=== PATIENT | male | born 1940 | race Caucasian/White ===

== ENCOUNTER 2020-10-21 10:52 | Outpatient (REF) | payer MEDICARE, OTHER, SELFPAY ==
--- NOTE | 2020-10-22 12:48 | MHC.AU.AEV ---
Adult Audiological Evaluation Date of Visit: 10/21/20 Reason for Appointment: History of hearing loss. Patient wears binaural Wilson ITC hearing aids. He arrives today to determine if there has been a change in hearing. Patient reports that without his hearing aids, he is unable to follow along in conversation. History of constant, high-pitched tinnitus. Has hearing been tested previously?: Yes Previous Hearing Test Results: Tested at the [facility] (date of exam could not be found on the information provided)- Mild to moderately-severe sensorineural hearing loss bilaterally Hearing Handicap Inventory Does a hearing problem cause you to feel embarrassed when meeting new people?: Yes Does a hearing problem cause you to feel frustrated when talking to members of your family?: Yes Do you have difficulty when someone speaks in a whisper?: Yes Do you feel handicapped by a hearing problem?: Yes Does a hearing problem cause you difficulty when visiting friends, relatives, or neighbors?: Yes Does a hearing problem cause you to attend mu-ism service services less often than you would like?: No Does a hearing problem cause you to have arguments with family members?: No Does a hearing problem cause you difficulty when listening to TV or radio?: Yes Do you feel that any difficult with your hearing limits or hampers your personal or social life?: Yes Does a hearing problem cause you difficulty when in a restaurants with relatives or friends?: Yes HHIE SCORE: 32 Based on HHIE score, patient has: Severe perceived hearing handicap Ear History: Ear Deformity: None Reported Recent Ear Drainage: None Reported Recent Ear Pain: None Reported Recent Ear Infections: None Reported Ear Infections in Childhood: None Reported History of Ear Wax Buildup: None Reported Previous Ear Surgery: None Reported Bothersome Tinnitus/Ringing/Noises in Ears: Both Ears Ear used on the phone: Right Ear Blocked/Full Sensation in Ear(s): Both Ears History: History: Yes Branch: [employer] Years in : 4-8 Years Medical History: Medical History: Heart Problems, High Blood Pressure, Measles, Mumps Medical History: Pacemaker- 2018, Cornea Transplant 2002 Medication List: Amlodipine, Brimonidine, Eliquis, Fosrenol, Lumigan, Metoprolol, Renvela, Restasis, Sensipar Hearing Instrument History- Right Ear: Health Administrator: Wilson Model: ITC Dispensed By: [facility] Hearing Instrument History- Left Ear: Health Administrator: Wilson Model: ITC Dispensed By: [facility] Otoscopy: Right Ear: Unremarkable Left Ear: Unremarkable Tympanometry: Tympanometry performed due to: To assess integrity of the middle ear system Right Ear: Non-compliant Middle Ear System (Type B) Left Ear: Non-compliant Middle Ear System (Type B) Hearing Evaluation: Transducer(s) Used: Insert Earphones Method: Conventional Audiometry Stimuli Used: Pure Tones Right Ear: Description of Hearing: Moderate to severe sensorineural hearing loss Left Ear: Description of Hearing: Moderate to severe sensorineural hearing loss Speech Recognition Threshold (SRT): Method Used: Recorded Lists Stimuli Used: Spondee Words Right Ear: 60 dBHL Left Ear: 60 dBHL Word Discrimination: Method: Recorded Lists Word Lists Used:: NU-6 Right Ear: 84% at 85 dBHL (MCL) Left Ear: 88% at 80 dBHL (MCL) Binaural: Tested binaurally at 60 dBHL (average conversational volume): 72% Most Comfortable Level (MCL): Right Ear: 85 dBHL Left Ear: 80 dBHL QuickSIN: Tested binaurally (unaided) at 80 dBHL: 11 dB SNR Loss, which suggests moderately elevated difficulty listening in noise Aided Testing: Aided word discrimination tested in soundfield at 50 dBHL: 96% Comparison: Compared to the most recent evaluation: Thresholds have decreased bilaterally. Interpretation of Results: Patient presents with moderate to severe sensorineural hearing loss bilaterally. Given this degree of hearing loss, it is expected that he would have significant difficulty following along in a conversation without amplification. Recommendations: Audiological re-evaluation in one year. Given the decrease in his hearing, [facility]. Diagnosis: Primary Diagnosis: H90.3 Bilateral Sensorineural Hearing Loss Services Performed: Comprehensive Audiological Evaluation (CPT 47011), Tympanometry (CPT 53873) Signature: Provider: Ricki Pablo, CCC-A
== END 2020-10-21 10:53 | disposition home or self-care (01) ==
LOC: HO.SH 10:52
PROVIDERS: Visit Provider Internal Medicine
DX: H90.3 Sensorineural hearing loss, bilateral (principal)
CPT/HCPCS: 92557; 92567

== ENCOUNTER 2025-03-30 07:23 | Outpatient (REF) | payer SELFPAY ==
--- OUTSIDE RECORDS SUMMARY | 2025-03-31 07:27 | XMS_ITS | Data Portability ---
Author Organization [facility] [address], Main Office Address [address], [address] [place] [address] Care Team Providers Care Wildlife Biology Technician Name Role Phone MELISSA SHEPPARD 1ST FLOOR OTHER Assessment Encounter Date Assessment Date Assessment LastModified by Organization Details LastModified Time 11/15/2024 11/15/2024 Labs 11/08/24 CRP 14.4, ESR 107 11/14/24. Na 132, K 4.2, Bun 33, Cr 3.27. Wbc 7.4, Hgb 9.8, Plt 262. [email or web address] Not available 11/15/2024 15:15:41 12/25/2024 12/25/2024 Spent 30 reviewing records, seeing pt, consulting with staff and documenting [email or web address] Not available 12/27/2024 15:33:49 Plan of Treatment Reminders Order Date Submit Date Provider Last Modified By Organization Details Last Modified Time Details Appointments None record ed. Lab None record ed. Referral None record ed. Procedures None record ed. Surgeries None record ed. Imaging None record ed. Medication Orders None record ed. Patient TargetsNo targets recorded. Patient InstructionsNo instructions recorded. Reason for Referral None Reported. Problems Name Problem SNOMED Code Status Onset Date Resolution Date Notes Provider Name and Address Organization Details Recorded Time Lower gastrointestin al hemorrhage 14258761 Active 2024 Cisco Fontaine MD [address] [facility], [address], [place], [address], [facility] 5 10:24:56 Malignant neoplasm of colon 513295155 Active 2024 Cisco Fontaine MD [address] [facility], [address], [place], [address], [facility] 5 10:25:05 End stage renal failure on dialysis 469812958 Active 2024 Cisco Fontaine MD [address], [address], [place], [address], [facility] 5 10:25:12 Atrial fibrillation 30498500 Active 2024 Cisco Fontaine MD [address], [address], [place], [address], [facility] 5 10:25:17 Diabetes mellitus 61238126 Active 2024 Cisco Fontaine MD [address], [address], [place], [address], [facility] 5 10:25:21 Essential hypertension 31790556 Active 2024 Cisco Fontaine MD [address], [address], [place], [address], [facility] 5 10:25:27 Central sleep apnea syndrome 98324545 Active 2024 NEETU HALE [address], [address], [place], [address], [facility] 5 10:01:37 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 Medical Equipment None Reported. Allergies Allergen ID Allergen Name Allergen Category Reaction Reaction Severity Criticality Documentation Date Start Date Code Code System Note Provider Name and Address Organization Details Recorded Time 62982 Substance with sulfonami de structure and antibacte rial mechanism of action (substanc e) medicatio n itching Not available Not available 08/28/20242008 17831 8003 SNOMED Carmela Vera MD [address] [facility], [address], [place], [address], [facility] 5 14:09:56 Vitals Date Recorded Heart rate Respiratory rate Body temperature Oxygen saturation Oxygen saturation in Arterial blood by Pulse oximetry Systolic And Diastolic Provider Name and Address Organization Details Last Updated DateTime 5 68 /min 18 /min 97.9 [degF] 92 % 92 % 156/73 mm[Hg] JOAQUIN BLAND NP [address] [facility], [address], [place], [address], [facility] 5 13:41:07 Date Recorded Heart rate Respiratory rate Body temperature Oxygen saturation Oxygen saturation in Arterial blood by Pulse oximetry Systolic And Diastolic Provider Name and Address Organization Details Last Updated DateTime 5 74 /min 17 /min 98 [degF] 96 % 96 % 148/65 mm[Hg] PHANI HERRMANN CNP [address] [facility], [address], [place], [address], [facility] 5 15:03:50 Date Recorded Body height Body mass index (BMI) Body weight Heart rate Respiratory rate Body temperature Oxygen saturation Oxygen saturation in Arterial blood by Pulse oximetry Systolic And Diastolic Provider Name and Address Organization Details Last Updated DateTime 5 165.1 cm 25 kg/m2 66479.8 6 g 62 /min 18 /min 98 [degF] 95 % 95 % 127/59 mm[Hg] Carmela Vera MD [address] [facility], [address], [place], [address], [facility] 5 15:09:10 Social History Question Answer Notes LastModified by Organizat ion Details LastModified Time Tobacco Smoking Status Former Smoker Smoked 1/3 ppd from 1981- Carmela Vera MD [address] [facility], [address], [place], [address], [facility] 12/25/2024 16:08:44 Do You Have An Advance Directive? Yes Information not available 08/28/2024 What Is Your Level Of Caffeine Consumption? Occasional Information not available 09/07/2024 What Is Your Code Status? Full Code Information not available 08/28/2024 Where Do You Live? Nursinghome Now LTC At Until Safe D/c Plan Reached Information not available 12/25/2024 Legal Guardian? No Informati on not available 12/25/2024 Do You Have A Medical Power Of Legend Maker? Yes Not Invoked Information not available 12/25/2024 What Was The Date Of Your Most Recent Tobacco Screening? 09/07/2024 Information not available 09/07/2024 Do You Have An Out Of Hospital DNR? No Information not available 09/07/2024 What Is Your Relationship Status? 1st At 27 Of Breast CA, 2nd In Her 30s Of Breast CA, And 3rd In 2000 Of Lung CA Information not available 12/25/2024 How Much Tobacco Do You Smoke? No Information not available 12/25/2024 Has Tobacco Cessation Counseling Been Provided? No N/a As Pt No Longer Smokes Information not available 12/25/2024 How Many Years Have You Smoked Tobacco? 10 Information not available 12/25/2024 Sex: Unknown Functional Status Question Answer Note LastModified by Organizat ion Details LastModified Time Do you use any illicit or recreational drugs? No Information not available 12/25/2024 Do you or have you ever used any other forms of tobacco or nicotine? No Information not available 09/07/2024 What is your level of alcohol consumption? None quit in 1990 Information not available 12/25/2024 Mental Status None recorded. Family History Relationship Description Onset Age of this Age Resolved Age Notes LastModified by Organization Details LastModified Time Father No current problems or disability Not available 09/07 10:29:09 Mother No current problems or disability Not available 09/07 10:29:10 Notes:N/C Medical History No medical history recorded. Immunizations Vaccine Type Date Status Note Provider Nam e and Address Organization Details Recorded Time Td(adult) unspecified formulation 6 completed Jomar Zeuss-[place] null, [facility] 08/27/2024 13:45:20 Pneumococcal conjugate PCV 13 3 completed Jomar Jacks-[place] null, [facility] 08/27/2024 13:45:34 pneumococcal polysaccharide PPV23 7 completed Jomar Jacks-[place] null, [facility] 08/27/2024 13:45:43 SARS-COV-2 (COVID-19) vaccine, UNSPECIFIED 1 completed [facility] [facility] [place], [facility] 08/27/2024 13:45:55 SARS-COV-2 (COVID-19) vaccine, UNSPECIFIED 1 completed [employer] null, [facility] 08/27/2024 13:45:59 SARS-COV-2 (COVID-19) vaccine, UNSPECIFIED 1 completed [employer] null, [facility] 08/27/2024 13:46:05 SARS-COV-2 (COVID-19) vaccine, UNSPECIFIED 2 completed [employer] null, [facility] 08/27/2024 13:46:09 SARS-COV-2 (COVID-19) vaccine, UNSPECIFIED 2 completed Jomar kiwi666s-[place] null, [facility] 08/27/2024 13:46:13 SARS-COV-2 (COVID-19) vaccine, UNSPECIFIED 4 completed Jomar Jacks-[place] null, [facility] 08/27/2024 13:46:17 SARS-COV-2 (COVID-19) vaccine, UNSPECIFIED 4 completed Jomar Jacks-[place] null, [facility] 08/27/2024 13:46:23 zoster, unspecified formulation 1 completed Jomar Jacks-[place] null, [facility] 08/27/2024 13:46:40 zoster, unspecified formulation 2 completed Jomar pandya [place] - [facility] 08/27/2024 13:46:46 Past Encounters Encounter ID Performer Location Encounter Start Date Encounter Closed Date Diagnosis/Indication Diagnosis SNOMED-CT Code Diagnosis ICD10 Code Diagnosis IMO Codes Diagnosis Note [id number] NEETU HALE [place]AR[place] [address] [place] [address] 09/07/2024 08:53:13 09/11/2024 16:13:33 Lower gastrointestinal hemorrhage 10584109 K92.2 see hpiCTA showed no active bleed Atrial fibrillation 4943 6004 I48.91 Paroxysmal eliquis on hold until 09/10/24Hear t rate controlled .continue metoprolol follow up with cardiology as planned End stage renal failure on dialysis 530266596 N18.6 continue MWF dialysisco ntinue sevelamer 3200 mg TID with mealscont gabapentin 100 mg TID after dialysisLi docaine-Pr ilocaine External Cream 2.5-2.5 % before HDavoid nephrotoxi c medsdiscus sed with nursing to give metoprolol after dialysis Diabetes mellitus 129947 09 E11.9 no current accuchecks in pccwill add TID for 1 week with lispro SSCwill change to weekly is accuchecks are stable under 200s Essential hypertension 65610551 I10 HX pacemakerm etoprolol initial held in acute care for soft BP /discharge d on 12.5 mg qd and 25 mg qpmSBP now noted mainly 170-180swi ll increase metoprolol to 25 mg BID with parameter to hold for SBP less than 120 and HR less than 60 Central sl eep apnea syndrome 12491725 G47.37 with milo Grullon respiratio ncontinue CPAP Malignant neoplasm of colon 583047801 C18.9 Colonoscop y revealed a 3 cm mass in the ascending colon was biopsied. Path ultimately showed tubulovill ous adenomatou s fragments. He was evaluated by general surgery and several days later had repeated rectal bleeding. He underwent a repeat colonoscop y on 08/20 which time a 35 mm polyp in the proximal ascending colon was resected with residual polyp ablated and clipped. Asthenia 92566153 R53.1 PT/OT eval and txMorse 10maintain ed safety [id number] MD MELISSA Mohr [place] [address] [facility] [place] [address] 09/10/2024 09:42:06 09/12/2024 08:35:01 Lower gastrointestinal hemorrhage 98847156 K92.1 see HPI with recurrent bleedsecon dylan to new dx colon cancertx with pRBCmonito r cbceliquis initially held then restarted in hospital with prior bleed now with recurrent bleed to restarteli cade 2.5 mg bidd/c AC for any signs of bleeding Malignant neoplasm of colon 482817141 C18.8 new dx for patienttub ulovillous adenoma with multiple polyps excised to have repeat colonoscop y in 3 monthsEval by surgery now to f/u out patient for treatment optionscoo rdinate care after treatment options determined Acute post hemorrhagic anemia 664752686 D62 see abovemonit or cbciron studies prn Asthenia 87177091 R53.1 PT OT eval and treatmonit or fall risk and need for increased support in community End stage renal failure on dialysis 067007819 N18.6 HD on T/T/Sadded to PMHcoordin ate with nephroupda te with concerns Atrial fibrillation 4943 6004 I48.0 eliquis initially held then restarted in hospital with prior bleed now with recurrent bleed to restarteli cade 2.5 mg bidmetopro lol 25 mg qhs and 12.5 mg qammonitor for rate controld/c AC for any signs of bleeding Diabetes mellitus 998715 09 E11.21 carrying dxappears diet controlled at this timeblood glucose prn Essential hypertension 80988620 I10 metoprolol 25 mg qhs and 12.5 mg qammonitor bp and need to titrate Peripheral neuropathy due to type 2 diabetes mellitus 4901723668 107 E11.42 gabapentin 100 mg 3 days per week after HD Acute cough 6207525644 68643586 R05.1 non productive reassess with cxr [id number] KATHARINE STAUFFER [place] [address] [facility] [place] [address] 09/17/2024 08:54:55 09/24/2024 11:21:13 Lower gastrointestinal hemorrhage 65309493 K92.1 No bleeding noted since he admitted to facility.s ee HPI with recurrent bleedsecon dylan to new dx colon cancertx with pRBCH/H stable. continue monitor cbceliquis initially held then restarted in hospital with prior bleed now with recurrent bleed to restarteli cade 2.5 mg bidd/c AC for any signs of bleeding Atrial fibrillation 4943 6004 I48.0 HR stable.magy cade initially held then restarted in hospital with prior bleed now with recurrent bleed to restarteli cade 2.5 mg bidmetopro lol 25 mg qhs and 12.5 mg qammonitor for rate controld/c AC for any signs of bleeding Malignant neoplasm of colon 462658376 C18.8 new dx for patienttub ulovillous adenoma with multiple polyps excised to have repeat colonoscop y in 3 monthsEval by surgery now to f/u out patient for treatment optionscoo rdinate care after treatment options determined monitor any signs of bleeding. Acute post hemorrhagic anemia 791394703 D62 see aboveH/H stable.mon itor cbciron studies prn Asthenia 76570648 R53.1 continue PT OT eval and treatmonit or fall risk and need for increased support in community End stage renal failure on dialysis 903756370 N18.6 HD on T/T/Sadded to PMHcoordin ate with nephroupda te with concerns Diabetes mellitus 727235 09 E11.21 carrying dxappears diet controlled at this timeblood glucose prn Essential hypertension 36620649 I10 metoprolol 25 mg qhs and 12.5 mg qammonitor bp and need to titrateadd ed PRN clonidine, 0.1 mg BID with parameters . Peripheral neuropathy due to type 2 diabetes mellitus 3624909531 107 E11.42 gabapentin 100 mg 3 days per week after HD [id number] PHANI HERRMANN, KATHARINE TORRES VALARIE [address] [place] [address] rd [place] [address] 09/24/2024 08:48:37 09/30/2024 08:20:27 Lower gastrointestinal hemorrhage 58319534 K92.1 resolved.N o bleeding noted since he admitted to facility.s ee HPI with recurrent bleedsecon dylan to new dx colon cancertx with pRBCH/H stable. continue monitor cbceliquis initially held then restarted in hospital with prior bleed now with recurrent bleed to restarteli cade 2.5 mg bidcontinu e monitor s/s of bleeding. and will d/c AC for any signs of bleeding Atrial fibrillation 4943 6004 I48.0 HR stable, 60-70s.magy cade initially held then restarted in hospital.n ow he is on eliquis 2.5 mg bidmetopro lol 25 mg qhs and 12.5 mg qammonitor for rate controld/c AC for any signs of bleeding Malignant neoplasm of colon 130298152 C18.8 new dx for patienttub ulovillous adenoma with multiple polyps excised to have repeat colonoscop y in 3 monthsEval by surgery now to f/u out patient for treatment optionscoo rdinate care after treatment options determined monitor any signs of bleeding. Acute post hemorrhagic anemia 164728144 D62 see aboveH/H stable.mon itor cbciron studies prn Asthenia 41601983 R53.1 improving, continue PT OT eval and treatmonit or fall risk and need for increased support in community End stage renal failure on dialysis 032773494 N18.6 HD on T/T/Sadded to PMHcoordin ate with nephroupda te with concerns Diabetes mellitus 922558 09 E11.21 carrying dxappears diet controlled at this timeblood glucose prn Essential hypertension 00091619 I10 metoprolol 25 mg qhs and 12.5 mg qammonitor bp and need to titrateadd ed PRN clonidine, 0.1 mg BID with parameters . Peripheral neuropathy due to type 2 diabetes mellitus 3931457376 107 E11.42 gabapentin 100 mg 3 days per week after HD [id number] PHANI HERRMANN[facility] [address] [place] [address] [place] [address] 10/01/2024 09:07:03 10/07/2024 11:05:33 Lower gastrointestinal hemorrhage 18880388 K92.1 resolved.H /H stable. continue monitor cbc No bleeding noted since he admitted to facility.s ee HPI with recurrent bleedsecon dylan to new dx colon cancertx with pRBCeliqui s initially held then restarted in hospital with prior bleed now with recurrent bleed to restarteli cade 2.5 mg bidcontinu e monitor s/s of bleeding. and will d/c AC for any signs of bleeding Atrial fibrillation 4943 6004 I48.0 HR stable, 60-70s.magy cade initially held then restarted in hospital.n ow he is on eliquis 2.5 mg bidmetopro lol 25 mg BIDmonitor for rate controld/c AC for any signs of bleeding Malignant neoplasm of colon 697575303 C18.8 new dx for patientsta ble no bleeding notedtubul ovillous adenoma with multiple polyps excised to have repeat colonoscop y in 3 monthsEval by surgery now to f/u out patient for treatment optionscoo rdinate care after treatment options determined monitor any signs of bleeding. Acute post hemorrhagic anemia 853302752 D62 see aboveH/H stable.mon itor cbciron studies prn Asthenia 21027968 R53.1 improving, continue PT OT for strength, safety and gait trainingmo nitor fall risk and need for increased support in community End stage renal failure on dialysis 282735891 N18.6 HD on T/T/Sadded to PMHcoordin ate with nephroupda te with concerns Diabetes mellitus 803983 09 E11.21 carrying dxappears diet controlled at this timeblood glucose prn Essential hypertension 44179179 I10 metoprolol 25 mg BIDmonitor bp and need to titratePRN clonidine, 0.1 mg BID with parameters . Peripheral neuropathy due to type 2 diabetes mellitus 0964690940 107 E11.42 Discontinu e gabapentin 100 mg 3 days per week after HD.Start gabapentin 100 mg daily, PRNmonitor for the effectiven ess. [id number] PHANI HERRMANN, KATHARINE TORRES VALARIE [address] [place] [address] [place] [address] 10/08/2024 09:12:52 10/10/2024 14:09:41 Lower gastrointestinal hemorrhage 82116461 K92.1 resolved.H /H improving. continue monitor cbc No bleeding noted since he admitted to facility.s ee HPI with recurrent bleedsecon dylan to new dx colon cancertx with pRBCeliqui s initially held then restarted in hospital with prior bleed now with recurrent bleed to restartcon tinue eliquis 2.5 mg bidcontinu e monitor s/s of bleeding. and will d/c AC for any signs of bleeding Atrial fibrillation 4943 6004 I48.0 HR controlled , 60-70s.magy cade initially held then restarted in hospital.n ow he is on eliquis 2.5 mg bidmetopro lol 25 mg BIDmonitor for rate controld/c AC for any signs of bleeding Malignant neoplasm of colon 890484935 C18.8 new dx for patientsta ble no bleeding notedtubul ovillous adenoma with multiple polyps excised to have repeat colonoscop y in 3 monthsEval by surgery now to f/u out patient for treatment optionscoo rdinate care after treatment options determined monitor any signs of bleeding. Acute post hemorrhagic anemia 711106808 D62 see aboveH/H stable.mon itor cbciron studies prn Asthenia 43591786 R53.1 improving, continue PT OT for strength, safety and gait trainingmo nitor fall risk and need for increased support in community End stage renal failure on dialysis 555719511 N18.6 HD on T/T/Sadded to PMHcoordin ate with nephroupda te with concerns Diabetes mellitus 454370 09 E11.21 carrying dxappears diet controlled at this timeblood glucose prn Essential hypertension 29513619 I10 BP stablemeto prolol 25 mg BIDmonitor bp and need to titratePRN clonidine, 0.1 mg BID with parameters . Peripheral neuropathy due to type 2 diabetes mellitus 8200614688 107 E11.42 stable,He uses gabapentin 100 mg daily, PRNmonitor for the effectiven ess [id number] PHANI HERRMANN, KATHARINE SHEPPARD [address] [place] [address] 10/15/2024 09:10:31 10/17/2024 12:51:30 Lower gastrointestinal hemorrhage 51586542 K92.1 resolved.H /H improving. hgb 10 on 10/06, continue monitor cbc No bleeding noted since he admitted to facility.s ee HPI with recurrent bleedsecon dylan to new dx colon cancertx with pRBCeliqui s initially held then restarted in hospital with prior bleed now with recurrent bleed to restartcon tinue eliquis 2.5 mg bidcontinu e monitor s/s of bleeding. and will d/c AC for any signs of bleeding Atrial fibrillation 4943 6004 I48.0 HR controlled , 60-70s.magy cade initially held then restarted in hospital.n ow he is on eliquis 2.5 mg bidmetopro lol 25 mg BIDmonitor for rate controld/c AC for any signs of bleeding Malignant neoplasm of colon 610211258 C18.8 new dx for patientsta ble no bleeding notedtubul ovillous adenoma with multiple polyps excised to have repeat colonoscop y in 3 monthsEval by surgery now to f/u out patient for treatment optionscoo rdinate care after treatment options determined monitor any signs of bleeding. Acute post hemorrhagic anemia 396925116 D62 see aboveH/H stable.mon itor cbciron studies prn Asthenia 92621186 R53.1 improving, continue PT OT for strength, safety and gait trainingmo nitor fall risk and need for increased support in community End stage renal failure on dialysis 874168819 N18.6 HD on T/T/Sadded to PMHcoordin ate with nephroupda te with concerns Diabetes mellitus 600342 09 E11.21 carrying dxappears diet controlled at this timeblood glucose prn Essential hypertension 12972719 I10 BP goal for this elderly man is permissive HTN with SBP <150 and DBP <90.contin uemetoprol ol 25 mg BIDmonitor bp and need to titratePRN clonidine, 0.1 mg BID with parameters . Peripheral neuropathy due to type 2 diabetes mellitus 7638148875 107 E11.42 stable,He uses gabapentin 100 mg daily, PRNmonitor for the effectiven ess [id number] Cisco [facility] [address] [address] 10/28/2024 09:41:39 10/30/2024 03:51:00 Diabetes mellitus 09472609 E11.21 chart noteDM with neuropathy with increased paindiscus sed with PCPwill increase gabapentin to 200 mg 3 x per week after HDmonitor for effect [id number] TOMI GONZALEZ [address] [place] [address] 10/30/2024 12:29:58 11/04/2024 15:09:47 Lower gastrointestinal hemorrhage 52796940 K92.1 resolved.H gb. 11 on 10/13.No s/s active bleedingVS S.Continue s eliquis 2.5 mg bidIf bleeding restarts, will need to stop AC Atrial fibrillation 4943 6004 I48.0 HR controlled , 60-70s.Con tinue:eliq uis 2.5 mg bid - stop if GI bleeding recursmeto prolol 25 mg BIDmonitor VSAdjust meds prn Malignant neoplasm of colon 331460399 C18.8 New dx. - tubulovill ous adenoma with multiple polyps excised.GI following, due for repeat colonoscop y 11/19Follow up out patient for treatment optionscoo rdinate care after treatment options determined monitor any signs of bleeding. Acute post hemorrhagic anemia 702455477 D62 see aboveH/H improvingm onitor cbciron studies prn Asthenia 64240085 R53.1 improved, but has not made enough progress to return home unless 24 hr. care provided.W ill be staying private pay for a few more weeks.Knee pain limiting mobility, sched. for knee injections at [facility] on 11/28Curren tly off rehab, will re-screen post knee injections .Now on gabapentin 100 mh 3x wk after dialysis, reassess in 1 wkMonitor End stage renal failure on dialysis 011659321 N18.6 [facility] with concerns Diabetes mellitus 402279 09 E11.21 carrying dxappears diet controlled at this time, but did have an elevated BS on 10/19 when fell.Check BS bid x 1 wk, then re-evalCon biller A1C Essential hypertension 23529589 I10 BP goal for this elderly man is permissive HTN with SBP <150 and DBP <90.contin uemetoprol ol 25 mg BIDmonitor bp and need to titratePRN clonidine, 0.1 mg BID with parameters . Peripheral neuropathy due to type 2 diabetes mellitus 2034845141 107 E11.42 Now on sched. gabapentin 100 mg 3x wk after dialysis - trial x 1 wk, then re-eval.Marquez lopez [id number] Cisco Fontaine MD [address] [place] [address] 11/07/2024 16:35:14 11/11/2024 11:41:58 Skin ulcer 78815744 L98.429 [id number] by report over past 24 hours developed severe sacral ulcerpurul ent discharge prior with concern for fecal mattercont inued discharge unable to determine depth with concern for fistula formationt o ED for eval and surgical consult [id number] PHANI HERRMANN, KATHARINE TORRES VALARIE [address] [place] [address] rd [place] [phone] 11/15/2024 14:47:20 11/18/2024 13:49:07 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 followed by wound care.pain management with PRN oxycodone. Atrial fibrillation 4943 6004 I48.0 HR controlled , 60-70s.Con tinue:eliq uis 2.5 mg BID - stop if GI bleeding recursmeto prolol 25 mg dailymonit or VSAdjust meds prn Malignant neoplasm of colon [id number] C18.8 New dx. - tubulovill ous adenoma with multiple polyps excised.GI following, due for repeat colonoscop y 11/19Follow up out patient for treatment optionscoo rdinate care after treatment options determined monitor any signs of bleeding. Acute post hemorrhagic anemia [id number] D62 See aboveH/H stablemoni tor cbciron studies prn Asthenia [id number] R53.1 PT and OT evaluation and treatment End stage renal failure on dialysis [id number] N18.6 HD on T/T/SConti nue renal medsUpdate Dialysis team with concerns Diabetes mellitus 922236 09 E11.21 carrying dxon lantus 8 units at bedtime.Ch courtney BS TID with ins s/s Essential hypertension 34234411 I10 BP goal for this elderly man is permissive HTN with SBP <150 and DBP <90.contin uemetoprol ol 25 mg dailymonit or bp and need to titratePRN clonidine, 0.1 mg BID with parameters . 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 Atrial fibrillation 4943 6004 I48.0 Rate in good control on meds as above.Cont inue eliquis 2.5 mg BID for AC.Monitor HR and bleeding risk.No further bleeding since last hospitaliz ation. Acute post hemorrhagic anemia 533650323 D62 Hgb dropped when inpt for wound care, but has been stable since return.Mon itor labs. Asthenia [id number] R53.1 Continues to be unable to transfer without assist.Not safe to live at home.He has plateaued in rehab and was d/c from services yesterday. He will be transition ing to LTC until he can arrange transfer to the [facility] or can arrange 24 hr care at home.Resta rt PT/OT prnContinu e fall precaution s.Monitor for safety. End stage renal failure on dialysis 319843485 N18.6 Z99.2 Continue dialysis 3x/wk.Cont inue nephro vitamins qd.Continu e to avoid nephrotoxi c meds as able.Monit or labs.Renal f/u as planned Diabetes mellitus 174862 09 E11.21 E11.42 Z79.4 Last HgA1C was 8.3 in 10/2024 when inpt at [facility].Sugars here look to be in pretty good control, mostly <200 and rarely >250.Charmaine nue Lantus 8 U qhs and SSI.Contin ue gabapentin 100 mg qhs for neuropathy .Monitor fingerstic ks TID and HgA1C q 3 months.Mon itor neuropathy sxs and need for increasing gabapentin . Essential hypertension 00397443 I10 BP more often low than high, but no sxs.Contin ue metoprolol 25 mg qd.Also has an order for clonidine 0.1 mg q 12 hrs prn for SBP > 180, or DBP > 110. (Do not administer if HR < 55 BPM.) But hasn't needed this in quite a while.BP goal for this elderly man is permissive HTN with SBP <150 and DBP <90.Monito r BP and labs. Central sl eep apnea syndrome 87974020 G47.37 With hx of Milo Grullon respiratio nContinue CPAP with sleep.Lisa tor resp status. Adenomatou s polyp of colon 990700019 D12.2 [id number] Multiple polyps, one + for tubulovill ous adenoma and many fragments with adenomatou s changes.Mo nitor any signs of bleeding.F /U with GI as planned. Chronic di astolic heart failure 888789229 I50.32 [id number] Echo in 08/2024 showed EF of 50-55% and grade 2 diastolic dysfunctio n.Continue meds as above.Flui d balanced at dialysis.F /U with cardio as planned. Iatrogenic hypotension 067286653 I95.81 [id number] With hypotensio n after dialysis at times.Cont inue midodrine 5 mg q 8 hrs prn *DO NOT GIVE AFTER DINNER OR WITHIN 4 HOURS OF SLEEP*Lisa tor BP and sxs. History of lower gastrointestinal bleed [id number] 97459 Z87.19 0258147 Resolved.M onitor for recurrence .F/U with GI as planned Health Concerns Section Related Observation LastModified by Organization Detai ls LastModified Time None Recorded Concern Status LastModified by Organization Details LastModified Time None Recorded Advance Directives Directive Y: Payers Insurance Date Sequence Insurance Name Policy Number Policy Jarrell Covered Member ID Jarrell Member ID Guarantor Name 12/25/2024 2 [facility] IN[facility] (INDEMNITY) [id number] Michoacano Goyal [id number] Micho[place]ano Goyal 12/25/2024 1 MEDICARE B-[place]: [employer] Michoacano Goyal [id number] Michoacano Goyal Notes Date Note Type Note Provider Name and Address Organization Details Recorded Time 10/28/2024 text/html Chart note discussed with PCP Cisco Fontaine MD [address] [place] [address], [address], [place], [address], [facility] 10/28/2024 09:43:14 10/30/2024 text/html ROS as noted in the HPI Michoacano is seen today for an acute visit. He was considering discharge at the end of the week, but has decided to stay for now private pay for the next month or so, until he can get his knees injected at [facility] (sched. for 11/28) and retry with rehab. Right now, he still requires assist and would need 24 hr care at home if discharged. Case discussed with nsg - starting with boggy heels and sacral irritation, started skin prep and barrier cream as well as pressure relief. Gabapentin now scheduled after dialysis, 100 mg, for pain mgmt. On daily Nepro for nutritional supplement. Continues with dialysis, no concerns. No active bleeding.VSS, BP tends to run on the higher side.Last BS 300s, checked when pt. fell 10/19. No other BS recorded.CBC 10/13 stable. Upon exam, Michoacano is up in his w/c, alert, NAD. He is feeling ok, concerned about his skin issues. No SOB, CP, GI or complaints. Appetite fair, depends on the food. No issues with dialysis. PMH: recent lower GI bleed, paroxysmal A-fib on apixaban, end-stage renal disease on HD, CHERYL on CPAP, and DM2.Full code JOAQUIN BLAND NP [address] [facility], [address], [place], [address], [facility] 10/30/2024 13:54:19 11/07/2024 text/html Patient is an 84 yo male resident seen for acute rounding at request of nursing. Patient over last 24 hours has developed sacral ulcer with drainage. Cisco Fontaine MD [address] [facility], [address], [place], [address], [facility] 11/07/2024 16:41:20 11/15/2024 text/html Michoacano seen today for readmission. Pt is 84 y/o male, admitted from hospital after presenting with worsening sacral wound, signs concerning for deep infection and possible concern for osteomyelitis initially.His inflammatory markers are significantly elevated.Blood cultures were obtained at [facility] on 11/07, negative to dateSacral wound growing E. coli, rare Enterococcus faecalis sensitive.Seen by general surgery in consult. S/p debridement of sacral wound on 11/09/2024. As per operative report, patient found to have stage III sacral ulcer, with no exposed bones, and osteomyelitis ruled out. The wound care consulted, and wound VAC was placed. Seen by infectious disease in consult. Continue Unasyn in hospital and transitioned to Augmentin, to complete a 7 to 10-day course, starting 11/09/2024. Augmentin until 11/19/2024. Upon assessment today, denies any pain related to the sacral wound area. The wound vac intact. Pt uses wedge pillow for positioning. No acute concerns reported. PHANI HERRMANN, CORE DRILLER HELPER [address] [facility], [address], [place], [address], [facility] 11/17/2024 11:06:01 12/25/2024 text/html I am seeing this 84 yo man with ESRD on dialysis, today for a routine MD 60/90 day visit and in anticipation of transition of care to new medical team.He was originallyadmitted to on 08/26 after a hospitalization at [facility]. He wasinitially admitted to [facility] from 08/15/2024 through 08/26/2024presenting with coffee ground emesis and melena. CT abdomen and pelvis revealed rectal thickening suggesting proctitis and a possible mass. The mass was biopsied and pathology ultimately showed tubulovillous adenomatous fragments. He was evaluated by general surgery and several days later had repeated rectal bleeding. Repeat colonoscopy revealed a polyp in the proximal ascending colon that was resected. He was discharged to [facility] facility on 08/26/2024 and then returned to [facility] ED one day later with a recurrent bleeding after anticoagulation was restarted at [facility]. Upon arrival to the ED, he had five bowel movements with blood and clots and became hypertensive.He was given packed red blood cells on 08/28/2024 and 09/01/2024. CTA showed no active hemorrhage. GI was re-consulted and conservative management was recommended. GI recommended holding apixaban until at least 09/10/2024. [facility] care and rehabilitation secondary to deficits in mobility and ADL's.The patient wastransferred to [facility] on 11/07/2024 due to concerns of a very worsening sacral decubitus ulcer, infection and possible osteomyelitis. He was transferred to [facility] from [facility] on 11/08/2024. The sacral wound was growing E. coli and he underwent debridement on 11/09/2024. 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 He was treated with antibiotics. The patient wastransferred back to [facility] on 11/14/2024for senior care care and rehabilitation Blood cxs remained neg. Txed with Unasyn and then transitioned to Augmentin.Since return from last hospitalization he has been stable. He continues to be followed by wound care for his sacral decub. Sunny vasquez states it is improving. He continues to have issues with his knees and has had 3 Euflexxa inj at ortho 3 times over the month of November. These helped his pain, but knees continue to be weak and go out on him.Last care mtg stated:transfer - CERTIFIED INCOME TAX PREPAR[facility] WITH MOD, 3 SECONDSamb - NONEUB - MINLB - MAXKNEES CONTINUE TO BUCKLE POST INJECTION.HD THREE TIMES WEEKLY.toilet - MAX Per last case management note, he will be staying here LTC until safe d/c plan is in place. He can no longer live alone and he is putting in an application to the [facility].He tells me he plans to go home with 24 hr care, but [facility], but then they always put people in place really quickly.He asks for ok to use Qptc-L-Rjedh cream on knees, which he has used for years and works well (menthol, camphor and salicylic acid);He also says that when pain was bad at home he took Aleve, only a couple of times/month. He says that renal doc told him this was ok. His PMH includes ESRD on dialysis, Afib on Eliquis, SSS with pacemaker, HTN, AODM, CHERYL on CPAP, and hx of GI bleed from polyps and then recurrent-unknown cause. Carmela Vera MD [address] [place] [address], [address], [place], [address], [facility] 12/27/2024 15:34:01
--- OUTSIDE RECORDS SUMMARY | 2025-03-31 07:27 | XMS_ITS | Encounter Summary ---
Author Organization [facility], Address [address] [place] [address] Phone Care Team Providers Care Lead Mechanic Name Role Phone King Mendoza MD Primary Care Prov ider Encounter Details Date Type Department Care Team (Late st Contact Info) Description 10/25/2023 Documentation Only [facility] - [facility] [address] [place] [address] Rama Zee [address] [place] [address] Social History Tobacco Use Types Packs/Day Years Used Date Smoking Tobacco: Former Cigarettes Q uit: 05/01/1992 Smokeless Tobacco: Never Comments:Smoking History Inf o:Unknown Alcohol Use Standard Drinks/Week Comments Not Currently 0 (1 standard drink = 0.6 oz pure alcohol) Quit 1990 per patient Alcoholic Drinks/day: Occasional social drink Sex and Gender Information Value Date Recorded Sex Assigned at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 Legal Sex Male 4:34 PM EST Gender Identity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 Sexual Orientation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 documented as of this encounter Plan of Treatment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 documented as of this encounter Visit Diagnoses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documented in this encounter Care Teams Lead Mechanic Relationship Specialty Start Date End Date King Mendoza MD [address] [place] [phone] PCP - General 04/15/19 documented as of this encounter
--- OUTSIDE RECORDS SUMMARY | 2025-03-31 07:28 | XMS_ITS | Encounter Summary ---
Author Organization [facility], Address [address] [place] [address] Phone Care Team Providers Care Research Physicist Name Role Phone King Mendoza MD Primary Care Prov ider Encounter Details Date Type Department Care Team (Late st Contact Info) Description 11/21/2024 Documentation Only [facility], [address] [place] [phone] Regan Schulz MD [address] [place] [address] Social History Tobacco Use Types Packs/Day Years [...] on filedocumented in this encounter Care Teams Research Physicist Relationship Specialty Start Date End Date King Mendoza MD [address] [place] [phone] PCP - General 04/15/19 documented as of this encounter
--- OUTSIDE RECORDS SUMMARY | 2025-03-31 07:28 | XMS_ITS | Clinical Summary ---
Author Organization [facility], Address [address] [place] [address] Phone Care Team Providers Care Residential Program Manager Name Role Phone King Mendoza MD Primary Care Prov ider Allergies Active Allergy Reactions Criticality Noted Date Comments Sulfa Antibiotics Itching,Shortness of breath High 1 08/01/2008 Medications dorzolamide-yasir olol (COSOPT) 22.3-6.8 MG/ML ophthalmic solution Administer 1 drop into the left eye 2 (two) times a day At night Active cinacalcet (SENSIPAR) 30 MG tablet Take 1 tablet by mouth 1 (one) time each day At dinner Active lidocaine-prilo sukhjinder (EMLA) cream APPLY SMALL AMOUNT TO ACCESS SITE (AVF) 1 TO 2 HOURS BEFORE DIALYSIS. COVER WITH OCCLUSIVE DRESSING (SARAN WRAP) 1 Active metoprolol tartrate 25 MG tablet Take 1 tablet by mouth in the morning and 1 tablet in the evening. 9 Active sevelamer carbonate (RENVELA) 800 MG tablet Take 4 tablets by mouth 3 (three) times a day with meals 6 Active Eliquis 2.5 MG tablet 2 (two) times a day 2 Active brimonidine (ALPHAGAN) 0.2 % ophthalmic solution 1 drop every night Active diclofenac (VOLTAREN) 0.1 % ophthalmic solution 1 drop in the morning and 1 drop at noon and 1 drop in the evening and 1 drop before bedtime. 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 This is likely related to his diabetes and should resolve spontaneously, but it may take a few months. He will follow-up as planned with ophthalmology Disorder of skull 02/10/2022 Overview (03/30/2022): Multiple lucencies incidentally seen on January 2022 Last Assessment & Plan: Possible multiple myeloma. Protein electrophoresis did not show monoclonal spike. I have referred him to oncology for evaluation. Generalized osteoarthritis 09/08/2021 Carpal tunnel syndrome of right wrist 09/01/2021 Overview (09/08/2021): Last Assessment & Plan: He is awaiting EMG to be done at [facility] and then will follow- up for management with me in orthopedics Hyperparathyroidism 06/09/2021 Neuropathy due to diabetes mellitus 06/09/2021 Primary gonarthrosis, bilateral 08/11/2020 Overview (06/09/2021): Injections managed by [facility]. Last Assessment & Plan: Try extended release acetaminophen. If this is helpful we may be able to avoid injections. If not follow-up with [facility]. Sensorineural hearing loss, bilateral 05/13/2020 Overview (06/09/2021): Last Assessment & Plan: Patient will call if he wants a referral to audiology for second opinion. Anemia in chronic kidney disease 08/07/2019 Blood coagulation disorder 08/07/2019 Proteinuria 08/07/2019 Pure hypercholesterolemia 08/07/2019 Cardiac pacemaker in situ 08/07/2019 End-stage renal disease 12/05/2017 Overview (08/07/2019): - volume status is acceptable, lytes in the right order - no need for urgent HD today - will get PPM today - HD tomorrow and then on Sunday to put back on MWF schedule - will pull around 2L today - blood count is stable, RON d/c - Ca, phosphorus are o'k Last Assessment & Plan: - volume status is acceptable, - no need for urgent HD today, will get dialysis tomorrow - HD tomorrow and then on Sunday to put back on MWF schedule 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 Glaucoma 12/04/2017 Overview (06/09/2021): Last Assessment & Plan: I saw in cardiology's outpatient note that there was some concern about the beta aleyda eyedrops. I will hold this and continue his others with formulary alternatives as necessary. Last Assessment & Plan: I saw in cardiology's outpatient note that there was some concern about the beta aleyda eyedrops. I will hold this and continue his others with formulary alternatives as necessary. Complete heart block 12/04/2017 Overview (12/23/2019): Last Assessment & Plan: Heart block has required maker which is now in and functioning well. This is interrogated remotely. Hyperkalemia 09/27/2017 Type 2 diabetes mellitus 08/11/2017 Overview (05/11/2020): Last Assessment & Plan: Hemoglobin A1c should be less than 7 and LDL less than 70 mg/dL given the diabetes. DIABETES HISTORY Diagnosis - type 2 since age 49 Treatment history - insulin since age 59; off insulin/antihyperglycemic meds since summer 2015 Last Assessment & Plan: Excellent control overall, healthy lifestyle Encouraged to continue sporadic glucose monitoring Will continue to be off antihyperglycemic meds Al feels he will not consider transplant due to effects of antirejection medications, we also discussed the blood sugar effects of these medications We discussed flu vaccine, Al has had severe reaction to preparations in the past; advised to take care with hand washing Encouraged to call with any questions or concerns Last Assessment & Plan: Most recent A1c on file remains in excellent range, goal is <7% Has been eating more consistently around limitations of pandemic, able to mare more regular intake even on dialysis days when previously it was more difficult du eto not being able to eat at dialysis any longer, weight has improved Continues to not self monitor blood sugars, we had discussed that if he does feel any symptoms which may be suggestive of hypoglycemia he should self monitor, we discussed that this is generally unlikely since he is not on medications which would put him at risk for low blood sugar Encouraged to continue efforts at healthy lifestyle Advised to call with any questions or concerns DIABETES HISTORY Diagnosis - type 2 since age 49 Treatment history - insulin since age 59; off insulin/antihyperglycemic meds since summer 2015 Last Assessment & Plan: Excellent control No meds Encouraged to continue healthy lifestyle Advised to call with any questions or concerns Type 2 diabetes mellitus with diabetic polyneuro nini 08/11/2017 Overview (12/29/2021): DIABETES HISTORY Diagnosis - type 2 since age 49 Treatment history - insulin since age 59; off insulin/antihyperglycemic meds since summer 2015 Last Assessment & Plan: A1c may be inaccurate in setting of CKD and anemia, this has been stable for long time however significant rise in A1c indicates a need to assess glucose patterns We had discussed CGM pro at our last visit, however we did not receive any data to review from this, we will revisit this again if needed, in the meantime Al is encouraged to self monitor blood sugars, his reported readings are in good range 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 Continue the same. Last Assessment & Plan: He is on dialysis and tolerating it well 3 times a week Started dialyis 2014 Last Assessment & Plan: Doing well with dialysis. Continue the same. Started dialyis 2014 Last Assessment & Plan: Doing well with dialysis. Continue the same. Essential hypertension 05/15/2017 Overview (05/11/2020): Last Assessment & Plan: Perfectly controlled to the guidelines Last Assessment & Plan: Excellent control of blood pressure Contact with and (suspected) exposure to tubercu losis 12/16/2014 Heart failure 11/16/2014 Secondary hyperparathyroidism of renal origin Atrial arrhythmia 02/24/2014 Overview (06/09/2021): Last Assessment & Plan: Well-controlled, continue current medication. Hoarseness 12/08/2011 Overview (06/09/2021): Hoarseness Hoarseness Indigestion 12/08/2011 Overview (06/09/2021): Dyspepsia Dyspepsia Resolved Problems Problem Noted Date Diagnosed Date Resolved Date Primary gonarthrosis, bilateral 08/11/2020 09/08/2021 Overview (09/08/2021): Injections managed by [facility]. Last Assessment & Plan: He is doing reasonably well. He has had no falls. He will continue using a cane and has injections at my orthoped[facility] as needed. Dependence on renal dialysis 08/07/2019 06/14/2021 H/O: cardiac pacemaker in situ 12/08/2017 09/08/2021 Overview (06/09/2021): Last Assessment & Plan: This patient had complete heart block requiring a permanent pacer which we follow in our remote clinic which has been working quite well he also has PAF on Eliquis 2.5 twice a day Encounters Date Type Department Care Team Description 03/24/2025 Treatment [facility], [address] [place] [address] Blu Bertrand MD End stage renal disease; Dependence on renal dialysis 03/03/2025 Treatment [facility], [address] [place] [address] Blu Bertrand MD End stage renal disease; Dependence on renal dialysis 01/27/2025 Treatment [facility], [address] [place] [address] Blu Bertrand MD End stage renal disease; Dependence on renal dialysis 12/30/2024 Treatment [facility], [address] [place] [address] Blu Bertrand MD End stage renal disease; Dependence on renal dialysis from Last 3 Months Family History Relation Status Comments Father Mother Social History Tobacco Use Types Packs/Day Years Used Date Smoking Tobacco: Former Cigarettes Q uit: 05/01/1992 Smokeless Tobacco: Never Tobacco Cessation:Counseling Given: Not Answered Comments:Smoking History Info:Unknown Alcohol Use Standard Drinks/Week Comments Not Currently 0 (1 standard drink = 0.6 oz pure alcohol) Quit 1990 per patient Alcoholic Drinks/day: Occasional social drink Sex and Gender Information Value Date Recorded Sex Assigned at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 Legal Sex Male 4:34 PM EST Gender Identity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 Sexual Orientation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 Last Filed Vital Signs Vital Sign Reading Time Taken Comments Blood Pressure 161/78 10/25/2023 8:21 AM EDT Pulse 61 10/25/2023 8:21 AM EDT Temperature 36.7 C (98 F) 10/25/2023 8:21 AM EDT Respiratory Rate 16 02/22/2023 12:10 PM EDT Oxygen Saturation 100% 10/25/2023 8:21 AM EDT Inhaled Oxygen Concentration - - Weight 75.3 kg (166 lb) 10/25/2023 8:21 AM EDT Height 172.7 cm (5' 8 ) 10/25/2023 8:21 AM EDT Body Mass Index 25.24 10/25/2023 8:21 AM EDT Plan of Treatment Health Maintenance Due Date Last Done Comments Hepatitis B Vaccine (1 of 5 - Risk Dialysis 4-dose series) 1960 08/29/2019, 05/04/2019, 04/04/2019, Additional history exists Diabetes: Pedal Pulse Checked 08/07/2019 Diabetes: Sensory Foot Exam 08/07/2019 Diabetes: Visual Foot Exam 08/07/2019 Diabetes: Hemoglobin A1C 08/26/2024 024, 02/27/2024, 11/28/2023, Additional history exists Influenza Vaccine (#1) 2025 Diabetes: Ophthalmology Exam 04/15/2025 04/15/2024 Pneumococcal Vaccine: 50+ Years Completed 07/10/2022, 07/08/2021, 09/03/2020, Additional history exists Pneumococcal Vaccine: Peds ( 0 to 5 Years) and At-Risk Patients (6 to 49 Years) Discontinued 07/10/2022, 07/08/2021, 09/03/2020, Additional history exists Procedures Procedure Name Priority Date/Time Associated Diagnosis Comments SPECIAL CHEMISTRY Routine 05/28/2024 from Last 3 Months or Most Recently Relevant to Health Maintenance Results * (ABNORMAL) SPECIAL CHEMISTRY (05/28/2024) Hemoglobin A1C 6.8(H) 4.8 - 5.9 % [facility] 05/28/2024 05/29/2024 8:2 7 AM EST Christi FITZGERALD - 05/29/2024 Unless otherwise specified, test(s) performed at: [facility], [address] [place] [id number] GEOSPATIAL EXTRACTOR ANALYSIS: Naeem Cabrera M.D. For any questions, please call customer service at FREQUENCY:MONTHLY Resulting Agency Comment Specimen source: Blood us Blu Bertrand MD LAB BLOOD BANK TEST ORDERABLES F inal Result [facility] [employer] See order comments or contact performing lab [facility], [place] from Last 3 Months or Most Recently Relevant to Health Maintenance Insurance * Guarantor: [place] Goyal Account Type Relation to Patient Date of Phone Billing Address Personal/Family Self 1940 [address] [place] [address] Medicare [facility] * Guarantor: [place] Goyal Account Type Relation to Patient Date of Phone Billing Address Personal/Family Self 1940 [address] [place] [address] * Guarantor: [place] Goyal Account Type Relation to Patient Date of Phone Billing Address Personal/Family Self 1940 [address] [place] [address] Care Teams Residential Program Manager Relationship Specialty Start Date End Date King Mendoza MD [address] [place] [address] PCP - General 04/15/19
--- OUTSIDE RECORDS SUMMARY | 2025-03-31 07:28 | XMS_ITS | Data Portability ---
Author Organization [facility], [facility] Address [address] [place] [address] Care Team Providers Care Home Theatre Technician Name Role Phone JESUS RETANA Primary Care Provider [phone] Assessment Encounter Date Assessment Date Assessment LastModified by Organization Details LastModified Time 12/05/2024 12/05/2024 I am seeing the patient today under the supervision of Dr Shah who was available but who did not see the patient. [email or web address] Not available 12/05/2024 08:41:23 Plan of Treatment Reminders Order Date Submit [...] Name and Address Organization Details Recorded Time No complaints [id number] Active Status : 'I'; Not Available [facility] 4 09:20:23 Primary gonarthrosis , bilateral [id number] Active 2024 Bernie King PA-C [address], [place], [address] , [facility] 5 08:13:13 Problem Notes None recorded. Procedures Surgical History Date Name Laterality Status Provider Name and Address Organization Details Recorded Time Euflexxa Knee Injection completed Bernie King PA-C [address], [place], [address], [facility] 12/10/2024 08:13:02 5 Euflexxa Knee Injection Cristopher completed Severiano Rodgers PA-C [address], [place], [address], [facility] 12/05/2024 08:49:46 5 Euflexxa Knee Injection Cristopher completed Estefania Concepcion, TEST LEAD [address], [place], [address], [facility] 11/28/2024 09:06:56 4 Euflexxa Knee Injection completed Bernie King PA-C [address], [place], [address], [facility] 05/01/2024 12:50:41 4 Euflexxa Knee Injection completed Aubrey Meeks PA-C [address], [place], [address], [facility] 04/23/2024 15:21:11 4 Euflexxa Knee Injection completed Aubrey Meeks PA-C [address], [place], [address], [facility] 04/16/2024 14:38:19 4 Zilretta Knee Injection, Bilateral completed Aubrey Meeks PA-C [address], [place], [address], [facility] 09/13/2023 10:56:43 Imaging Results None recorded. Procedure Notes None recorded. Medical Equipment None Reported. Allergies Allergen ID Allergen Name Allergen Category Reaction Reaction Severity Criticality Documentation Date Start Date Code Code System Note Provider Name and Address Organization Details Recorded Time 44443 Substance with sulfonami de structure and antibacte rial mechanism of action (substanc e) medicatio n Not available Not available Not available 08/13/20232012 51209 8003 SNOMED Aller gyRea ction : 'Skin React ion'; Not Available [facility] 14:15:36 Medications Name Sig Start Date Stop Date Status Note LastModified by Organization Details LastModified Time sodium chloride 5 % eye drops INSTILL 1 DROP INTO RIGHT EYE 4 TIMES A DAY active Not Available Not Available No t Available lidocaine-p rilocaine 2.5 %-2.5 % topical cream APPLY SMALL AMOUNT TO ACCESS SITE (AVF) 1 TO 2 HOURS BEFORE DIALYSIS. COVER WITH OCCLUSIVE DRESSING (SARAN WRAP) active Not Available Not Available No t Available docusate sodium 100 mg capsule TAKE 1 CAPSULE BY MOUTH 2 TIMES A DAY. REDUCE OR HOLD IF CAUSES DIARRHEA active Not Available Not Available No t Available amoxicillin 875 mg-potassiu m clavulanate 125 mg tablet TAKE 1 TABLET BY MOUTH TWICE A DAY FOR 10 DAYS 05/01 completed Not Available Not Available Not Available cinacalcet 30 mg tablet TAKE 1 TABLET BY MOUTH EVERY DAY WITH A MEAL active Not Available Not Available No t Available sevelamer carbonate 800 mg tablet TAKE 4 TABLETS BY MOUTH BEFORE EVERY MEAL THREE TIMES DAILY active Not Available Not Available No t Available oxycodone HCl-oxycodo ne-ASA as directed 1 TABLET Q 4 HOURS PRN PAIN DO NOT DIRVE WHILE ON THIS MED 05/01 completed Statu s: 'Curr ent'; Not Available Not Available Not Available Eliquis 2.5 mg tablet TAKE 1 TABLET (2.5 MG TOTAL) BY MOUTH TWICE A DAY FOR 14 DAYS active Not Available Not Available No t Available Vitals Date Recorded Body height Provider Name an d Address Organization Details Last Updated DateTime 11/28/2024 170.18 cm NICKOLAS BUCKLEY [facility] 11/28/2024 08:33:10 Date Recorded Body height Body mass index (BMI) Body weight Provider Name and Address Organization Details Last Updated DateTime 12/05/2024 170.18 cm 28.2 kg/m2 80971.63 g Alvino Rasheed [facility] 12/05/2024 08:41:50 Date Recorded Body height Provider Name an d Address Organization Details Last Updated DateTime 12/10/2024 170.18 cm JEFFRY IRVIN [facility] 12/10/2024 08:48:50 Date Recorded Body height Body mass index (BMI) Body weight Provider Name and Address Organization Details Last Updated DateTime 05/01/2024 170.18 cm 28.2 kg/m2 97449.63 g jorge luis collazo [place] [facility] 05/01/2024 11:21:31 Social History None recorded. Functional Status None recorded. Mental Status None recorded. Family History Nothing Reported. Medical History No medical history recorded. Past Encounters Encounter ID Performer Location Encounter Start Date Encounter Closed Date Diagnosis/Indication Diagnosis SNOMED-CT Code Diagnosis ICD10 Code Diagnosis IMO Codes Diagnosis Note [id number] [facility] [address] [place] [address] 09/13/2023 10:15:30 09/13/2023 11:00:18 Bilateral osteoarthritis of knees [id number] 87020 M17.0 [id number] Aubrey Meeks PA-C [facility] [address] [place] [address] 04/17/2024 14:56:54 05/15/2024 13:06:54 Primary gonarthrosis, bilateral 578009183 M17.0 [id number] [facility] [address] [place] [address] 04/24/2024 13:41:21 05/24/2024 07:15:22 Primary gonarthrosis, bilateral 920076922 M17.0 [id number] Bernie King PA-C [facility] [address] [place] [address] 05/01/2024 10:37:37 05/26/2024 14:26:34 Primary gonarthrosis, bilateral 958821963 M17.0 [id number] Estefania Concepcion, KATHARINE [facility] [address] [place] [address] 11/28/2024 08:14:15 12/05/2024 15:41:04 [id number] Severiano Rodgers PA-C [facility] [address] [place] [address] 12/05/2024 08:34:07 12/22/2024 13:59:45 Bilateral osteoarthritis of knees [id number] 92436 M17.0 [id number] [facility] [address] [place] [address] 12/10/2024 08:44:45 12/25/2024 08:27:35 Primary gonarthrosis, bilateral 097534850 M17.0 [id number] Health Concerns Section Related Observation LastModified by Organization Detai ls LastModified Time None Recorded Concern Status LastModified by Organization Details LastModified Time None Recorded Advance Directives Directive None Recorded Payers Insurance Date Sequence Insurance Name Policy Number Policy Jarrell Covered Member ID Jarrell Member ID Guarantor Name 12/10/2024 1 [place]IC[place]: [employer] [place]ano Goyal [id number] [place] Thibodeauxphrey 12/25/2024 2 [employer] [employer] (MEDICARE SUPPLEMENT) [id number] [place]ano Thibodeauxphrey [id number] [place]ano Goyal Notes Date Note Type Note Provider Name and Address Organization Details Recorded Time 05/01/2024 text/html I am seeing the patient today under the supervision of Dr. Bhatti who was available but who did not see the patient. HPI: Patient presenting today with known osteoarthritis of bilateral knees. Not happy with pain level and function of the knees. Is authorized for Euflexxa injections #3 today. No new injury. Past family, medical, social history and review of systems has been reviewed, updated, and is located in the patient s chart. Examination: Examination of the bilateral knees have no effusion, erythema, or warmth. Injection site benign. Decreased range of motion. Point tender medial joint line. Calf is soft and nontender. 5/5 strength knee flexion and extension. Impression: Bilateral knee osteoarthritis Plan: Nature of the diagnosis discussed with the patient today. Patient agreed to proceed with injections. Utilizing sterile technique, bilateral knees were injected with Euflexxa 1 unit. Patient tolerated the procedure well. Postinjection precautions reviewed. Recommended ice and rest for the next 24-48 hours. Follow-up as scheduled. [employer] speech recognition propulsion systems engineer software was used to create portions of this document. An attempt at proofreading has been made to minimize errors. Please call for corrections. Bernie King PA-C [address], [place], [address], [facility] 05/01/2024 12:51:11 11/28/2024 text/html ROS as noted in the HPI [place]ano is an 84 year old who is here for his first euflexxa injection in the bilateral knees. Estefania Concepcion, TEST LEAD [address], [place], [address], [facility] 11/28/2024 09:07:05 12/10/2024 text/html I am seeing the patient today under the supervision of Dr. Moore who was available but who did not see the patient. HPI: Patient presenting today with known osteoarthritis of bilateral knees. Not happy with pain level and function of the knees. Is authorized for Euflexxa injections #3 today. No new injury. Past family, medical, social history and review of systems has been reviewed, updated, and is located in the patient s chart. Examination: Examination of the bilateral knees have no effusion, erythema, or warmth. Injection site benign. Decreased range of motion. Point tender medial joint line. Calf is soft and nontender. 5/5 strength knee flexion and extension. Impression: Bilateral knee osteoarthritis Plan: Nature of the diagnosis discussed with the patient today. Patient agreed to proceed with injections. Utilizing sterile technique, bilateral knees were injected with Euflexxa 1 unit. Patient tolerated the procedure well. Postinjection precautions reviewed. Recommended ice and rest for the next 24-48 hours. Follow-up as scheduled. [facility] speech recognition propulsion systems engineer software was used to create portions of this document. An attempt at proofreading has been made to minimize errors. Please call for corrections. Bernie King PA-C [address], [place], [address], [facility] 12/10/2024 09:34:57
== END 2025-03-30 07:24 | disposition home or self-care (01) ==
LOC: HO.MMNH1L 07:23
PROVIDERS: Visit Provider Physician Assistant Medical
DX: Z13.89 Encounter for screening for other disorder (principal)
CPT/HCPCS: 87070; 87205

== ENCOUNTER 2025-04-01 05:59 | Outpatient (REF) | payer MEDICARE, SELFPAY ==
--- OUTSIDE RECORDS SUMMARY | 2025-04-01 06:04 | XMS_ITS | Encounter Summary ---
Author Organization [facility] Address [address] [place] [address] Phone Care Team Providers Care Facilities And Grounds Director Name Role Phone Vikram Naik MD Unavailable [phone] Claudia Alvarez MD Unavailable [phone] King Mendoza MD Unavailable + Jhon Lou MD Primary Care Provider [phone] Blu Bertrand MD Unavailable lCay Sparks MD Unavailable Sarita Troncoso DPM Unavailable + Jhon Lou MD Unavailable [phone] Lavelle Scott MD Unavailable [phone] Nadine Martinez OT Unavailable Nadine Martinez OT Unavailable Nadine Martinez OT Unavailable Nadine Martinez OT Unavailable Encounter Details Date Type Department Care Team (Late st Contact Info) Description 08/15/2022 Procedure Pass Non-Invasive Cardiology [address] [place] [address] Social History Tobacco Use Types Packs/Day Years Used Date Smoking Tobacco: Former Cigarettes 0.3 10 1 07/1981 - 05/1992 Smokeless Tobacco: Never Alcohol Use Standard Drinks/Week Comments No 0 (1 standard drink = 0.6 oz pur e alcohol) Stop in 1990 Sex and Gender Information Value Date Recorded Sex Assigned at Male 12/04/2017 6:19 PM EDT Legal Sex Male 6:09 PM EST Gender Identity Male 12/04/2017 6:19 PM EDT Sexual Orientation Straight 12/04/2017 6: 19 PM EDT 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, [employer]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 documented as of this encounter Plan of Treatment Upcoming Encounters Date Type Department Care Team (Late st Contact Info) Description 04/09/2025 3:00 PM EDT Office Visit [facility] [address] [place] [address] 3rd Floor, [address] [place] [address] Edie Unger CNP [address] [place] [address], [address] [place] [address] [email or web address] 06/19/2025 1:30 PM EST Office Visit [facility] [address] [place] [address] Nisreen Maza CNP 10 [place] [address] documented as of this encounter Visit Diagnoses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documented in this encounter Additional Health Concerns Infection Onset Date Last Indicated Resolved Time CoV-Risk Comment:Per note documentation 09/01/2024 09/01/2024 1:51 PM EDT Assessment Noted Time PHQ-2 Depression Total Score: 0 05/13/20 20 11:29 AM EST documented as of this encounter Care Teams Facilities And Grounds Director Relationship Specialty Start Date End Date Jhon Lou MD [address] [place] [address], [address] [place] [address] [email or web address] PCP - General Internal Medicine 02/12/20 Vikram Naik MD [email or web address] Historical LMR Provider 03/26/17 Claudia Alvarez MD [facility], [address] [place] [address] [email or web address] Historical LMR Provider 03/26/17 King Mendoza MD [facility], [address] [place] [address] [email or web address] Historical LMR Provider 03/26/17 Blu Bertrand MD [facility] [address] [place] [address] [email or web address] Nephrology 02/13/20 Clay Sparks MD [address] [place] [address] 2 [place] [address] Ophthalmology 02/13/20 Sarita Troncoso DPM [address] [place] [address] 7 [place] [address] Podiatry 02/13/20 Jhon Lou MD [facility], [address] [place] [address] Insurance Assigned Provider 09/15/23 Lavelle Scott MD [address] [place] [address] Primary Oncologist Medical Oncology 02/14/22 Nadine Martinez, OT 30 [place] [address] Transitions Chief Information Security OfficerClinical Nurse Specialist Therapy 08/15/24 08/26/24 Nadine Martinez, OT 30 [place] [address] Transitions Chief Information Security OfficerClinical Nurse Specialist Therapy 08/15/24 08/26/24 Nadine Martinez, OT 30 [place] [address] Transitions Chief Information Security OfficerClinical Nurse Specialist Therapy 08/18/24 08/18/24 Nadine Martinez, OT 30 [place] [address] Transitions Chief Information Security OfficerClinical Nurse Specialist Therapy 08/28/24 09/22/24 documented as of this encounter Additional Source Comments The information contained in this document represents components of the legal health record. It is not the complete legal health record.[facility]
--- OUTSIDE RECORDS SUMMARY | 2025-04-01 06:04 | XMS_ITS | Encounter Summary ---
Author Organization [facility] Address [address] [place] [address] Phone Care Team Providers Care Inventory Technician Name Role Phone Fareed Pnizon MD Unavailable + Vikram Naik MD Unavailable Gely Arevalo JD EDWARDS Unavailable Wendy Abbott JD EDWARDS Unavailable Roseline Romero MD Unavailable Morteza Xiao MD Unavailable Claudia Alvarez MD Unavailable [phone] King Mendoza MD Unavailable + Jhon Lou MD Primary Care Provider [phone] Blu Bertrand MD Unavailable Clay Sparks MD Unavailable Sarita Troncoso DPM Unavailable + Jhon Lou MD Unavailable Lavelle Scott MD Unavailable [phone] Katie Cantu RN Unavailable [email or web address] Nadine Martinez OT Unavailable [phone] Nadine Martinez OT Unavailable Nadine Martinez OT Unavailable Nadine Martinez OT Unavailable Encounter Details Date Type Department Care Team (Late st Contact Info) Description 11/30/2020 Procedure Pass Non-Invasive Cardiology [address] [place] [address] [place] [address] Social History Tobacco Use Types Packs/Day Years Used Date Smoking Tobacco: Former Cigarettes 0.3 10 1 07/1981 - 05/1992 Smokeless Tobacco: Never Alcohol Use Standard Drinks/Week Comments No 0 (1 standard drink = 0.6 oz pur e alcohol) Sex and Gender Information Value Date Recorded Sex Assigned at Male 12/04/2017 6:19 PM EDT Legal Sex Male 6:09 PM EST Gender Identity Male 12/04/2017 6:19 PM EDT Sexual Orientation Straight 12/04/2017 6: 19 PM EDT 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, [employer]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 documented as of this encounter Plan of Treatment Upcoming Encounters Date Type Department Care Team (Late st Contact Info) Description 04/09/2025 3:00 PM EDT Office Visit [facility] [address] [place] [address] 3rd Floor, [address] [place] [address] Edie Unger CNP [address] [place] [address] [email or web address] 06/19/2025 1:30 PM EST Office Visit [facility] [address] [place] [address] Nisreen Maza, KATHARINE 10 [place] [address] documented as of this encounter Visit Diagnoses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documented in this encounter Additional Health Concerns Infection Onset Date Last Indicated Resolved Time CoV-Risk Comment:Per note documentation 09/01/2024 09/01/2024 1:51 PM EDT Assessment Noted Time PHQ-2 Depression Total Score: 0 05/13/20 20 11:29 AM EST documented as of this encounter Care Teams Inventory Technician Relationship Specialty Start Date End Date Jhon Lou MD [address] [place] [address], [address] [place] [address] PCP - General Internal Medicine 02/12/20 Fareed Pinzon MD [address] [place] [address] [email or web address] Historical LMR Provider 03/26/17 06/18/21 Vikram Naik MD [address] [place] [address] [email or web address] Historical LMR Provider 03/26/17 Gely Aervalo NP [address] [place] [address] [place] [address] [email or web address] Historical LMR Provider 03/26/17 Wendy Stahl NP [address] [place] [address] Historical LMR Provider 03/26/17 Roseline Romero MD [address] [place] [address] [place] [address] [email or web address] Historical LMR Provider 03/26/17 06/18/21 Morteza Xiao MD [address] [place] [address] Historical LMR Provider 03/26/17 2 Claudia Alvarez MD 22 [facility], [address] [place] [address] Historical LMR Provider 03/26/17 King Mendoza MD 22 [facility], [address] [place] [address] [email or web address] Historical LMR Provider 03/26/17 Blu Bertrand MD 15 [facility] [address] [place] [address] Nephrology 02/13/20 Clay Sparks MD [address] [place] [address] 2 [place] [address] Ophthalmology 02/13/20 Sarita Troncoso DPM [address] [place] [address] 7 [place] [address] Podiatry 02/13/20 Jhon Lou MD 22 [facility], [address] [place] [address] Insurance Assigned Provider 09/15/23 Lavelle Scott MD [address] [place] [address] Primary Oncologist Medical Oncology 02/14/22 Katie Cantu, RN 30 [place] [address] [email or web address] Fur Dressing Supervisor 03/01/22 04/04/22 Nadine Martinez, OT 30 [place] [address] [email or web address] Transitions Fur Dressing SupervisorInstructional Technology Coordinator Therapy 08/15/24 08/26/24 Nadine Martinez, OT 30 [place] [address] Transitions Fur Dressing SupervisorInstructional Technology Coordinator Therapy 08/15/24 08/26/24 Nadine Martinez, OT 30 [place] [address] Transitions Fur Dressing SupervisorInstructional Technology Coordinator Therapy 08/18/24 08/18/24 Nadine Martinez, OT 30 [place] [address] Transitions Fur Dressing SupervisorInstructional Technology Coordinator Therapy 08/28/24 09/22/24 documented as of this encounter Additional Source Comments The information contained in this document represents components of the legal health record. It is not the complete legal health record.[facility]
--- OUTSIDE RECORDS SUMMARY | 2025-04-01 06:04 | XMS_ITS | Encounter Summary ---
Author Organization [facility], Address [address] [place] [address] Phone Care Team Providers Care Job Tracer Name Role Phone King Mendoza MD Primary Care Prov ider Encounter Details Date Type Department Care Team (Late st Contact Info) Description 10/25/2023 Documentation Only [facility] - [facility] [address] [place] [address] Rama Zee [address] [place] [address] Social History Tobacco Use Types [...] on filedocumented in this encounter Care Teams Job Tracer Relationship Specialty Start Date End Date King Mendoza MD [address] [place] [phone] PCP - General 04/15/19 documented as of this encounter
--- OUTSIDE RECORDS SUMMARY | 2025-04-01 06:04 | XMS_ITS | Encounter Summary ---
Author Organization [facility] Address [address] [place] [address] [place] [address] Phone Care Team Providers Care Separator Operator Name Role Phone Vikram Naik MD Unavailable [phone] Claudia Alvarez MD Unavailable [phone] King Mendoza MD Unavailable + Jhon Lou MD Primary Care Provider [phone] Blu Bertrand MD Unavailable Clay Sparks MD Unavailable Sarita Troncoso DPM Unavailable + Jhon Lou MD Unavailable [phone] Lavelle Scott MD Unavailable [phone] Katie Cantu RN Unavailable [email or web address] Nadine Martinez OT Unavailable [phone] Nadine Martinez OT Unavailable [phone] Nadine Martinez OT Unavailable [phone] Nadine Martinez OT Unavailable [phone] Encounter Details Date Type Department Care Team (Late st Contact Info) Description 02/07/2022 Procedure Pass Non-Invasive Cardiology [address] [place] [address] Social History Tobacco Use Types Packs/Day Years [...] 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, [employer]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 documented as of this encounter Plan of Treatment Upcoming Encounters Date Type Department Care Team (Late st Contact Info) Description 04/09/2025 3:00 PM EDT Office Visit [facility] [address], [address] [place] [address] Edie Unger CNP [address] [place] [address], [address] [address] [email or web address] 06/19/2025 1:30 PM EST Office Visit [facility] [address] [place] [address] Nisreen Maza CNP 10 [place] [address] documented as of this encounter Visit Diagnoses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documented in this encounter Additional Health Concerns Infection Onset Date Last Indicated Resolved Time CoV-Risk Comment:Per note documentation 09/01/2024 09/01/2024 1:51 PM EDT Assessment Noted Time PHQ-2 Depression Total Score: 0 05/13/20 20 11:29 AM EST documented as of this encounter Care Teams Separator Operator Relationship Specialty Start Date End Date Jhon Lou MD [address] [place] [address], [address] [place] [address] [email or web address] PCP - General Internal Medicine 02/12/20 Vikram Naik MD [email or web address] Historical LMR Provider 03/26/17 Claudia Alvarez MD 22 [facility], [address] [place] [address] [email or web address] Historical LMR Provider 03/26/17 King Mendoza MD 22 [facility], [address] [place] [address] [email or web address] Historical LMR Provider 03/26/17 Blu Bertrand MD 15 [facility] [address] [place] [address] [email or web address] Nephrology 02/13/20 Clay Sparks MD 33 [facility] 2 [place] [address] Ophthalmology 02/13/20 Sarita Troncoso DPM [address] [place] [address] 7 [place] [address] [email or web address] Podiatry 02/13/20 Jhon Lou MD 22 [facility], [address] [place] [address] [email or web address] Insurance Assigned Provider 09/15/23 Lavelle Scott MD 30 [place] [address] Primary Oncologist Medical Oncology 02/14/22 Katie Cantu, RN [address] [place] [address] [email or web address] Rn Post Partum 03/01/22 04/04/22 Nadine Martinez, OT 30 [place] [address] [email or web address] Transitions Rn Post PartumBall Sorter Therapy 08/15/24 08/26/24 Nadine Martinez, OT [address] [place] [address] [email or web address] Transitions Rn Post PartumBall Sorter Therapy 08/15/24 08/26/24 Nadine Martinez, OT 30 [place] [address] Transitions Rn Post PartumBall Sorter Therapy 08/18/24 08/18/24 Nadine Martinez, OT 30 [place] [address] [email or web address] Transitions Rn Post PartumBall Sorter Therapy 08/28/24 09/22/24 documented as of this encounter Additional Source Comments The information contained in this document represents components of the legal health record. It is not the complete legal health record.[facility]
--- OUTSIDE RECORDS SUMMARY | 2025-04-01 06:04 | XMS_ITS | Encounter Summary ---
Author Organization [facility] Address [address] [place] [address] Phone Care Team Providers Care Tongue And Quarter Stitcher Name Role Phone Vkiram Naik MD Unavailable [phone] Claudia Alvarez MD Unavailable [phone] King Mendoza MD Unavailable + Jhon Lou MD Primary Care Provider [phone] Blu Bertrand MD Unavailable Clay Sparks MD Unavailable Sarita Troncoso DPM Unavailable + Jhon Lou MD Unavailable [phone] Lavelle Scott MD Unavailable [phone] Nadine Martinez OT Unavailable Nadine Martinez OT Unavailable Nadine Martinez OT Unavailable Nadine Martinez OT Unavailable Encounter Details Date Type Department Care Team (Late st Contact Info) Description 05/16/2022 Procedure Pass Non-Invasive Cardiology [address] [place] [address] Social History Tobacco Use Types [...] 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, [employer]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 documented as of this encounter Plan of Treatment Upcoming Encounters Date Type Department Care Team (Late st Contact Info) Description 04/09/2025 3:00 PM EDT Office Visit [facility] [address] [place] [address] 3rd Floor, [address] [place] [address] Edie Unger CNP [address] [place] [address], [address] [place] [address] [email or web address] 06/19/2025 1:30 PM EST Office Visit [facility] [address] [place] [address] Nisreen Maza CNP 10 [place] [address] documented as of this encounter Visit Diagnoses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documented in this encounter Additional Health Concerns Infection Onset Date Last Indicated Resolved Time CoV-Risk Comment:Per note documentation 09/01/2024 09/01/2024 1:51 PM EDT Assessment Noted Time PHQ-2 Depression Total Score: 0 05/13/20 20 11:29 AM EST documented as of this encounter Care Teams Tongue And Quarter Stitcher Relationship Specialty Start Date End Date Jhon Lou MD [address] [place] [address], [address] [place] [address] [email or web address] PCP - General Internal Medicine 02/12/20 Vikram Naik MD [email or web address] Historical LMR Provider 03/26/17 Claudia Alvarez MD 22 [facility], [address] [place] [address] [email or web address] Historical LMR Provider 03/26/17 King Mendoza MD 22 [facility], [address] [place] [address] [email or web address] Historical LMR Provider 03/26/17 Blu Bertrand MD 15 [facility] [address] [place] [address] [email or web address] Nephrology 02/13/20 Clay Sparks MD [address] [place] [address] 2 [place] [address] Ophthalmology 02/13/20 Sarita Troncoso DPM [address] [place] [address] 7 [place] [address] Podiatry 02/13/20 Jhon Lou MD 22 [facility], [address] [place] [address] Insurance Assigned Provider 09/15/23 Lavelle Scott MD [address] [place] [address] Primary Oncologist Medical Oncology 02/14/22 Nadine Martinez, OT 30 [place] [address] Transitions Chief Of PartyRod Welder Therapy 08/15/24 08/26/24 Nadine Martinez, OT 30 [place] [address] Transitions Chief Of PartyRod Welder Therapy 08/15/24 08/26/24 Nadine Martinez, OT 30 [place] [address] Transitions Chief Of PartyRod Welder Therapy 08/18/24 08/18/24 Nadine Martinez, OT 30 [place] [address] Transitions Chief Of PartyRod Welder Therapy 08/28/24 09/22/24 documented as of this encounter Additional Source Comments The information contained in this document represents components of the legal health record. It is not the complete legal health record.[facility]
--- OUTSIDE RECORDS SUMMARY | 2025-04-01 06:04 | XMS_ITS | Encounter Summary ---
Author Organization [facility] Address [address] [place] [address] Phone Care Team Providers Care Master Yacht Name Role Phone Fareed Pinzon MD Unavailable + Vikram Naik MD Unavailable Gely Arevalo SIGN WRITER HAND Unavailable Wendy Abbott SIGN WRITER HAND Unavailable Roseline Romero MD Unavailable Morteza Xiao MD Unavailable Claudia Alvarez MD Unavailable King Mendoza MD Unavailable + Jhon Lou MD Primary Care Provider [phone] Blu Bertrand MD Unavailable Clay Sparks MD Unavailable Sarita Troncoso DPM Unavailable + Jhon Lou MD Unavailable Lavelle Scott MD Unavailable [phone] Katie Cantu RN Unavailable [email or web address] Nadine Martinez OT Unavailable [phone] Nadine Martinez OT Unavailable Nadnie Martinez OT Unavailable Nadine Martinez OT Unavailable Encounter Details Date Type Department Care Team (Late st Contact Info) Description 03/31/2020 Procedure Pass Non-Invasive Cardiology [address] [place] [address] Social History Tobacco Use Types Packs/Day Years [...] 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, [employer]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 documented as of this encounter Plan of Treatment Upcoming Encounters Date Type Department Care Team (Late st Contact Info) Description 04/09/2025 3:00 PM EDT Office Visit [facility] [address] [place] [address] 3rd Floor, [address] [place] [address] dEie Unger CNP [address] [address] [email or web address] 06/19/2025 1:30 PM EST Office Visit [facility] [address] [place] [address] Nisreen Maza, KATHARINE 10 [place] [address] documented as of this encounter Visit Diagnoses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documented in this encounter Additional Health Concerns Infection Onset Date Last Indicated Resolved Time CoV-Risk Comment:Per note documentation 09/01/2024 09/01/2024 1:51 PM EDT documented as of this encounter Care Teams Master Yacht Relationship Specialty Start Date End Date Jhon Lou MD [address] [place] [address], [address] [place] [address] PCP - General Internal Medicine 02/12/20 Fareed Pinzon MD [address] [place] [address] [email or web address] Historical LMR Provider 03/26/17 06/18/21 Vikram Naik MD [address] [place] [address] [email or web address] Historical LMR Provider 03/26/17 Gely Arevalo NP [address] [place] [address] [address] [place] [address] Historical LMR Provider 03/26/17 2 Wendy Abbott, TOMI [address] [place] [address] Historical LMR Provider 03/26/17 Roseline Romero MD [address] [place] [address] [address] [place] [address] [email or web address] Historical LMR Provider 03/26/17 06/18/21 Morteza Xiao MD [address] [place] [address] Historical LMR Provider 03/26/17 2 Claudia Alvarez MD 22 [facility], [address] [place] [address] [email or web address] Historical LMR Provider 03/26/17 King Mendoza MD 22 [facility], [address] [place] [address] [email or web address] Historical LMR Provider 03/26/17 Blu Bertrand MD 15 [facility] [address] [place] [address] [email or web address] Nephrology 02/13/20 Clay Sparks MD [address] [place] [address] 2 [place] [address] Ophthalmology 02/13/20 Sarita Troncoso DPM [address] [place] [address] 7 [place] [address] [email or web address] Podiatry 02/13/20 Jhon Lou MD 22 [facility], [address] [place] [address] [email or web address] Insurance Assigned Provider 09/15/23 Lavelle Scott MD 30 [place] [address] [email or web address] Primary Oncologist Medical Oncology 02/14/22 Katie Cantu RN 30 [place] [address] [email or web address] Vocational Adviser 03/01/22 04/04/22 Nadine Martinez, OT 30 [place] [address] Transitions Vocational AdviserNovelties Sales Representative Therapy 08/15/24 08/26/24 Nadine Martinez, OT 30 [place] [address] Transitions Vocational AdviserNovelties Sales Representative Therapy 08/15/24 08/26/24 Nadine Martinez, OT 30 [place] [address] Transitions Vocational AdviserNovelties Sales Representative Therapy 08/18/24 08/18/24 Nadine Martinez, OT 30 [place] [address] Transitions Vocational AdviserNovelties Sales Representative Therapy 08/28/24 09/22/24 documented as of this encounter Additional Source Comments The information contained in this document represents components of the legal health record. It is not the complete legal health record.[facility]
--- OUTSIDE RECORDS SUMMARY | 2025-04-01 06:05 | XMS_ITS | Encounter Summary ---
Author Organization [facility] Address [address] [place] [address] Phone Care Team Providers Care Educational Program Assistant Name Role Phone Vikram Naik MD Unavailable [phone] Claudia Alvarez MD Unavailable [phone] King Mendoza MD Unavailable + Jhon Lou MD Primary Care Provider [phone] Blu Bertrand MD Unavailable Clay Sparks MD Unavailable Sarita Troncoso DPM Unavailable + Jhon Lou MD Unavailable Lavelle Scott MD Unavailable [phone] Nadine Martinez OT Unavailable Nadine Martinez OT Unavailable Nadine Martinez OT Unavailable Nadine Martinez OT Unavailable Encounter Details Date Type Department Care Team (Late st Contact Info) Description 08/18/2024 Procedure Pass [facility] Endoscopy Admitting Dept Virtual Department [address] [place] [id number] Social History Tobacco Use Types Packs/Day Years Used Date Smoking Tobacco: Former Cigarettes 0.3 10 1 07/1981 - 05/1992 Passive Smoke Exposure: Never Smokeless Tobacco: Never Alcohol Use Standard Drinks/Week Comments No 0 (1 standard drink = 0.6 oz pur e alcohol) Stop in 1990 Education Answer Date Recorded Are you interested in more education? Not on lei e 10/15/2022 Are you concerned about learning?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 10/15/2022 No 10/15/2022 No 10/15/2022 Food Answer Date Recorded Within the past 6 months we worried whether our food would run out before we got money to buy more. Never True 08/20/2024 Within the past 6 months the food we bought just didn't last and we didn't have enough money to get more. Never True Residential Stability Answer Date Recor ded What is your housing situation today? I have allen sing 08/20/2024 How many times have you move d in the past 12 months? Zero (I did not move) 08/20/2024 Paying for Meds Answer Date Recorded Do you have trouble paying for medicines? No 08/20/2024 Paying Utility Bills Answer Date Record ed Do you have trouble paying your heating or elect ricity bill? No 08/20/2024 Transportation Answer Date Recorded Has the lack of transportati on kept you from medical appointments or from getting medications? No 08/20/2024 Digital Access Answer Date Recorded No 08/20/2024 Yes 08/20/2024 Do you have reliable internet access at home? Ye s 08/20/2024 Do you have a device (e.g., phone, tablet, computer) with a working camera? Yes 08/20/2024 Intimate Partner Violence Answer Date R ecorded Are you denied basic needs s uch as food, clothing, or medical care? No 08/20/2024 In the past 12 months have y ou been in a relationship with a person who hurts, threatens, or tries to control you? No 08/20/2024 Are you denied basic needs s uch as food, clothing, or medical care? No 08/20/2024 In the past 12 months have y ou been in a relationship with a person who hurts, threatens, or tries to control you? No 08/20/2024 Sex and Gender Information Value Date Recorded Sex Assigned at Male 12/04/2017 6:19 PM EDT Legal Sex Male 6:09 PM EST Gender Identity Male 12/04/2017 6:19 PM EDT Sexual Orientation Straight 12/04/2017 6: 19 PM EDT Occupation Industry Job Start Date Job End Date [employer], [employer]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 documented as of this encounter Plan of Treatment Upcoming Encounters Date Type Department Care Team (Late st Contact Info) Description 04/09/2025 3:00 PM EDT Office Visit [facility] [address] [place] [address] [address] Floor, [address] [place] [address] Edie Unger CNP [address] [facility], [facility] [address] [place] [address] [email or web address] 06/19/2025 1:30 PM EST Office Visit [facility] [address] [place] [id number] 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 Maza, 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 PCP - General Internal Medicine 02/12/20 Vikram Naik MD [email or web address] Historical LMR Provider 03/26/17 Claudia Alvarez MD [address] [facility], [address] [place] [id number] Historical LMR Provider 03/26/17 King Mendoza MD [address] [facility], [address] [place] [id number] [email or web address] Historical LMR Provider 03/26/17 Blu Bertrand MD [address] [facility] [address] [place] [address] Nephrology 02/13/20 Clay Sparks MD 33 [facility] 2 [place] [address] Ophthalmology 02/13/20 Sarita Troncoso DPM 10 [facility] 7 [place] [address] Podiatry 02/13/20 Jhon Lou MD [address] [facility], [address] [place] [address] Insurance Assigned Provider 09/15/23 Lavelle Scott MD [address] [place] [address] Primary Oncologist Medical Oncology 02/14/22 Nadine Martinez, OT [address] [place] [address] Transitions Health ConsultantProfiler Hand Therapy 08/15/24 08/26/24 Nadine Martinez, OT [address] [place] [address] Transitions Health ConsultantProfiler Hand Therapy 08/15/24 08/26/24 MartinezNadine, OT [address] [place] [address] Transitions Health ConsultantProfiler Hand Therapy 08/18/24 08/18/24 Nadine Martinez, OT [address] [place] [address] Transitions Health ConsultantProfiler Hand Therapy 08/28/24 09/22/24 documented as of this encounter Additional Source Comments The information contained in this document represents components of the legal health record. It is not the complete legal health record.[facility]
--- OUTSIDE RECORDS SUMMARY | 2025-04-01 06:05 | XMS_ITS | Clinical Summary ---
Author Organization [facility] Address [address] [place] [id number] Phone Care Team Providers [employer] Name Role Phone Vikram Naik MD Unavailable [phone] Claudia Alvarez MD Unavailable [phone] King Mendoza MD Unavailable + Jhon Lou MD Primary Care Provider [phone] Blu Bertrand MD Unavailable Clay Sparks MD Unavailable Sarita Troncoso DPM Unavailable + Jhon Lou MD Unavailable Lavelle Scott MD Unavailable [phone] Allergies Active Allergy Reactions Criticality Noted Date Comments Sulfa (Sulfonamide Antibiotics) Itching 05/12 Medications cinacalcet (SENSIPAR) 30 mg tablet Take 30 mg by mouth daily. Active bimatoprost (LUMIGAN) 0.01 % Drop Place 1 drop into the left eye nightly at bedtime. Active sodium chloride (OCEAN) 0.65 % nasal sprayIndication s:Acute non-recurrent maxillary sinusitis 1 spray by Nasal route as needed for congestion. 4 Active sevelamer carbonate (RENVELA) 800 mg tablet Take 3,200 mg by mouth 3 (three) times a day with meals. 4 Active brimonidine (ALPHAGAN) 0.2 % ophthalmic solution Place 1 drop into the left eye nightly at bedtime. Active dorzolamide-yasir oloL (COSOPT) 22.3-6.8 mg/mL ophthalmic solution Place 1 drop into the left eye 2 (two) times a day. Active lidocaine-prilo sukhjinder (EMLA) cream Apply 1 Application topically 3 (three) times a week on Sunday, Sunday, Sunday. Prior to dialysis Active metoprolol tartrate (LOPRESSOR) 25 MG tablet Take 0.5 tablets (12.5 mg total) by mouth every morning. 5 Active metoprolol tartrate (LOPRESSOR) 25 MG tablet Take 1 tablet (25 mg total) by mouth every evening. 5 Active gabapentin (NEURONTIN) 100 MG capsule Take 1 capsule (100 mg total) by mouth 3 (three) times a week on Sunday, Sunday, Sunday. AFTER dialysis 5 Active docusate (COLACE) 100 mg tablet Take 2 tablets (200 mg total) by mouth 2 (two) times a day. 5 Active docusate sodium (COLACE) 100 MG capsule TAKE 1 CAPSULE BY MOUTH 2 TIMES A DAY. REDUCE OR HOLD IF CAUSES DIARRHEA 60 capsule 5 5 Active Active Problems Patient Care Coordination No te Formatting of this note migh t be different from the original. Height 169 cm with shoes 03/09/22 Problem Noted Date Diagnosed Date Discharge planning issues 08/23/2024 Assessment & Plan (08/25/2024 12:00 PM EDT): Desires discharge to home, however long hospital stay has resulted in significant generalized weakness making it unsafe for him to go directly home. Though short- term rehab is recommended, it may be difficult to find a facility with hemodialysis capabilities. Case management will make referrals, but in the meantime we will have physical therapy follow him daily in the hopes that he can be rehabbed adequately in the interim such that he may be able to return home Assessment & Plan (08/24/2024 4:10 PM EDT): Desires discharge to home, however long hospital stay has resulted in significant generalized weakness making it unsafe for him to go directly home. Though short- term rehab is recommended, it may be difficult to find a facility with hemodialysis capabilities. Case management will make referrals, but in the meantime we will have physical therapy follow him daily in the hopes that he can be rehabbed adequately in the interim such that he may be able to return home Assessment & Plan (08/23/2024 2:37 PM EDT): Desires discharge to home, however long hospital stay has resulted in significant generalized weakness making it unsafe for him to go directly home. Though short- term rehab is recommended, it may be difficult to find a facility with hemodialysis capabilities. Case management will make referrals, but in the meantime we will have physical therapy follow him daily in the hopes that he can be rehabbed adequately in the interim such that he may be able to return home Chest pain 08/21/2024 Assessment & Plan (08/25/2024 12:00 PM EDT): Overnight 3,patient had episode of chest pain. Has known elevated troponins. Troponin level was 263 which was lower than his previous of 293. EKG with nonspecific changes however patient with a paced. Dr. Dr. Parrish recommendation is to perform outpatient stress test given recent GI bleed with removal of GI lesions may have adverse outcome from stressing him acutely. Assessment & Plan (08/24/2024 4:10 PM EDT): Overnight 3,patient had episode of chest pain. Has known elevated troponins. Troponin level was 263 which was lower than his previous of 293. EKG with nonspecific changes however patient with a paced. Dr. Dr. Parrish recommendation is to perform outpatient stress test given recent GI bleed with removal of GI lesions may have adverse outcome from stressing him acutely. Assessment & Plan (08/23/2024 2:37 PM EDT): Overnight 3,patient had episode of chest pain. Has known elevated troponins. Troponin level was 263 which was lower than his previous of 293. EKG with nonspecific changes however patient with a paced. Dr. Dr. Parrish recommendation is to perform outpatient stress test given recent GI bleed with removal of GI lesions may have adverse outcome from stressing him acutely. Assessment & Plan (08/22/2024 2:20 PM EDT): Overnight 08/20,patient had episode of chest pain. Has known elevated troponins. Troponin level was 263 which was lower than his previous of 293. EKG with nonspecific changes however patient with a paced. Dr. Dr. Parrish recommendation is to perform outpatient stress test given recent GI bleed with removal of GI lesions may have adverse outcome from stressing him acutely. Assessment & Plan (08/21/2024 4:32 PM EDT): Overnight patient had episode of chest pain. Has known elevated troponins. Troponin level was 263 which was lower than his previous of 293. EKG with nonspecific changes however patient with a paced. Patient states that he has had intermittent chest pains and follows with Dr. Lebron and has scheduled outpatient stress test. Urology was consulted on discussion with Dr. Dr. Parrish recommendation is to perform outpatient stress test given recent GI bleed with removal of GI lesions may have adverse outcome from stressing him acutely. Acute lower GI hemorrhage 08/15/2024 Overview (09/04/2024): Hospitalized August 2024, transfused. Colonoscopy showed large polyp which was resected and residual ablated. Assessment & Plan (09/04/2024 8:43 AM EDT): Hemoglobin 8.3 g/dL after blood transfusion. Labs pending this morning. Assessment & Plan (09/03/2024 1:30 PM EDT): Had bleed after polypectomy last week, with recent admission 08/15 - 08/26 where he underwent polypectomy of a large/ascending cecal polyp. Presented back to the ED from rehab with rectal bleeding after apixaban restarted He has received 2 units PRBC, the last was on 09/01/2024. He reported a dark stool the night before last, nothing further Expect risk for bleeding to diminish now but he is 14 days postprocedure --Holding apixaban, daily labs -- If H/H stable overnight then transfer to [facility] Assessment & Plan (09/03/2024 8:59 AM EDT): Hemoglobin down to 7.6 g/dL being monitored closely but asked the medical team to avoid resuming Eliquis given the high risk/benefit. If discharged to outpatient facility will need daily hemoglobin checks unfortunately if he continues to have persistent anemia will likely need blood transfusions Assessment & Plan (09/02/2024 6:13 PM EDT): Had bleed after polypectomy last week, robyn nguyen eliquis was restarted. Eliquis has since been on hold. Bleeding expected to be self-limited 1 episode of dark stool overnight, no recurrence H/H improved today to 8.2/24.5 after transfusion --Holding Eliquis at least until 4/2 or indefinitely --Daily Labs, trending H/H Assessment & Plan (09/02/2024 9:44 AM EDT): Hemoglobin up to 8.2 g/dL after blood transfusion had another black stool overnight, being monitored closely but asked the medical team to avoid resuming Eliquis given the high risk/benefit Assessment & Plan (09/01/2024 1:57 PM EDT): Had bleed after polypectomy last week, robyn nguyen eliquis was restarted. Eliquis now on hold, GI thinks bleeding should stop in next few days Transfuse a unit of blood today during dialysis Hold eliquis until at least 4/2 per GI GI trying to avoid intervention unless he is having a profuse bleed Assessment & Plan (09/01/2024 10:50 AM EDT): Hemoglobin trending down to 6.9 g/dL Tolerating blood transfusion during dialysis.?need to re-scope persistent GIB Assessment & Plan (08/31/2024 10:05 AM EDT): Had bleed after polypectomy last week, rebled patrick eliquis was restarted Hg drifting down again, could be dilution inbetween dialysis treatments Hold eliquis until 4/2 per GI 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 Assessment & Plan (08/30/2024 12:48 PM EDT): Had bleed after polypectomy last week, rebled patrick eliquis was restarted Hg drifting down again, could be dilution inbetween dialysis treatments Hold eliquis until 4/2 per GI Assessment & Plan (08/30/2024 8:17 AM EDT): Hemoglobin trending down to 7.3 g/dL May need further RBC today, suggest to give DDAVP 0.3 mcg/KG for platelet stabilization in the setting of ESRD. Assessment & Plan (08/29/2024 8:14 PM EDT): Acute lower GI bleed Admitted 08/14-08/26 with LGIB. On 08/20 a 35mm polyp in the proximal ascending colon was resected with difficulty due to size and location. He was discharged 08/26 to rehab, then re-presented after Eliquis was restarted and he had multiple bloody Bms. Has had no bleeding since admission. - GI consulted - Pantoprazole - Conservative management given technical difficulty and risk of perforation with intervention. - Clear liquid diet - If significant bleeding arises, consider surgical consult. Assessment & Plan (08/29/2024 8:29 AM EDT): Continue to monitor hemoglobin and stool for blood fortunately hemodynamically stable at present time Assessment & Plan (08/28/2024 2:41 PM EDT): Admitted 08/14-08/26 with LGIB. On 08/20 a 35mm polyp in the proximal ascending colon was resected with difficulty due to size and location. He was discharged 08/26 to rehab, then re-presented after Eliquis was restarted and he had multiple bloody Bms. -GI consulted (Dr. Tucker), conservative management given technical difficulty and risk of perforation with intervention. -Clear liquid diet -If significant bleeding arises, consider surgical consult. Assessment & Plan (08/25/2024 12:00 PM EDT): Chronically is on anticoagulation with eliquis Presented with one episode of dark/coffee-ground emesis. Notes melena possibly starting Sunday morning. CTA abdomen pelvis with thickening involving the rectum, proctitis or lesion considered - GI consult showed a finding appeared small colon ca nonobstructing -Patient was seen by Dr. Garcia for surgical consult - will plan for outpatient follow up, requested inpatient preop echo which was performed showing EF of 50 to 55% with no WMA. Dilated left and right atria. Hemoglobin and hemodynamics relatively stable with no recurrent coffee-ground emesis or melena. Bleeding appears to have slowed if not stopped, but Hb still drifting. EGD 08/18/24 -White plaques in esophagus consistent with esophageal candidiasis. Erythematous gastric mucosa with no bleeding. Lesion in esophagus biopsied. On 08/19 H/H down to 7.0 indicating continued bleeding. Patient was transfused 2 units of packed red cells. Cutler from 08/15 reviewed and patient was noted to have a 3 cm lesion in the right colon that was oozing at the time of the colonoscopy. Reviewed with GI and surgery and patient likely having continued bleeding from this mass. Pathology was contacted and path report shows tubulovillous adenoma however on discussion with the pathologist at this size will likely need to be excised. 08/20 patient underwent repeat colonoscopy -found blood in the entire examined colon. Multiple small polyps in entire colon. -A 35 mm polyp in the proximal ascending colon which was resected however not aggressively as there was concern for possible perforation. Focal invasion could not be definitely determined. The residual polyp was therefore ablated and the defect was clipped with no bleeding at the end of the polypectomy. Path returned benign adenomatous polyp GI has recommended repeat colonoscopy in 3 months to review the polypectomy site and resect other noted polyps. Assessment & Plan (08/24/2024 4:10 PM EDT): Chronically is on anticoagulation with eliquis Presented with one episode of dark/coffee-ground emesis. Notes melena possibly starting Sunday morning. CTA abdomen pelvis with thickening involving the rectum, proctitis or lesion considered - GI consult showed a finding appeared small colon ca nonobstructing -Patient was seen by Dr. Garcia for surgical consult - will plan for outpatient follow up, requested inpatient preop echo which was performed showing EF of 50 to 55% with no WMA. Dilated left and right atria. Hemoglobin and hemodynamics relatively stable with no recurrent coffee-ground emesis or melena. Bleeding appears to have slowed if not stopped, but Hb still drifting. EGD 08/18/24 -White plaques in esophagus consistent with esophageal candidiasis. Erythematous gastric mucosa with no bleeding. Lesion in esophagus biopsied. On 08/19 H/H down to 7.0 indicating continued bleeding. Patient was transfused 2 units of packed red cells. Cutler from 08/15 reviewed and patient was noted to have a 3 cm lesion in the right colon that was oozing at the time of the colonoscopy. Reviewed with GI and surgery and patient likely having continued bleeding from this mass. Pathology was contacted and path report shows tubulovillous adenoma however on discussion with the pathologist at this size will likely need to be excised. 08/20 patient underwent repeat colonoscopy -found blood in the entire examined colon. Multiple small polyps in entire colon. -A 35 mm polyp in the proximal ascending colon which was resected however not aggressively as there was concern for possible perforation. Focal invasion could not be definitely determined. The residual polyp was therefore ablated and the defect was clipped with no bleeding at the end of the polypectomy. Path returned benign adenomatous polyp GI has recommended repeat colonoscopy in 3 months to review the polypectomy site and resect other noted polyps. Assessment & Plan (08/23/2024 2:37 PM EDT): Chronically is on anticoagulation with eliquis Presented with one episode of dark/coffee-ground emesis. Notes melena possibly starting Sunday morning. CTA abdomen pelvis with thickening involving the rectum, proctitis or lesion considered - GI consult showed a finding appeared small colon ca nonobstructing -Patient was seen by Dr. Garcia for surgical consult - will plan for outpatient follow up, requested inpatient preop echo which was performed showing EF of 50 to 55% with no WMA. Dilated left and right atria. Hemoglobin and hemodynamics relatively stable with no recurrent coffee-ground emesis or melena. Bleeding appears to have slowed if not stopped, but Hb still drifting. EGD 08/18/24 -White plaques in esophagus consistent with esophageal candidiasis. Erythematous gastric mucosa with no bleeding. Lesion in esophagus biopsied. On 08/19 H/H down to 7.0 indicating continued bleeding. Patient was transfused 2 units of packed red cells. Cutler from 08/15 reviewed and patient was noted to have a 3 cm lesion in the right colon that was oozing at the time of the colonoscopy. Reviewed with GI and surgery and patient likely having continued bleeding from this mass. Pathology was contacted and path report shows tubulovillous adenoma however on discussion with the pathologist at this size will likely need to be excised. 08/20 patient underwent repeat colonoscopy -found blood in the entire examined colon. Multiple small polyps in entire colon. -A 35 mm polyp in the proximal ascending colon which was resected however not aggressively as there was concern for possible perforation. Focal invasion could not be definitely determined. The residual polyp was therefore ablated and the defect was clipped with no bleeding at the end of the polypectomy. Path returned benign adenomatous polyp GI has recommended repeat colonoscopy in 3 months to review the polypectomy site and resect other noted polyps. Assessment & Plan (08/22/2024 2:20 PM EDT): Chronically is on anticoagulation with eliquis Presented with one episode of dark/coffee-ground emesis. Notes melena possibly starting Sunday morning. CTA abdomen pelvis with thickening involving the rectum, proctitis or lesion considered - GI consult showed a finding appeared small colon ca nonobstructing -Patient was seen by Dr. Garcia for surgical consult - will plan for outpatient follow up, requested inpatient preop echo which was performed showing EF of 50 to 55% with no WMA. Dilated left and right atria. Hemoglobin and hemodynamics relatively stable with no recurrent coffee-ground emesis or melena. Bleeding appears to have slowed if not stopped, but Hb still drifting. EGD 08/18/24 -White plaques in esophagus consistent with esophageal candidiasis. Erythematous gastric mucosa with no bleeding. Lesion in esophagus biopsied. On 08/19 H/H down to 7.0 indicating continued bleeding. Patient was transfused 2 units of packed red cells. Cutler from 08/15 reviewed and patient was noted to have a 3 cm lesion in the right colon that was oozing at the time of the colonoscopy. Reviewed with GI and surgery and patient likely having continued bleeding from this mass. Pathology was contacted and path report shows tubulovillous adenoma however on discussion with the pathologist at this size will likely need to be excised. 08/20 patient underwent repeat colonoscopy -found blood in the entire examined colon. Multiple small polyps in entire colon. -A 35 mm polyp in the proximal ascending colon which was resected however not aggressively as there was concern for possible perforation. Focal invasion could not be definitely determined. The residual polyp was therefore ablated and the defect was clipped with no bleeding at the end of the polypectomy. 08/21 no melena or rectal bleeding. Hemodynamically stable. GI has recommended repeat colonoscopy in 3 to 6 months to review the polypectomy site and resect other noted polyps. -Patient will need to remain off blood thinners until definitive surgery performed Assessment & Plan (08/21/2024 4:32 PM EDT): Chronically is on anticoagulation with eliquis Presented with one episode of dark/coffee-ground emesis. Notes melena possibly starting Sunday morning. CTA abdomen pelvis with thickening involving the rectum, proctitis or lesion considered - GI consult showed a finding appeared small colon ca nonobstructing -Patient was seen by Dr. Garcia for surgical consult - will plan for outpatient follow up, requested inpatient preop echo which was performed showing EF of 50 to 55% with no WMA. Dilated left and right atria. Patient has remained hemodynamically stable with no recurrent episodes of coffee-ground emesis or melena. anticoagulation still on hold. Hemoglobin and hemodynamics relatively stable with no recurrent coffee-ground emesis or melena. Bleeding appears to have slowed if not stopped. EGD 08/18/24 -White plaques in esophagus consistent with esophageal candidiasis. Erythematous gastric mucosa with no bleeding. Lesion in esophagus biopsied. On 08/19H/H down to 7.0 indicating continued bleeding. Patient was transfused 2 units of packed red cells. Cutler from 08/15 reviewed and patient was noted to have a 3 cm lesion in the right colon that was oozing at the time of the colonoscopy. Reviewed with GI and surgery and patient likely having continued bleeding from this mass. Pathology was contacted and path report shows tubulovillous adenoma however on discussion with the pathologist at this size will likely need to be excised. 08/20 patient underwent repeat colonoscopy -found blood in the entire examined colon. Multiple small polyps in entire colon. -A 35 mm polyp in the proximal ascending colon which was resected however not aggressively as there was concern for possible perforation. Focal invasion could not be definitely determined. The residual polyp was therefore ablated and the defect was clipped with no bleeding at the end of the polypectomy. 08/21 no melena or rectal bleeding. Hemodynamically stable. Repeat hemoglobin 9.1 GI has recommended repeat colonoscopy in 3 to 6 months to review the polypectomy site and resect other noted polyps. -Monitor with repeat CBC in a.m. -Patient will need to remain off blood thinners until definitive surgery performed. Assessment & Plan (08/20/2024 5:18 PM EDT): Chronically is on anticoagulation with eliquis Presented with one episode of dark/coffee-ground emesis. Notes melena possibly starting Sunday morning. CTA abdomen pelvis with thickening involving the rectum, proctitis or lesion considered - GI consult showed a finding appeared small colon ca nonobstructing -Patient was seen by Dr. Garcia for surgical consult - will plan for outpatient follow up, requested inpatient preop echo which was performed showing EF of 50 to 55% with no WMA. Dilated left and right atria. Patient has remained hemodynamically stable with no recurrent episodes of coffee-ground emesis or melena. anticoagulation still on hold. Hemoglobin and hemodynamics relatively stable with no recurrent coffee-ground emesis or melena. Bleeding appears to have slowed if not stopped. EGD 08/18/24 -White plaques in esophagus consistent with esophageal candidiasis. Erythematous gastric mucosa with no bleeding. Lesion in esophagus biopsied. 08/19 H/H down to 7.0 indicating continued bleeding. Cutler from 08/15 reviewed and patient was noted to have a 3 cm lesion in the right colon that was oozing at the time of the colonoscopy. Reviewed with GI and surgery and patient likely having continued bleeding from this mass. Pathology was contacted and path report shows tubulovillous adenoma however on discussion with the pathologist at this size will likely need to be excised. 08/20 patient underwent repeat colonoscopy -found blood in the entire examined colon. Multiple small polyps in entire colon. -A 35 mm polyp in the proximal ascending colon which was resected however not aggressively as there was concern for possible perforation. Focal invasion could not be definitely determined. The residual polyp was therefore ablated and the defect was clipped with no bleeding at the end of the polypectomy. GI has recommended repeat colonoscopy in 3 to 6 months to review the polypectomy site and resect other noted polyps. -Monitor with repeat CBC 8 PM and in a.m. -Patient will need to remain off blood thinners until definitive surgery performed. Assessment & Plan (08/19/2024 2:59 PM EDT): Chronically is on anticoagulation with eliquis Presented with one episode of dark/coffee-ground emesis. Notes melena possibly starting Sunday morning. CTA abdomen pelvis with thickening involving the rectum, proctitis or lesion considered - GI consult showed a finding appeared small colon ca nonobstructing -Patient was seen by Dr. Garcia for surgical consult - will plan for outpatient follow up, requested inpatient preop echo which was performed showing EF of 50 to 55% with no WMA. Dilated left and right atria. Patient has remained hemodynamically stable with no recurrent episodes of coffee-ground emesis or melena. anticoagulation still on hold. Hemoglobin and hemodynamics relatively stable with no recurrent coffee-ground emesis or melena. Bleeding appears to have slowed if not stopped. EGD 08/18/24 -White plaques in esophagus consistent with esophageal candidiasis. Erythematous gastric mucosa with no bleeding. Lesion in esophagus biopsied. 08/19 H/H down to 7.0 indicating continued bleeding. Cutler from 08/15 reviewed and patient was noted to have a 3 cm lesion in the right colon that was oozing at the time of the colonoscopy. Reviewed with GI and surgery and patient likely having continued bleeding from this mass. Pathology was contacted and path report shows tubulovillous adenoma however on discussion with the pathologist at this size will likely need to be excised. Case discussed with GI and plan is for:- - Repeat colonoscopy in a.m. for Hemospray and attempt to stem the tide of the bleeding. Question if GI is able to remove the lesion. - Surgery to continue to follow as patient may need a right colectomy. -Patient will need to remain off blood thinners until definitive surgery performed. Assessment & Plan (08/18/2024 1:57 PM EDT): Chronically is on anticoagulation with eliquis Presented with one episode of dark/coffee-ground emesis. Notes melena possibly starting Sunday morning. CTA abdomen pelvis with thickening involving the rectum, proctitis or lesion considered - GI consult showed a finding appeared small colon ca nonobstructing -Patient was seen by Dr. Garcia for surgical consult - will plan for outpatient follow up, requested inpatient preop echo which was performed showing EF of 50 to 55% with no WMA. Dilated left and right atria. Patient has remained hemodynamically stable with no recurrent episodes of coffee-ground emesis or melena. anticoagulation still on hold. Hemoglobin and hemodynamics relatively stable with no recurrent coffee-ground emesis or melena. Bleeding appears to have slowed if not stopped. -EGD today. -- if he has further LOWER GI bleeding, GI could consider hemospray -- he may need to remain off blood thinner until surgery, can cont to assess Assessment & Plan (08/17/2024 8:11 PM EDT): Chronically is on anticoagulation with eliquis Presented with one episode of dark/coffee-ground emesis. Notes melena possibly starting Sunday morning. CTA abdomen pelvis with thickening involving the rectum, proctitis or lesion considered - GI consult showed a finding appeared small colon ca nonobstructing - surgical consult - will plan for outpatient follow up, requested inpatient preop echo - - anticoagulation still on hold -- Hemoglobin is lower than at presentation but is stable compared to yesterday (was ~ 9 at presentation, last 2 days ~ 7) -- likely related to recent bleeding at site of colon cancer -- he did report dark stools when he presented and GI arranging for EGD -- if he has further LOWER GI bleeding, GI could consider hemospray -- he may need to remain off blood thinner until surgery, can cont to assess Assessment & Plan (08/16/2024 5:41 PM EST): Chronically is on anticoagulation with eliquis Presented with one episode of dark/coffee-ground emesis. Notes melena possibly starting Sunday morning. CTA abdomen pelvis with thickening involving the rectum, proctitis or lesion considered - GI consult showed a finding appeared small colon ca nonobstructing - surgical consult - will plan for outpatient follow up, requested inpatient preop echo - hemoglobin lower today, last bm last night he thinks some blood - could be partly dilutional but may also be related to bleeding - anticoagulation still on hold - repeat cbc in am Assessment & Plan (08/15/2024 10:57 AM EST): Chronically is on anticoagulation with eliquis Presented with one episode of dark/coffee-ground emesis. Notes melena possibly starting Sunday morning. CTA abdomen pelvis with thickening involving the rectum, proctitis or lesion considered - GI consult - planning for evaluation - patient was prepped - potassium borderline elevated - not unexpected in dialysis patient - also sample was a finger stick (difficult draw) and may have been hemolyzed - - hemoglobin appears stable overnight Assessment & Plan (08/15/2024 2:40 AM EST): [place] notes 1 episode of coffee-ground emesis. Notes melena possibly starting Sunday morning. He states that prior to that he was not looking in the toilet to see what color his stools were so it may have been going on longer than that. CTA abdomen pelvis with a questionable rectal lesion. ED discussed the case with gastroenterology and plan is for colonoscopy/sigmoidoscopy on Sunday. GoLytely was requested and ordered. With his coffee-ground emesis I will also give IV PPI twice daily. Rectal lesion 08/15/2024 Assessment & Plan (08/25/2024 12:00 PM EDT): Colonoscopy from 08/15 reviewed and no documented rectal lesion noted. The perianal and digital rectal examinations were noted to be normal at colonoscopy Assessment & Plan (08/24/2024 4:10 PM EDT): Colonoscopy from 08/15 reviewed and no documented rectal lesion noted. The perianal and digital rectal examinations were noted to be normal at colonoscopy Assessment & Plan (08/23/2024 2:37 PM EDT): Colonoscopy from 08/15 reviewed and no documented rectal lesion noted. Colonoscopy notes The perianal and digital rectal examinations were normal. Assessment & Plan (08/22/2024 2:20 PM EDT): Colonoscopy from 08/15 reviewed and no documented rectal lesion noted. Colonoscopy notes The perianal and digital rectal examinations were normal. Assessment & Plan (08/21/2024 4:32 PM EDT): Colonoscopy from 08 15 reviewed and no documented rectal lesion noted. Colonoscopy notes The perianal and digital rectal examinations were normal. Assessment & Plan (08/20/2024 5:18 PM EDT): Colonoscopy from 08 15 reviewed and no documented rectal lesion noted. Colonoscopy notes The perianal and digital rectal examinations were normal. Assessment & Plan (08/19/2024 2:59 PM EDT): Colonoscopy from 08 15 reviewed and no documented rectal lesion noted. Colonoscopy notes The perianal and digital rectal examinations were normal. Assessment & Plan (08/18/2024 1:57 PM EDT): Pathology specimen collected 08/15-pending Outpatient surgical follow-up. Assessment & Plan (08/17/2024 8:11 PM EDT): . Assessment & Plan (08/15/2024 2:40 AM EST): Could represent a proctitis. [place] has not had a colonoscopy since his 60s. ED discussed the case with gastroenterology and plan is for a scope in the morning. GoLytely has been ordered for prep as requested. Chronic constipation 05/25/2023 Assessment & Plan (05/25/2023 2:49 PM EST): Patient will check with his pharmacy to see what medication was prescribed by nephrology. I would suggest docusate twice daily and if this is not helpful, 4-5 prunes daily in addition to docusate. He may also need to drink a little bit more liquid as he has been pretty strict about following his fluid restrictions due to needing dialysis. 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 This is likely related to his diabetes and should resolve spontaneously, but it may take a few months. He will follow-up as planned with ophthalmology Skull lesion 02/10/2022 Overview (02/11/2022): Multiple lucencies incidentally seen on January 2022 Assessment & Plan (02/11/2022 12:38 PM EDT): Possible multiple myeloma. Protein electrophoresis did not show monoclonal spike. I have referred him to oncology for evaluation. Primary osteoarthritis involving multiple joints 09/08/2021 Carpal tunnel syndrome of right wrist 09/01/2021 Assessment & Plan (09/01/2021 12:12 PM EDT): He is awaiting EMG to be done at [facility] and then will follow- up for management with me in orthopedics Type 2 diabetes mellitus wit h diabetic autonomic neuropathy, without long-term current use of insulin 04/08/2021 Assessment & Plan (05/06/2024 11:49 AM EST): A1c recently checked was 5.5 the time before that it was 7.1 Assessment & Plan (12/05/2023 7:07 AM EDT): Control is good based upon the patient's recent A1C of 7.1%. He is not using any medications to control his glucose levels. He has not been checking his glucose levels because he doesn't want to stick his finger. He states he has seen a reader than you put on your finger and it uses light to read the glucose levels. Discussed a traditional CGM but he says that is not it. Will look further into this for him. Continue to work on eating healthy and trying to be active. To call or message with any issues managing his glucose levels. Up to date with ophtho. Seeing podiatry Permanent atrial fibrillation 11/09/2020 Assessment & Plan (05/06/2024 11:49 AM EST): This patient has atrial fibrillation on a low-dose Eliquis as he is a dialysis patient he has not had any bleeding complications Assessment & Plan (11/27/2023 12:01 PM EDT): Heart rate is well-controlled he is tolerating anticoagulation, continue the same. Assessment & Plan (10/04/2023 1:57 PM EDT): No symptoms from this other than some occasional palpitations which do not bother him. No signs of bleeding on Eliquis. Continue metoprolol succinate 25 mg daily Continue Eliquis 2.5 mg twice daily Assessment & Plan (05/15/2023 12:13 PM EST): Heart rate is well-controlled he is tolerating anticoagulation. Continue the same. Reminded to get COVID-19 vaccine at his pharmacy soon as possible. Assessment & Plan (11/09/2022 12:37 PM EDT): Heart rate is well controlled he is tolerating anticoagulation, continue the same. Assessment & Plan (09/19/2022 1:50 PM EDT): Asymptomatic. Continue renally dosed Eliquis. Assessment & Plan (05/11/2022 11:10 AM EST): Heart rate is well controlled, continue anticoagulation. He may need to stop anticoagulation prior to his carpal tunnel surgery and I asked him to discuss this with surgeon. If necessary he could stop it for 2 or 3 days prior to surgery Assessment & Plan (02/11/2022 12:39 PM EDT): Heart rate is well controlled, continue current medication. Assessment & Plan (02/07/2022 11:38 AM EDT): He is rate controlled on metoprolol 25 mg twice daily. He is anticoagulated on apixaban 2.5 mg twice daily which is renally dosed. He does have dialysis Fridays. Assessment & Plan (09/01/2021 12:10 PM EDT): Heart rate is well controlled he is tolerating anticoagulation. Continue the same. Assessment & Plan (07/19/2021 1:27 PM EST): He is on Eliquis 2.5 twice a day for oral anticoagulation without bleeding complication Assessment & Plan (05/18/2021 5:57 PM EST): Well-controlled, continue current medication. Assessment & Plan (02/08/2021 12:09 PM EDT): Well-controlled, continue anticoagulation. Assessment & Plan (11/30/2020 11:40 AM EDT): This patient has permanent atrial fibrillation on renally adjusted Eliquis Assessment & Plan (11/09/2020 12:51 PM EDT): A. fib is well controlled, continue anticoagulation. Advanced care planning/counseling discussion 06/2020 Assessment & Plan (11/09/2020 12:53 PM EDT): I briefly reviewed his MOLST form. He does express some thoughts about possibly changing his decisions. We discussed this briefly and I asked him to give it some more thought and then we can discuss this in more detail at his upcoming appointment. Primary osteoarthritis of both knees 08/11/2020 Overview (11/27/2023): Injections managed by [facility]. Uses a walker Assessment & Plan (11/27/2023 12:02 PM EDT): Doing reasonably well, no changes recommended Assessment & Plan (09/01/2021 12:11 PM EDT): He is doing reasonably well. He has had no falls. He will continue using a cane and has injections at [facility] as needed. Assessment & Plan (08/11/2020 4:51 PM EST): Try extended release acetaminophen. If this is helpful we may be able to avoid injections. If not follow-up with [facility]. Sensorineural hearing loss (SNHL) of both ears 1 07/14/2019 Assessment & Plan (05/13/2020 12:10 PM EST): Patient will call if he wants a referral to audiology for second opinion. Pure hypercholesterolemia 08/07/2019 Assessment & Plan (02/12/2024 4:42 PM EDT): LDL target with CKD, DM is <55 No recent lipid panel available for review Not currently on statin therapy Assessment & Plan (10/04/2023 1:58 PM EDT): It looks like his lipids were last checked in 2019 showing Cholesterol 149, HDL 50, LDL 79, triglycerides 100. His LDL should be below 70. We will print an order requisition slip for lipid panel to be drawn at his dialysis center and they can send the results of this back to our office per patient's request Assessment & Plan (05/25/2023 5:04 PM EST): LDL target with CKD, DM is <55 Not currently on statin therapy Assessment & Plan (01/31/2023 4:27 PM EDT): LDL target with CKD, DM is <55 Not currently on statin therapy Assessment & Plan (10/20/2021 1:56 PM EDT): LDL target with CKD, DM is <55 Not currently on statin therapy Assessment & Plan (04/21/2021 9:22 PM EST): Most recent lipid panel on file was reviewed, this is from December 2019 LDL is <100, with CKD, DM goal is <55 Not currently on statin therapy Assessment & Plan (10/14/2020 4:48 PM EDT): Most recent lipid panel on file was reviewed, this is from December 2019 LDL is <100, with CKD, DM goal is <55 Not currently on statin therapy Status post placement of cardiac pacemaker 12/18 Assessment & Plan (10/04/2023 1:56 PM EDT): Pacemaker interrogation done in office today. Formal report pending. Assessment & Plan (03/27/2023 1:00 PM EDT): He had this done for complete heart block it is functioning well he has 5 years left on the battery we interrogated today and it is functioning normally Assessment & Plan (02/07/2022 11:39 AM EDT): Pacemaker interrogation today normal device function with no events. He has a 32% atrial fibrillation burden with rate control. He will remain on metoprolol 25 mg twice daily and remain on his anticoagulation of apixaban 2.5 mg twice daily. Assessment & Plan (06/01/2020 11:47 AM EST): This patient had complete heart block requiring a permanent pacer which we follow in our remote clinic which has been working quite well he also has PAF on Eliquis 2.5 twice a day Assessment & Plan (12/18/2017 5:03 PM EDT): - Status post [facility] pacemaker. Wound site is well healed and is not exhibit signs of infection. - He does not feel significantly different than prior to insertion, but was asymptomatic during his sinus pauses. - He was provided with post procedure instructions, and is waiting to hear back from Dr. Broussard regarding ability to drive. Since he is not currently driving, it has been quite a hardship for him to get to dialysis and appointments. His pacemaker site is on the right. - He will have his first device check in the office at the [facility] on January 17. - Contact information for [facility] was provided to him and he can also call them with questions. Central sleep apnea with [place] respirati on 12/05/2017 Assessment & Plan (09/03/2024 1:30 PM EDT): cpap Assessment & Plan (09/02/2024 6:13 PM EDT): cpap Assessment & Plan (09/01/2024 1:57 PM EDT): cpap Assessment & Plan (08/31/2024 10:05 AM EDT): cpap Assessment & Plan (08/30/2024 12:54 PM EDT): cpap Assessment & Plan (08/29/2024 8:14 PM EDT): CHERYL - Nightly CPAP. Assessment & Plan (08/28/2024 2:41 PM EDT): CHERYL, uses nightly CPAP. Stable in room air. Assessment & Plan (11/30/2020 11:40 AM EDT): This is being treated and is well-tolerated Anemia 12/05/2017 Overview (12/05/2017): Stable H/H, will manage in outpt setting Assessment & Plan (02/13/2020 5:09 PM EDT): Medically is doing well. I asked him to have copies of his labs forwarded to me when they are done. Follow-up as scheduled with nephrology. Complete heart block 12/04/2017 Assessment & Plan (05/06/2024 11:49 AM EST): This patient had complete heart block years ago and had a permanent pacemaker placed followed in our device clinic which is functioning well Assessment & Plan (09/19/2022 1:48 PM EDT): Meghan interrogated device in office today. No concerns. Will continue remote downloads every 3 months with in office device checks every 6 months. Assessment & Plan (07/19/2021 1:27 PM EST): This patient is been doing quite well with a permanent pacer which is being checked today in our device clinic. He has about 10 years left on his battery Assessment & Plan (12/02/2019 12:17 PM EDT): Heart block has required maker which is now in and functioning well. This is interrogated remotely. Assessment & Plan (04/29/2019 1:43 PM EST): This patient has a permanent pacemaker which is getting interrogated in our device clinic there have been no device related abnormalities. Assessment & Plan (01/07/2019 1:44 PM EDT): Permanent pacemaker is implanted and monitored in our device clinic Assessment & Plan (07/02/2018 1:53 PM EST): Well treated with a permanent pacemaker which is been interrogated in our remote clinic with no alert Assessment & Plan (03/05/2018 12:55 PM EDT): This patient is on Eliquis 5 mg twice a day not having any bleeding complications. He will remain on this due to his A. fib burden and other risk. Assessment & Plan (12/18/2017 5:03 PM EDT): - Status post [facility] pacemaker. Continue with routine device checks. Assessment & Plan (12/05/2017 3:40 PM EDT): Patient in complete heart block. Has accelerated junctional rhythm. He is asymptomatic. Cardiology are placing a pacemaker now Glaucoma 12/04/2017 Assessment & Plan (12/04/2017 11:56 PM EDT): I saw in cardiology's outpatient note that there was some concern about the beta aleyda eyedrops. I will hold this and continue his others with formulary alternatives as necessary. Type 2 diabetes mellitus wit h chronic kidney disease on chronic dialysis, without long-term current use of insulin 08/11/2017 Assessment & Plan (09/03/2024 1:30 PM EDT): Will continue insulin while hospitalized. POC stable Assessment & Plan (09/02/2024 6:13 PM EDT): Will continue insulin while hospitalized Assessment & Plan (09/01/2024 1:57 PM EDT): Will continue insulin while hospitalized Assessment & Plan (08/31/2024 10:05 AM EDT): Will continue insulin while hospitalized Assessment & Plan (08/30/2024 12:54 PM EDT): Will continue insulin while hospitalized Assessment & Plan (08/29/2024 8:14 PM EDT): - CHAVA - POC ACHS Assessment & Plan (08/28/2024 2:41 PM EDT): CHAVA Assessment & Plan (08/25/2024 12:00 PM EDT): Diet controlled at baseline. - controlled, use insulin sliding scale if needed - for pruritus gabapentin (renally dosed), diphenhydramine, emollient cream Assessment & Plan (08/24/2024 4:10 PM EDT): Diet controlled at baseline. - controlled, use insulin sliding scale if needed - for pruritus gabapentin (renally dosed), diphenhydramine, emollient cream Assessment & Plan (08/23/2024 2:37 PM EDT): Diet controlled at baseline. - controlled, use insulin sliding scale if needed - for pruritus gabapentin (renally dosed), diphenhydramine, emollient cream Assessment & Plan (08/22/2024 2:20 PM EDT): Diet controlled at baseline. - controlled, use insulin sliding scale if needed - for pruritus gabapentin (renally dosed), diphenhydramine, emollient cream Assessment & Plan (08/21/2024 4:32 PM EDT): Diet controlled at baseline. - controlled, use insulin sliding scale if needed - for pruritus gabapentin (renally dosed), diphenhydramine, emollient cream Assessment & Plan (08/20/2024 5:18 PM EDT): Diet controlled at baseline. - controlled, use insulin sliding scale if needed - for pruritus gabapentin (renally dosed), diphenhydramine, emollient cream Assessment & Plan (08/19/2024 2:59 PM EDT): Diet controlled at baseline. - controlled, use insulin sliding scale if needed - for pruritus gabapentin (renally dosed), diphenhydramine, emollient cream Assessment & Plan (08/18/2024 1:57 PM EDT): Diet controlled at baseline. - controlled, use insulin sliding scale if needed - for pruritus gabapentin (renally dosed), diphenhydramine, emollient cream Assessment & Plan (08/17/2024 8:11 PM EDT): Diet controlled at baseline. - controlled, use insulin sliding scale if needed - for pruritus gabapentin (renally dosed), diphenhydramine, emollient cream Assessment & Plan (08/16/2024 5:41 PM EST): Diet controlled at baseline. - controlled, use insulin sliding scale if needed - for pruritus gabapentin (renally dosed), diphenhydramine, emollient cream Assessment & Plan (08/15/2024 10:57 AM EST): Diet controlled at baseline. - controlled, use insulin sliding scale if needed Assessment & Plan (08/15/2024 2:40 AM EST): Diet controlled at baseline. We will monitor POC's and give as needed lispro. Assessment & Plan (02/12/2024 4:44 PM EDT): Most recent A1c was in good range and stable other than one recent outlier, we discussed likely inaccuracies in A1c due to CKD, HD Reasonable goal A1c is <7.5%, Al is not on any antihyperglycemic medication therapy We will assess glycemia with periodic CGM pro evaluations, he is also advised to check with [facility] if sensor would be covered for him under his [facility] benefit CGM pro placed today Lifestyle continues to be healthy in general, appetite is lower but stable Blood pressure has been historically well controlled, it is in good control today Continues on HD and regular follow up with his renal team, up to date on routine labs Encouraged to continue efforts at healthy lifestyle Advised to call with any questions or concerns, we will follow up in 6 months Assessment & Plan (11/27/2023 12:02 PM EDT): Well-controlled, continue current medication. Recheck hemoglobin A1c at dialysis later this month and follow-up as planned with endocrinology later this summer. Assessment & Plan (05/25/2023 5:09 PM EST): Most recent A1c was in good range but has been rising over time compared to past results, recent CGM pro eval indicated excellent control without hypoglycemia Reasonable goal A1c is <7.5%, Al is not on any antihyperglycemic medication therapy Lifestyle continues to be healthy in general, appetite is lower due to appetite changes, we discussed h/o chronic congestion which may be contributing to this, PCP suggested saline nose sprays and we also discussed that Al may benefit from nasal steroid sprays to reduce inflammation Blood pressure has been historically well controlled, it is in good control today Continues on HD and regular follow up with his renal team, up to date on routine labs Encouraged to continue efforts at healthy lifestyle Advised to call with any questions or concerns, we will follow up in 6 months Assessment & Plan (05/15/2023 12:13 PM EST): Blood sugars doing well, continue current management with diet and follow-up as planned with nephrology to recheck hemoglobin A1c every 3 to 4 months. Assessment & Plan (03/27/2023 1:00 PM EDT): A1c should be less than 7 and LDL less than 70 mg/dL Assessment & Plan (02/19/2023 5:47 PM EDT): Most recent A1c was in good range but has been rising over time compared to past results, reviewed CGM pro eval with Al which indicated very good control without hypoglycemia TIR is 71%, occ prandial rises but these are generally sporadic and not sustained Advised there is no indication to resume any diabetes medication, reviewed that insulin would be the safest and this would increase risk for hypoglycemia Lifestyle continues to be healthy in general Blood pressure has been historically well controlled Continues on HD and regular follow up with his renal team, up to date on routine labs Encouraged to continue efforts at healthy lifestyle Advised to call with any questions or concerns, Al will return to meet with Dr. Alvarez in 3 months. He prefers sooner follow up this time around since A1c has been slowly creeping up Assessment & Plan (01/31/2023 4:30 PM EDT): Most recent A1c was in good range but has been rising over time compared to past results, recent CGM pro eval indicated excellent control without hypoglycemia We discussed a repeat of CGM pro today to evaluate any change in patterns which may explain higher A1c and possible need for reinitiation of antihyperglycemic therapy Lifestyle continues to be healthy in general Blood pressure has been historically well controlled Continues on HD and regular follow up with his renal team, up to date on routine labs We discussed medic alert bracelet regarding no bp monitoring on left arm Encouraged to continue efforts at healthy lifestyle Advised to call with any questions or concerns, we will follow up in 2 weeks to discuss results of CGM pro and any necessary antihyperglycemic medication therapy Assessment & Plan (11/09/2022 12:37 PM EDT): Blood sugars well controlled, continue dietary management Assessment & Plan (08/07/2022 8:25 PM EST): Most recent A1c was in excellent range CGM pro eval established excellent glycemic control with average 140 and 86% in target range, no lows. Occasional brief PPG elevations after lunch and sporadically dinner with sugars returning to target range in 1-2 hours or less. Lifestyle continues to be healthy in general. Blood pressure has been historically well controlled. Continues on HD and regular follow up with his renal team. Tolerates HD quite well. Encouraged to continue efforts at healthy lifestyle. Advised to call with any questions or concerns, we will follow up in 6 months. Assessment & Plan (07/17/2022 4:35 PM EST): Most recent A1c was in excellent range per [place] but we revisited whether A1c is accurate, it has been stable in excellent range on most determinations We discussed blood sugar monitoring for a time vs CGM pro eval to supplement A1c determinations with glucose pattern evaluations Lifestyle continues to be healthy in general Blood pressure has been historically well controlled Continues on HD and regular follow up with his renal team Encouraged to continue efforts at healthy lifestyle Advised to call with any questions or concerns, we will follow up in 6 months; [place] will return this week for CGM pro placement Assessment & Plan (05/11/2022 11:10 AM EST): Blood sugars well controlled, continue current treatment. Assessment & Plan (10/20/2021 1:53 PM EDT): Most recent A1c is not available for review but Al reports that this was improved compared to our last Lifestyle continues to be healthy in general Self monitors blood sugars occasionally, we discussed target blood sugars and Al is given written instructions on these today Blood pressure is well controlled Continues on HD and regular follow up with his renal team Encouraged to continue efforts at healthy lifestyle Advised to call with any questions or concerns, we will follow up in 6 months Assessment & Plan (09/01/2021 12:10 PM EDT): Blood sugars been well controlled. Continue current diet management. I asked the patient have a copy of his labs sent to me from dialysis Assessment & Plan (04/21/2021 9:35 PM EST): Most recent A1c on file is in good range, however higher than [place]'s usual results Lifestyle continues to be healthy in general Continues to not self monitor blood sugars, we had discussed that if he does feel any symptoms which may be suggestive of hypoglycemia he should self monitor, we discussed that this is generally unlikely since he is not on medications which would put him at risk for low blood sugar, however without glucose data we cannot evaluate the reasons for the recent rise in A1c, [place] is agreeable to a CGM pro eval and we will consider adding back glucose lowering therapy if needed Blood pressure is well controlled Continues on HD and ongoing follow up with his renal team Encouraged to continue efforts at healthy lifestyle Advised to call with any questions or concerns Assessment & Plan (11/09/2020 12:51 PM EDT): Diabetes is well controlled with diet. He can follow-up with me or Dr. Alvarez at his discretion. Assessment & Plan (10/14/2020 4:49 PM EDT): Most recent A1c on file remains in excellent range, goal is <7% Lifestyle is healthy in general Continues to not self monitor blood sugars, [...] to call with any questions or concerns Assessment & Plan (06/01/2020 11:47 AM EST): Hemoglobin A1c should be less than 7 which it is at 6.1 and LDL less than 70 mg/dL Assessment & Plan (04/13/2020 1:32 PM EST): Most recent A1c on file remains in [...] to call with any questions or concerns Assessment & Plan (02/13/2020 5:10 PM EDT): His last A1c done here was over 10 but that was many months ago. The patient reports his hemoglobin A1c is well controlled. I asked him to have a copy of his labs sent from renal. Continue regular podiatry care and foot care was reviewed. Assessment & Plan (10/07/2019 11:29 AM EDT): Most recent A1c on file remains in excellent range, goal is <7% We discussed dietary concerns, [place] is encouraged to try to have a protein shake prior to leaving for dialysis, this has been difficult since he cannot have this on public transportation nor while at dialysis currently Reassured that he does not need to self monitor blood sugars, though if he does feel any symptoms which may be suggestive of hypoglycemia he should self monitor, we discussed that this is generally unlikely since he is not on medications which would put him at risk for low blood sugar Encouraged to continue efforts at healthy lifestyle Advised to call with any questions or concerns Assessment & Plan (04/29/2019 1:43 PM EST): Hemoglobin A1c should be less than 7 and LDL less than 70 mg/dL given the diabetes. Assessment & Plan (03/28/2019 2:02 PM EDT): Excellent control Blood pressure is in very good control as well Consistent with routine follow up with renal specialists, on HD Assessment & Plan (01/07/2019 1:45 PM EDT): Hemoglobin A1c is to the guidelines at 6.1 Assessment & Plan (08/29/2018 12:03 PM EDT): Glucose control remains excellent per A1c determinations though these may not be completely accurate Resuming SMBG will help assess true day to day control Assessment & Plan (07/02/2018 1:53 PM EST): Hemoglobin A1c should be less than 7 and LDL given the diabetes should be less than 70 mg/dL. Assessment & Plan (03/05/2018 12:55 PM EDT): Hemoglobin A1c should be less than 7 by the guidelines and LDL less than 70 mg/dL. Assessment & Plan (02/21/2018 2:43 PM EDT): CKD on HD and related biochemical changes which result from this may affect accuracy of A1c, currently patient-reported sporadic blood sugar recall seems reassuring in addition to a very stable A1c pattern, however if this is ever in question then assessment using the serum Fructosamine and/or a CGM trial will likely provide more accurate assessment of glycemic control Assessment & Plan (12/04/2017 2:31 PM EDT): This patient has end-stage renal disease from diabetes and hypertension hemoglobin A1c less than 7 Assessment & Plan (11/06/2017 1:55 PM EDT): Hemoglobin A1c less than 7 LDL goal less than 70 mg/dL given the diabetes he does not have documented coronary artery disease or peripheral arterial disease Assessment & Plan (08/16/2017 3:41 PM EST): Blood sugar control remains excellent on lifestyle management On chronic HD Type 2 diabetes mellitus wit h diabetic polyneuropathy, without long-term current use of insulin 08/11/2017 Overview (08/16/2017): DIABETES HISTORY Diagnosis - type 2 since age 49 Treatment history - insulin since age 59; off insulin/antihyperglycemic meds since summer 2015 Assessment & Plan (02/12/2024 4:44 PM EDT): We revisited today that A1c may be inaccurate in setting of CKD and anemia We discussed repeating CGM pro trial periodically to assess glucose patterns, we briefly reviewed data from last February which was very reassuring CGM pro placed today Assessment & Plan (05/25/2023 5:06 PM EST): We revisited today that A1c may be inaccurate in setting of CKD and anemia We discussed repeating CGM pro trial periodically to assess glucose patterns, we briefly reviewed data from this past summer which was very reassuring Assessment & Plan (02/19/2023 5:48 PM EDT): A1c may be inaccurate in setting of CKD and anemia, this has been stable for a long time, recent increase in this CGM trial eval reflects very good glycemic control with 71% of sugars in target range without hypoglycemia Assessment & Plan (02/05/2023 11:33 AM EDT): A1c may be inaccurate in setting of CKD and anemia, this has been stable for a long time, recent increase in this was not sustained and most recent is again back in excellent range We discussed repeating CGM trial to assess glucose patterns CGM Trial Type of Diabetes: Diabetes mellitus Type 2 Procedures: Glucose Monitoring: Type of Sensor: FSL Pro Instruction: Patient Instructed on:, Calibrations, When to test BS, Troubleshooting, What to expect with the sensor, Patient instructed to remove sensor if redness, pain or bleeding occurs. Insertion Site Selected: upper arm Site Prep: Insertion site wiped with alcohol. Insertion: completed, area looks good, no redness, no bleeding. Plan: Patient will remove sensor and return in 2 weeks to drop off at front end application developer or follow up appointment. Assessment & Plan (08/07/2022 8:26 PM EST): A1c may be inaccurate in setting of CKD and anemia, this has been stable for a long time, recent increase in this was not sustained and most recent is again back in excellent range CGM trial eval reflects excellent glycemic control with 86% of sugars in target range without lows. Assessment & Plan (07/17/2022 4:36 PM EST): A1c may be inaccurate in setting of CKD and anemia, this has been stable for a long time, recent increase in this was not sustained and most recent is again back in excellent range We revisited CGM pro and [place] is agreeable, will return later this week to have this placed Assessment & Plan (02/11/2022 12:39 PM EDT): He is doing well with managing his diabetes with diet alone. Hemoglobin A1c is followed every 2 to 3 months at dialysis. Continue the same. Goal is to maintain hemoglobin A1c less than 7.5. Assessment & Plan (10/20/2021 1:55 PM EDT): A1c may be inaccurate in setting of [...] his reported readings are in good range Assessment & Plan (05/18/2021 5:57 PM EST): Well-controlled, continue current medication. Assessment & Plan (04/21/2021 9:55 PM EST): A1c may be inaccurate in setting of CKD and anemia, this has been stable for long time however significant rise in A1c indicates a need to assess glucose patterns [place] is agreeable to a CGM pro evaluation and a sensor was placed today, we will discuss any necessary changes to his current lifestyle only management based on this data He is encouraged to continue his healthy lifestyle habits for now [place] is having peripheral neuropathy symptoms at his hands which is likely at least partly related to diabetes, he has had good response to topical therapy for his feet, may benefit from eval with neurologist, medication therapy will need to be considered cautiously in light of ESRD on HD CGM Trial Type of Diabetes: Diabetes mellitus Type 2 Procedures: Monitoring: Type of Sensor: TERENCE PRO Instruction: Patient Instructed on:, Calibrations, When to test BS, Troubleshooting, What to expect with the sensor, Patient instructed to remove sensor if redness, pain or bleeding occurs. . Insertion Site Selected: arm Site Prep: Insertion site wiped with alcohol. Insertion: completed, area looks good, no redness, no bleeding. Plan: Patient will remove sensor and return in 14 days to drop off at front end application developer or follow up appointment. Assessment & Plan (02/08/2021 12:08 PM EDT): Well-controlled. 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 Troncoso; should symptoms become more persistent/frequent then [place] is more likely to benefit from a medication like gabapentin at very modest dosage due to ESRD Encouraged to continue healthy lifestyle Advised to call with any questions or concerns Assessment & Plan (08/11/2020 4:50 PM EST): Diabetes is well controlled with diet. Continue the same. Assessment & Plan (05/13/2020 12:10 PM EST): Diabetes well controlled. Continue current medication. Foot care was reviewed. Follow-up as scheduled with podiatry. 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 he has end-stage renal disease and gets dialysis 3 times a week Assessment & Plan (10/07/2019 11:30 AM EDT): Most recent A1c on file remains in excellent range, goal is <7% We discussed dietary concerns, [place] is encouraged to try to have a protein shake prior to leaving for dialysis, this has been difficult since he cannot have this on public transportation nor while at dialysis currently Reassured that he does not need to self monitor blood sugars, though if he does feel any symptoms which may be suggestive of hypoglycemia he should self monitor, we discussed that this is generally unlikely since he is not on medications which would put him at risk for low blood sugar Encouraged to continue efforts at healthy lifestyle Advised to call with any questions or concerns Assessment & Plan (03/28/2019 2:01 PM EDT): Excellent control overall, healthy lifestyle Encouraged to [...] to call with any questions or concerns Assessment & Plan (08/29/2018 12:01 PM EDT): Would like to self monitor blood sugars more regularly, given meter and prescription for strips/lancets sent Encouraged to call us with any concerns/questions regarding blood sugar patterns Remains off all antihyperglycemic medications at this time Assessment & Plan (02/21/2018 2:40 PM EDT): Blood sugars monitored sporadically only, report of these indicates no need for antihypertensive medication therapy at this time A1c remains stable Assessment & Plan (12/04/2017 11:58 PM EDT): It appears that he's been off of diabetes treatment since 2015. He will have as needed lispro. I will use a low intensity scale given his end-stage renal disease. Assessment & Plan (08/16/2017 3:42 PM EST): Is doing very well with lifestyle Advised to stay active and continue healthy diet HTN (hypertension) 05/15/2017 Assessment & Plan (09/04/2024 8:43 AM EDT): Hypertension monitor may increase dose beta-blockade as needed. Assessment & Plan (09/03/2024 1:30 PM EDT): Continue Lopressor as scheduled, resume hydralazine Assessment & Plan (08/25/2024 12:00 PM EDT): Labile hypertension Patient was on metoprolol 25 mg twice daily. He frequently stated that this was not his dose and asked to be placed on his home dose. Records were reviewed recent bp and was restarted on 12.5 mg in the morning rather than 25 mg. On 08/20 patient was hypertensive during HD blood pressure of 217/86 and received clonidine 0.1 mg with improvement in blood pressures down to 164/80. -Evening patient had hypotension which quickly rebounded from 87/45 to 93/46 and 150/70 . He was asymptomatic. Evening metoprolol dose was held. -Bps have been stable over the weekend -Seen and followed by nephrology recommends IV fluid bolus of 250 mL if systolic blood pressures less than 90. -Continue home metoprolol with holding parameters Assessment & Plan (08/24/2024 4:10 PM EDT): Labile hypertension Patient was on metoprolol 25 mg twice daily. He frequently stated that this was not his dose and asked to be placed on his home dose. Records were reviewed recent bp and was restarted on 12.5 mg in the morning rather than 25 mg. On 08/20 patient was hypertensive during HD blood pressure of 217/86 and received clonidine 0.1 mg with improvement in blood pressures down to 164/80. -Evening patient had hypotension which quickly rebounded from 87/45 to 93/46 and 150/70 . He was asymptomatic. Evening metoprolol dose was held. -Seen and followed by nephrology recommends IV fluid bolus of 250 mL if systolic blood pressures less than 90. -Continue home metoprolol with holding parameters Assessment & Plan (08/23/2024 2:37 PM EDT): Labile hypertension Patient was on metoprolol 25 mg twice daily. He frequently stated that this was not his dose and asked to be placed on his home dose. Records were reviewed recent bp and was restarted on 12.5 mg in the morning rather than 25 mg. On 08/20 patient was hypertensive during HD blood pressure of 217/86 and received clonidine 0.1 mg with improvement in blood pressures down to 164/80. -Evening patient had hypotension which quickly rebounded from 87/45 to 93/46 and 150/70 . He was asymptomatic. Evening metoprolol dose was held. -Seen and followed by nephrology recommends IV fluid bolus of 250 mL if systolic blood pressures less than 90. -Continue home metoprolol with holding parameters Assessment & Plan (08/22/2024 2:20 PM EDT): Labile hypertension Patient was on metoprolol 25 mg twice daily. He frequently stated that this was not his dose and asked to be placed on his home dose. Records were reviewed recent bp and was restarted on 12.5 mg in the morning rather than 25 mg. On 08/20 patient was hypertensive during HD blood pressure of 217/86 and received clonidine 0.1 mg with improvement in blood pressures down to 164/80. -Evening patient had hypotension which quickly rebounded from 87/45 to 93/46 and 150/70 . He was asymptomatic. Evening metoprolol dose was held. -Seen and followed by nephrology recommends IV fluid bolus of 250 mL if systolic blood pressures less than 90. -Continue home metoprolol with holding parameters Assessment & Plan (08/21/2024 4:32 PM EDT): Labile hypertension Patient was on metoprolol 25 mg twice daily. He frequently stated that this was not his dose and asked to be placed on his home dose. Records were reviewed recent bp and was restarted on 12.5 mg in the morning rather than 25 mg. His home regimen his blood pressures for somewhat elevated with systolics in the 140s to 160s and diastolics in the 70s. He was asymptomatic. On 08/20 patient was hypertensive during HD blood pressure of 217/86 and received clonidine 0.1 mg time 1 with improvement in blood pressures down to 164/80. -Evening patient had hypotension which quickly rebounded from 87/45 to 93/46 and 150/70 . He was asymptomatic. Evening metoprolol dose was held. 08/21 blood pressures now back to normal ranging from 107/53 up to 111/54 -Seen and followed by nephrology recommends IV fluid bolus of 250 mL if systolic blood pressures less than 90. -Continue home metoprolol with holding parameters Assessment & Plan (08/20/2024 5:18 PM EDT): - continued on metoprolol, he received overnight dose, reviewed recent bp and hr and recommended resuming his regular schedule with dose of metoprolol - he reports taking 12.5 mg in the morning rather than 25 mg. Patient was started on metoprolol 25 mg twice daily. Missed a.m. dose this morning for dialysis and blood pressures up to 175/61. Per patient's home regimen he is now on metoprolol 12.5 mg in the a.m. and 25 mg at bedtime with hold parameters Blood pressures somewhat elevated throughout the course of the day to 161/76, 140/76. 08/20 patient was hypertensive during HD today he received clonidine 0.1 mg time 1 with improvement in blood pressures from 217/86 down to 164/80. At 3 PM patient had low blood pressure reading of 87/45 quickly rebounded to 93/46 and 150/70 asymptomatic. -Will follow-up blood pressures overnight - Will discuss with nephrology will likely need a second agent possibly Norvasc - Continue with metoprolol per home regimen. Assessment & Plan (08/19/2024 2:59 PM EDT): - continued on metoprolol, he received overnight dose, reviewed recent bp and hr and recommended resuming his regular schedule with dose of metoprolol - he reports taking 12.5 mg in the morning rather than 25 mg. Patient was started on metoprolol 25 mg twice daily. Missed a.m. dose this morning for dialysis and blood pressures up to 175/61. Per patient's home regimen he is now on metoprolol 12.5 mg in the a.m. and 25 mg at bedtime with hold parameters Blood pressures somewhat elevated throughout the course of the day to 161/76, 140/76. Heart rates in the 60s. - Will discuss with nephrology will likely need a second agent possibly Norvasc - Continue with metoprolol per home regimen. Assessment & Plan (08/18/2024 1:57 PM EDT): - continued on metoprolol, he received overnight dose, reviewed recent bp and hr and recommended resuming his regular schedule with dose of metoprolol - he reports taking 12.5 mg in the morning rather than 25 mg. Patient was started on metoprolol 25 mg twice daily. Missed a.m. dose this morning for dialysis and blood pressures up to 175/61. - Continue with metoprolol 25 mg twice daily. Hold parameters for heart rate in the 50s. Assessment & Plan (08/17/2024 8:11 PM EDT): - continued on metoprolol, he received overnight dose, reviewed recent bp and hr and recommended resuming his regular schedule with dose of metoprolol - he reports taking 12.5 mg in the morning rather than 25 mg Assessment & Plan (08/16/2024 5:41 PM EST): - continued on metoprolol, he received overnight dose, reviewed recent bp and hr and recommended resuming his regular schedule with dose of metoprolol - he reports taking 12.5 mg in the morning rather than 25 mg Assessment & Plan (08/15/2024 11:00 AM EST): - continued on metoprolol, he received overnight dose, reviewed recent bp and hr and recommended resuming his regular schedule with dose of metoprolol this morning - cont home dose Assessment & Plan (05/06/2024 11:48 AM EST): Well-controlled at this time Assessment & Plan (02/12/2024 4:41 PM EDT): Historically excellent control of blood pressure on current antihypertensive regimen, today this is also in good range Followed closely by nephrology Assessment & Plan (11/27/2023 12:01 PM EDT): Well-controlled, continue current medication Assessment & Plan (10/04/2023 1:56 PM EDT): Blood pressure seems well-controlled running 120s-130s systolic when checked at dialysis Can continue metoprolol succinate 25 mg daily Assessment & Plan (05/25/2023 5:04 PM EST): Historically excellent control of blood pressure on current antihypertensive regimen, today this is also in excellent range Followed closely by nephrology Assessment & Plan (05/15/2023 12:13 PM EST): Blood pressure is well-controlled, continue current medication Assessment & Plan (03/27/2023 1:00 PM EDT): Well-controlled at this time Assessment & Plan (02/19/2023 5:48 PM EDT): Historically excellent control of blood pressure on current antihypertensive regimen, today this is also in excellent range Followed closely by nephrology Assessment & Plan (01/31/2023 4:26 PM EDT): Historically excellent control of blood pressure on current antihypertensive regimen, today this is also in excellent range Followed closely by nephrology Assessment & Plan (11/09/2022 12:37 PM EDT): Blood pressure apparently was low but is now normalized, continue current treatment. Assessment & Plan (09/19/2022 1:50 PM EDT): Well controlled on metoprolol. Followed by renal. Assessment & Plan (08/07/2022 8:18 PM EST): Historically excellent control of blood pressure on current antihypertensive regimen Followed closely by nephrology Assessment & Plan (07/17/2022 4:32 PM EST): Historically excellent control of blood pressure on current antihypertensive regimen Followed closely by nephrology Assessment & Plan (05/11/2022 11:09 AM EST): Well-controlled, continue current medication Assessment & Plan (02/11/2022 12:39 PM EDT): Well-controlled, continue current medication. Assessment & Plan (10/20/2021 1:51 PM EDT): Excellent control of blood pressure on current antihypertensive regimen Assessment & Plan (09/01/2021 12:09 PM EDT): Blood pressures well controlled, continue current medication Assessment & Plan (07/19/2021 1:27 PM EST): Well-controlled at this time Assessment & Plan (04/21/2021 9:37 PM EST): Excellent control of blood pressure Assessment & Plan (02/08/2021 12:09 PM EDT): Blood pressures well controlled, continue current medication. Assessment & Plan (11/30/2020 11:40 AM EDT): Well-controlled at this time Assessment & Plan (11/09/2020 12:51 PM EDT): Hypertension is well controlled with current medication, continue the same. Assessment & Plan (08/11/2020 4:50 PM EST): Blood pressures well controlled, continue current medication. Assessment & Plan (06/01/2020 11:46 AM EST): Borderline elevated but usually well controlled he sees renal for this Assessment & Plan (05/13/2020 12:09 PM EST): Well-controlled, continue current medication. Assessment & Plan (04/13/2020 1:30 PM EST): Excellent control of blood pressure Assessment & Plan (02/13/2020 5:08 PM EDT): Blood pressures well controlled, continue current medication. Assessment & Plan (12/02/2019 12:18 PM EDT): Perfectly controlled to the guidelines today I did 122 mmHg Assessment & Plan (04/29/2019 1:42 PM EST): Perfectly controlled to the guidelines Assessment & Plan (03/28/2019 1:58 PM EDT): Blood pressure is very well controlled today on current regimen Assessment & Plan (01/07/2019 1:45 PM EDT): Not adequately controlled I am going to add metoprolol 25 mg once a day Assessment & Plan (08/29/2018 12:00 PM EDT): Very well controlled blood pressure Assessment & Plan (07/02/2018 1:52 PM EST): Well-controlled to the guidelines. Assessment & Plan (03/05/2018 12:54 PM EDT): Well-controlled to the guidelines. Assessment & Plan (12/18/2017 5:04 PM EDT): - Blood pressure controlled in office today. He had dialysis yesterday. Continue with current dose of amlodipine. - He will follow-up in the office in February with Dr. Lebron, sooner PRN. Assessment & Plan (12/04/2017 11:55 PM EDT): We will continue his amlodipine. Assessment & Plan (12/04/2017 2:31 PM EDT): Nearly Controlled to the guideline Assessment & Plan (11/06/2017 1:54 PM EDT): Controlled now that due to this being out of control this caused end-stage renal disease in the past Assessment & Plan (08/16/2017 3:40 PM EST): Very well controlled blood pressure on current regimen Paroxysmal atrial fibrillation 05/15/2017 Assessment & Plan (09/03/2024 1:30 PM EDT): Would be excellent candidate for watchman device, can be referred to cardiology upon discharge Assessment & Plan (09/02/2024 6:13 PM EDT): Would be excellent candidate for watchman device, can be referred to cardiology upon discharge Assessment & Plan (09/01/2024 1:57 PM EDT): Would be excellent candidate for watchman device, can be referred to cardiology upon discharge Assessment & Plan (08/31/2024 10:05 AM EDT): Would be excellent candidate for watchman device, can be referred to cardiology upon discharge Assessment & Plan (08/30/2024 12:48 PM EDT): Would be excellent candidate for watchman device, can be referred to cardiology upon discharge Assessment & Plan (08/29/2024 8:14 PM EDT): Rate controlled, presently NSR with occasional Vpacing. [id number] 4 - Will hold anticoagulation for at least 1 week - Talked to him about option of restarting AC in a week vs stopping indefinitely. He will think about it. Assessment & Plan (08/28/2024 2:41 PM EDT): Rate controlled, presently NSR with occasional Vpacing. [id number] 4 Will hold anticoagulation for at least 1 week, however might consider holding indefinitely given significant recurrent bleeding. Assessment & Plan (08/25/2024 12:00 PM EDT): Sinus rhythm currently. [id number]-LNNr score of 4 (age, hypertension, diabetes) Ventricular response rates are well-controlled in the 60s. - Eliquis held in the setting of GI bleeding; can likely resume soon if Hb remains stable - Continue metoprolol. Assessment & Plan (08/24/2024 4:10 PM EDT): Sinus rhythm currently. [id number] score of 4 (age, hypertension, diabetes) Ventricular response rates are well-controlled in the 60s. - Eliquis held in the setting of GI bleeding; can likely resume soon if Hb remains stable - Continue metoprolol. Assessment & Plan (08/23/2024 2:37 PM EDT): Sinus rhythm currently. FMP2XK5-GBGg score of 4 (age, hypertension, diabetes) Ventricular response rates are well-controlled in the 60s. - Eliquis held in the setting of GI bleeding; can likely resume soon if Hb remains stable - Continue metoprolol. Assessment & Plan (08/22/2024 2:20 PM EDT): Sinus rhythm currently. [id number]-MPRz score of 4 (age, hypertension, diabetes) Ventricular response rates are well-controlled in the 60s. - Eliquis held in the setting of GI bleeding - Continue metoprolol. Assessment & Plan (08/21/2024 4:32 PM EDT): Sinus rhythm currently. . CDA4YK5-QPIn score of 4 (age, hypertension, diabetes) Ventricular response rates are well-controlled in the 60s. - Eliquis held in the setting of GI bleeding - Continue metoprolol. Assessment & Plan (08/20/2024 5:18 PM EDT): Sinus rhythm currently. . WDL1TA1-JCMi score of 4 (age, hypertension, diabetes) Ventricular response rates are well-controlled in the 60s. - Eliquis held in the setting of GI bleeding - Continue metoprolol. Assessment & Plan (08/19/2024 2:59 PM EDT): Sinus rhythm currently. . CDO1ZR3-QOYm score of 4 (age, hypertension, diabetes) Ventricular response rates are well-controlled in the 60s. - Eliquis held in the setting of GI bleeding - Continue metoprolol. Assessment & Plan (08/18/2024 1:57 PM EDT): Sinus rhythm currently. . AHI1YN0-AGAl score of 4 (age, hypertension, diabetes) Ventricular response rates are well-controlled in the 60s. - Eliquis held in the setting of GI bleeding - Continue metoprolol. Assessment & Plan (08/17/2024 8:11 PM EDT): Sinus rhythm currently. . FNT8KG9-TFUm score of 4 (age, hypertension, diabetes) - Eliquis held in the setting of GI bleeding - Continue metoprolol. Assessment & Plan (08/16/2024 5:41 PM EST): Sinus rhythm currently. . OCB1JB3-CVWc score of 4 (age, hypertension, diabetes) - Eliquis held in the setting of GI bleeding - Continue metoprolol. Assessment & Plan (08/15/2024 10:57 AM EST): Sinus rhythm currently. . [id number]-JGMa score of 4 (age, hypertension, diabetes) - Eliquis held in the setting of GI bleeding - Continue metoprolol. Assessment & Plan (08/15/2024 2:40 AM EST): Sinus rhythm currently. On Eliquis. UIW2OZ3-EADf score of 4 (age, hypertension, diabetes). Eliquis held in the setting of GI bleeding. Continue metoprolol. Assessment & Plan (12/18/2017 5:05 PM EDT): - History of paroxysmal atrial fibrillation, continues on Eliquis. Assessment & Plan (12/04/2017 2:31 PM EDT): This patient has a recent event monitor showing sinus rhythm with heart block with pauses from 3 to have to 4 seconds long period I am referring him to Dr. Lopez for potential pacemaker implantation. He however is asymptomatic. Assessment & Plan (11/06/2017 1:55 PM EDT): Loop recorder with A. fib detection and an echocardiogram I will follow-up with him thereafter ESRD on hemodialysis 05/15/2017 Overview (02/13/2020): Started dialyis 2014 Assessment & Plan (09/04/2024 8:43 AM EDT): Continue dialysis Sunday next dialysis tomorrow morning. Assessment & Plan (09/03/2024 1:30 PM EDT): MWF dialysis as outpatient and at [facility] when at [facility]. --- Will coordinate with nephrology regarding timing of next dialysis Assessment & Plan (09/03/2024 8:59 AM EDT): Continue dialysis Sunday dialyzed today, next dialysis tomorrow morning. Hypertension monitor if persistently hypertensive resume outpatient metoprolol dose. Assessment & Plan (09/02/2024 6:13 PM EDT): MWF dialysis as outpatient and at [facility] when at [facility]. --- Anticipate dialysis tomorrow. Will follow-up with case management further on discharge plan Assessment & Plan (09/02/2024 9:45 AM EDT): Continue dialysis Sunday next dialysis tomorrow morning. Hypertension monitor if persistently hypertensive resume outpatient metoprolol dose. Assessment & Plan (09/01/2024 1:57 PM EDT): MWF dialysis as outpatient and at [facility] when at [facility]. Will be tricky to determine timing of discharge as they seem intent on not dialyzing him the day after he's dialyzed here. Assessment & Plan (09/01/2024 10:50 AM EDT): Continue dialysis Sunday next dialysis Sun. Hypertension monitor if persistently hypertensive resume outpatient metoprolol dose. Assessment & Plan (08/31/2024 10:05 AM EDT): MWF dialysis as outpatient and at [facility] when at [facility]. Assessment & Plan (08/31/2024 7:52 AM EDT): Continue dialysis Sunday next dialysis tomorrow Sunday. Suggest 1 unit of red blood cell transfusion. Hypertension monitor if persistently hypertensive resume outpatient metoprolol dose. Assessment & Plan (08/30/2024 12:48 PM EDT): MWF dialysis as outpatient and at [facility] when at [facility]. Assessment & Plan (08/30/2024 8:17 AM EDT): Continue dialysis Sunday next dialysis Sunday. Hypertension monitor if persistently hypertensive resume outpatient metoprolol dose. Assessment & Plan (08/29/2024 8:14 PM EDT): HD this AM - Renal onboard - Renally dose medications - Continue sevelamer Assessment & Plan (08/29/2024 8:29 AM EDT): Tolerating dialysis well today Continue dialysis Sunday next dialysis Sunday Assessment & Plan (08/28/2024 2:41 PM EDT): Did not receive his usual HD Sunday as the rehab facility was planning to transition him to TTS -Renal onboard. -Renally dose medication -Volume overloaded with left pleural effusion and peripheral edema -No emergent need for dialysis. -Planning HD tomorrow. Assessment & Plan (08/26/2024 9:28 AM EDT): Planning to continue his regular treatment on Sunday plan for dialysis tomorrow.. Regards to hypertension blood pressures appear to be resetting at his usual levels, agree with using short acting beta-blockade for now if need be may add amlodipine 2.5 mg daily at bedtime. Fortunately no episodes of hypotension noted. Hemoglobin and iron status stable status post RON yesterday. Will continue to monitor. 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 Assessment & Plan (08/25/2024 12:00 PM EDT): - nephrology following MWF HD Assessment & Plan (08/25/2024 10:53 AM EDT): Planning to continue his regular treatment on Sunday tolerating dialysis well today. Regards to hypertension blood pressures appear to be resetting at his usual levels, agree with using short acting beta-blockade for now if need be may add amlodipine 2.5 mg daily at bedtime. Fortunately no episodes of hypotension noted. Regards to anemia continue to trend suggest to check iron levels may benefit from IV iron infusion if need be. I will add a dose of RON while inpatient. Assessment & Plan (08/24/2024 4:10 PM EDT): - nephrology following MWF HD Assessment & Plan (08/23/2024 2:37 PM EDT): - nephrology following MWF HD Assessment & Plan (08/22/2024 2:20 PM EDT): - nephrology following MWF HD Assessment & Plan (08/22/2024 9:17 AM EDT): Planning to continue his regular treatment on Sunday tolerating dialysis well today. Minimal ultrafiltration today. Next dialysis Sunday. Hold all blood pressure medicines continue to trend hemoglobin added cortisol to a.m. blood sent. Okay to give IV normal saline 250 mL to boluses x 2 to bring systolic blood pressure above 90. Assessment & Plan (08/21/2024 4:32 PM EDT): Dialyzed 08/20 with no net removal of fluid. No hypotension. - nephrology following MWF HD Assessment & Plan (08/21/2024 9:23 AM EDT): Planning to continue his regular treatment on Sunday. Due for dialysis tomorrow Hold all blood pressure medicine Okay to give IV normal saline 250 mL to boluses x 2 to bring systolic blood pressure above 90. If persistently hypotensive check echocardiogram. Trend hemoglobin Assessment & Plan (08/20/2024 5:18 PM EDT): Dialyzed today with no net removal of fluid. No hypotension. - nephrology following MWF HD Assessment & Plan (08/20/2024 10:19 AM EDT): Planning to continue his regular treatment on Sunday. Tolerating dialysis ultrafiltration as per hemodynamics and Crit-Line monitor likely close to 2 L. Hypertension noted, clonidine 0.1 mg p.o. x 1 ordered may repeat if need be to control blood pressure systolic blood pressure goal 140-160. Patient to undergo colonoscopy for further assessment of tubulovillous adenoma and control bleed. Assessment & Plan (08/19/2024 2:59 PM EDT): Dialyzed today with no net removal of fluid. No hypotension. - nephrology following MWF HD Assessment & Plan (08/19/2024 8:58 AM EDT): Planning to continue his regular treatment on Sunday. Due tomorrow. Suggest to transfuse for hemoglobin 7 or below. 1 more unit Appears euvolemic vital signs stable this morning While awaiting pathology results If discharged may be able to go to his outpatient unit tomorrow otherwise we can do his dialysis here tomorrow morning Assessment & Plan (08/18/2024 1:57 PM EDT): Dialyzed today with no net removal of fluid. No hypotension. - nephrology following MWF HD Assessment & Plan (08/18/2024 10:10 AM EDT): Planning to continue his regular treatment on Sunday. Tolerating dialysis well this morning. Appears euvolemic vital signs stable this morning Hemoglobin trend noted, appreciate GI recs surgery involved, EGD today after dialysis. Assessment & Plan (08/17/2024 8:11 PM EDT): - nephrology following MWF HD Assessment & Plan (08/17/2024 6:46 AM EDT): Planning to continue his regular treatment on Sunday. Due for tomorrow Sunday. Appears euvolemic vital signs stable this morning Hemoglobin trend noted, appreciate GI recs surgery involved, consider blood transfusion and EGD if persistent Hb drop. Assessment & Plan (08/16/2024 5:41 PM EST): - nephrology following and arranging for HD Assessment & Plan (08/16/2024 7:17 AM EST): Planning to continue his regular treatment on Sunday. Appears euvolemic vital signs stable this morning Continue with outpatient med regimen trend hemoglobin. Appreciate GI recs surgery involved, consider blood transfusion and EGD if persistent Hb drop. Assessment & Plan (08/15/2024 10:57 AM EST): - nephrology following and arranging for HD Assessment & Plan (08/15/2024 2:40 AM EST): Nephrology will be consulted for maintenance hemodialysis MWF. Assessment & Plan (03/27/2023 1:01 PM EDT): He has been on dialysis for about 8 years now tolerating it reasonably well Assessment & Plan (11/09/2022 12:38 PM EDT): Doing very well on dialysis, continue the same and follow-up as planned with nephrology. Encouraged to get COVID booster now and in the fall get a COVID booster and flu vaccine. Assessment & Plan (05/11/2022 11:10 AM EST): Doing well, follow-up as planned with renal Assessment & Plan (02/11/2022 12:38 PM EDT): Doing well, continue the same. Assessment & Plan (02/08/2021 12:08 PM EDT): Doing well with dialysis. Continue the same. Assessment & Plan (08/11/2020 4:51 PM EST): Doing well with dialysis, follow-up as scheduled. Assessment & Plan (05/13/2020 12:10 PM EST): Doing well with dialysis. Continue current management with nephrology. Assessment & Plan (02/13/2020 5:11 PM EDT): Doing well with dialysis. Continue the same. Assessment & Plan (07/02/2018 1:53 PM EST): He is on dialysis and tolerating it well 3 times a week Assessment & Plan (03/05/2018 12:55 PM EDT): He regularly gets dialysis he is euvolemic today Assessment & Plan (12/18/2017 5:06 PM EDT): - Continues on dialysis Sunday schedule. He reports that they are able to better do his treatments now that his heart rate does not decrease significantly during them. He continues to be followed by renal. Assessment & Plan (12/05/2017 12:38 PM EDT): ESRD. HD today and on Sunday to put back on MWF schedule Volume status is acceptable, lytes in the right order, needs no urgent HD today Assessment & Plan (12/04/2017 11:55 PM EDT): Patient gets dialysis MWF. We will continue his home medications. We will consult nephrology. Resolved Problems Problem Noted Date Diagnosed Date Resolved Date Acute non-recurrent maxillary sinusitis 10/11/2023 08/15/2024 Assessment & Plan (10/11/2023 10:26 AM EDT): Symptoms, he may have a sinusitis. I will treat him empirically. If he does not see improvement next week, check CT of the sinuses. Unexplained weight loss 02/08/2021/2 09/2021 Assessment & Plan (05/18/2021 5:56 PM EST): Weight loss is likely due to inadequate caloric intake. Labs done at last office visit were reassuring and his history and exam showed no signs of any serious underlying pathology. We discussed some changes he can make in his diet and hope will be helpful. Asked him to continue to pay attention to his weights at dialysis and let me know if his weight does not at least stabilize if not gradually go up a little bit. Assessment & Plan (02/08/2021 12:08 PM EDT): He appears well and the fact that his weight stable for the past month and appetite's been good is somewhat reassuring. I will check blood work and if his weight stabilizes and labs showed no significant abnormality, I would not pursue any further evaluation. If he continues to lose weight over the course the next month I would recommend a chest x-ray. 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 02/10/2022 Overview (12/05/2017): Ca, phosphorus are o'k, on renvela, same dose Renal diet Assessment & Plan (07/19/2021 1:27 PM EST): He gets dialysis 3 times a week which has been going reasonably well for him Immunizations Immunization Administration Dates Next Due COVID-19 (Pre-04/02) Moderna Vaccine, Bivalent 6mo+ 03/24/2022 COVID-19 (Pre) Moderna Vaccine, mRNA, PF 04/15/2021,07/28/2020,06/28/2020 Hepatitis B Adult 08/29/2019, 9,04/04/2019,02/28,05/21/2015,04/22/2015,01/20/2015 ,12/18/2014,11/18/2014 Hepatitis B CpG 12/28/2021, 2,09/28/2021,08/24 INFLUENZA, SPLIT VIRUS, TRIV ALENT W/ PRESERVATIVE IM 03/11/2017 Pneumococcal conjugate PCV13 04/22/2015 Pneumococcal conjugate PCV20 07/10/2022 Pneumococcal polysaccharide PPSV23 07/08/2021,,07/27/2016 Td (adult) 5 Lf Tetanus Toxo id, PF, Adsorbed 12/03/2009 Tdap 01/11/2016 Zoster recombinant 06/30/2021,04/28/2021 Family History Medical History Relation Comments Heart disease Neg Hx Kidney disease Neg Hx Relation Status Comments Daughter Alive in [place] Father (Age Late 80s) Health w as unknown to the patient Granddaughter Alive Mother (Age 85) He thinks she of old age Son 1 Alive [place] Son 2 Alive [place] Social History Tobacco Use Types Packs/Day Years Used Date Smoking Tobacco: Former Cigarettes 0.3 10 1 07/1981 - 05/1992 Passive Smoke Exposure: Never Smokeless Tobacco: Never Tobacco Cessation:Counseling Given: Not Answered Alcohol Use Standard Drinks/Week Comments No 0 [...] got money to buy more. Never True 09/01/2024 Within the past 6 months the food we bought just didn't last and we didn't have enough money to get more. Never True Residential Stability Answer Date Recor ded What is your housing situation today? I have allen brown 09/01/2024 How many times have you move d in the past 12 months? Zero (I did not move) 09/01/2024 Paying for Meds Answer Date Recorded Do you have trouble paying for medicines? No 09/01/2024 Paying Utility Bills Answer Date Record ed Do you have trouble paying your heating or elect ricity bill? No 09/01/2024 Transportation Answer Date Recorded Has the lack of transportati on kept you from medical appointments or from getting medications? No 09/01/2024 Digital Access Answer Date Recorded No 09/01/2024 Yes 09/01/2024 Do you have reliable internet access at home? Ye s 09/01/2024 Do you have a device (e.g., phone, tablet, computer) with a working camera? Yes 09/01/2024 Intimate Partner Violence Answer Date R ecorded Are you denied basic needs s uch as food, clothing, or medical care? No 11/07/2024 In the past 12 months have y ou been in a relationship with a person who hurts, threatens, or tries to control you? No 11/07/2024 Are you denied basic needs s uch as food, clothing, or medical care? No 11/07/2024 In the past 12 months have y ou been in a relationship with a person who hurts, threatens, or tries to control you? 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, [employer]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 Last Filed Vital Signs Vital Sign Reading Time Taken Comments Blood Pressure 118/56 11/08/2024 12:30 AM EDT Pulse 76 11/08/2024 12:30 AM EDT Temperature 36.7 C (98 F) 11/08/2024 12:14 AM EDT Respiratory Rate 17 11/08/2024 12:30 AM EDT Oxygen Saturation 100% 11/08/2024 12:30 AM EDT Inhaled Oxygen Concentration 21% 08/15/2024 1 1:55 AM EST Weight 71.2 kg (157 lb) 11/07/2024 7:15 PM EDT Height 170.2 cm (5' 7 ) 11/07/2024 7:15 PM EDT Body Mass Index 24.59 11/07/2024 7:15 PM EDT Plan of Treatment Upcoming Encounters Date Type Department Care Team (Late st Contact Info) Description 04/09/2025 3:00 PM EDT Office Visit [facility] [address] [facility] 3rd Floor, [address] [place] [address] Edie Unger CNP [address] [facility], [address] [place] [id number] [email or web address] 06/19/2025 1:30 PM EST Office Visit [facility] [address] [place] [id number] Nisreen Maza CNP [address] [place] [address] Health Maintenance Due Date Last Done Comments RSV VACCINE (1 - 1-dose 75+ series) 08/09/2014 LIPID PANEL 12/11/2020 12/12/2019, 0708/2019, 01/03/2019, Additional history exists DEPRESSION SCREENING 05/13/2021 05/13/2020 BLOOD PRESSURE 11/03/2024 05/06/2024 HEMOGLOBIN A1C 11/26/2024 05/28/2024, 02/09, 02/27/2024, Additional history exists COVID-19 VACCINE ( season) 2025 08/23/2023, 03/24/2022, 03/24/2022, Additional history exists DIABETIC EYE EXAM 04/15/2025 04/15/2024, , 03/01/2023, Additional history exists Adult Td,Tdap Booster 01/10/2026 01/11/2016, 06/25/2 010 ZOSTER VACCINES Completed 06/30/2021, 04/28/2021 PNEUMOCOCCAL VACCINES (50+ years) Completed 07/10/2022, 07/08/2021, 09/03/2020, Additional history exists HEPATITIS A VACCINES Aged Out No long er eligible based on patient's age to complete this topic HIB VACCINES Aged Out No longer eligi ble based on patient's age to complete this topic MENINGOCOCCAL VACCINES (ACWY) Aged Out No longer eligible based on patient's age to complete this topic MENINGOCOCCAL VACCINES (B) Aged Out N o longer eligible based on patient's age to complete this topic Medical Devices Implanted Type Area Sound Engineering Technician Device Identifier Shelf Expiration Date Model / Serial / Lot Clip Hemostasis 16mm /5ea - [id number] Implanted:Qty : 7 on 08/20/2024 by Jer Arambula MD at [facility] Clip N/A: [employer] 01/10/2027 1170-02 / / [id number] Lead Pacing Tendril Mri 52cm - [id number] Implanted:Qty : 1 on 12/05/2017 by Clay Broussard MD at [facility] Lead Right: Chest [employer] [id number] 07/31/2018 [id number]/ [id number] / [id number] / Lead Pacing Tendril Mri 46cm - [id number] Implanted:Qty : 1 on 12/05/2017 by Clay Broussard MD at [facility] Lead Right: Chest [employer] [id number] 12/21/2017 [id number] / [id number] / Pacemaker Dual Chamber Louie Pacemaker Assurity Mri - [id number] Implanted:Qty : 1 on 12/05/2017 by Clay Broussard MD at [facility] Pacemaker Right: Chest [employer] [id number] 05/10/2019 [id number] / [id number] / Procedures Procedure Name Priority Date/Time Associated Diagnosis Comments OUTSIDE HEMOGLOBIN A1C Routine 05/30/2023 DIABETES EYE EXAM FOR RESULT ENTRY ONLY Routine 03/01/2023 LIPID PANEL Routine 12/12/2019 9:00 AM EDT ESRD on hemodialysis from Last 3 Months or Most Recently Relevant to Health Maintenance Results * Outside HbA1c (05/30/2023) Hemoglobin A1c - External 7.0 % Historical Provider LAB BLOOD ORDERABLES Nicci l Result * HM DIABETES EYE EXAM FOR RESULT ENTRY ONLY (03/01/2023) Jhon Lou MD HEALTH MAINTENANCE Edited Result - Final * (ABNORMAL) Lipid panel (12/12/2019 9:00 AM EDT) HDL 50 mg/dL [facility] Comment: Interpretation <40 mg/dL: Low HDL cholesterol (major risk factor for CHD) Greater than or equal to 60 mg/dL: High HDL cholesterol ( negative risk factor for CHD) HDL - cholesterol is affected by a number of factors, e.g. smoking, excerise, hormones, sex and age. CHOLESTEROL 149 0 - 240 mg/dL [facility] TRIGLYCERIDES 100 30 - 160 mg/dL [facility] LDL 79 50 - 129 mg/dL [facility] Comment: LDL levels in terms of risk for coronary heart disease: <100 mg/dL: Optimal 100-129 mg/dL: Near or above optimal 130-159 mg/dL: Borderline high 160-189 mg/dL: High >190 mg/dL: Very High CARDIAC RISK RATIO 3.0(L) 3.4 - 5.0 C [facility] Blood 12/12/2019 9:00 AM EDT 12/12/2019 4:24 PM EDT King Kinsey MD LAB BLOOD ORDERABL ES Final Result [facility] [address] [place] [address] from Last 3 Months or Most Recently Relevant to Health Maintenance Insurance [facility] [place] [address] MEDICARE PART A & B [facility] EXTENSION MEDICARE SUPPLEMENT [facility] Member Subscriber Plan / Payer ( fective 2021-Present) Name:Michoacano Goyal Relation to Subscriber:Self Name:Michoacano Goyal Payer ID:[id number] (NAIC) Group ID:Not on file Type:Indemnity Address: [facility] [address] [place] [address] * Guarantor: Michoacano Goyal Kristi Account Type Relation to Patient Date of Phone Billing Address Personal/Family Self 1940 [address] [place] [address] MEDICARE PART A & B [facility] [employer] EXTENSION MEDICARE SUPPLEMENT [facility] Member Subscriber Plan / Payer (Ef fective 2021-Present) Name:Michoacano Goyal Relation to Subscriber:Self Name:Michoacano Goyal Payer ID:[id number] (NAIC) Group ID:Not on file [facility] Address: [facility] [address] [place] [address] * Guarantor: Jay Jay Michoacano Kristi Account Type Relation to Patient Date of Phone Billing Address Personal/Family Self 1940 [address] [place] [address] MEDICARE PART A & B [facility] EXTENSION MEDICARE SUPPLEMENT [facility] MEDICARE PART A & B [facility] EXTENSION MEDICARE SUPPLEMENT [facility] Member Subscriber Plan / Payer (Ef fective 2021-Present) Name:Michoacano Goyal W Relation to Subscriber:Self Name:Michoacano Goyal Payer ID:[id number] (NAIC) Group ID:Not on file Type:Indemnity Address: [facility] [id number] [place] [address] [place] [address] MEDICARE PART A & B Member Subscriber Plan / Payer (Ef fective 2004-Present) Name:Michoacano Goyal Member ID:[id number] Relation to Subscriber:Self Name:Michoacano Goyal Subscriber ID:[id number] Payer ID:[id number] Group ID:Not on file Type:Medicare Address: [facility] [employer] [facility] [address] [place] [phone] [facility] MEDICARE SUPPLEMENT [facility] Member Subscriber Plan / Payer (Ef fective 2021-Present) Name:Michoacano Goyal W Relation to Subscriber:Self Name:Michoacano Goyal Payer ID:[id number] (NAIC) Group ID:Not on file Type:Indemnity Address: [facility] [address] [place] [address] * Guarantor: Jay Jay Michoacano W Account Type Relation to Patient Date of Phone Billing Address Personal/Family Self 1940 [address] [place] [address] MEDICARE PART A & B [facility] MEDICARE SUPPLEMENT [facility] Member Subscriber Plan / Payer (Ef fective 2021-Present) Name:Michoacano Goyal Relation to Subscriber:Self Name:Michoacano Goyal Payer ID:[id number] (NAIC) Group ID:Not on file Type:Indemni Address: [facility] [address] [place] [address] [place] [address] MEDICARE PART A & B [employer] EXTENSION MEDICARE SUPPLEMENT [facility] Member Subscriber Plan / Payer (Ef fective 2021-Present) Name:Michoacano Goyal W Relation to Subscriber:Self Name:Michoacano Goyal Payer ID:[id number] ([facility]) Group ID:Not on file Type:Indemnity Address: [facility] [address] [place] [address] * Guarantor: Jay Jay Michoacano W Account Type Relation to Patient Date of Phone Billing Address Personal/Family Self 1940 [address] [place] [address] MEDICARE PART A & B [facility] EXTENSION MEDICARE SUPPLEMENT [facility] Member Subscriber Plan / Payer (Ef fective 2021-Present) Name:Michoacano Goyal W Relation to Subscriber:Self Name:Michoacano Goyal W Payer ID:[id number] (NAIC) Group ID:Not on file Type:Indemnity Address: [facility] [id number] [place] [address] [place] [address] MEDICARE PART A & B Member Subscriber Plan / Payer (Ef fective 2004-Present) Name:Michoacano Goyal W Member ID:[id number] Relation to Subscriber:Self Name:Michoacano Goyal Subscriber ID:[id number] Payer ID:[id number] Group ID:Not on file Type:Medicare Address: [facility] [employer] [facility] [address] [place] [address] [facility] EXTENSION MEDICARE SUPPLEMENT [facility] Member Subscriber Plan / Payer (Ef fective 2021-Present) Name:Jay Jay Michoacano W Relation to Subscriber:Self Name:Michoacano Goyal Payer ID:[id number] (NAIC) Group ID:Not on file Type:Indemnity Address: [facility] [address] [place] [address] Advance Directives For more information, please contact: [phone] (9AM - 5PM [place], Sunday-Sunday) Documents on File Type Date Recorded Patient Body Straightener Expl anation Healthcare Proxy 11/14/2023 3:08 PM with Lydia palumbo Will * Full Code (Latest Code Status on File) Date Activated Date Inactivated Comments 08/28/2024 8:01 PM Question Answer Comments Code Status Confirmed With: Patient * Full Code Date Activated Date Inactivated Comments 08/28/2024 2:17 AM 08/28/2024 8:01 PM Question Answer Comments Code Status Confirmed With: Patient * Full Code Date Activated Date Inactivated Comments 08/15/2024 2:33 AM 08/28/2024 2:17 AM Question Answer Comments Code Status Confirmed With: Patient * Full Code (Confirmed) Date Activated Date Inactivated Comments 12/05/2017 12:03 AM 12/06/2017 8:27 PM Question Answer Comments Code Status Confirmed With: Patient Care Teams Snaker Driving Horses Relationship Specialty Start Date End Date Jhon Lou MD [address] [place] [address], [address] [place] [address] [email or web address] PCP - General Internal Medicine 02/12/20 Vikram Naik MD [email or web address] Historical LMR Provider 03/26/17 Claudia Alvarez MD [address] [place] [address] [email or web address] Historical LMR Provider 03/26/17 King Mendoza MD [address] [place] [address] [email or web address] Historical LMR Provider 03/26/17 Blu Bertrand MD 15 [facility] [address] [place] [address] Nephrology 02/13/20 Clay Sparks MD 33 [facility] 2 [place] [address] Ophthalmology 02/13/20 Sarita Troncoso DPM 10 [facility] 7 [place] [address] [email or web address] Podiatry 02/13/20 Jhon Lou MD 22 [facility], [address] [place] [address] Insurance Assigned Provider 09/15/23 Lavelle Scott MD [address] [place] [address] Primary Oncologist Medical Oncology 02/14/22 Additional Source Comments The information contained in this document represents components of the legal health record. It is not the complete legal health record.[facility]
--- OUTSIDE RECORDS SUMMARY | 2025-04-01 06:05 | XMS_ITS | Encounter Summary ---
Author Organization [facility] Address [address] [place] [address] Phone Care Team Providers Care Research Microbiologist Name Role Phone Vikram Naik MD Unavailable Claudia Alvarez MD Unavailable [phone] King Mendoza MD Unavailable + Jhon Lou MD Primary Care Provider [phone] Blu Bertrand MD Unavailable Clay Sparks MD Unavailable Sarita Troncoso DPM Unavailable + Jhon Lou MD Unavailable Lavelle Scott MD Unavailable [phone] Encounter Details Date Type Department Care Team (Late st Contact Info) Description 11/19/2024 Procedure Pass [facility] Endoscopy Admitting Dept Virtual Department 30 [place] [address] Social History Tobacco Use Types Packs/Day Years [...] housing situation today? 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 documented as of this encounter Plan of Treatment Upcoming Encounters Date Type Department Care Team (Late st Contact Info) Description 04/09/2025 3:00 PM EDT Office Visit [facility] [address] [place] [address] 3rd Floor, [address] [place] [address] Edie Unger CNP 22 [facility], [facility] [address] [place] [address] [email or web address] 06/19/2025 1:30 PM EST Office Visit [facility] Gastro[facility]ology Clinic [address] [place] [address] Nisreen Maza TAX COMPLIANCE MANAGER 10 [place] [address] documented as of this encounter Visit Diagnoses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documented in this encounter Additional Health Concerns Assessment Noted Time PHQ-2 Depression Total Score: 0 05/13/20 20 11:29 AM EST documented as of this encounter Care Teams Research Microbiologist Relationship Specialty Start Date End Date Jhon Lou MD [address] [place] [address], [address] [place] [address] PCP - General Internal Medicine 02/12/20 Vikram Naik MD [email or web address] Historical LMR Provider 03/26/17 Claudia Alvarez MD [address] [place] [address], 1st [place] [address] Historical LMR Provider 03/26/17 King Mendoza MD [address] [place] [address] [place] [address] [email or web address] Historical LMR Provider 03/26/17 Blu Bertrand MD 15 [facility] [address] [place] [address] Nephrology 02/13/20 Clay Sparks MD 33 [facility] 2 [place] [address] Ophthalmology 02/13/20 Sarita Troncoso DPM 10 [facility] 7 [place] [address] Podiatry 02/13/20 Jhon Lou MD 22 [facility], [address] [place] [address] Insurance Assigned Provider 09/15/23 Lavelle Scott MD [address] [place] [address] Primary Oncologist Medical Oncology 02/14/22 documented as of this encounter Additional Source Comments The information contained in this document represents components of the legal health record. It is not the complete legal health record.[facility]
--- OUTSIDE RECORDS SUMMARY | 2025-04-01 06:05 | XMS_ITS | Encounter Summary ---
Author Organization [facility] Address [address] [place] [address] Phone Care Team Providers Care Soda Tester Name Role Phone Vikram Naik MD Unavailable [phone] Claudia Alvarez MD Unavailable [phone] King Mendoza MD Unavailable + Jhon Lou MD Primary Care Provider [phone] Blu Bertrand MD Unavailable Clay Sparks MD Unavailable Sarita Troncoso DPM Unavailable + Jhon Lou MD Unavailable Lavelle Scott MD Unavailable [phone] Nadine Martinez OT Unavailable [phone] Nadine Martinez OT Unavailable [phone] Nadine Martinez OT Unavailable Encounter Details Date Type Department Care Team (Late st Contact Info) Description 08/20/2024 Procedure Pass [facility] Endoscopy Admitting Dept Virtual Department 30 [place], [place] [id number] Social History Tobacco Use Types Packs/Day Years [...] 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 documented as of this encounter Plan of Treatment Upcoming Encounters Date Type Department Care Team (Late st Contact Info) Description 04/09/2025 3:00 PM EDT Office Visit [facility] [address] [place] [address] 3rd Floor, [address] [place] [address] Edie Unger CNP 22 [facility], [address] [address] [email or web address] 06/19/2025 1:30 PM EST Office Visit [facility] Gastroenterology Clinic [address] [place] [address] Nisreen Maza CNP 10 [place] [address] documented as of this encounter Visit Diagnoses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documented in this encounter Additional Health Concerns Infection Onset Date Last Indicated Resolved Time CoV-Risk Comment:Per note documentation 09/01/2024 09/01/2024 1:51 PM EDT Assessment Noted Time PHQ-2 Depression Total Score: 0 05/13/20 20 11:29 AM EST documented as of this encounter Care Teams Soda Tester Relationship Specialty Start Date End Date Jhon Lou MD [address] [place] [address], [address] [place] [address] [email or web address] PCP - General Internal Medicine 02/12/20 Vikram Naik MD [email or web address] Historical LMR Provider 03/26/17 Claudia Alvarez MD 22 [facility], 1st [place] [address] Historical LMR Provider 03/26/17 King Mendoza MD 22 [facility], [address] [place] [address] [email or web address] Historical LMR Provider 03/26/17 Blu Bertrand MD 15 [facility] [address] [place] [address] Nephrology 02/13/20 Clay Sparks MD [address] [place] [address] 2 [place] [address] Ophthalmology 02/13/20 Sarita Troncoso DPM 10 [facility] 7 [place] [address] Podiatry 02/13/20 Jhon Lou MD 22 [facility], [address] [place] [address] Insurance Assigned Provider 09/15/23 Lavelle Scott MD 30 [place] [address] Primary Oncologist Medical Oncology 02/14/22 Nadine Martinez, OT 30 [place] [address] [email or web address] Transitions Thin Film TechnicianDrive Worker Therapy 08/15/24 08/26/24 Nadine Martinez, OT [address] [place] [address] Transitions Thin Film TechnicianDrive Worker Therapy 08/15/24 08/26/24 Nadine Martinez, OT [address] [place] [address] [email or web address] Transitions Thin Film TechnicianDrive Worker Therapy 08/28/24 09/22/24 documented as of this encounter Additional Source Comments The information contained in this document represents components of the legal health record. It is not the complete legal health record.[facility]
--- OUTSIDE RECORDS SUMMARY | 2025-04-01 06:05 | XMS_ITS | Encounter Summary ---
Author Organization [facility] Address [address] [place] [address] Phone Care Team Providers Care Aquatics Director Name Role Phone Vikram Naik MD Unavailable [phone] Claudia Alvarez MD Unavailable [phone] King Mnedoza MD Unavailable + Jhon Lou MD Primary Care Provider [phone] Blu Bertrand MD Unavailable Clay Sparks MD Unavailable Sarita Troncoso DPM Unavailable + Jhon Lou MD Unavailable Lavelle Scott MD Unavailable [phone] Nadine Martinez OT Unavailable [phone] Encounter Details Date Type Department Care Team (Late st Contact Info) Description 08/28/2024 Procedure Pass [facility], Ct Scan - [address] [address] Social History Tobacco Use Types Packs/Day Years [...] as food, clothing, or medical care? No 08/27/2024 In the past 12 months have y ou been in a relationship with a person who hurts, threatens, or tries to control you? No 08/27/2024 Are you denied basic needs s uch as food, clothing, or medical care? No 08/27/2024 In the past 12 months have y ou been in a relationship with a person who hurts, threatens, or tries to control you? 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, [employer]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 documented as of this encounter Plan of Treatment Upcoming Encounters Date Type Department Care Team (Late st Contact Info) Description 04/09/2025 3:00 PM EDT Office Visit [facility] [address] [place] [address] 3rd Floor, [address] [place] [address] Edie Unger CNP 22 [facility], [facility] 301 [place] [address] [email or web address] 06/19/2025 1:30 PM EST Office Visit [facility] G[facility]ology Clinic [address] [place] [address] Nisreen Maza LIFE INSURANCE UNDERWRITER 10 [place] [address] documented as of this encounter Visit Diagnoses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documented in this encounter Additional Health Concerns Infection Onset Date Last Indicated Resolved Time CoV-Risk Comment:Per note documentation 09/01/2024 09/01/2024 1:51 PM EDT Assessment Noted Time PHQ-2 Depression Total Score: 0 05/13/20 20 11:29 AM EST documented as of this encounter Care Teams Aquatics Director Relationship Specialty Start Date End Date Jhon Lou MD [address] [place] [address], [address] [place] [address] PCP - General Internal Medicine 02/12/20 Vikram Naik MD [email or web address] Historical LMR Provider 03/26/17 Claudia Alvarez MD [address] [place] [address], 1st [place] [address] [email or web address] Historical LMR Provider 03/26/17 King Mendoza MD 22 [facility], 1st [place] [address] [email or web address] Historical LMR Provider 03/26/17 Blu Bertrand MD 15 [facility] [address] [place] [address] [email or web address] Nephrology 02/13/20 Clay Sparks MD 33 [facility] 2 [place] [address] Ophthalmology 02/13/20 Sarita Troncoso DPM 10 [facility] 7 [place] [address] [email or web address] Podiatry 02/13/20 Jhon Lou MD 22 [facility], [address] [place] [address] Insurance Assigned Provider 09/15/23 Lavelle Scott MD 30 [place] [address] Primary Oncologist Medical Oncology 02/14/22 Nadine Martinez, OT 30 [place] [address] [email or web address] Transitions Wallpaper ConsultantBag Machine Operator Helper Therapy 08/28/24 09/22/24 documented as of this encounter Additional Source Comments The information contained in this document represents components of the legal health record. It is not the complete legal health record.[facility]
--- OUTSIDE RECORDS SUMMARY | 2025-04-01 06:05 | XMS_ITS | Encounter Summary ---
Author Organization [facility] Address [address] [place] [address] Phone Care Team Providers Care Envelope Sealer Name Role Phone Vikram Naik MD Unavailable [phone] Claudia Alvarez MD Unavailable [phone] King Mendoza MD Unavailable + Jhon Lou MD Primary Care Provider [phone] Blu Bertrand MD Unavailable Clay Sparks MD Unavailable Sarita Troncoso DPM Unavailable + Jhon Lou MD Unavailable [phone] Lavelle Scott MD Unavailable [phone] Nadine Martinez OT Unavailable [phone] Nadine Martinez OT Unavailable [phone] Nadine Martinez OT Unavailable Nadine Martinez OT Unavailable [phone] Encounter Details Date Type Department Care Team (Late st Contact Info) Description 08/15/2024 Procedure Pass [facility] Echo Lab 30 [place] [address] Social History Tobacco Use Types [...] on file 10/15/2022 No 10/15/2022 No 10/15/2022 Transportation Answer Date Recorded Has the lack of transportati on kept you from medical appointments or from getting medications? No 08/15/2024 Digital Access Answer Date Recorded No 11/01/2022 No 11/01/2022 Reliable internet access at home?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 11/01/2022 Device with a working camera?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 Intimate Partner Violence Answer Date R ecorded Are you denied basic needs s uch as food, clothing, or medical care? No 08/15/2024 In the past 12 months have y ou been in a relationship with a person who hurts, threatens, or tries to control you? No 08/15/2024 Are you denied basic needs s uch as food, clothing, or medical care? No 08/15/2024 In the past 12 months have y ou been in a relationship with a person who hurts, threatens, or tries to control you? 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 Wish to be (Past 1 Month) No 025 4:00 AM Gely Geronimo, CHAYA 2. Non-Specific Active Suici mari Thoughts (Past 1 Month) No 08/15/2024 4:00 AM Gely Geronimo RN 6. Suicidal Behavior (Lifetime) No 4:00 AM Gely Geronimo, CHAYA documented as of this encounter Plan of Treatment Upcoming Encounters Date Type Department Care Team (Late st Contact Info) Description 04/09/2025 3:00 PM EDT Office Visit [facility] [address] [place] [address] 3rd Floor, [address] [place] [address] Edie Unger CNP [address] [place] [address], [address] [address] [email or web address] 06/19/2025 1:30 PM EST Office Visit [facility] [address] [place] [address] Nisreen Maza CNP [address] [place] [address] documented as of this encounter Visit Diagnoses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documented in this encounter Additional Health Concerns Infection Onset Date Last Indicated Resolved Time CoV-Risk Comment:Per note documentation 09/01/2024 09/01/2024 1:51 PM EDT Assessment Noted Time PHQ-2 Depression Total Score: 0 05/13/20 20 11:29 AM EST documented as of this encounter Care Teams Envelope Sealer Relationship Specialty Start Date End Date Jhon Lou MD [address] [place] [address], [address] [place] [address] PCP - General Internal Medicine 02/12/20 Vikram Naik MD [email or web address] Historical LMR Provider 03/26/17 Claudai Alvarez MD 22 [facility], 1st [place] [address] [email or web address] Historical LMR Provider 03/26/17 King Mendoza MD 22 [facility], 1st [place] [address] [email or web address] Historical LMR Provider 03/26/17 Blu Bertrand MD 15 [facility] [address] [place] [address] Nephrology 02/13/20 Clay Sparks MD 33 [facility] 2 [place] [address] Ophthalmology 02/13/20 Sarita Troncoso DPM 10 [facility] 7 [place] [address] Podiatry 02/13/20 Jhon Lou MD 22 [facility], [address] [place] [address] Insurance Assigned Provider 09/15/23 Lavelle Scott MD 30 [place] [address] Primary Oncologist Medical Oncology 02/14/22 Nadine Martinez, OT 30 [place] [address] [email or web address] Transitions Building OfficialDinkey Locomotive Engineer Therapy 08/15/24 08/26/24 Nadine Martinez, OT 30 [place] [address] [email or web address] Transitions Building OfficialDinkey Locomotive Engineer Therapy 08/15/24 08/26/24 Nadine Martinez, OT 30 [place] [address] [email or web address] Transitions Building OfficialDinkey Locomotive Engineer Therapy 08/18/24 08/18/24 Nadine Martinez, OT 30 [place] [address] Transitions Building OfficialDinkey Locomotive Engineer Therapy 08/28/24 09/22/24 documented as of this encounter Additional Source Comments The information contained in this document represents components of the legal health record. It is not the complete legal health record.[facility]
--- OUTSIDE RECORDS SUMMARY | 2025-04-01 06:05 | XMS_ITS | Encounter Summary ---
Author Organization [facility] Address [address] [place] [address] Phone Care Team Providers Care Infection Control Rn Name Role Phone Vikram Naik MD Unavailable [phone] Claudia Alvarez MD Unavailable [phone] King Mendoza MD Unavailable + Jhon Lou MD Primary Care Provider Blu Bertrand MD Unavailable Clay Sparks MD Unavailable Sarita Troncoso DPM Unavailable + Jhon Lou MD Unavailable Lavelle Scott MD Unavailable [phone] Reason for Visit * Auth/Cert (Routine) Specialty Diagnoses / Procedures Referred By Contac t Referred To Contact Diagnoses Polyp of colon, unspecified part of colon, unspecified type Hematemesis, unspecified whether nausea present Melena Polyp of colon, unspecified part of colon, unspecified type [K63.5] Hematemesis, unspecified whether nausea present [K92.0] Melena [K92.1] Procedures OR COLONOSCOPY FLX DX W/COLLJ SPEC WHEN PFRMD OR COLONOSCOPY W/BIOPSY SINGLE/MULTIPLE OR COLSC FLX W/RMVL OF TUMOR POLYP LESION SNARE TQ COLONOSCOPY Referral ID Status Reason Start Date Expiration Date Visits Re quested Visits Authorized [id number] 1 1 Encounter Details Date Type Department Care Team (Late st Contact Info) Description 11/19/2024 Hospital Encounter [facility] Admitting Dept Virtual Department 30 [place] [address] Jer Arambula MD 10 [facility] 2 [place] [address] [email or web address] Social History Tobacco Use Types Packs/Day Years [...] 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 Wish to be (Past 1 Month) No 11/07/2024 7:16 PM EDT Jonelle Parker RN 2. Non-Specific Active Suici mari Thoughts (Past 1 Month) No 11/07/2024 7:16 PM EDT Aden Parker RN 6. Suicidal Behavior (Lifetime) No 7:16 PM EDT Jonelle Parker RN documented as of this encounter Plan of Treatment Upcoming Encounters Date Type Department Care Team (Late st Contact Info) Description 04/09/2025 3:00 PM EDT Office Visit [facility] [address] [place] [address] 3rd Floor, [address] [place] [address] Edie Unger CNP 22 [facility], [address] [place] [address] [email or web address] 06/19/2025 1:30 PM EST Office [facility] 10 [place] [address] Nisreen Maza CNP 10 [place] [address] documented as of this encounter Visit Diagnoses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documented in this encounter Additional Health Concerns Assessment Noted Time PHQ-2 Depression Total Score: 0 05/13/20 11:29 AM EST documented as of this encounter Care Teams Infection Control Rn Relationship Specialty Start Date End Date Jhon Lou MD 22 [facility], 201 [place] [address] PCP - General Internal Medicine 02/12/20 Vikram Naik MD [email or web address] Historical LMR Provider 03/26/17 Claudia Alvarez MD 22 [facility], [address] [place] [address] Historical LMR Provider 03/26/17 King Mendoza MD 22 [facility], [address] [place] [address] [email or web address] Historical LMR Provider 03/26/17 Blu Bertrand MD 15 [facility] [address] [place] [address] [email or web address] Nephrology 02/13/20 Clay Sparks MD 33 [facility] [address] 2 [place] [address] Ophthalmology 02/13/20 Sarita Troncoso DPM 10 [facility] 7 [place] [address] Podiatry 02/13/20 Jhon Lou MD [address] [place] [address], [address] [place] [address] Insurance Assigned Provider 09/15/23 Lavelle Scott MD 30 [place] [address] Primary Oncologist Medical Oncology 02/14/22 documented as of this encounter Additional Source Comments The information contained in this document represents components of the legal health record. It is not the complete legal health record.[facility]
--- OUTSIDE RECORDS SUMMARY | 2025-04-01 06:05 | XMS_ITS | Encounter Summary ---
Author Organization [facility] Address [address] [place] [address] [place] [address] Phone Care Team Providers Care Psychologist Social Name Role Phone Vikram Naik MD Unavailable [phone] Claudia Alvarez MD Unavailable [phone] King Mendoza MD Unavailable + Jhon Lou MD Primary Care Provider [phone] Blu Bertrand MD Unavailable Clay Sparks MD Unavailable Sarita Troncoso DPM Unavailable + Jhon Lou MD Unavailable [phone] Lavelle Scott MD Unavailable [phone] Katie Cantu RN Unavailable [email or web address] Nadine Martinez OT Unavailable [phone] Nadine Martinez OT Unavailable [phone] Nadine Martinez OT Unavailable [phone] Nadine Martinez OT Unavailable [phone] Encounter Details Date Type Department Care Team (Late st Contact Info) Description 10/17/2021 Procedure Pass Non-Invasive Cardiology [address] [place] [address] Social History Tobacco Use Types Packs/Day Years [...] 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, [employer]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 documented as of this encounter Plan of Treatment Upcoming Encounters Date Type Department Care Team (Late st Contact Info) Description 04/09/2025 3:00 PM EDT Office Visit [facility] [address], [address] [place] [address] Edie Unger CNP [address] [place] [address], [address] [address] [email or web address] 06/19/2025 1:30 PM EST Office Visit [facility] [address] [place] [address] Nisreen Maza CNP 10 [place] [address] documented as of this encounter Visit Diagnoses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documented in this encounter Additional Health Concerns Infection Onset Date Last Indicated Resolved Time CoV-Risk Comment:Per note documentation 09/01/2024 09/01/2024 1:51 PM EDT Assessment Noted Time PHQ-2 Depression Total Score: 0 05/13/20 20 11:29 AM EST documented as of this encounter Care Teams Psychologist Social Relationship Specialty Start Date End Date Jhon Lou MD [address] [place] [address], [address] [place] [address] [email or web address] PCP - General Internal Medicine 02/12/20 Vikram Naik MD [email or web address] Historical LMR Provider 03/26/17 Claudia Alvarez MD 22 [facility], [address] [place] [address] [email or web address] Historical LMR Provider 03/26/17 King Mendoza MD 22 [facility], [address] [place] [address] [email or web address] Historical LMR Provider 03/26/17 Blu Bertrand MD 15 [facility] [address] [place] [address] [email or web address] Nephrology 02/13/20 Clay Sparks MD 33 [facility] 2 [place] [address] Ophthalmology 02/13/20 Sarita Troncoso DPM [address] [place] [address] 7 [place] [address] [email or web address] Podiatry 02/13/20 Jhon Lou MD 22 [facility], [address] [place] [address] [email or web address] Insurance Assigned Provider 09/15/23 Lavelle Scott MD 30 [place] [address] Primary Oncologist Medical Oncology 02/14/22 Katie Cantu, RN [address] [place] [address] [email or web address] Hydraulic Repairer 03/01/22 04/04/22 Nadine Martinez, OT 30 [place] [address] [email or web address] Transitions Hydraulic RepairerResearch Program Assistant Therapy 08/15/24 08/26/24 Nadine Martinez, OT [address] [place] [address] [email or web address] Transitions Hydraulic RepairerResearch Program Assistant Therapy 08/15/24 08/26/24 Nadine Martinez, OT 30 [place] [address] Transitions Hydraulic RepairerResearch Program Assistant Therapy 08/18/24 08/18/24 Nadine Martinez, OT [address] [place] [address] [email or web address] Transitions Hydraulic RepairerResearch Program Assistant Therapy 08/28/24 09/22/24 documented as of this encounter Additional Source Comments The information contained in this document represents components of the legal health record. It is not the complete legal health record.[facility]
--- OUTSIDE RECORDS SUMMARY | 2025-04-01 06:05 | XMS_ITS | Encounter Summary ---
Author Organization [facility] Address [address] [place] [address] [place] [address] Phone Care Team Providers Care Software Development Manager Name Role Phone Vikram Naik MD Unavailable [phone] Claudia Alvarez MD Unavailable [phone] King Mendoza MD Unavailable + Jhon Lou MD Primary Care Provider [phone] Blu Bertrand MD Unavailable Clay Sparks MD Unavailable Sarita Troncoso DPM Unavailable + Jhon Lou MD Unavailable [phone] Lavelle Scott MD Unavailable [phone] Katie Cantu RN Unavailable [email or web address] Nadine Martinez OT Unavailable [phone] Nadine Martinez OT Unavailable [phone] Nadine Martinez OT Unavailable [phone] Nadine Martinez OT Unavailable [phone] Encounter Details Date Type Department Care Team (Late st Contact Info) Description 12/29/2021 Procedure Pass [facility], Ct Scan - [facility] [address] [place] [address] Social History Tobacco Use Types Packs/Day Years [...] 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 Wish to be (Past 1 Month) No 12/29/2021 1:50 PM EDT Marlen Edouard CNP 2. Non-Specific Active Suicidal Thoughts (Past 1 Month) No 12/29/2021 1:50 PM EDT Marlen Edouard CNP 6. Suicidal Behavior (Lifetime) No 12/29/2021 1:50 PM EDT Marlen Edouard CNP documented as of this encounter Plan of Treatment Upcoming Encounters Date Type Department Care Team (Late st Contact Info) Description 04/09/2025 3:00 PM EDT Office Visit [facility] 22 [facility] 3rd Floor, [address] [place] [address] Edie Unger CNP 22 [facility], [address] [place] [address] [email or web address] 06/19/2025 1:30 PM EST Office Visit [facility] [address] [place] [address] Link Nisreen Murphy, CLIENT RELATIONSHIP EXECUTIVE 10 [place] [address] [email or web address] documented as of this encounter Visit Diagnoses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documented in this encounter Additional Health Concerns Infection Onset Date Last Indicated Resolved Time CoV-Risk Comment:Per note documentation 09/01/2024 09/01/2024 1:51 PM EDT Assessment Noted Time PHQ-2 Depression Total Score: 0 05/13/20 11:29 AM EST documented as of this encounter Care Teams Software Development Manager Relationship Specialty Start Date End Date Jhon Lou MD 22 [facility], [address] [place] [address] [email or web address] PCP - General Internal Medicine 02/12/20 Vikram Naik MD [email or web address] Historical LMR Provider 03/26/17 Claudia Alvarez MD 22 [facility], [address] [place] [address] [email or web address] Historical LMR Provider 03/26/17 King Mendoza MD 22 [facility], [address] [place] [address] [email or web address] Historical LMR Provider 03/26/17 Blu Bertrand MD 15 [facility] [address] [place] [address] [email or web address] Nephrology 02/13/20 Clay Sparks MD [address] [place] [address] 2 [place] [address] Ophthalmology 02/13/20 Sarita Troncoso DPM 10 [facility] 7 [place] [address] Podiatry 02/13/20 Jhon Lou MD [address] [place] [address], [address] [place] [address] Insurance Assigned Provider 09/15/23 Lavelle Scott MD [address] [place] [address] [email or web address] Primary Oncologist Medical Oncology 02/14/22 Katie Cantu, CHAYA [address] [place] [address] [email or web address] Stunt Performer 03/01/22 04/04/22 Nadine Martinez, OT 30 [place] [address] [email or web address] Transitions Stunt PerformerWatershed Tender Therapy 08/15/24 08/26/24 Nadine Martinez, OT 30 [place] [address] [email or web address] Transitions Stunt PerformerWatershed Tender Therapy 08/15/24 08/26/24 Nadine Martinez, OT 30 [place] [address] Transitions Stunt PerformerWatershed Tender Therapy 08/18/24 08/18/24 Nadine Martinez, OT 30 [place] [address] [email or web address] Transitions Stunt PerformerWatershed Tender Therapy 08/28/24 09/22/24 documented as of this encounter Additional Source Comments The information contained in this document represents components of the legal health record. It is not the complete legal health record.[facility]
--- OUTSIDE RECORDS SUMMARY | 2025-04-01 06:05 | XMS_ITS | Encounter Summary ---
Author Organization [facility] Address [address] [place] [address] Phone Care Team Providers Care Network Security Engineer Name Role Phone Vikram Naik MD Unavailable [phone] Claudia Alvarez MD Unavailable [phone] Kign Mendoza MD Unavailable + Jhon Lou MD Primary Care Provider [phone] Blu Bertrand MD Unavailable Clay Sparks MD Unavailable Sarita Troncoso DPM Unavailable + Jhon Lou MD Unavailable Lavelle Scott MD Unavailable [phone] Nadine Martinez OT Unavailable [phone] Nadine Martinez OT Unavailable [phone] Nadine Martinez OT Unavailable Encounter Details Date Type Department Care Team (Late st Contact Info) Description 08/20/2024 Procedure Pass [facility]oscopy Admitting Dept Virtual Department 30 [place], [place] [id number] Social History Tobacco Use Types Packs/Day Years [...] 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 documented as of this encounter Plan of Treatment Upcoming Encounters Date Type Department Care Team (Late st Contact Info) Description 04/09/2025 3:00 PM EDT Office Visit [facility] [address] [place] [address] 3rd Floor, [address] [place] [address] Edie Unger CNP 22 [facility], [address] [address] [email or web address] 06/19/2025 1:30 PM EST Office Visit [facility] [address] [place] [address] Nisreen Maza CNP 10 [place] [address] documented as of this encounter Visit Diagnoses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documented in this encounter Additional Health Concerns Infection Onset Date Last Indicated Resolved Time CoV-Risk Comment:Per note documentation 09/01/2024 09/01/2024 1:51 PM EDT Assessment Noted Time PHQ-2 Depression Total Score: 0 05/13/20 20 11:29 AM EST documented as of this encounter Care Teams Network Security Engineer Relationship Specialty Start Date End Date Jhon Lou MD [address] [place] [address], [address] [place] [address] PCP - General Internal Medicine 02/12/20 Vikram Naik MD [email or web address] Historical LMR Provider 03/26/17 Claudia Alvarez MD 22 [facility], [address] [place] [address] Historical LMR Provider 03/26/17 King Mendoza MD 22 [facility], [address] [place] [address] [email or web address] Historical LMR Provider 03/26/17 Blu Bertrand MD 15 [facility] [address] [place] [address] Nephrology 02/13/20 Clay Sparks MD [address] [place] [address] 2 [place] [address] Ophthalmology 02/13/20 Sarita Troncoso DPM 10 [facility] 7 [place] [address] Podiatry 02/13/20 Jhon Lou MD 22 [facility], [address] [place] [address] Insurance Assigned Provider 09/15/23 Lavelle Scott MD 30 [place] [address] Primary Oncologist Medical Oncology 02/14/22 Nadine Martinez, OT 30 [place] [address] [email or web address] Transitions Hawk Miss[employer] System CrewmemberProject Development Director Therapy 08/15/24 08/26/24 Nadine Martinez, OT [address] [place] [address] Transitions [employer] CrewmemberProject Development Director Therapy 08/15/24 08/26/24 Nadine Martinez, OT [address] [place] [address] [email or web address] Transitions [employer] CrewmemberProject Development Director Therapy 08/28/24 09/22/24 documented as of this encounter Additional Source Comments The information contained in this document represents components of the legal health record. It is not the complete legal health record.[facility]
--- OUTSIDE RECORDS SUMMARY | 2025-04-01 06:05 | XMS_ITS | Encounter Summary ---
Author Organization [facility] Address [address] [place] [address] [place] [address] Phone Care Team Providers Care Monomer Recovery Operator Name Role Phone Vikram Naik MD Unavailable [phone] Claudia Alvarez MD Unavailable [phone] King Mendoza MD Unavailable + Jhon Lou MD Primary Care Provider [phone] Blu Bertrand MD Unavailable Clay Sparks MD Unavailable Sarita Troncoso DPM Unavailable + Jhon Lou MD Unavailable [phone] Lavelle Scott MD Unavailable Nadine Martinez OT Unavailable Nadine Martinez OT Unavailable Nadine Martinez OT Unavailable Nadine Martinez OT Unavailable Encounter Details Date Type Department Care Team (Late st Contact Info) Description 08/14/2024 Procedure Pass [facility], Ct Scan - [address] [address] Social History Tobacco Use Types Packs/Day Years [...] 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 Wish to be (Past 1 Month) No 025 4:00 AM Gely Geronimo RN 2. Non-Specific Active Suici mari Thoughts (Past 1 Month) No 08/15/2024 4:00 AM EST Gely Thompson RN 6. Suicidal Behavior (Lifetime) No 5 4:00 AM Gely Geronimo, CHAYA documented as of this encounter Plan of Treatment Upcoming Encounters Date Type Department Care Team (Late st Contact Info) Description 04/09/2025 3:00 PM EDT Office Visit [facility] [address] [place] [address] 3rd Floor, [address] [place] [address] Edie Unger CNP [address] [place] [address], [address] [address] [email or web address] 06/19/2025 1:30 PM EST Office Visit [facility] [address] [place] [address] Nisreen Maza CNP 10 [place] [address] [email or web address] documented as of this encounter Visit Diagnoses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documented in this encounter Additional Health Concerns Infection Onset Date Last Indicated Resolved Time CoV-Risk Comment:Per note documentation 09/01/2024 09/01/2024 1:51 PM EDT Assessment Noted Time PHQ-2 Depression Total Score: 0 05/13/20 20 11:29 AM EST documented as of this encounter Care Teams Monomer Recovery Operator Relationship Specialty Start Date End Date Jhon Lou MD [address] [place] [address], [address] [place] [address] [email or web address] PCP - General Internal Medicine 02/12/20 Vikram Naik MD [email or web address] Historical LMR Provider 03/26/17 Claudia Alvarez MD 22 [facility], [address] [place] [address] [email or web address] Historical LMR Provider 03/26/17 King Mendoza MD 22 [facility], [address] [place] [address] [email or web address] Historical LMR Provider 03/26/17 Blu Bertrand MD 15 [facility] [address] [place] [address] [email or web address] Nephrology 02/13/20 Clay Sparks MD [address] [place] [address] 2 [place] [address] Ophthalmology 02/13/20 Sarita Troncoso DPM [address] [facility] 7 [place] [address] [email or web address] Podiatry 02/13/20 Jhon Lou MD 22 [facility], [address] [place] [address] Insurance Assigned Provider 09/15/23 Lavelle Scott MD 30 [place] [address] [email or web address] Primary Oncologist Medical Oncology 02/14/22 Nadine Martinez, OT 30 [place] [address] Transitions Racking TechnicianMechanical Maintenance Instructor Therapy 08/15/24 08/26/24 Nadine Martinez, OT 30 [place] [address] Transitions Racking TechnicianMechanical Maintenance Instructor Therapy 08/15/24 08/26/24 Nadine Martinez, OT 30 [place] [address] Transitions Racking TechnicianMechanical Maintenance Instructor Therapy 08/18/24 08/18/24 Nadine Martinez, OT 30 [place] [address] Transitions Racking TechnicianMechanical Maintenance Instructor Therapy 08/28/24 09/22/24 documented as of this encounter Additional Source Comments The information contained in this document represents components of the legal health record. It is not the complete legal health record.[facility]
--- OUTSIDE RECORDS SUMMARY | 2025-04-01 06:05 | XMS_ITS | Encounter Summary ---
Author Organization [facility] Address [address] [place] [address] Phone Care Team Providers Care Manager Floor Name Role Phone Vikram Naik MD Unavailable [phone] Claudia Alvarez MD Unavailable [phone] King Mendoza MD Unavailable + Jhon Lou MD Primary Care Provider [phone] Blu Bertrand MD Unavailable Clay Sparks MD Unavailable Sarita Troncoso DPM Unavailable + Jhon Lou MD Unavailable [phone] Lavelle Scott MD Unavailable Nadine Martinez OT Unavailable Nadine Martinez OT Unavailable Nadine Martinez OT Unavailable Nadine Martinez OT Unavailable Encounter Details Date Type Department Care Team (Late st Contact Info) Description 08/15/2024 Procedure Pass [facility]oscopy Admitting Dept Virtual Department [address] [place] [address] Social History Tobacco Use Types Packs/Day Years [...] 08/15/2024 4:00 AM Gely Geronimo, CHAYA * [place] Suicide Severity Rating Scale (Screener/Recent Self-Report) Question Answer Date of Assessment Author 1. Wish to be (Past 1 Month) No 025 4:00 AM Gely Geronimo, CHAYA 2. Non-Specific Active Suici mari Thoughts (Past 1 Month) No 08/15/2024 4:00 AM Gely Geronimo , CHAYA 6. Suicidal Behavior (Lifetime) No 5 4:00 AM Gely Geronimo, CHAYA documented as of this encounter Plan of Treatment Upcoming Encounters Date Type Department Care Team (Late st Contact Info) Description 04/09/2025 3:00 PM EDT Office Visit [facility] [address] [place] [address] 3rd Floor, [address] [place] [address] Edie Unger CNP [address] [place] [address], [address] [address] [email or web address] 06/19/2025 1:30 PM EST Office Visit [facility] [address] [place] [address] Nisreen Maza CNP 10 [place] [address] documented as of this encounter Visit Diagnoses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documented in this encounter Additional Health Concerns Infection Onset Date Last Indicated Resolved Time CoV-Risk Comment:Per note documentation 09/01/2024 09/01/2024 1:51 PM EDT Assessment Noted Time PHQ-2 Depression Total Score: 0 05/13/20 20 11:29 AM EST documented as of this encounter Care Teams Manager Floor Relationship Specialty Start Date End Date Jhon Lou MD [address] [place] [address], [address] [place] [address] PCP - General Internal Medicine 02/12/20 Vikram Naik MD [email or web address] Historical LMR Provider 03/26/17 Claudia Alvarez MD 22 [facility], [address] [place] [address] [email or web address] Historical LMR Provider 03/26/17 King Mendoza MD [address] [facility], [address] [place] [address] [email or web address] Historical LMR Provider 03/26/17 Blu Bertrand MD [address] [facility] [address] [place] [address] [email or web address] Nephrology 02/13/20 Clay Sparks MD [address] [place] [address] 2 [place] [address] Ophthalmology 02/13/20 Sarita Troncoso DPM 10 [facility] 7 [place] [address] [email or web address] Podiatry 02/13/20 Jhon Lou MD 22 [facility], [address] [place] [address] Insurance Assigned Provider 09/15/23 Lavelle Scott MD 30 [place] [address] [email or web address] Primary Oncologist Medical Oncology 02/14/22 Nadine Martinez, OT 30 [place] [address] Transitions Database ManagerCentrifugal Machine Tender Therapy 08/15/24 08/26/24 Nadine Martinez, OT 30 [place] [address] Transitions Database ManagerCentrifugal Machine Tender Therapy 08/15/24 08/26/24 Nadine Martinez, OT 30 [place] [address] Transitions Database ManagerCentrifugal Machine Tender Therapy 08/18/24 08/18/24 Nadine Martinez, OT 30 [place] [address] Transitions Database ManagerCentrifugal Machine Tender Therapy 08/28/24 09/22/24 documented as of this encounter Additional Source Comments The information contained in this document represents components of the legal health record. It is not the complete legal health record.[facility]
--- OUTSIDE RECORDS SUMMARY | 2025-04-01 06:06 | XMS_ITS | Encounter Summary ---
Author Organization [facility] Address [address] [place] [address] Phone Care Team Providers Care Customer Business Manager Name Role Phone Fareed Pinzon MD Unavailable + Vikram Naik MD Unavailable Gely Arevalo SLAUGHTERER [employer]IG[employer]OUS [employer]ITUAL Unavailable Wendy Abbott SLAUGHTERER [employer]IT[employer] Unavailable Roseline Romero MD Unavailable Morteza Xiao MD Unavailable Claudia Alvarez MD Unavailable [phone] King Mendoza MD Unavailable + Jhon Lou MD Primary Care Provider [phone] Blu Bertrand MD Unavailable Clay Sparks MD Unavailable Sarita Troncoso DPM Unavailable + Jhon Lou MD Unavailable Lavelle Scott MD Unavailable [phone] Katie Cantu RN Unavailable [email or web address] Nadine Martinez OT Unavailable [phone] Nadine Martinez OT Unavailable Nadine Martinez OT Unavailable [phone] Nadine Martinez OT Unavailable Encounter Details Date Type Department Care Team (Late st Contact Info) Description 06/27/2020 Procedure Pass Non-Invasive Cardiology [address] [place] [address] Social History Tobacco Use Types Packs/Day Years [...] Orientation Straight 12/04/2017 6: 19 PM EDT documented as of this encounter Plan of Treatment Upcoming Encounters Date Type Department Care Team (Late st Contact Info) Description 04/09/2025 3:00 PM EDT Office Visit [facility] [address] [place] [address] 3rd Floor, [address] [place] [address] Edie Unger CNP [address] [address] [email or web address] 06/19/2025 1:30 PM EST Office Visit [facility] [address] [place] [address] Nisreen Maza, TRACER BULLET SECTION SUPERVISOR 10 [place] [address] documented as of this encounter Visit Diagnoses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documented in this encounter Additional Health Concerns Infection Onset Date Last Indicated Resolved Time CoV-Risk Comment:Per note documentation 09/01/2024 09/01/2024 1:51 PM EDT documented as of this encounter Care Teams Customer Business Manager Relationship Specialty Start Date End Date Jhon Lou MD 22 [facility], [address] [place] [address] PCP - General Internal Medicine 02/12/20 Fareed Pinzon MD [address] [place] [address] [email or web address] Historical LMR Provider 03/26/17 06/18/21 Vikram Naik MD [address] [place] [address] [email or web address] Historical LMR Provider 03/26/17 Gely Arevalo NP [address] [place] [address] [address] [place] [address] [email or web address] Historical LMR Provider 03/26/17 2 Wendy Abbott, TOMI [address] [place] [address] Historical LMR Provider 03/26/17 Roseline Romero MD [address] [place] [address] [address] [place] [address] [email or web address] Historical LMR Provider 03/26/17 06/18/21 Morteza Xiao MD [address] [place] [address] [place] [address] Historical LMR Provider 03/26/17 2 Claudia Alvarez MD 22 [facility], [address] [place] [address] [email or web address] Historical LMR Provider 03/26/17 King Mendoza MD 22 [facility], [address] [place] [address] [email or web address] Historical LMR Provider 03/26/17 Blu Bertrand MD [address] [facility] [address] [place] [address] Nephrology 02/13/20 Clay Sparks MD [address] [place] [address] 2 [place] [address] Ophthalmology 02/13/20 Sarita Troncoso DPM 10 [facility] 7 [place] [address] Podiatry 02/13/20 Jhon Lou MD 22 [facility], [address] [place] [address] Insurance Assigned Provider 09/15/23 Lavelle Scott MD 30 [place] [address] Primary Oncologist Medical Oncology 02/14/22 Katie Cantu, CHAYA 30 [place] [address] [email or web address] [facility] Legal Specialist 03/01/22 04/04/22 Nadine Martinez, OT 30 [place] [address] [email or web address] Transitions Legal SpecialistPaper Machine Operator Therapy 08/15/24 08/26/24 MartinezNadine zavala, OT 30 [place] [address] [email or web address] Transitions Legal SpecialistPaper Machine Operator Therapy 08/15/24 08/26/24 Juan Nadine Foreman, OT 30 [place] [address] [email or web address] Transitions Legal SpecialistPaper Machine Operator Therapy 08/18/24 08/18/24 MartinezNadine, OT 30 [place] [address] [email or web address] Transitions Legal SpecialistPaper Machine Operator Therapy 08/28/24 09/22/24 documented as of this encounter Additional Source Comments The information contained in this document represents components of the legal health record. It is not the complete legal health record.[facility]
--- OUTSIDE RECORDS SUMMARY | 2025-04-01 06:06 | XMS_ITS | Encounter Summary ---
Author Organization [facility] Address [address] [place] [address] [place] [address] Phone Care Team Providers Care Manufacturing Intern Name Role Phone Vikram Naik MD Unavailable [phone] Claudia Alvarez MD Unavailable King Mendoza MD Unavailable + Jhon Lou MD Primary Care Provider [phone] Blu Bertrand MD Unavailable Clay Sparks MD Unavailable Sarita Troncoso DPM Unavailable + Jhon Lou MD Unavailable [phone] Lavelle Scott MD Unavailable [phone] Katie Cantu RN Unavailable [email or web address] Nadine Martinez OT Unavailable [phone] Nadine Martinez OT Unavailable [phone] Nadine Martinez OT Unavailable [phone] Nadine Martinez OT Unavailable [phone] Encounter Details Date Type Department Care Team (Late st Contact Info) Description 12/29/2021 Procedure Pass [facility], Ct Scan - [facility] [address] [place] [address] Social History Tobacco Use Types Packs/Day Years [...] 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, [employer]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 documented as of this encounter Functional Status * Calculated C-SSRS Risk Score (Lifetime/Recent) Answer Date of Assessment Author No Risk Indicated 12/29/2021 1:50 PM EDT Marlen Edouard CNP * [place] Suicide Severity Rating Scale (Screener/Recent Self-Report) Question [...] Description 04/09/2025 3:00 PM EDT Office Visit [facility] 22 [facility] 3rd Floor, [address] [place] [address] Edie Unger CNP [address] [facility], [address] [place] [address] [email or web address] 06/19/2025 1:30 PM EST Office Visit [facility] [address] [place] [address] Link Nisreen Murphy, THEATRICAL RIGGER 10 [place] [address] [email or web address] documented as of this encounter Visit Diagnoses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documented in this encounter Additional Health Concerns Infection Onset Date Last Indicated Resolved Time CoV-Risk Comment:Per note documentation 09/01/2024 09/01/2024 1:51 PM EDT Assessment Noted Time PHQ-2 Depression Total Score: 0 05/13/20 11:29 AM EST documented as of this encounter Care Teams Manufacturing Intern Relationship Specialty Start Date End Date Jhon Lou MD [address] [facility], [address] [place] [address] [email or web address] PCP - General Internal Medicine 02/12/20 Vikram Naik MD [email or web address] Historical LMR Provider 03/26/17 Claudia Alvarez MD [address] [facility], [address] [place] [address] [email or web address] Historical LMR Provider 03/26/17 King Mendoza MD [address] [facility], [address] [place] [address] [email or web address] Historical LMR Provider 03/26/17 Blu Bertrand MD [address] [facility] [address] [place] [address] [email or web address] Nephrology 02/13/20 Clay Sparks MD [address] [place] [address] 2 [place] [address] Ophthalmology 02/13/20 Sarita Troncoso DPM 10 [facility] 7 [place] [address] Podiatry 02/13/20 Jhon Lou MD [address] [place] [address], [address] [place] [address] Insurance Assigned Provider 09/15/23 Lavelle Scott MD [address] [place] [address] [email or web address] Primary Oncologist Medical Oncology 02/14/22 Katie Cantu, CHAYA [address] [place] [address] [email or web address] Supplies Packer 03/01/22 04/04/22 Nadine Martinez, OT 30 [place] [address] [email or web address] Transitions Supplies PackerPulp Drier Firer Therapy 08/15/24 08/26/24 Nadine Martinez, OT 30 [place] [address] [email or web address] Transitions Supplies PackerPulp Drier Firer Therapy 08/15/24 08/26/24 Nadine Martinez, OT 30 [place] [address] Transitions Supplies PackerPulp Drier Firer Therapy 08/18/24 08/18/24 Nadine Martinez, OT 30 [place] [address] [email or web address] Transitions Supplies PackerPulp Drier Firer Therapy 08/28/24 09/22/24 documented as of this encounter Additional Source Comments The information contained in this document represents components of the legal health record. It is not the complete legal health record.[facility]
--- OUTSIDE RECORDS SUMMARY | 2025-04-01 06:06 | XMS_ITS | Encounter Summary ---
Author Organization [facility] Address [address] [place] [address] [place] [address] Phone Care Team Providers Care Grease Press Helper Name Role Phone Vikram Naik MD Unavailable [phone] Claudia Alvarez MD Unavailable King Mendoza MD Unavailable + Jhon Lou MD Primary Care Provider [phone] Blu Bertrand MD Unavailable Clay Sparks MD Unavailable Sarita Troncoso DPM Unavailable + Jhon Lou MD Unavailable [phone] Lavelle Scott MD Unavailable [phone] Katie Cantu RN Unavailable [email or web address] Nadine Martinez OT Unavailable [phone] Nadine Martinez OT Unavailable [phone] Nadine Martinez OT Unavailable [phone] Nadine Martinez OT Unavailable [phone] Encounter Details Date Type Department Care Team (Late st Contact Info) Description 12/09/2021 Procedure Pass [facility], Ct Scan - [facility] [address] [place] [address] Social History Tobacco Use Types Packs/Day Years [...] 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 Wish to be (Past 1 Month) No 12/09/2021 6:41 PM EDT Danuta Townsend, RN 2. Non-Specific Active Suici mari Thoughts (Past 1 Month) No 12/09/2021 6:41 PM EDT Danuta Townsend, RN 6. Suicidal Behavior (Lifetime) No 6:41 PM EDT Danuta Townsend, RN documented as of this encounter Plan of Treatment Upcoming Encounters Date Type Department Care Team (Late st Contact Info) Description 04/09/2025 3:00 PM EDT Office Visit [facility] [address] [place] [address] 3rd Floor, [address] [place] [address] Edie Unger CNP 22 [facility], [address] [place] [address] [email or web address] 06/19/2025 1:30 PM EST Office Visit [facility] 10 [place] [address] Nisreen Maza, MILLING PLANER OPERATOR 10 [place] [address] [email or web address] documented as of this encounter Visit Diagnoses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documented in this encounter Additional Health Concerns Infection Onset Date Last Indicated Resolved Time CoV-Risk Comment:Per note documentation 09/01/2024 09/01/2024 1:51 PM EDT Assessment Noted Time PHQ-2 Depression Total Score: 0 05/13/20 11:29 AM EST documented as of this encounter Care Teams Grease Press Helper Relationship Specialty Start Date End Date Jhon Lou MD [address] [facility], [address] [place] [address] PCP - General Internal Medicine 02/12/20 Vikram Naik MD [email or web address] Historical LMR Provider 03/26/17 Claudia Alvarez MD 22 [facility], [address] [place] [address] [email or web address] Historical LMR Provider 03/26/17 King Mendoza MD 22 [facility], [address] [place] [address] [email or web address] Historical LMR Provider 03/26/17 Blu Bertrand MD [address] [facility] [address] [place] [address] [email or web address] Nephrology 02/13/20 Clay Sparks MD [address] [place] [address] Ophthalmology 02/13/20 Sarita Troncoso DPM 10 [facility] 7 [place] [address] [email or web address] Podiatry 02/13/20 Jhon Lou MD [address] [place] [address], [address] [place] [address] Insurance Assigned Provider 09/15/23 Lavelle Scott MD [address] [place] [address] [email or web address] Primary Oncologist Medical Oncology 02/14/22 Katie Cantu RN [address] [place] [address] [email or web address] Coach Wirer 03/01/22 04/04/22 Nadine Martinez, OT 30 [place] [address] [email or web address] Transitions Coach WirerBiology Professor Therapy 08/15/24 08/26/24 Nadine Martinez, OT 30 [place] [address] [email or web address] Transitions Coach WirerBiology Professor Therapy 08/15/24 08/26/24 Nadine Martinze, OT 30 [place] [address] Transitions Coach WirerBiology Professor Therapy 08/18/24 08/18/24 Nadine Martinez, OT 30 [place] [address] [email or web address] Transitions Coach WirerBiology Professor Therapy 08/28/24 09/22/24 documented as of this encounter Additional Source Comments The information contained in this document represents components of the legal health record. It is not the complete legal health record.[facility]
--- OUTSIDE RECORDS SUMMARY | 2025-04-01 06:06 | XMS_ITS | Encounter Summary ---
Author Organization [facility] Address [address] [place] [address] Phone Care Team Providers Care Diamond Sander Name Role Phone Fareed Pinzon MD Unavailable + Chon Candelaria PHYSICIST NUCLEAR Unavailable Estefania Cadena PHYSICIST NUCLEAR Unavailable Unavailable Vikram Naik MD Unavailable Gely Arevalo PHYSICIST NUCLEAR Unavailable Wendy Abbott PHYSICIST NUCLEAR Unavailable Roseline Romero MD Unavailable Morteza Xiao MD Unavailable Claudia Alvarez MD Unavailable [phone] Clay Sands MD Unavailable [phone] Manny Johnson MD Unavailable [phone] King Mendoza MD Unavailable + King Mendoza MD Primary Care Prov ider Jhon Lou MD Primary Care Provider [phone] Blu Bertrand MD Unavailable Marek García MD Unavailable [phone] Clay Sparks MD Unavailable Karyna Nahunlindenmekamehul Coleman DPM Unavailable + Jhon Lou MD Unavailable Lavelle Scott MD Unavailable [phone] Katie Cantu RN Unavailable [email or web address] Nadine Martinez OT Unavailable [phone] Nadine Martinez OT Unavailable Nadine Martinez OT Unavailable Nadine Martinez OT Unavailable Encounter Details Date Type Department Care Team (Late st Contact Info) Description 07/25/2018 Ancillary Orders [facility] [place] [address] [place] [address] Vikram Naik MD [address] [place] [address] [place] [address] [email or web address] Social History Tobacco Use Types Packs/Day Years [...] Description 04/09/2025 3:00 PM EDT Office Visit [facility] [address], [address] [place], [place] [id number] Edie Unger, KATHARINE [address] [facility], [address] [place] [address] [email or web address] 06/19/2025 1:30 PM EST Office Visit [facility] [address] [place] [address] Nisreen Maza CNP [address] [place] [address] documented as of this encounter Visit Diagnoses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documented in this encounter Additional Health Concerns Infection Onset Date Last Indicated Resolved Time CoV-Risk Comment:Per note documentation 09/01/2024 09/01/2024 1:51 PM EDT documented as of this encounter Care Teams Diamond Sander Relationship Specialty Start Date End Date King Mendoza MD [address] [place] [address] [email or web address] PCP - General 05/10/17 02/11/20 Jhon Lou MD [address] [facility] [place] [address] PCP - General Internal Medicine 02/12/20 Fareed Pinzon MD [address] [place] [address] [email or web address] Historical LMR Provider 03/26/17 06/18/21 Chon Candelaria NP [address] [place] [address] Historical LMR Provider 03/26/1702/12/20 Estefania Cadena NP [address] [place] [address] Historical LMR Provider 03/26/1702/11 Vikram Naik MD [address] [place] [address] [email or web address] Historical LMR Provider 03/26/17 Gely Arevalo, PHYSICIST NUCLEAR [address] [place] [address] [address] [place] [address] [email or web address] Historical LMR Provider 03/26/17 2 Wendy Abbott NP [address] [place] [address] Historical LMR Provider 03/26/17 Roseline Romero MD [address] [place] [address] [address] [place] [address] [email or web address] Historical LMR Provider 03/26/17 06/18/21 Morteza Xiao MD [address] [place] [address] Historical LMR Provider 03/26/17 2 Claudia Alvarez MD [address] [place] [address], 1st [place] [address] [email or web address] Historical LMR Provider 03/26/17 Clay Sands MD 22 [facility], [address] [place] [address] [email or web address] Historical LMR Provider 03/26/17 0 Manny Johnson MD [address] [place] [address] Historical LMR Provider 03/26/17 0 King Mendoza MD 22 [place] [address] [email or web address] Historical LMR Provider 03/26/17 Blu Bertrand MD [address] [address] Nephrology 02/13/20 Marek García MD [address] [address] Ophthalmology 02/13/20 02/13/20 Clay Sparks MD [address] [place] [place] [address] Ophthalmology 02/13/20 Sarita Troncoso DPM [address] [place] [address] [address] [place] [address] Podiatry 02/13/20 Jhon Lou MD 22 [facility] [place] [address] Insurance Assigned Provider 09/15/23 Lavelle Scott MD [address] [place] [address] Primary Oncologist Medical Oncology 02/14/22 Katie Cantu, CHAYA [address] [place] [address] [email or web address] Fitter 03/01/22 04/04/22 Nadine Martinez, OT [address] [place] [address] [email or web address] Transitions Jig FitterQuality Control Engineer Therapy 08/15/24 08/26/24 Nadine Martinez, OT [address] [place] [address] [email or web address] Transitions Jig FitterQuality Control Engineer Therapy 08/15/24 08/26/24 Nadine Martinez, OT [address] [place] [address] Transitions Jig FitterQuality Control Engineer Therapy 08/18/24 08/18/24 Nadine Martinez, OT [address] [place] [address] Transitions Jig FitterQuality Control Engineer Therapy 08/28/24 09/22/24 documented as of this encounter Additional Source Comments The information contained in this document represents components of the legal health record. It is not the complete legal health record.[facility]
--- OUTSIDE RECORDS SUMMARY | 2025-04-01 06:06 | XMS_ITS | Data Portability ---
Author Organization [facility], [facility] Address [address] [place] [address] Care Team Providers Care Pta Name Role Phone JESUS RETANA Primary Care Provider Assessment Encounter Date Assessment Date Assessment LastModified by Organization Details LastModified Time 12/05/2024 12/05/2024 I am seeing the patient today under the supervision of Dr Shah who was available but who did not see the patient. [email or web address] Not available 12/05/2024 08:41:23 Plan of Treatment [...] Address Organization Details Recorded Time No complaints [id number] Active Status : 'I'; Not Available [facility] 4 09:20:23 Primary gonarthrosis , bilateral [id number] Active 2024 Bernie King PA-C [address], [place], [address] , [facility] 5 08:13:13 Problem Notes None recorded. Procedures Surgical History Date Name Laterality Status Provider Name and Address Organization Details Recorded Time Euflexxa Knee Injection completed Bernie King PA-C [address], [place], [address], [facility] 12/10/2024 08:13:02 5 Euflexxa Knee Injection Cristopher completed Severiano Rodgers PA-C [address], [place], [address], [facility] 12/05/2024 08:49:46 5 Euflexxa Knee Injection Cristopher completed Estefania Concepcion, EXTRACTOR MACHINE OPERATOR [address], [place], [address], [facility] 11/28/2024 09:06:56 4 Euflexxa Knee Injection completed Bernie King PA-C [address], [place], [address], [facility] 05/01/2024 12:50:41 4 Euflexxa Knee Injection completed Aubrey Meeks PA-C [address], [place], [address], [facility] 04/23/2024 15:21:11 4 Euflexxa Knee Injection completed Aubrey Meeks PA-C [address], [place], [address], [facility] 04/16/2024 14:38:19 4 Zilretta Knee Injection, Bilateral completed Aubrey Meeks PA-C [address], [place], [address], [facility] 09/13/2023 10:56:43 Imaging Results None recorded. Procedure Notes None recorded. Medical Equipment None Reported. Allergies Allergen ID Allergen Name Allergen Category Reaction Reaction Severity Criticality Documentation Date Start Date Code Code System Note Provider Name and Address Organization Details Recorded Time 36413 Substance with sulfonami de structure and antibacte rial mechanism of action (substanc e) medicatio n Not available Not available Not available 08/13/20232012 84560 8003 SNOMED Aller gyRea ction : 'Skin [...] Updated DateTime 11/28/2024 170.18 cm NICKOLAS BUCKLEY [facility] 11/28/2024 08:33:10 Date Recorded Body height Body mass index (BMI) Body weight Provider Name and Address Organization Details Last Updated DateTime 12/05/2024 170.18 cm 28.2 kg/m2 47144.63 g Alvino Rasheed [facility] 12/05/2024 08:41:50 Date Recorded Body height Provider Name an d Address Organization Details Last Updated DateTime 12/10/2024 170.18 cm JEFFRY IRVIN [facility] 12/10/2024 08:48:50 Date Recorded Body height Body mass index (BMI) Body weight Provider Name and Address Organization Details Last Updated DateTime 05/01/2024 170.18 cm 28.2 kg/m2 25221.63 g jorge luis collazo [place] [facility] 05/01/2024 11:21:31 Social History None recorded. Functional Status None recorded. Mental Status None recorded. Family History Nothing Reported. Medical History No medical history recorded. Past Encounters Encounter ID Performer Location Encounter Start Date Encounter Closed Date Diagnosis/Indication Diagnosis SNOMED-CT Code Diagnosis ICD10 Code Diagnosis IMO Codes Diagnosis Note [id number] [facility] [address] [place] [address] 09/13/2023 10:15:30 09/13/2023 11:00:18 Bilateral osteoarthritis of knees 8016237826 94775 M17.0 [id number] Aubrey Meeks PA-C [facility] [address] [place] [address] 04/17/2024 14:56:54 05/15/2024 13:06:54 Primary gonarthrosis, bilateral 955105210 M17.0 [id number] [facility] [address] [place] [address] 04/24/2024 13:41:21 05/24/2024 07:15:22 Primary gonarthrosis, bilateral 006950902 M17.0 [id number] Bernie King PA-C [facility] [address] [place] [address] 05/01/2024 10:37:37 05/26/2024 14:26:34 Primary gonarthrosis, bilateral 509049012 M17.0 [id number] Estefania Concepcion, KATHARINE [facility] [address] [place] [address] 11/28/2024 08:14:15 12/05/2024 15:41:04 [id number] Severiano Rodgers PA-C [facility] [address] [place] [address] 12/05/2024 08:34:07 12/22/2024 13:59:45 Bilateral osteoarthritis of knees 2899962171 84868 M17.0 [id number] [facility] [address] [place] [address] 12/10/2024 08:44:45 12/25/2024 08:27:35 Primary gonarthrosis, bilateral 359390884 M17.0 [id number] Health Concerns Section Related Observation LastModified by Organization Detai ls LastModified Time None Recorded Concern Status LastModified by Organization Details LastModified Time None Recorded Advance Directives Directive None Recorded Payers Insurance Date Sequence Insurance Name Policy Number Policy Jarrell Covered Member ID Jarrell Member ID Guarantor Name 12/10/2024 1 [place]: [employer] [place] Goyal [id number] [place] Thibodeauxphrey 12/25/2024 2 [facility] INDEMNITY PLAN (MEDICARE SUPPLEMENT) [id number] [place] Thibodeauxphrey [id number] [place]ano Goyal Notes Date Note Type Note [...] the next 24-48 hours. Follow-up as scheduled. [employer] speech recognition ware finisher software was used to create portions of this document. An attempt at proofreading has been made to minimize errors. Please call for corrections. Bernie King PA-C [address], [place], [address], [facility] 05/01/2024 12:51:11 11/28/2024 text/html ROS as noted in the HPI Michoacano is an 84 year old who is here for his first euflexxa injection in the bilateral knees. Estefania Concepcion, EXTRACTOR MACHINE OPERATOR [address] [facility] [employer] [address], [place], [address], [facility] 11/28/2024 09:07:05 12/10/2024 text/html I am seeing [...] the next 24-48 hours. Follow-up as scheduled. [facility] speech recognition ware finisher software was used to create portions of this document. An attempt at proofreading has been made to minimize errors. Please call for corrections. Bernie King PA-C [address], [place], [address], [facility] 12/10/2024 09:34:57
--- OUTSIDE RECORDS SUMMARY | 2025-04-01 06:06 | XMS_ITS | Data Portability ---
Author Organization [facility] [employer] [facility], Main Office Address [address] [place] [address] Care Team Providers Care Brim Stitcher Name Role Phone MELISSA SHEPPARD 1ST FLOOR [...] Details Recorded Time Lower gastrointestin al hemorrhage 91176865 Active 2024 Cisco Fontaine MD [address] [facility], [address], [place], [address], [facility] [employer] 5 10:24:56 Malignant neoplasm of colon 746391970 Active 2024 Cisco Fontaine MD [address] [facility], [address], [place], [address], [facility] [employer] 5 10:25:05 End stage renal failure on dialysis 275922273 Active 2024 Cisco Fontaine MD [address], [address], [place], [address], [facility] 5 10:25:12 Atrial fibrillation 74413186 Active 2024 Cisco Fontaine MD [address], [address], [place], [address], [facility] 5 10:25:17 Diabetes mellitus 31452258 Active 2024 Cisco Fontaine MD [address], [address], [place], [address], [facility] 5 10:25:21 Essential hypertension 54078580 Active 2024 Cisco Fontaine MD [address], [address], [place], [address], [facility] 5 10:25:27 Central sleep apnea syndrome 73481194 Active 20[address], [address], [place], [address], [facility] 5 10:01:37 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 Medical Equipment None Reported. Allergies Allergen ID Allergen Name Allergen Category Reaction Reaction Severity Criticality Documentation Date Start Date Code Code System Note Provider Name and Address Organization Details Recorded Time 96424 Substance with sulfonami de structure and antibacte rial mechanism of action (substanc e) medicatio n itching Not available Not available 08/28/20242008 47178 8003 SNOMED Carmela Vera MD [address] [facility], [address], [place], [address], [facility] [employer] 5 14:09:56 Vitals Date Recorded Heart rate Respiratory rate Body temperature Oxygen saturation Oxygen saturation in Arterial blood by Pulse oximetry Systolic And Diastolic Provider Name and Address Organization Details Last Updated DateTime 5 68 /min 18 /min 97.9 [degF] 92 % 92 % 156/73 mm[Hg] JOAQUIN BLAND NP [address] [facility], [address], [place], [address], [facility] [employer] 5 13:41:07 Date Recorded Heart rate Respiratory rate Body temperature Oxygen saturation Oxygen saturation in Arterial blood by Pulse oximetry Systolic And Diastolic Provider Name and Address Organization Details Last Updated DateTime 5 74 /min 17 /min 98 [degF] 96 % 96 % 148/65 mm[Hg] PHANI HERRMANN CNP [address] [facility], [address], [place], [address], [facility] [employer] 5 15:03:50 Date Recorded Body height Body mass index (BMI) Body weight Heart rate Respiratory rate Body temperature Oxygen saturation Oxygen saturation in Arterial blood by Pulse oximetry Systolic And Diastolic Provider Name and Address Organization Details Last Updated DateTime 5 165.1 cm 25 kg/m2 08390.8 6 g 62 /min 18 /min 98 [degF] 95 % 95 % 127/59 mm[Hg] Carmela Vera MD [address] [facility], [address], [place], [address], [facility] [employer] 5 15:09:10 Social History Question Answer Notes LastModified by Organizat ion Details LastModified Time Tobacco Smoking Status Former Smoker Smoked 1/3 ppd from 1981- Carmela Vera MD [address] [facility], [address], [place], [address], [facility] 12/25/2024 16:08:44 Do You Have An Advance [...] Do You Have A Medical Power Of Security Installer? Yes Not Invoked Information not available 12/25/2024 [...] unspecified formulation 6 completed Jomar Zeuss-Patton null, [facility] 08/27/2024 13:45:20 Pneumococcal conjugate PCV 13 3 completed Jomar Jacks-Patton null, [facility] 08/27/2024 13:45:34 pneumococcal polysaccharide PPV23 7 completed Jomar Jacks-Patton null, [facility] 08/27/2024 13:45:43 SARS-COV-2 (COVID-19) vaccine, UNSPECIFIED 1 completed Madmagzs-Patton [facility], [facility] 08/27/2024 13:45:55 SARS-COV-2 (COVID-19) vaccine, UNSPECIFIED 1 completed Madmagzs-Patton null, [facility] 08/27/2024 13:45:59 SARS-COV-2 (COVID-19) vaccine, UNSPECIFIED 1 completed Madmagzs-Patton null, [facility] 08/27/2024 13:46:05 SARS-COV-2 (COVID-19) vaccine, UNSPECIFIED 2 completed Madmagzs-Patton null, [facility] 08/27/2024 13:46:09 SARS-COV-2 (COVID-19) vaccine, UNSPECIFIED 2 completed Jomar EPSs-Patton null, [facility] 08/27/2024 13:46:13 SARS-COV-2 (COVID-19) vaccine, UNSPECIFIED 4 completed Jomar Jacks-Patton null, [facility] 08/27/2024 13:46:17 SARS-COV-2 (COVID-19) vaccine, UNSPECIFIED 4 completed Jomar Jacks-Patton null, [facility] 08/27/2024 13:46:23 zoster, unspecified formulation 1 completed Jomar Jacks-Patton null, [facility] 08/27/2024 13:46:40 zoster, unspecified formulation 2 completed Jomar pandya [place] - [facility] 08/27/2024 13:46:46 Past Encounters Encounter ID Performer Location Encounter Start Date Encounter Closed Date Diagnosis/Indication Diagnosis SNOMED-CT Code Diagnosis ICD10 Code Diagnosis IMO Codes Diagnosis Note [id number] NEETU HALE VALARIE [address] [place] [address] 09/07/2024 08:53:13 09/11/2024 16:13:33 Lower gastrointestinal hemorrhage 65590764 K92.2 see hpiCTA showed no active bleed Atrial fibrillation 4943 6004 I48.91 Paroxysmal eliquis on hold until 09/10/24Hear t rate controlled .continue metoprolol follow up with cardiology as planned End stage renal failure on dialysis 421570485 N18.6 continue MWF dialysisco ntinue sevelamer 3200 mg TID with mealscont gabapentin 100 mg TID after dialysisLi docaine-Pr ilocaine External Cream 2.5-2.5 % before HDavoid nephrotoxi c medsdiscus sed with nursing to give metoprolol after dialysis Diabetes mellitus 540651 09 E11.9 no current accuchecks in pccwill add TID for 1 week with lispro SSCwill change to weekly is accuchecks are stable under 200s Essential hypertension 87839721 I10 HX pacemakerm etoprolol initial held in acute care for soft BP /discharge d on 12.5 mg qd and 25 mg qpmSBP now noted mainly 170-180swi ll increase metoprolol to 25 mg BID with parameter to hold for SBP less than 120 and HR less than 60 Central sl eep apnea syndrome 57501362 G47.37 with milo Grullon respiratio ncontinue CPAP Malignant neoplasm of colon 395407179 C18.9 Colonoscop y revealed a 3 cm [...] with residual polyp ablated and clipped. Asthenia 65905875 R53.1 PT/OT eval and txMorse 10maintain ed safety [id number] MD MELISSA Mohr VALARIE [address] [place] [address] 09/10/2024 09:42:06 09/12/2024 08:35:01 Lower gastrointestinal hemorrhage 86420831 K92.1 see HPI with recurrent bleedsecon dylan to new dx colon cancertx with pRBCmonito r cbceliquis initially held then restarted in hospital with prior bleed now with recurrent bleed to restarteli cade 2.5 mg bidd/c AC for any signs of bleeding Malignant neoplasm of colon 329157085 C18.8 new dx for patienttub ulovillous adenoma with multiple polyps excised to have repeat colonoscop y in 3 monthsEval by surgery now to f/u out patient for treatment optionscoo rdinate care after treatment options determined Acute post hemorrhagic anemia 571433415 D62 see abovemonit or cbciron studies prn Asthenia 55258790 R53.1 PT OT eval and treatmonit or fall risk and need for increased support in community End stage renal failure on dialysis 652226427 N18.6 HD on T/T/Sadded to PMHcoordin ate with nephroupda te with concerns Atrial fibrillation 4943 6004 I48.0 eliquis initially held then restarted in hospital with prior bleed now with recurrent bleed to restarteli cade 2.5 mg bidmetopro lol 25 mg qhs and 12.5 mg qammonitor for rate controld/c AC for any signs of bleeding Diabetes mellitus 657036 09 E11.21 carrying dxappears diet controlled at this timeblood glucose prn Essential hypertension 24054245 I10 metoprolol 25 mg qhs and 12.5 mg qammonitor bp and need to titrate Peripheral neuropathy due to type 2 diabetes mellitus 6503381638 107 E11.42 gabapentin 100 mg 3 days per week after HD Acute cough 2428436952 13890912 R05.1 non productive reassess with cxr [id number] KATHARINE STAUFFER VALARIE [address] [place] [address] 09/17/2024 08:54:55 09/24/2024 11:21:13 Lower gastrointestinal hemorrhage 18066144 K92.1 No bleeding noted since he admitted [...] signs of bleeding Malignant neoplasm of colon 110011623 C18.8 new dx for patienttub ulovillous adenoma with multiple polyps excised to have repeat colonoscop y in 3 monthsEval by surgery now to f/u out patient for treatment optionscoo rdinate care after treatment options determined monitor any signs of bleeding. Acute post hemorrhagic anemia 225420250 D62 see aboveH/H stable.mon itor cbciron studies prn Asthenia 88576170 R53.1 continue PT OT eval and treatmonit or fall risk and need for increased support in community End stage renal failure on dialysis 051365256 N18.6 HD on T/T/Sadded to PMHcoordin ate with nephroupda te with concerns Diabetes mellitus 333758 09 E11.21 carrying dxappears diet controlled at this timeblood glucose prn Essential hypertension 61360038 I10 metoprolol 25 mg qhs and 12.5 mg qammonitor bp and need to titrateadd ed PRN clonidine, 0.1 mg BID with parameters . Peripheral neuropathy due to type 2 diabetes mellitus 7414448837 107 E11.42 gabapentin 100 mg 3 days per week after [place] [id number] PHANI HERRMANN, KATHARINE TORRES VALARIE [address] [place] [address] rd [place] [address] 09/24/2024 08:48:37 09/30/2024 08:20:27 Lower gastrointestinal hemorrhage 22109776 K92.1 resolved.N o bleeding noted since he [...] signs of bleeding Malignant neoplasm of colon 771187204 C18.8 new dx for patienttub ulovillous adenoma with multiple polyps excised to have repeat colonoscop y in 3 monthsEval by surgery now to f/u out patient for treatment optionscoo rdinate care after treatment options determined monitor any signs of bleeding. Acute post hemorrhagic anemia 085481784 D62 see aboveH/H stable.mon itor cbciron studies prn Asthenia 39616025 R53.1 improving, continue PT OT eval and treatmonit or fall risk and need for increased support in community End stage renal failure on dialysis 771456331 N18.6 HD on T/T/Sadded to PMHcoordin ate with nephroupda te with concerns Diabetes mellitus 655081 09 E11.21 carrying dxappears diet controlled at this timeblood glucose prn Essential hypertension 04109625 I10 metoprolol 25 mg qhs and 12.5 mg qammonitor bp and need to titrateadd ed PRN clonidine, 0.1 mg BID with parameters . Peripheral neuropathy due to type 2 diabetes mellitus 2335912982 107 E11.42 gabapentin 100 mg 3 days per week after HD [id number] PHANI [facility]ERRMANN[facility] [address] [place] [address] [place] [address] 10/01/2024 09:07:03 10/07/2024 11:05:33 Lower gastrointestinal hemorrhage 40881373 K92.1 resolved.H /H stable. continue monitor cbc [...] signs of bleeding Malignant neoplasm of colon 339285774 C18.8 new dx for patientsta ble no bleeding notedtubul ovillous adenoma with multiple polyps excised to have repeat colonoscop y in 3 monthsEval by surgery now to f/u out patient for treatment optionscoo rdinate care after treatment options determined monitor any signs of bleeding. Acute post hemorrhagic anemia 897029788 D62 see aboveH/H stable.mon itor cbciron studies prn Asthenia 12695155 R53.1 improving, continue PT OT for strength, safety and gait trainingmo nitor fall risk and need for increased support in community End stage renal failure on dialysis 771585286 N18.6 HD on T/T/Sadded to PMHcoordin ate with nephroupda te with concerns Diabetes mellitus 456759 09 E11.21 carrying dxappears diet controlled at this timeblood glucose prn Essential hypertension 22557138 I10 metoprolol 25 mg BIDmonitor bp and need to titratePRN clonidine, 0.1 mg BID with parameters . Peripheral neuropathy due to type 2 diabetes mellitus 4068605204 107 E11.42 Discontinu e gabapentin 100 mg 3 days per week after HD.Start gabapentin 100 mg daily, PRNmonitor for the effectiven ess. [id number] PHANI HERRMANN, KATHARINE TORRES VALARIE [address] [place] [address] [place] [address] 10/08/2024 09:12:52 10/10/2024 14:09:41 Lower gastrointestinal hemorrhage 30855013 K92.1 resolved.H /H improving. continue monitor cbc [...] signs of bleeding Malignant neoplasm of colon 910492639 C18.8 new dx for patientsta ble no bleeding notedtubul ovillous adenoma with multiple polyps excised to have repeat colonoscop y in 3 monthsEval by surgery now to f/u out patient for treatment optionscoo rdinate care after treatment options determined monitor any signs of bleeding. Acute post hemorrhagic anemia 119886681 D62 see aboveH/H stable.mon itor cbciron studies prn Asthenia 68538876 R53.1 improving, continue PT OT for strength, safety and gait trainingmo nitor fall risk and need for increased support in community End stage renal failure on dialysis 691215816 N18.6 HD on T/T/Sadded to PMHcoordin ate with nephroupda te with concerns Diabetes mellitus 777671 09 E11.21 carrying dxappears diet controlled at this timeblood glucose prn Essential hypertension 67853687 I10 BP stablemeto prolol 25 mg BIDmonitor bp and need to titratePRN clonidine, 0.1 mg BID with parameters . Peripheral neuropathy due to type 2 diabetes mellitus 6701178795 107 E11.42 stable,He uses gabapentin 100 mg daily, PRNmonitor for the effectiven ess [id number] PHANI HERRMANN, KATHARINE SHEPPARD [address] [place] [address] 10/15/2024 09:10:31 10/17/2024 12:51:30 Lower gastrointestinal hemorrhage 07943921 K92.1 resolved.H /H improving. hgb 10 on [...] signs of bleeding Malignant neoplasm of colon 524104406 C18.8 new dx for patientsta ble no bleeding notedtubul ovillous adenoma with multiple polyps excised to have repeat colonoscop y in 3 monthsEval by surgery now to f/u out patient for treatment optionscoo rdinate care after treatment options determined monitor any signs of bleeding. Acute post hemorrhagic anemia 985131011 D62 see aboveH/H stable.mon itor cbciron studies prn Asthenia 50732868 R53.1 improving, continue PT OT for strength, safety and gait trainingmo nitor fall risk and need for increased support in community End stage renal failure on dialysis 897031513 N18.6 HD on T/T/Sadded to PMHcoordin ate with nephroupda te with concerns Diabetes mellitus 741756 09 E11.21 carrying dxappears diet controlled at this timeblood glucose prn Essential hypertension 72167162 I10 BP goal for this elderly man is permissive HTN with SBP <150 and DBP <90.contin uemetoprol ol 25 mg BIDmonitor bp and need to titratePRN clonidine, 0.1 mg BID with parameters . Peripheral neuropathy due to type 2 diabetes mellitus 6027393482 107 E11.42 stable,He uses gabapentin 100 mg daily, PRNmonitor for the effectiven ess [id number] Cisco [facility]aine [facility] [address] [address] 10/28/2024 09:41:39 10/30/2024 03:51:00 Diabetes mellitus 43959059 E11.21 chart noteDM with neuropathy with increased paindiscus sed with PCPwill increase gabapentin to 200 mg 3 x per week after HDmonitor for effect [id number] TOMI GONZALEZ [address] [place] [address] 10/30/2024 12:29:58 11/04/2024 15:09:47 Lower gastrointestinal hemorrhage 49902421 K92.1 resolved.H gb. 11 on 10/13.No s/s active bleedingVS S.Continue s eliquis 2.5 mg bidIf bleeding restarts, will need to stop AC Atrial fibrillation 4943 6004 I48.0 HR controlled , 60-70s.Con tinue:eliq uis 2.5 mg bid - stop if GI bleeding recursmeto prolol 25 mg BIDmonitor VSAdjust meds prn Malignant neoplasm of colon 633584250 C18.8 New dx. - tubulovill ous adenoma with multiple polyps excised.GI following, due for repeat colonoscop y 11/19Follow up out patient for treatment optionscoo rdinate care after treatment options determined monitor any signs of bleeding. Acute post hemorrhagic anemia 566320188 D62 see aboveH/H improvingm onitor cbciron studies prn Asthenia 28155813 R53.1 improved, but has not made enough [...] wkMonitor End stage renal failure on dialysis 311213785 N18.6 [facility] renal medsUpdate Dialysis team with concerns Diabetes mellitus 313385 09 E11.21 carrying dxappears diet controlled at this time, but did have an elevated BS on 10/19 when fell.Check BS bid x 1 wk, then re-evalCon scrummaster A1C Essential hypertension 39922647 I10 BP goal for this elderly man is permissive HTN with SBP <150 and DBP <90.contin uemetoprol ol 25 mg BIDmonitor bp and need to titratePRN clonidine, 0.1 mg BID with parameters . Peripheral neuropathy due to type 2 diabetes mellitus 2021841131 107 E11.42 Now on sched. gabapentin 100 mg 3x wk after dialysis - trial x 1 wk, then re-eval.Marquez lopez [id number] Cisco Fontaine MD [address] [place] [address] 11/07/2024 16:35:14 11/11/2024 11:41:58 Skin ulcer 44034365 L98.429 21897840 by report over past 24 hours developed severe sacral ulcerpurul ent discharge prior with concern for fecal mattercont inued discharge unable to determine depth with concern for fistula formationt o ED for eval and surgical consult [id number] PHANI HERRMANN, KATHARINE TORRES VALARIE [address] [place] [address] rd [place] [address] 11/15/2024 14:47:20 11/18/2024 13:49:07 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 followed by wound care.pain management with PRN oxycodone. Atrial fibrillation 4943 6004 I48.0 HR controlled , 60-70s.Con tinue:eliq uis 2.5 mg BID - stop if GI bleeding recursmeto prolol 25 mg dailymonit or VSAdjust meds prn Malignant neoplasm of colon 638310525 C18.8 New dx. - tubulovill ous adenoma with multiple polyps excised.GI following, due for repeat colonoscop y 11/19Follow up out patient for treatment optionscoo rdinate care after treatment options determined monitor any signs of bleeding. Acute post hemorrhagic anemia 755640569 D62 See aboveH/H stablemoni tor cbciron studies prn Asthenia 51168832 R53.1 PT and OT evaluation and treatment End stage renal failure on dialysis 747154639 N18.6 HD on T/T/SConti nue renal medsUpdate Dialysis team with concerns Diabetes mellitus 622690 09 E11.21 carrying dxon lantus 8 units at bedtime.Ch courtney BS TID with ins s/s Essential hypertension 56634413 I10 BP goal for this elderly man is permissive HTN with SBP <150 and DBP <90.contin uemetoprol ol 25 mg dailymonit or bp and need to titratePRN clonidine, 0.1 mg BID with parameters . Peripheral neuropathy due to type 2 diabetes mellitus 4444639426 107 E11.42 scheduled gabapentin discontinu ed.Monitor and consider resume gabapentin Lower gastrointestinal hemorrhage 07147570 K92.1 resolved.N o s/s active bleedingVS S.Continue s eliquis 2.5 mg bidIf bleeding restarts, will need to stop AC [id number] MD MELISSA Melo 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 Acute post hemorrhagic anemia 631572660 D62 Hgb dropped when inpt for wound care, but has been stable since return.Mon itor labs. Asthenia 19562490 R53.1 Continues to be unable to transfer without assist.Not safe to live at home.He has plateaued in rehab and was d/c from services yesterday. He will be transition ing to LTC until he can arrange transfer to the [facility] or can arrange 24 hr care at home.Resta rt PT/OT prnContinu e fall precaution s.Monitor for safety. End stage renal failure on dialysis 388045147 N18.6 Z99.2 Continue dialysis 3x/wk.Cont inue nephro vitamins qd.Continu e to avoid nephrotoxi c meds as able.Monit or labs.Renal f/u as planned Diabetes mellitus 374966 09 E11.21 E11.42 Z79.4 Last HgA1C was 8.3 in 10/2024 when inpt at [facility].Sugars here look to be in pretty good control, mostly <200 and rarely >250.Charmaine nue Lantus 8 U qhs and SSI.Contin ue gabapentin 100 mg qhs for neuropathy .Monitor fingerstic ks TID and HgA1C q 3 months.Mon itor neuropathy sxs and need for increasing gabapentin . Essential hypertension 03738552 I10 BP more often low than high, [...] and labs. Central sl eep apnea syndrome 71253777 G47.37 With hx of Milo Grullon respiratio nContinue CPAP with sleep.Lisa tor resp status. Adenomatou s polyp of colon 556950720 D12.2 91095347 Multiple polyps, one + for tubulovill ous adenoma and many fragments with adenomatou s changes.Mo nitor any signs of bleeding.F /U with GI as planned. Chronic di astolic heart failure 061572950 I50.32 73992979 Echo in 08/2024 showed EF of 50-55% and grade 2 diastolic dysfunctio n.Continue meds as above.Flui d balanced at dialysis.F /U with cardio as planned. Iatrogenic hypotension 519756454 I95.81 2029329 With hypotensio n after dialysis at times.Cont inue midodrine 5 mg q 8 hrs prn *DO NOT GIVE AFTER DINNER OR WITHIN 4 HOURS OF SLEEP*Lisa tor BP and sxs. History of lower gastrointestinal bleed 3411571319 30093 Z87.19 2211660 Resolved.M onitor for recurrence .F/U with GI as planned Health Concerns Section Related Observation LastModified by Organization Detai ls LastModified Time None Recorded Concern Status LastModified by Organization Details LastModified Time None Recorded Advance Directives Directive Y: Payers Insurance Date Sequence Insurance Name Policy Number Policy Jarrell Covered Member ID Jarrell Member ID Guarantor Name 12/25/2024 2 [facility] INDEMNITY PLAN (INDEMNITY) [id number] [place] Goyal [id number] [place] Goyal 12/25/2024 1 [place]: [employer] [place] Goyal [id number] [place] Goyal Notes Date Note Type Note Provider Name and Address Organization Details Recorded Time 10/28/2024 text/html Chart note discussed with PCP Cisco Fontaine MD [address] [place] [address], [address], [place], [address], [facility] 10/28/2024 09:43:14 10/30/2024 text/html ROS as noted [...] and DM2.Full code JOAQUIN BLAND NP [address] [facility], [address], [place], [address], [facility] 10/30/2024 13:54:19 11/07/2024 text/html Patient is an 84 yo male resident seen for acute rounding at request of nursing. Patient over last 24 hours has developed sacral ulcer with drainage. Cisco Fontaine MD [address] [facility], [address], [place], [address], [facility] 11/07/2024 16:41:20 11/15/2024 text/html [place] seen today for readmission. Pt is 84 y/o male, admitted from hospital after presenting with worsening sacral wound, signs concerning for deep infection and possible concern for osteomyelitis initially.His inflammatory markers are significantly elevated.Blood cultures were obtained at [facility] on 11/07, negative to dateSacral wound growing [...] pillow for positioning. No acute concerns reported. PAHNI HERRMANN, SENIOR ACCOUNTS PAYABLE SPECIALIST [address] [facility], [address], [place], [address], [facility] [employer] 11/17/2024 11:06:01 12/25/2024 text/html I am seeing this 84 yo man with ESRD on dialysis, today for a routine MD 60/90 day visit and in anticipation of transition of care to new medical team.He was originallyadmitted to on 08/26 after a hospitalization at [facility]. He wasinitially admitted to [facility] from 08/15/2024 through 08/26/2024presenting with coffee [...] that was resected. He was discharged to [facility] facility on 08/26/2024 and then returned to [facility] ED one day later with a recurrent bleeding after anticoagulation was restarted at [facility]. Upon arrival to the ED, he had five bowel movements with blood and clots and became hypertensive.He was given packed red blood cells on 08/28/2024 and 09/01/2024. CTA showed no active hemorrhage. GI was re-consulted and conservative management was recommended. GI recommended holding apixaban until at least 09/10/2024. The patient was[facility] on 09/04[facility]24for senior care and rehabilitation secondary to deficits in mobility and ADL's.The patient wastransferred to [facility] on 11/07/2024 due to concerns of a very worsening sacral decubitus ulcer, infection and possible osteomyelitis. He was transferred to [facility] from [facility] on 11/08/2024. The sacral wound was growing E. coli and he underwent debridement on 11/09/2024. 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 He was treated with antibiotics. The patient wastransferred back to [facility] on 11/14/2024for senior care care and rehabilitation [...] out on him.Last care mtg stated:transfer - ORCHARD MANAGER [facility] BARS WITH MOD, 3 SECONDSamb - NONEUB - MINLB - MAXKNEES CONTINUE TO BUCKLE POST INJECTION.HD THREE TIMES WEEKLY.toilet - MAX Per last case management note, he will be staying here LTC until safe d/c plan is in place. He can no longer live alone and he is putting in an application to the [facility].He tells me he plans to go home with 24 hr care, but [facility], but then they always put people in place really quickly.He asks for ok to use Usjp-L-Bqhfs cream on knees, which he has used [...] and then recurrent-unknown cause. Carmela Vera MD [address] [place] [address], [address], [place], [address], [facility] [employer] [facility] 12/27/2024 15:34:01
--- OUTSIDE RECORDS SUMMARY | 2025-04-01 06:06 | XMS_ITS | Encounter Summary ---
Author Organization [facility] Address [address] [place] [address] Phone Care Team Providers Care Chemist Intern Name Role Phone Fareed Pinzon MD Unavailable + Chon Candelaria DEPARTMENT OF NATURAL RESOURCES OFFICER Unavailable Estefania Cadena DEPARTMENT OF NATURAL RESOURCES OFFICER Unavailable Unavailable Vikram Naik MD Unavailable Gely Arevalo DEPARTMENT OF NATURAL RESOURCES OFFICER Unavailable Wendy Abbott DEPARTMENT OF NATURAL RESOURCES OFFICER Unavailable Roseline Romero MD Unavailable Morteza Xiao MD Unavailable Claudia Alvarez MD Unavailable [phone] Clay Sands MD Unavailable [phone] Manny Johnson MD Unavailable [phone] King Mendoza MD Unavailable + King Mendoza MD Primary Care Prov ider Jesus Lou MD Primary Care Provider [phone] Blu Bertrand MD Unavailable Marek García MD Unavailable [phone] Clay Sparks MD Unavailable [phone] Sarita Troncoso DPM Unavailable + Jesus Lou MD Unavailable [phone] Lavelle Scott MD Unavailable [phone] Katie Cantu RN Unavailable [email or web address] Kellen OT Unavailable [phone] MartinezNadine OT Unavailable [phone] MartinezNadine OT Unavailable [phone] MartinezNadine OT Unavailable [phone] Reason for Referral * MRI/CAT Scan - Closed Specialty Diagnoses / Procedures Referred By Contac t Referred To Contact Radiology Diagnoses Sensory hearing loss, bilateral Tinnitus, bilateral Procedures MRI Brain Lanie Yusuf MD Phone: tel: fax: [email or web address] Referral ID Status Reason Start Date Expiration Date Visits Re quested Visits Authorized [id number] Closed 10/15/2018 10/15/2019 1 1 Encounter Details Date Type Department Care Team (Late st Contact Info) Description 10/15/2018 Ancillary Orders Virtual Department [address] [place] [address] Lanie Yusuf MD [address] [place] [address] [address] [place] [address] [email or web address] Sensory hearing loss, bilateral; Tinnitus, bilateral Social History Tobacco Use Types Packs/Day Years [...] Description 04/09/2025 3:00 PM EDT Office Visit [facility] [address] [facility] 3rd Floor, [address] [place] [address] Edie Unger CNP [address] [facility], [address] [place] [address] [email or web address] 06/19/2025 1:30 PM EST Office Visit [facility] [address] [place] [address] Nisreen Maza CNP 10 [place] [address] documented as of this encounter Results * MRI BRAIN (INTERNAL AUDITORY CANAL) WITHOUT CONTRAST (11/07/2018 1:24 PM EDT) Anatomical Region Laterality Modality Head Magnetic Resonan ce 11/07/2018 1:38 PM EDT Impressions 11/07/2018 1:46 PM EDT 1. Internal auditory canals are within normal limits. 2. Cerebral and cerebellar atrophy and chronic small vessel ischemic disease. POS - [id number] Narrative 11/07/2018 1:46 PM EDT COMPARISON: None. TECHNIQUE: Exam performed on a 1.5 Tanisha high-field MRI scanner. 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 Pituitary gland is not enlarged. No restricted diffusion to indicate acute or subacute ischemia. Subcentimeter areas of susceptibility artifact in the right thalamus and adjacent to left cerebral peduncle representing chronic hemorrhage/hemosiderin or calcification. Incidental bilateral basal ganglia susceptibility artifact indicative of calcification. Moderate generalized cerebral and cerebellar atrophy slightly advanced for age. Moderate subcortical and periventricular white matter T2 hyperintense signal changes indicative of chronic small vessel ischemia. No mass, mass effect, midline shift or extra-axial fluid collections. Internal auditory canals are unremarkable. Ventricles: No hydrocephalus. Vasculature: Normal vascular flow-voids. Orbits: Bilateral lens implants. Otherwise unremarkable. Mastoids/Middle Ear/Paranasal Sinuses: Mild paranasal sinus mucosal thickening. Mastoids are clear. Soft Tissues: Unremarkable. Bone Marrow: Unremarkable. Procedure Note Jesus Oviedo MD - 11/07/2018 COMPARISON: None. TECHNIQUE: Exam performed on a 1.5 Tanisha high-field MRI scanner. AxialT1, T2, GRE, T2 FLAIR, diffusion-weighted imaging with ADC map, andsagittal T1 of the whole brain, and 3-D axial high resolution bright fluidthrough the region of the IACs *without gadolinium due to the patient'sdialysis.* MRI HEAD/IAC FINDINGS: Brain: No cerebellar tonsil herniation. Pituitary gland is not enlarged.No restricted diffusion to indicate acute or subacute ischemia.Subcentimeter areas of susceptibility artifact in the right thalamus andadjacent to left cerebral peduncle representing chronichemorrhage/hemosiderin or calcification. Incidental bilateral basalganglia susceptibility artifact indicative of calcification. Moderategeneralized cerebral and cerebellar atrophy slightly advanced for age.Moderate subcortical and periventricular white matter T2 hyperintensesignal changes indicative of chronic small vessel ischemia. No mass, masseffect, midline shift or extra-axial fluid collections. Internal auditorycanals are unremarkable. Ventricles: No hydrocephalus. Vasculature: Normal vascular flow-voids. Orbits: Bilateral lens implants. Otherwise unremarkable. Mastoids/Middle Ear/Paranasal Sinuses: Mild paranasal sinus mucosalthickening. Mastoids are clear. Soft Tissues: Unremarkable. Bone Marrow: Unremarkable. IMPRESSION: 1. Internal auditory canals are within normal limits. 2. Cerebral and cerebellar atrophy and chronic small vessel ischemicdisease. POS - [id number] Lanie Yusuf MD IMG MR HEAD/NECK Final Res ult documented in this encounter Visit Diagnoses Diagnosis Sensory hearing loss, bilateral Tinnitus, bilateral Unspecified tinnitus Sensory hearing loss, bilateral Tinnitus, bilateral Unspecified tinnitus documented in this encounter Additional Health Concerns Infection Onset Date Last Indicated Resolved Time CoV-Risk Comment:Per note documentation 09/01/2024 09/01/2024 1:51 PM EDT documented as of this encounter Care Teams Chemist Intern Relationship Specialty Start Date End Date King Mendoza MD 22 [place] [address] [email or web address] PCP - General 05/10/17 02/11/20 Jesus Lou MD [address] [facility], [address] [place] [address] PCP - General Internal Medicine 02/12/20 Fareed Pinzon MD [address] [place] [address] [email or web address] Historical LMR Provider 03/26/17 06/18/21 Chon Candelaria NP [facility] Adam Lawson[address] [address] Historical LMR Provider 03/26/1702/12/20 Estefania Cadena NP [address] [place] [address] Historical LMR Provider 03/26/1702/11 Vikram Naik MD [address] [place] [address] [email or web address] Historical LMR Provider 03/26/17 Gely Arevalo, TOMI [address] [facility] [address] [place] [address] [email or web address] Historical LMR Provider 03/26/17 2 Wendy Abbott NP [address] [place] [address] Historical LMR Provider 03/26/17 Roseline Romero MD 14 [facility] [address] [place] [address] [email or web address] Historical LMR Provider 03/26/17 06/18/21 Morteza Xiao MD [address] [place] [address] [address] [place] [address] Historical LMR Provider 03/26/17 2 Claudia Alvarez MD [address] [facility], 1st [place] [address] [email or web address] Historical LMR Provider 03/26/17 Clay Sands MD [address] [facility] [place] [address] [email or web address] Historical LMR Provider 03/26/17 0 Manny Johnson MD [address] [place] [address] Historical LMR Provider 03/26/17 0 King Mendoza MD 22 [place] [address] [email or web address] Historical LMR Provider 03/26/17 Blu Bertrand MD [address] [address] [email or web address] Nephrology 02/13/20 Marek García MD [address] [address] Ophthalmology 02/13/20 02/13/20 Clay Sparks MD [address] [place] [address] Ophthalmology 02/13/20 Sarita Troncoso DPM [address] [place] [address] 7 [place] [address] Podiatry 02/13/20 Jesus Lou MD [address] [place] [address], [address] [place] [address] Insurance Assigned Provider 09/15/23 Lavelle Scott MD [address] [place] [address] Primary Oncologist Medical Oncology 02/14/22 Katie Cantu, CHAYA [address] [place] [address] [email or web address] PHCM Medical Researcher 03/01/22 04/04/22 Nadine Martinez, OT 30 [place] [address] Transitions Medical ResearcherHot Dog Vendor Therapy 08/15/24 08/26/24 Nadine Martinez, OT 30 [place] [address] Transitions Medical ResearcherHot Dog Vendor Therapy 08/15/24 08/26/24 Nadine Martinez, OT 30 [place] [address] Transitions Medical ResearcherHot Dog Vendor Therapy 08/18/24 08/18/24 Nadine Maritnez, OT 30 [place] [address] Transitions Medical ResearcherHot Dog Vendor Therapy 08/28/24 09/22/24 documented as of this encounter Additional Source Comments The information contained in this document represents components of the legal health record. It is not the complete legal health record.[facility]
--- OUTSIDE RECORDS SUMMARY | 2025-04-01 06:06 | XMS_ITS | Encounter Summary ---
Author Organization [facility] Address [address] [place] [address] Phone Care Team Providers Care Corn Crop Supervisor Name Role Phone Fareed Pinzon MD Unavailable + Chon Candelaria INTERNET MARKETER Unavailable Estefania Cadena INTERNET MARKETER Unavailable Unavailable Vikram Naik MD Unavailable Gely Arevalo INTERNET MARKETER Unavailable Wendy Abbott INTERNET MARKETER Unavailable Roseline Romero MD Unavailable Morteza Xiao MD Unavailable Claudia Alvarez MD Unavailable [phone] Clay Sands MD Unavailable [phone] Manny Johnson MD Unavailable [phone] King Mendoza MD Unavailable + King Mendoza MD Primary Care Prov ider Jhon Lou MD Primary Care Provider [phone] Blu Bertrand MD Unavailable Marek García MD Unavailable [phone] Clay Sparks MD Unavailable Karyna Latishamehul Coleman DPM Unavailable + Jhon Lou MD Unavailable [phone] Lavelle Scott MD Unavailable [phone] Katie Cantu RN Unavailable [email or web address] Nadine Martinez OT Unavailable [phone] Nadine Martinez OT Unavailable [phone] Nadine Martinez OT Unavailable [phone] Nadine Martinez OT Unavailable Encounter Details Date Type Department Care Team (Late st Contact Info) Description 04/22/2018 Ancillary Orders [facility] [address] [place] [address] Vikram Naik MD [address] [place] [address] [place] [address] [email or web address] Social History Tobacco Use Types Packs/Day Years [...] Description 04/09/2025 3:00 PM EDT Office Visit [facility] [address] 3rd Floor, [address] [place], [place] [address] Edie Unger, KATHARINE [address] [facility], [address] [place] [address] [email or web address] 06/19/2025 1:30 PM EST Office Visit [facility] [address] [place] [address] Nisreen Maza CNP 10 [place] [address] documented as of this encounter Visit Diagnoses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documented in this encounter Additional Health Concerns Infection Onset Date Last Indicated Resolved Time CoV-Risk Comment:Per note documentation 09/01/2024 09/01/2024 1:51 PM EDT documented as of this encounter Care Teams Corn Crop Supervisor Relationship Specialty Start Date End Date King Mendoza MD 22 [place] [address] [email or web address] PCP - General 05/10/17 02/11/20 Jhon Lou MD 22 [facility], [address] [place] [address] PCP - General Internal Medicine 02/12/20 Fareed Pinzon MD [address] [place] [address] [email or web address] Historical LMR Provider 03/26/17 06/18/21 Chon Candelraia NP [address] [place] [address] Historical LMR Provider 03/26/1702/12/20 Estefania Cadena NP [address] [place] [address] Historical LMR Provider 03/26/1702/11 Vikram Naik MD [address] [place] [address] [email or web address] Historical LMR Provider 03/26/17 Gely Arevalo, INTERNET MARKETER [address] [place] [address] [address] [place] [address] [email or web address] Historical LMR Provider 03/26/17 2 Wendy Abbott NP 22 [place] [address] Historical LMR Provider 03/26/17 Roseline Romero MD [address] [place] [address] [address] [place] [address] [email or web address] Historical LMR Provider 03/26/17 06/18/21 Morteza Xiao MD [address] [place] [address] Historical LMR Provider 03/26/17 2 Claudia Alvarez MD [address] [place] [address], 1st [place] [address] [email or web address] Historical LMR Provider 03/26/17 Clay Sands MD 22 [facility], [address] [place] [address] [email or web address] Historical LMR Provider 03/26/17 0 Manny Johnson MD [address] [place] [address] Historical LMR Provider 03/26/17 0 King Mendoza MD 22 [place] [address] [email or web address] Historical LMR Provider 03/26/17 Blu Bertrand MD [address] [address] Nephrology 02/13/20 Marek García MD [address] [address] Ophthalmology 02/13/20 02/13/20 Clay Sparks MD [address] [place] [address] Ophthalmology 02/13/20 Sarita Troncoso DPM [address] [place] [address] 7 [place] [address] Podiatry 02/13/20 Jhon Lou MD 22 [facility], [address] [place] [address] Insurance Assigned Provider 09/15/23 Lavelle Scott MD [address] [place] [address] Primary Oncologist Medical Oncology 02/14/22 Katie Cantu, CHAYA [address] [place] [address] [email or web address] Professor Of Geography 03/01/22 04/04/22 Nadine Martinez, OT 30 [place] [address] Transitions Assistant Professor Of GeographyReceipt And Report Clerk Therapy 08/15/24 08/26/24 Nadine Martinez, OT 30 [place] [address] Transitions Assistant Professor Of GeographyReceipt And Report Clerk Therapy 08/15/24 08/26/24 Nadine Martinez, OT 30 [place] [address] Transitions Assistant Professor Of GeographyReceipt And Report Clerk Therapy 08/18/24 08/18/24 Nadine Martinez, OT 30 [place] [address] Transitions Assistant Professor Of GeographyReceipt And Report Clerk Therapy 08/28/24 09/22/24 documented as of this encounter Additional Source Comments The information contained in this document represents components of the legal health record. It is not the complete legal health record.[facility]
--- OUTSIDE RECORDS SUMMARY | 2025-04-01 06:06 | XMS_ITS | Encounter Summary ---
Author Organization [facility] Address [address] [place] [address] Phone Care Team Providers Care Singer And Unloader Name Role Phone Fareed Pinzon MD Unavailable + Chon Candelaria CAREER TECHNOLOGY TEACHER Unavailable Estefania Cadena CAREER TECHNOLOGY TEACHER Unavailable Unavailable Vikram Naik MD Unavailable Gely Arevalo CAREER TECHNOLOGY TEACHER Unavailable Wendy Abbott CAREER TECHNOLOGY TEACHER Unavailable Roseline Romero MD Unavailable Morteza Xiao MD Unavailable Claudia Alvarez MD Unavailable [phone] Clay Sands MD Unavailable [phone] Manny Johnson MD Unavailable [phone] King Mendoza MD Unavailable + King Mendoza MD Primary Care Prov ider Jhon Lou MD Primary Care Provider [phone] Blu Bertrand MD Unavailable Marek García MD Unavailable [phone] Clay Sparks MD Unavailable Sarita Troncoso DPM Unavailable + Jhon Lou MD Unavailable Lavelle Scott MD Unavailable [phone] Katie Cantu RN Unavailable [email or web address] Nadine Martinez OT Unavailable [phone] Nadine Martinez OT Unavailable [phone] Nadine Martinez OT Unavailable [phone] Nadine Martinez OT Unavailable [phone] Encounter Details Date Type Department Care Team (Late st Contact Info) Description 10/15/2018 Procedure Pass [facility], [address] [address] Social History Tobacco Use Types Packs/Day Years [...] Description 04/09/2025 3:00 PM EDT Office Visit [facility] [address] [place] [address] 3rd Floor, [address] [place], [place] [address] Edie Unger CNP 22 [facility], [address] [address] [email or web address] 06/19/2025 1:30 PM EST Office Visit [facility] [address] [place] [address] Link Nisreen Murphy, SOLID GLASS ROD DOWEL MACHINE OPERATOR 10 [place] [address] [email or web address] documented as of this encounter Visit Diagnoses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documented in this encounter Additional Health Concerns Infection Onset Date Last Indicated Resolved Time CoV-Risk Comment:Per note documentation 09/01/2024 09/01/2024 1:51 PM EDT documented as of this encounter Care Teams Singer And Unloader Relationship Specialty Start Date End Date King Mendoza MD 22 [place] [address] [email or web address] PCP - General 05/10/17 02/11/20 Jhon Lou MD 22 [facility], [address] [place] [address] PCP - General Internal Medicine 02/12/20 Fareed Pinzon MD [address] [place] [address] [email or web address] Historical LMR Provider 03/26/17 06/18/21 Chon Candelaria NP [address] [place] [address] [address] Historical LMR Provider 03/26/1702/12/20 Estefania Cadena NP [address] [place] [address] Historical LMR Provider 03/26/1702/11 Vikram Naik MD [address] [place] [address] [email or web address] Historical LMR Provider 03/26/17 Gely Arevalo NP 14 [facility] [address] [place] [address] [email or web address] Historical LMR Provider 03/26/17 2 Wendy Abbott NP [address] [place] [address] Historical LMR Provider 03/26/17 Roseline Romero MD [address] [place] [address] [address] [place] [address] [email or web address] Historical LMR Provider 03/26/17 06/18/21 Morteza Xiao MD [address] [place] [address] [address] [place] [address] Historical LMR Provider 03/26/17 2 Claudia Alvarez MD 22 [facility], 1st [place] [address] [email or web address] Historical LMR Provider 03/26/17 Clay Sands MD 22 [facility], [address] [place] [address] [email or web address] Historical LMR Provider 03/26/17 0 Manny Johnson MD [address] [place] [address] Historical LMR Provider 03/26/17 0 King Mendoza MD 22 [place] [address] [email or web address] Historical LMR Provider 03/26/17 Blu Bertrand MD 15 [facility] [address] [place] [address] Nephrology 02/13/20 Marek García MD 15 [facility] [address] [place] [address] Ophthalmology 02/13/20 02/13/20 Clay Sparks MD [address] [place] [address] Ophthalmology 02/13/20 Sarita Troncoso DPM [address] [place] [address] 7 [place] [address] Podiatry 02/13/20 Jhon Lou MD 22 [facility], [address] [place] [address] Insurance Assigned Provider 09/15/23 Lavelle Scott MD 30 [place] [address] Primary Oncologist Medical Oncology 02/14/22 Katie Cantu, RN 30 [place] [address] [email or web address] PHCM Supervisor Taping 03/01/22 04/04/22 Nadine Martinez, OT 30 [place] [address] Transitions Supervisor TapingWedding Decorator Therapy 08/15/24 08/26/24 Nadine Martinez, OT 30 [place] [address] Transitions Supervisor TapingWedding Decorator Therapy 08/15/24 08/26/24 Nadine Martinez, OT 30 [place] [address] Transitions Supervisor TapingWedding Decorator Therapy 08/18/24 08/18/24 Nadine Martinez, OT 30 [place] [address] Transitions Supervisor TapingWedding Decorator Therapy 08/28/24 09/22/24 documented as of this encounter Additional Source Comments The information contained in this document represents components of the legal health record. It is not the complete legal health record.[facility]
--- OUTSIDE RECORDS SUMMARY | 2025-04-01 06:06 | XMS_ITS | Encounter Summary ---
Author Organization [facility] Address [address] [place] [address] Phone Care Team Providers Care Roof Bolter Name Role Phone Fareed Pinzon MD Unavailable + Chon Candelaria UTILIZATION SPECIALIST Unavailable Estefania Cadena UTILIZATION SPECIALIST Unavailable Unavailable Vikram Naik MD Unavailable Gely Arevalo UTILIZATION SPECIALIST Unavailable Wendy Abbott UTILIZATION SPECIALIST Unavailable Roseline Romero MD Unavailable Morteza Xiao MD Unavailable Claudia Alvarez MD Unavailable [phone] Clay Sands MD Unavailable [phone] Manny Johnson MD Unavailable [phone] King Mendoza MD Unavailable + King Mendoza MD Primary Care Prov ider Jhon Lou MD Primary Care Provider [phone] Blu Bertrand MD Unavailable Marek García MD Unavailable [phone] Clay Sparks MD Unavailable Jazmyn Troncosomekamehul Coleman DPM Unavailable + Jhon Lou MD Unavailable Lavelle Scott MD Unavailable [phone] Katie Cantu RN Unavailable [email or web address] Nadine Martinez OT Unavailable [phone] Nadine Martinez OT Unavailable [phone] Nadine Martinez OT Unavailable Nadine Martinez OT Unavailable [phone] Encounter Details Date Type Department Care Team (Late st Contact Info) Description 07/25/2018 Ancillary Orders Non-Invasive Cardiology [address] [place] [address] [place] [address] Vikram Naik MD [address] [place] [address] [place] [address] [email or web address] Sick sinus syndrome Social History Tobacco Use Types Packs/Day Years [...] 04/09/2025 3:00 PM EDT Office Visit [facility] [address] [place] [address] [address]rd Floor, [address] [place], [place] [address] Edie Unger, KATHARINE [address] [facility], [address] [place], [place] [id number] [email or web address] 06/19/2025 1:30 PM EST Office Visit [facility] [address] [place] [address] Link Nisreenprasanna Murphy CNP [address] [place] [address] [email or web address] documented as of this encounter Visit Diagnoses Diagnosis Sick sinus syndrome Sinoatrial node dysfunction documented in this encounter Additional Health Concerns Infection Onset Date Last Indicated Resolved Time CoV-Risk Comment:Per note documentation 09/01/2024 09/01/2024 1:51 PM EDT documented as of this encounter Care Teams Roof Bolter Relationship Specialty Start Date End Date King Mendoza MD [address] [place] [address] [email or web address] PCP - General 05/10/17 02/11/20 Jhon Lou MD 22 [facility], [address] [place] [address] PCP - General Internal Medicine 02/12/20 Fareed Pinzon MD [address] [place] [address] [email or web address] Historical LMR Provider 03/26/17 06/18/21 Chon Candelaria NP [address] [place] [address] Historical LMR Provider 03/26/1702/12/20 Estefania Cadena NP [address] [place] [address] Historical LMR Provider 03/26/1702/11 Vikram Naik MD [address] [place] [address] [email or web address] Historical LMR Provider 03/26/17 Gely Arevalo, UTILIZATION SPECIALIST [address] [place] [address] [address] [place] [address] [email or web address] Historical LMR Provider 03/26/17 2 Wendy Abbott NP [address] [place] [address] Historical LMR Provider 03/26/17 Roseline Romero MD [address] [place] [address] [place] [address] [email or web address] Historical LMR Provider 03/26/17 06/18/21 Morteza Xiao MD [address] [place] [address] Historical LMR Provider 03/26/17 2 Claudia Alvarez MD [address] [place] [address], 1st [place] [address] [email or web address] Historical LMR Provider 03/26/17 Clay Sands MD [address] [place] [address], [address] [place] [address] [email or web address] Historical LMR Provider 03/26/17 0 Manny Johnson MD [address] [place] [address] Historical LMR Provider 03/26/17 0 King Mendoza MD [address] [place] [address] [email or web address] Historical LMR Provider 03/26/17 Blu Bertrand MD [address] [address] [email or web address] Nephrology 02/13/20 Marek García MD [address] [address] Ophthalmology 02/13/20 02/13/20 Clay Sparks MD [address] [place] [address] 2 [place] [address] Ophthalmology 02/13/20 Sarita Troncoso DPM [address] [place] [address] 7 [place] [address] Podiatry 02/13/20 Jhon Lou MD 22 [facility], [address] [place] [address] Insurance Assigned Provider 09/15/23 Lavelle Scott MD [address] [place] [address] Primary Oncologist Medical Oncology 02/14/22 Katie Cantu, CHAYA [address] [place] [address] [email or web address] [email or web address] Theory Teacher 03/01/22 04/04/22 Nadine Martinez, OT 30 [place] [address] Transitions Sampling Theory TeacherWet Room Worker Therapy 08/15/24 08/26/24 Nadine Martinez, OT 30 [place] [address] Transitions Sampling Theory TeacherWet Room Worker Therapy 08/15/24 08/26/24 Nadine Martinez, OT 30 [place] [address] Transitions Sampling Theory TeacherWet Room Worker Therapy 08/18/24 08/18/24 Nadine Martinez, OT 30 [place] [address] Transitions Sampling Theory TeacherWet Room Worker Therapy 08/28/24 09/22/24 documented as of this encounter Additional Source Comments The information contained in this document represents components of the legal health record. It is not the complete legal health record.[facility]
--- OUTSIDE RECORDS SUMMARY | 2025-04-01 06:06 | XMS_ITS | Encounter Summary ---
Author Organization [facility] Address [address] [place] [address] Phone Care Team Providers Care Sed Middle School Teacher Name Role Phone Fareed Pinzon MD Unavailable + Chon Candelaria RUBBER GOODS INSPECTOR Unavailable Estefania Cadena RUBBER GOODS INSPECTOR Unavailable Unavailable Vikram Naik MD Unavailable Gely Arevalo RUBBER GOODS INSPECTOR Unavailable Wendy Abbott RUBBER GOODS INSPECTOR Unavailable Roseline Romero MD Unavailable Morteza Xiao MD Unavailable Claudia Alvarez MD Unavailable [phone] Clay Sands MD Unavailable [phone] Manny Johnson MD Unavailable [phone] King Mendoza MD Unavailable + King Mendoza MD Primary Care Prov ider Jhon Lou MD Primary Care Provider [phone] Blu Bertrand MD Unavailable Marek García MD Unavailable [phone] Clay Sparks MD Unavailable Sarita Troncoso DPM Unavailable + Jhon Lou MD Unavailable Lavelle Scott MD Unavailable [phone] Katie Cantu RN Unavailable [email or web address] Nadine Martinez OT Unavailable [phone] Nadine Martinez OT Unavailable Nadine Martinez OT Unavailable [phone] Nadine Martinez OT Unavailable [phone] Encounter Details Date Type Department Care Team (Late st Contact Info) Description 10/27/2019 Ancillary Orders Non-Invasive Cardiology [address] [place] [address] [place] [address] Vikram Naik MD [address] [place] [address] [place] [address] [email or web address] SSS (sick sinus syndrome) Social History Tobacco Use Types Packs/Day Years [...] Description 04/09/2025 3:00 PM EDT Office Visit [facility] [address] [place] [address] [address]rd Floor, [address] [place], [place] [phone] Edie Unger CNP 22 [facility], [address] [place], [place] [id number] [email or web address] 06/19/2025 1:30 PM EST Office Visit [facility] [address] [place] [address] Nisreen Maza CNP 10 [place] [address] [email or web address] documented as of this encounter Results * DEVICE CHECK: PPM IN-HOME INTERROGATION (04/26/2020 1:53 PM EST) Narrative Vikram Naik MD - 04/27/2020 6:04 PM EST Reason for appointment: Remote pacemaker interrogation HPI: Routine 3 month remote pacemaker interrogation. No device related complaints. Indication for device: SSS. Examination: Device type: Pacemaker Reconciliation Coordinator: [facility] Mode: DDD LRL/UPL: 60/130 bpm Mode switches: 63 for an AF burden of 5.5% High V rates: 0 Thresholds, impedances, and sensing stable. AF/AT: Patient is currently taking Eliquis daily. Atrial pacin% Ventricular pacin% Battery: 9 yrs Additional comments: Device functioning appropriately. Normal device function. Patient to follow-up for continued monitoring every 3 months. Report prepared by Freddy Aguila RN Vikram Naik MD CV [facility] ORDER DEEPA Final Result documented in this encounter Visit Diagnoses Diagnosis SSS (sick sinus syndrome) Sinoatrial node dysfunction SSS (sick sinus syndrome) Sinoatrial node dysfunction documented in this encounter Additional Health Concerns Infection Onset Date Last Indicated Resolved Time CoV-Risk Comment:Per note documentation 09/01/2024 09/01/2024 1:51 PM EDT documented as of this encounter Care Teams Sed Middle School Teacher Relationship Specialty Start Date End Date King Mendoza MD [address] [place] [address] [email or web address] PCP - General 05/10/17 02/11/20 Jhon Lou MD [address] [place] [address], [address] [place] [address] PCP - General Internal Medicine 02/12/20 Fareed Pinzon MD [address] [place] [address] [email or web address] Historical LMR Provider 03/26/17 06/18/21 Chon Candelaria NP [facility] Adam Lawson[address] [address] [email or web address] Historical LMR Provider 03/26/1702/12/20 Estefania Cadena RUBBER GOODS INSPECTOR [address] [place] [address] Historical LMR Provider 03/26/1702/11 Vikram Naik MD [address] [place] [address] [email or web address] Historical LMR Provider 03/26/17 Gely Arevalo NP [address] [place] [address] [address] [place] [address] [email or web address] Historical LMR Provider 03/26/17 Wendy Stahl NP 22 [place] [address] Historical LMR Provider 03/26/17 Roseline Romero MD [address] [place] [address] [address] [place] [address] Historical LMR Provider 03/26/17 06/18/21 Morteza Xiao MD [address] [place] [address] Historical LMR Provider 03/26/17 2 Claudia Alvarez MD 22 [facility], 1st [place] [address] Historical LMR Provider 03/26/17 Clay Sands MD 22 [facility] [place] [address] [email or web address] Historical LMR Provider 03/26/17 0 Manny Johnson MD 22 [place] [address] Historical LMR Provider 03/26/17 0 King Mendoza MD 22 [place] [address] [email or web address] Historical LMR Provider 03/26/17 Blu Bertrand MD [address] [address] Nephrology 02/13/20 Marek García MD [address] [address] Ophthalmology 02/13/20 02/13/20 Clay Sparks MD [address] [place] [address] 2 [place] [address] Ophthalmology 02/13/20 Sarita Troncoso DPM 10 [facility] 7 [place] [address] Podiatry 02/13/20 Jhon Lou MD [address] [place] [address], [address] [place] [address] Insurance Assigned Provider 09/15/23 Lavelle Scott MD [address] [place] [address] [email or web address] Primary Oncologist Medical Oncology 02/14/22 Katie Cantu, CHAYA 30 [place] [address] [email or web address] Librarian Specialist 03/01/22 04/04/22 Nadine Martinez, OT 30 [place] [address] [email or web address] Transitions Librarian SpecialistClinical Scientist Therapy 08/15/24 08/26/24 Nadine Martinez, OT 30 [place] [address] [email or web address] Transitions Librarian SpecialistClinical Scientist Therapy 08/15/24 08/26/24 Nadine Martinez, OT 30 [place] [address] Transitions Librarian SpecialistClinical Scientist Therapy 08/18/24 08/18/24 Nadine Martinez, OT 30 [place] [address] [email or web address] Transitions Librarian SpecialistClinical Scientist Therapy 08/28/24 09/22/24 documented as of this encounter Additional Source Comments The information contained in this document represents components of the legal health record. It is not the complete legal health record.[facility]
--- OUTSIDE RECORDS SUMMARY | 2025-04-01 06:06 | XMS_ITS | Encounter Summary ---
Author Organization [facility] Address [address] [place] [address] Phone Care Team Providers Care Slash Trimmer Name Role Phone Fareed Pinzon MD Unavailable + Chon Candelaria HEALTH CARE MARKETING MANAGER Unavailable Estefania Cadena HEALTH CARE MARKETING MANAGER Unavailable Unavailable Vikram Naik MD Unavailable Gely Arevalo HEALTH CARE MARKETING MANAGER Unavailable Wendy Abbott HEALTH CARE MARKETING MANAGER Unavailable Roseline Romero MD Unavailable Morteza Xiao MD Unavailable Claudia Alvarez MD Unavailable [phone] Clay Sands MD Unavailable [phone] Manny Johnson MD Unavailable [phone] King Mendoza MD Unavailable + King Mendoza MD Primary Care Prov ider Jhon Lou MD Primary Care Provider [phone] Blu Bertrand MD Unavailable Marek García MD Unavailable [phone] Clay Sparks MD Unavailable Sarita Troncoso DPM Unavailable + Jhon Lou MD Unavailable [phone] Lavelle Scott MD Unavailable Katie Cantu RN Unavailable [email or web address] Nadine Martinez OT Unavailable [phone] Nadine Martinez OT Unavailable [phone] Nadine Martinez OT Unavailable [phone] Nadine Martinez OT Unavailable [phone] Encounter Details Date Type Department Care Team (Late st Contact Info) Description 10/27/2019 Ancillary Orders [facility] Cardio EP Device Monitoring [address] [place] [address] Vikram Naik MD [address] [place] [address] [email or web address] Social History Tobacco Use Types Packs/Day Years [...] Description 04/09/2025 3:00 PM EDT Office Visit [facility] [address] [place] [address] [address]rd Floor, [address] [place] [address] Edie Unger, KATHARINE 22 [facility], [address] [place] [address] [email or web address] 06/19/2025 1:30 PM EST Office Visit [facility] [address] [place] [address] Nisreen Maza CNP 10 [place] [address] documented as of this encounter Visit Diagnoses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documented in this encounter Additional Health Concerns Infection Onset Date Last Indicated Resolved Time CoV-Risk Comment:Per note documentation 09/01/2024 09/01/2024 1:51 PM EDT documented as of this encounter Care Teams Slash Trimmer Relationship Specialty Start Date End Date King Mendoza MD 22 [place] [address] [email or web address] PCP - General 05/10/17 02/11/20 Jhon Lou MD 22 [facility], [address] [place] [address] PCP - General Internal Medicine 02/12/20 Fareed Pinzon MD [address] [place] [address] [email or web address] Historical LMR Provider 03/26/17 06/18/21 Chon Candelaria NP [address] [place] [address] Historical LMR Provider 03/26/1702/12/20 Estefania Cadena NP [address] [place] [address] Historical LMR Provider 03/26/1702/11 Vikram Naik MD [address] [place] [address] [email or web address] Historical LMR Provider 03/26/17 Gely Arevalo, HEALTH CARE MARKETING MANAGER [address] [place] [address] [address] [place] [address] [email or web address] Historical LMR Provider 03/26/17 2 Wendy Abbott NP 22 [place] [address] Historical LMR Provider 03/26/17 Roseline Romero MD [address] [place] [address] [place] [address] [email or web address] Historical LMR Provider 03/26/17 06/18/21 Morteza Xiao MD [address] [place] [address] Historical LMR Provider 03/26/17 2 Claudia Alvarez MD [address] [place] [address], 1st [place] [address] [email or web address] Historical LMR Provider 03/26/17 Clay Sands MD 22 [facility], [address] [place] [address] [email or web address] Historical LMR Provider 03/26/17 0 Manny Johnson MD [address] [place] [address] Historical LMR Provider 03/26/17 0 King Mendoza MD 22 [place] [address] [email or web address] Historical LMR Provider 03/26/17 Blu Bertrand MD [address] [place] [address] Nephrology 02/13/20 Marek García MD [address] [address] Ophthalmology 02/13/20 02/13/20 Clay Sparks MD [address] [place] [address] Ophthalmology 02/13/20 Sarita Troncoso DPM [address] [place] [address] 7 [place] [address] Podiatry 02/13/20 Jhon Lou MD 22 [facility], [address] [place] [address] Insurance Assigned Provider 09/15/23 Lavelle Scott MD [address] [place] [address] Primary Oncologist Medical Oncology 02/14/22 Katie Cantu, CHAYA [address] [place] [address] [email or web address] [facility] Cardboard Cutter 03/01/22 04/04/22 Nadine Martinez, OT 30 [place] [address] Transitions Cardboard CutterSap Plant Maintenance Consultant Therapy 08/15/24 08/26/24 Nadine Martinez, OT 30 [place] [address] Transitions Cardboard CutterSap Plant Maintenance Consultant Therapy 08/15/24 08/26/24 Nadine Martinez, OT 30 [place] [address] Transitions Cardboard CutterSap Plant Maintenance Consultant Therapy 08/18/24 08/18/24 Nadine Martinez, OT 30 [place] [address] Transitions Cardboard CutterSap Plant Maintenance Consultant Therapy 08/28/24 09/22/24 documented as of this encounter Additional Source Comments The information contained in this document represents components of the legal health record. It is not the complete legal health record.[facility]
--- OUTSIDE RECORDS SUMMARY | 2025-04-01 06:06 | XMS_ITS | Encounter Summary ---
Author Organization [facility], Address [address] [place] [address] Phone Care Team Providers Care Public Affairs Manager Name Role Phone King Mendoza MD Primary Care Prov ider Encounter Details Date Type Department Care Team (Late st Contact Info) Description 11/21/2024 Documentation Only [facility], [address] [place] [phone] Regan Schulz MD [address] [place] [address] Social History Tobacco Use Types [...] on filedocumented in this encounter Care Teams Public Affairs Manager Relationship Specialty Start Date End Date King Mendoza MD [address] [place] [phone] PCP - General 04/15/19 documented as of this encounter
--- OUTSIDE RECORDS SUMMARY | 2025-04-01 06:06 | XMS_ITS | Encounter Summary ---
Author Organization [facility] Address [address] [place] [address] Phone Care Team Providers Care Metal Wire Technician Name Role Phone Fareed Pinzon MD Unavailable + Chon Candelaria LEATHER STRETCHER Unavailable Estefania Cadena LEATHER STRETCHER Unavailable Unavailable Vikram Naik MD Unavailable Gely Arevalo LEATHER STRETCHER Unavailable Wendy Abbott LEATHER STRETCHER Unavailable Roseline Romero MD Unavailable [phone] Morteza Xiao MD Unavailable Claudia Alvarez MD Unavailable [phone] Clay Sands MD Unavailable [phone] Manny Johnson MD Unavailable [phone] King Mendoza MD Unavailable + King Mendoza MD Primary Care Prov ider Jhon Lou MD Primary Care Provider [phone] Blu Bertrand MD Unavailable Marek García MD Unavailable [phone] Clay Sparks MD Unavailable Sarita Troncoso DPM Unavailable + Jhon Lou MD Unavailable Lavelle Scott MD Unavailable [phone] Katie Cantu RN Unavailable [email or web address] Nadine Martinez OT Unavailable [phone] Nadine Martinez OT Unavailable Nadine Martinez OT Unavailable Nadine Martinez OT Unavailable Encounter Details Date Type Department Care Team (Latest Contact Info) Description 10/29/2018 Ancillary Orders [facility] [address] [place] [address] Vikram Naik MD [address] [place] [address] [place] [address] [email or web address] SSS (sick sinus syndrome) Social History Tobacco [...] Description 04/09/2025 3:00 PM EDT Office Visit [facility] [address] 3rd Floor, [address] [place] [address] Edie Unger, KATHARINE [address] [facility], [address] [place] [address] [email or web address] 06/19/2025 1:30 PM EST Office Visit [facility] [address] [place] [address] Link Nisreen Murphy, KATHARINE 10 [place] [address] [email or web address] [email or web address] Results Name Type Priority Associated Diagnoses Date /Time EP Device Check / Follow Up Cardiac Monitors Routine SSS (sick sinus syndrome) 11/07/2018 1:29 PM EDT Scheduled Orders Name Type Priority Associated Diagnoses Orde r Schedule EP Device Check / Follow Up Cardiac Monitors Routine SSS (sick sinus syndrome) Expected: 10/29/2018, Expires: 10/30/2019 documented as of this encounter Visit Diagnoses Diagnosis SSS (sick sinus syndrome) Sinoatrial node dysfunction documented in this encounter Additional Health Concerns Infection Onset Date Last Indicated Resolved Time CoV-Risk Comment:Per note documentation 09/01/2024 09/01/2024 1:51 PM EDT documented as of this encounter Care Teams Metal Wire Technician Relationship Specialty Start Date End Date King Mendoza MD [address] [place] [address] [email or web address] PCP - General 05/10/17 02/11/20 Jhon Lou MD [address] [place] [address], [address] [place] [address] PCP - General Internal Medicine 02/12/20 Fareed Pinzon MD [address] [place] [address] [email or web address] Historical LMR Provider 03/26/17 06/18/21 Chon Candelaria NP [address] [place] [address] [email or web address] Historical LMR Provider 03/26/1702/12/20 Estefania Cadena LEATHER STRETCHER [address] [place] [address] Historical LMR Provider 03/26/1702/11 Vikram Naki MD [address] [place] [address] [email or web address] Historical LMR Provider 03/26/17 Gely Arevalo NP [address] [place] [address] [place] [address] [email or web address] Historical LMR Provider 03/26/17 2 Wendy Abbott NP 22 [place] [address] Historical LMR Provider 03/26/17 Roseline Romero MD [address] [place] [address] [email or web address] Historical LMR Provider 03/26/17 06/18/21 Morteza Xiao MD [address] [address] Historical LMR Provider 03/26/17 2 Claudia Alvarez MD [address] [place] [address], [address] [place] [address] [email or web address] Historical LMR Provider 03/26/17 Clay Sands MD [address] [facility], [address] [place] [address] Historical LMR Provider 03/26/17 0 Manny Johnson MD 22 [place] [address] Historical LMR Provider 03/26/17 0 King Mendoza MD 22 [place] [address] [email or web address] Historical LMR Provider 03/26/17 Blu Bertrand MD 15 [facility] 303 [place] [address] Nephrology 02/13/20 Marek García MD [address] [facility] [address] [place] [address] Ophthalmology 02/13/20 02/13/20 Clay Sparks MD [address] [place] [address] 2 [place] [address] Ophthalmology 02/13/20 Sarita Troncoso DPM [address] [place] [address] 7 [place] [address] Podiatry 02/13/20 Jhon Lou MD [address] [facility], [address] [place] [address] Insurance Assigned Provider 09/15/23 Lavelle Scott MD 30 [place] [address] [email or web address] Primary Oncologist Medical Oncology 02/14/22 Katie Cantu, RN 30 [place] [address] [email or web address] Senior Office Support Assistant Sosa 03/01/22 04/04/22 Nadine Martinez, OT 30 [place] [address] [email or web address] Transitions Senior Office Support Assistant SosaMock Up Builder Therapy 08/15/24 08/26/24 Nadine Martinez, OT 30 [place] [address] [email or web address] Transitions Senior Office Support Assistant SosaMock Up Builder Therapy 08/15/24 08/26/24 Nadine Martinez, OT 30 [place] [address] [email or web address] Transitions Senior Office Support Assistant SosaMock Up Builder Therapy 08/18/24 08/18/24 Nadine Martinez, OT 30 [place] [address] [email or web address] Transitions Senior Office Support Assistant SosaMock Up Builder Therapy 08/28/24 09/22/24 documented as of this encounter Additional Source Comments The information contained in this document represents components of the legal health record. It is not the complete legal health record.[facility]
--- OUTSIDE RECORDS SUMMARY | 2025-04-01 06:07 | XMS_ITS | Clinical Summary ---
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 Last Assessment & Plan: Try extended release acetaminophen. If this is helpful we may be able to avoid injections. If not follow-up with [facility]. Sensorineural hearing loss, bilateral 05/13/2020 Overview [...] 08/11/2020 09/08/2021 Overview (09/08/2021): Injections managed by [facility]. Last Assessment & Plan: He is [...] 03/24/2025 Treatment [facility], [address] [place] [address] Blu Bertrand MD End stage renal disease; Dependence on renal dialysis 03/03/2025 Treatment [facility], [address] [place] [address] Blu Bertrand MD End stage renal disease; Dependence on renal dialysis 01/27/2025 Treatment [facility], [address] [place] [address] Blu Bertrand MD End stage renal disease; Dependence on renal dialysis 12/30/2024 Treatment [facility], [address] [place] [address] Blu Bertrand MD End stage renal disease; [...] Hemoglobin A1C 6.8(H) 4.8 - 5.9 % [facility] 05/28/2024 05/29/2024 8:2 7 AM EST Christi FITZGERALD - 05/29/2024 Unless otherwise specified, test(s) performed at: [facility], [address] [place] [address] [employer]: Naeem Cabrera M.D. For any questions, please call customer service at FREQUENCY:MONTHLY Resulting Agency Comment Specimen source: Blood us Blu Bertrand MD LAB BLOOD BANK TEST ORDERABLES F inal Result [facility] See order comments or contact performing lab [facility] [place] from Last 3 Months or Most Recently Relevant to Health Maintenance Insurance * Guarantor: [place] [employer] Account Type Relation to Patient Date of Phone Billing Address Personal/Family Self 1940 [address] [place] [address] Medicare [facility] * Guarantor: [place] [employer] Account Type Relation to Patient Date of Phone Billing Address Personal/Family Self 1940 [address] [place] [address] * Guarantor: [place] [employer] Account Type Relation to Patient Date of Phone Billing Address Personal/Family Self 1940 [address] [place] [address] Care Teams Transplant Immunologist Relationship Specialty Start Date End Date King Mendoza MD [address] [place] [address] PCP - General 04/15/19
--- OUTSIDE RECORDS SUMMARY | 2025-04-01 06:07 | XMS_ITS | Encounter Summary ---
Author Organization [facility] Address [address] [place] [address] Phone Care Team Providers Care Builder Beam Name Role Phone Fareed Pinzon MD Unavailable + Chon Candelaria MEDICAL CASE WORKER Unavailable Estefania Cadena MEDICAL CASE WORKER Unavailable Unavailable Vikram Naik MD Unavailable Gely Arevalo MEDICAL CASE WORKER Unavailable Wendy Abbott MEDICAL CASE WORKER Unavailable Roseline Romero MD Unavailable Morteza Xiao MD Unavailable Claudia Alvarez MD Unavailable [phone] Clay Sands MD Unavailable [phone] Manny Johnson MD Unavailable [phone] King Mendoza MD Unavailable + King Mendoza MD Primary Care Prov ider Jhon Lou MD Primary Care Provider [phone] Blu Bertrand MD Unavailable Marek García MD Unavailable [phone] Clay Sparks MD Unavailable Sarita Troncoso DPM Unavailable + Jhon Lou MD Unavailable Lavelle Scott MD Unavailable [phone] Katie Cantu RN Unavailable [email or web address] Nadine Martinez OT Unavailable [phone] Nadine Martinez OT Unavailable [phone] Nadine Martinez OT Unavailable Nadine Martinez OT Unavailable [phone] Encounter Details Date Type Department Care Team (Late Contact Info) Description 09/24/2017 Ancillary Orders Virtual Department 30 [place] [address] Lida Ruby MD [address] [place] [address], 3 [place] [address] [email or web address] Generalized abdominal pain Social History Tobacco Use Types Packs/Day Years [...] Upcoming Encounters Date Type Department Care Team ([facility] Contact Info) Description 04/09/2025 3:00 PM EDT Office Visit [facility] [address] [place] [address] 3rd Floor, [address] [place] [address] Edie Unger, KATHARINE [address] [facility], [address] [place], [place] [id number] [email or web address] 06/19/2025 1:30 PM EST Office Visit [facility] 10 [place] [address] Nisreen Maza, KATHARINE 10 [place] [address] [email or web address] documented as of this encounter Results * US Abdomen Complete (10/11/2017 10:43 AM EDT) Anatomical Region Laterality Modality Abdomen Ultrasound 10/11/2017 10:5 4 AM EDT Impressions 10/11/2017 10:56 AM EDT Calculi/echogenic sludge in the dependent portion of gallbladder without gross wall thickening or bile duct dilatation. Coarsened hepatic parenchymal echo-texture which may reflect fatty infiltration. Bilateral renal cortical cysts. No other significant abnormality of the visualized upper abdominal visceral structures. POS [id number] Narrative 10/11/2017 10:56 AM EDT COMPARISON: None FINDINGS: Numerous echogenic foci in the dependent portion of gallbladder consistent with small calculi and echogenic sludge. No gross gallbladder wall thickening or pericholecystic fluid collections are demonstrated. Intrahepatic bile ducts are nondilated and the common duct is within normal limits at 0.2 cm in diameter. The liver displays a diffusely coarsened parenchymal echo-texture which may reflect an element of fatty infiltration, without focal mass lesions or cysts apparent. The spleen and visualized portions of the proximal abdominal aorta and IVC are within normal limits in size and sonographic appearance. There is limited evaluation of the pancreas due to overlying bowel gas but the portions which are visualized are unremarkable and the pancreatic duct is within normal limits at 2 mm in diameter. There is suboptimal visualization of both kidneys with right measuring 8.3 x 3.5 cm and the left 7.2 x 3.6 cm in a longitudinal plane. Multiple renal cysts are noted bilaterally measuring up to 17 mm in diameter in the right upper pole and 10 mm in the left upper pole. No hydronephrosis, shadowing intrarenal calculi, or discrete renal mass lesions are identified. Procedure Note Ravinder Loya MD - 10/11/2017 COMPARISON: None FINDINGS: Numerous echogenic foci in the dependent portion of gallbladderconsistent with small calculi and echogenic sludge. No gross gallbladderwall thickening or pericholecystic fluid collections are demonstrated.Intrahepatic bile ducts are nondilated and the common duct is withinnormal limits at 0.2 cm in diameter. The liver displays a diffusely coarsened parenchymal echo-texture whichmay reflect an element of fatty infiltration, without focal mass lesionsor cysts apparent. The spleen and visualized portions of the proximalabdominal aorta and IVC are within normal limits in size and sonographicappearance. There is limited evaluation of the pancreas due to overlyingbowel gas but the portions which are visualized are unremarkable and thepancreatic duct is within normal limits at 2 mm in diameter. There issuboptimal visualization of both kidneys with right measuring 8.3 x 3.5 cmand the left 7.2 x 3.6 cm in a longitudinal plane. Multiple renal cystsare noted bilaterally measuring up to 17 mm in diameter in the right upperpole and 10 mm in the left upper pole. No hydronephrosis, shadowingintrarenal calculi, or discrete renal mass lesions are identified. IMPRESSION: Calculi/echogenic sludge in the dependent portion of gallbladder withoutgross wall thickening or bile duct dilatation. Coarsened hepaticparenchymal echo-texture which may reflect fatty infiltration. Bilateralrenal cortical cysts. No other significant abnormality of the visualizedupper abdominal visceral structures. POS [id number] Lida Ruby MD IM US ABDOMEN Final Result documented in this encounter Visit Diagnoses Diagnosis Generalized abdominal pain Abdominal pain, generalized Generalized abdominal pain Abdominal pain, generalized documented in this encounter Additional Health Concerns Infection Onset Date Last Indicated Resolved Time CoV-Risk Comment:Per note documentation 09/01/2024 09/01/2024 1:51 PM EDT documented as of this encounter Care Teams Builder Beam Relationship Specialty Start Date End Date King Mendoza MD [address] [place] [address] [email or web address] PCP - General 05/10/17 02/11/20 Jhon Lou MD [address] [place] [address], [address] [place] [address] PCP - General Internal Medicine 02/12/20 Fareed Pinzon MD [address] [place] [address] [email or web address] Historical LMR Provider 03/26/17 06/18/21 Chon Candelaria, TOMI [address] [place] [address] Historical LMR Provider 03/26/1702/12/20 Estefania Cadena MEDICAL CASE WORKER [address] [place] [address] Historical LMR Provider 03/26/1702/11 Vikram Naik MD [address] [place] [address] [email or web address] Historical LMR Provider 03/26/17 Gely Arevalo NP [address] [place] [address] [place] [address] [email or web address] Historical LMR Provider 03/26/17 Wendy Stahl NP [address] [place] [address] Historical LMR Provider 03/26/17 Roseline Romero MD [address] [place] [address] [place] [address] [email or web address] Historical LMR Provider 03/26/17 06/18/21 Morteza Xaio MD [facility] [address] [address] Historical LMR Provider 03/26/17 2 Claudia Alvarez MD 22 [facility], 1st [place] [address] [email or web address] Historical LMR Provider 03/26/17 Clay Sands MD [address] [facility], [address] [place] [address] Historical LMR Provider 03/26/17 0 Manny Johnson MD 22 [place] [address] Historical LMR Provider 03/26/17 0 King Mendoza MD 22 [place] [address] [email or web address] Historical LMR Provider 03/26/17 Blu Bertrand MD [address] [address] Nephrology 02/13/20 Marek García MD [address] [address] Ophthalmology 02/13/20 02/13/20 Clay Sparks MD 33 [facility] 2 [place] [address] Ophthalmology 02/13/20 Sarita Troncoso DPM 10 [facility] 7 [place] [address] Podiatry 02/13/20 Jhon Lou MD [address] [place] [address], [address] [place] [address] Insurance Assigned Provider 09/15/23 Lavelle Scott MD [address] [place] [address] [email or web address] Primary Oncologist Medical Oncology 02/14/22 Katie Cantu, CHAYA 30 [place] [address] [email or web address] Office Machinery Or Equipment Installer 03/01/22 04/04/22 Nadine Martinez, OT 30 [place] [address] Transitions Office Machinery Or Equipment InstallerFinancial Reporting Specialist Therapy 08/15/24 08/26/24 Nadine Martinez, OT 30 [place] [address] [email or web address] Transitions Office Machinery Or Equipment InstallerFinancial Reporting Specialist Therapy 08/15/24 08/26/24 Nadine Martinez, OT 30 [place] [address] Transitions Office Machinery Or Equipment InstallerFinancial Reporting Specialist Therapy 08/18/24 08/18/24 Nadine Martinez, OT [address] [place] [address] [email or web address] Transitions Office Machinery Or Equipment InstallerFinancial Reporting Specialist Therapy 08/28/24 09/22/24 documented as of this encounter Additional Source Comments The information contained in this document represents components of the legal health record. It is not the complete legal health record.[facility]
--- OUTSIDE RECORDS SUMMARY | 2025-04-01 06:07 | XMS_ITS | Encounter Summary ---
Author Organization [facility] Address [address] [place] [address] [place] [address] Phone Care Team Providers Care Boot Repairer Name Role Phone Vikram Naik MD Unavailable [phone] Claudia Alvarez MD Unavailable [phone] King Mendoza MD Unavailable + Jhon Lou MD Primary Care Provider [phone] Blu Bertrand MD Unavailable Clay Sparks MD Unavailable Sarita Troncoso DPM Unavailable + Jhon Lou MD Unavailable [phone] Lavelle Scott MD Unavailable [phone] Nadine Martinez OT Unavailable Nadine Martinez OT Unavailable Nadine Martinez OT Unavailable Nadine Martinez OT Unavailable Encounter Details Date Type Department Care Team (Late st Contact Info) Description 12/25/2022 Procedure Pass Non-Invasive Cardiology [address] [place] [address] Social History Tobacco Use Types [...] on file 10/15/2022 No 10/15/2022 No 10/15/2022 Digital Access Answer Date Recorded No 11/01/2022 No 11/01/2022 Reliable internet access at home?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 11/01/2022 Device with a working camera?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, [employer]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 documented as of this encounter Plan of Treatment Upcoming Encounters Date Type Department Care Team (Late st Contact Info) Description 04/09/2025 3:00 PM EDT Office Visit [facility] [address] [place] [address] 3rd Floor, [address] [place] [address] Edie Unger CNP 22 [facility], [address] [address] [email or web address] 06/19/2025 1:30 PM EST Office Visit [facility] [address] [place] [address] Nisreen Maza CNP 10 [place] [address] documented as of this encounter Visit Diagnoses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documented in this encounter Additional Health Concerns Infection Onset Date Last Indicated Resolved Time CoV-Risk Comment:Per note documentation 09/01/2024 09/01/2024 03/25/202 5 1:51 PM EDT Assessment Noted Time PHQ-2 Depression Total Score: 0 05/13/20 20 11:29 AM EST documented as of this encounter Care Teams Boot Repairer Relationship Specialty Start Date End Date Jhon Lou MD 22 [facility], [address] [place] [address] [email or web address] PCP - General Internal Medicine 02/12/20 Vikram Naik MD [email or web address] Historical LMR Provider 03/26/17 Claudia Alvarez MD 22 [facility], [address] [place] [address] Historical LMR Provider 03/26/17 King Mendoza MD 22 [facility], [address] [place] [address] [email or web address] Historical LMR Provider 03/26/17 Blu Bertrand MD 15 [facility] [address] [place] [address] Nephrology 02/13/20 Clay Sparks MD 33 [facility] 2 [place] [address] Ophthalmology 02/13/20 Sarita Troncoso DPM 10 [facility] 7 [place] [address] [email or web address] Podiatry 02/13/20 Jhon Lou MD [address] [place] [address], [address] [place] [address] Insurance Assigned Provider 09/15/23 Lavelle Scott MD [address] [place] [address] Primary Oncologist Medical Oncology 02/14/22 Nadine Martinez, OT 30 [place] [address] Transitions Licensing CoordinatorBicycle Repairman Therapy 08/15/24 08/26/24 Nadine Martinez, OT 30 [place] [address] [email or web address] Transitions Licensing CoordinatorBicycle Repairman Therapy 08/15/24 08/26/24 Nadine Martinez, OT 30 [place] [address] [email or web address] Transitions Licensing CoordinatorBicycle Repairman Therapy 08/18/24 08/18/24 Nadine Martinez, OT 30 [place] [address] Transitions Licensing CoordinatorBicycle Repairman Therapy 08/28/24 09/22/24 documented as of this encounter Additional Source Comments The information contained in this document represents components of the legal health record. It is not the complete legal health record.[facility]
--- OUTSIDE RECORDS SUMMARY | 2025-04-01 06:07 | XMS_ITS | Encounter Summary ---
Author Organization [facility] Address [address] [place] [address] Phone Care Team Providers Care Automatic Buffing Wheel Former Name Role Phone Fareed Pinzon MD Unavailable + Chon Candelaria EMERGENCY SPILL RESPONSE TECHNICIAN Unavailable [phone] Estefania Cadena EMERGENCY SPILL RESPONSE TECHNICIAN Unavailable Unavailable Vikram Naik MD Unavailable Gely Arevalo EMERGENCY SPILL RESPONSE TECHNICIAN Unavailable Wendy Abbott EMERGENCY SPILL RESPONSE TECHNICIAN Unavailable Roseline Romero MD Unavailable [phone] Morteza Xiao MD Unavailable Claudia Alvarez MD Unavailable [phone] Clay Sands MD Unavailable [phone] Manny Johnson MD Unavailable [phone] King Mendoza MD Unavailable + King Mendoza MD Primary Care Prov ider Jhon Lou MD Primary Care Provider [phone] Blu Bertrand MD Unavailable Marek García MD Unavailable [phone] Clay Sparks MD Unavailable Sarita Troncoso DPM Unavailable + Jhon Lou MD Unavailable Lavelle Scott MD Unavailable [phone] Katie Cantu RN Unavailable [email or web address] Nadine Martinez OT Unavailable [phone] Nadine Martinez OT Unavailable [phone] Nadine Martinez OT Unavailable [phone] Nadine Martinez OT Unavailable [phone] Encounter Details Date Type Department Care Team (Late st Contact Info) Description 12/05/2017 Procedure Pass [facility] [address] [place] [address] Social History Tobacco Use Types Packs/Day Years [...] Description 04/09/2025 3:00 PM EDT Office Visit [facility] [address] [place] [address] 3rd Floor, [address] [place], [place] [phone] Edie Unger CNP [address] [place] [address], [address] [address] [email or web address] 06/19/2025 1:30 PM EST Office Visit [facility] [address] [place] [address] Nisreen Maza, RASCHEL KNITTING MACHINE OPERATOR 10 [place] [address] documented as of this encounter Visit Diagnoses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documented in this encounter Additional Health Concerns Infection Onset Date Last Indicated Resolved Time CoV-Risk Comment:Per note documentation 09/01/2024 09/01/2024 1:51 PM EDT documented as of this encounter Care Teams Automatic Buffing Wheel Former Relationship Specialty Start Date End Date King Mendoza MD 22 [place] [address] [email or web address] PCP - General 05/10/17 02/11/20 Jhon Lou MD 22 [facility], [address] [place] [address] PCP - General Internal Medicine 02/12/20 Fareed Pinzon MD [address] [place] [address] [email or web address] Historical LMR Provider 03/26/17 06/18/21 Chon Candelaria NP [facility] Abe Onofre [address] [address] Historical LMR Provider 03/26/1702/12/20 Estefania Cadena NP [address] [place] [address] Historical LMR Provider 03/26/1702/11 Vikram Naik MD [address] [place] [address] [email or web address] Historical LMR Provider 03/26/17 Gely Arevalo NP 14 [facility] [address] [place] [address] [email or web address] Historical LMR Provider 03/26/17 2 Wendy Abbott NP [address] [place] [address] Historical LMR Provider 03/26/17 Roseline Romero MD 14 [facility] [address] [place] [address] [email or web address] Historical LMR Provider 03/26/17 06/18/21 Morteza Xiao MD [address] [place] [address] [address] [place] [address] Historical LMR Provider 03/26/17 2 Claudia Alvarez MD 22 [facility], 1st [place] [address] [email or web address] Historical LMR Provider 03/26/17 Clay Sands MD 22 [facility], [address] [place] [address] [email or web address] Historical LMR Provider 03/26/17 0 Manny Johnson MD [address] [place] [address] Historical LMR Provider 03/26/17 0 King Mendoza MD [address] [place] [address] [email or web address] Historical LMR Provider 03/26/17 Blu Bertrand MD [address] [place] [address] [email or web address] Nephrology 02/13/20 Marek García MD [address] [address] Ophthalmology 02/13/20 02/13/20 Clay Sparks MD [address] [place] [address] Ophthalmology 02/13/20 Sarita Troncoso DPM [address] [place] [address] 7 [place] [address] Podiatry 02/13/20 Jhon Lou MD [address] [place] [address], [address] [place] [address] Insurance Assigned Provider 09/15/23 Lavelle Scott MD [address] [place] [address] Primary Oncologist Medical Oncology 02/14/22 Katie Cantu, CHAYA [address] [place] [address] [email or web address] Nurse Leader 03/01/22 04/04/22 Nadine Martinez, OT 30 [place] [address] [email or web address] Transitions Nurse LeaderCamp Manager Therapy 08/15/24 08/26/24 Nadine Martinez, OT 30 [place] [address] Transitions Nurse LeaderCamp Manager Therapy 08/15/24 08/26/24 Nadine Martinez, OT 30 [place] [address] Transitions Nurse LeaderCamp Manager Therapy 08/18/24 08/18/24 Nadine Martinez, OT 30 [place] [address] Transitions Nurse LeaderCamp Manager Therapy 08/28/24 09/22/24 documented as of this encounter Additional Source Comments The information contained in this document represents components of the legal health record. It is not the complete legal health record.[facility]
--- OUTSIDE RECORDS SUMMARY | 2025-04-01 06:07 | XMS_ITS | Encounter Summary ---
Author Organization [facility] Address [address] [place] [address] Phone Care Team Providers Care Hatchery Attendant Name Role Phone Fareed Pinzon MD Unavailable + Chon Candelaria NUT STEAMER Unavailable Estefania Cadena NUT STEAMER Unavailable Unavailable Vikram Naik MD Unavailable Gely Arevalo NUT STEAMER Unavailable Wendy Abbott NUT STEAMER Unavailable Roseline Romero MD Unavailable Morteza Xiao MD Unavailable Claudia Alvarez MD Unavailable [phone] Clay Sands MD Unavailable Manny Johnson MD Unavailable [phone] King Mendoza MD Unavailable + King Mendoza MD Primary Care Prov ider Jhon Lou MD Primary Care Provider [phone] Blu Bertrand MD Unavailable Marek García MD Unavailable [phone] Clay Sparks MD Unavailable Karyna Latishamehul Coleman DPM Unavailable + Jhon Lou MD Unavailable Lavelle Scott MD Unavailable [phone] Katie Cantu RN Unavailable [email or web address] Nadine Martinez OT Unavailable [phone] Nadine Martinez OT Unavailable [phone] Nadine Martinez OT Unavailable [phone] Nadine Martinez OT Unavailable Encounter Details Date Type Department Care Team (Late st Contact Info) Description 12/20/2017 Ancillary Orders Non-Invasive Cardiology [address] [place] [address] [place] [address] Vikram Naik MD [address] [place] [address] [place] [address] [email or web address] Complete heart block Social History Tobacco Use Types Packs/Day Years [...] Description 04/09/2025 3:00 PM EDT Office Visit [facility] [address] [place] [address] 3rd Floor, [address] [place], [place] [phone] Edie Unger, KATHARINE 22 [facility], [address] [place], [place] [address] [email or web address] 06/19/2025 1:30 PM EST Office Visit [facility] [address] [place] [address] Link Nisreen MurphyKATHARINE 10 [place] [address] documented as of this encounter Visit Diagnoses Diagnosis Complete heart block Atrioventricular block, complete documented in this encounter Additional Health Concerns Infection Onset Date Last Indicated Resolved Time CoV-Risk Comment:Per note documentation 09/01/2024 09/01/2024 1:51 PM EDT documented as of this encounter Care Teams Hatchery Attendant Relationship Specialty Start Date End Date King Mendoza MD 22 [place] [address] [email or web address] PCP - General 05/10/17 02/11/20 Jhon Lou MD 22 [facility], [address] [place] [address] PCP - General Internal Medicine 02/12/20 Fareed Pinzon MD [address] [place] [address] [email or web address] Historical LMR Provider 03/26/17 06/18/21 Chon Candelaria NP [address] [place] [address] Historical LMR Provider 03/26/1702/12/20 Estefania Cadena NP [address] [place] [address] Historical LMR Provider 03/26/1702/11 Vikram Naik MD [address] [place] [address] [email or web address] Historical LMR Provider 03/26/17 Gely Arevalo, NUT STEAMER [address] [place] [address] [address] [place] [address] [email or web address] Historical LMR Provider 03/26/17 2 Wendy Abbott NP [address] [place] [address] Historical LMR Provider 03/26/17 Roseline Romero MD [address] [place] [address] [place] [address] [email or web address] Historical LMR Provider 03/26/17 06/18/21 Morteza Xiao MD [address] [place] [address] Historical LMR Provider 03/26/17 2 Claudia Alvarez MD [address] [place] [address], 1st [place] [address] [email or web address] Historical LMR Provider 03/26/17 Clay Sands MD 22 [facility], 201 [place] [address] [email or web address] Historical LMR Provider 03/26/17 0 Manny [place] MD [address] [place] [address] Historical LMR Provider 03/26/17 0 King Mendoza MD [address] [place] [address] [email or web address] Historical LMR Provider 03/26/17 Blu Bertrand MD [address] [address] [email or web address] Nephrology 02/13/20 Marek García MD [address] [address] Ophthalmology 02/13/20 02/13/20 Clay Sparks MD [address] [place] [address] 2 [place] [address] Ophthalmology 02/13/20 Sarita Troncoso DPM [address] [place] [address] 7 [place] [address] Podiatry 02/13/20 Jhon Lou MD 22 [facility], [address] [place] [address] Insurance Assigned Provider 09/15/23 Lavelle Scott MD [address] [place] [address] Primary Oncologist Medical Oncology 02/14/22 Katie Cantu, CHAYA [address] [place] [address] [email or web address] Worker [email or web address] 03/01/22 04/04/22 Nadine Martinez, OT 30 [place] [address] Transitions Bench Worker HelperPorcelain Finish Sprayer Therapy 08/15/24 08/26/24 Nadine Martinez, OT 30 [place] [address] Transitions Bench Worker HelperPorcelain Finish Sprayer Therapy 08/15/24 08/26/24 Nadine Martinez, OT 30 [place] [address] Transitions Bench Worker HelperPorcelain Finish Sprayer Therapy 08/18/24 08/18/24 Nadine Martinez, OT 30 [place] [address] Transitions Bench Worker HelperPorcelain Finish Sprayer Therapy 08/28/24 09/22/24 documented as of this encounter Additional Source Comments The information contained in this document represents components of the legal health record. It is not the complete legal health record.[facility]
--- OUTSIDE RECORDS SUMMARY | 2025-04-01 06:07 | XMS_ITS | Encounter Summary ---
Author Organization [facility] Address [address] [place] [address] [place] [address] Phone Care Team Providers Care Multimedia Services Manager Name Role Phone Vikram Naik MD Unavailable [phone] Claudia Alvarez MD Unavailable [phone] King Mendoza MD Unavailable + Jhon Lou MD Primary Care Provider [phone] Blu Bertrand MD Unavailable Clay Sparks MD Unavailable Sarita Troncoso DPM Unavailable + Jhon Lou MD Unavailable Lavelle Scott MD Unavailable [phone] Nadine Martinez OT Unavailable Nadine Martinez OT Unavailable Nadine Martinez OT Unavailable Nadine Martinez OT Unavailable Encounter Details Date Type Department Care Team (Late st Contact Info) Description 03/24/2024 Procedure Pass [facility], Ct Scan - [address] [address] Social History Tobacco Use Types Packs/Day Years [...] as food, clothing, or medical care? No 03/24/2024 In the past 12 months have y ou been in a relationship with a person who hurts, threatens, or tries to control you? No 03/24/2024 Are you denied basic needs s uch as food, clothing, or medical care? No 03/24/2024 In the past 12 months have y ou been in a relationship with a person who hurts, threatens, or tries to control you? 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 Wish to be (Past 1 Month) No 03/24/2024 9:10 AM Nayeli David RN 2. Non-Specific Active Suici mari Thoughts (Past 1 Month) No 03/24/2024 9:10 AM EDT Mago Rowell cia, RN 6. Suicidal Behavior (Lifetime) No 9:10 AM EDT Nayeli Rowell RN documented as of this encounter Plan of Treatment Upcoming Encounters Date Type Department Care Team (Late st Contact Info) Description 04/09/2025 3:00 PM EDT Office Visit [facility] [address] [place] [address] [address]rd Floor, [address] [place] [address] Edie Unger CNP 22 [facility] 301 [place] [address] [email or web address] 06/19/2025 1:30 PM EST Office Visit [facility] [address] [place] [address] Nisreen Maza NETWORK SECURITY ARCHITECT 10 [place] [address] documented as of this encounter Visit Diagnoses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documented in this encounter Additional Health Concerns Infection Onset Date Last Indicated Resolved Time CoV-Risk Comment:Per note documentation 09/01/2024 09/01/2024 1:51 PM EDT Assessment Noted Time PHQ-2 Depression Total Score: 0 05/13/20 20 11:29 AM EST documented as of this encounter Care Teams Multimedia Services Manager Relationship Specialty Start Date End Date Jhon Lou MD [address] [place] [address], [address] [place] [address] PCP - General Internal Medicine 02/12/20 Vikram Naik MD [email or web address] Historical LMR Provider 03/26/17 Claudia Alvarez MD [address] [place] [address], [address] [place] [address] Historical LMR Provider 03/26/17 King Mendoza MD 22 [facility], [address] [place] [address] [email or web address] Historical LMR Provider 03/26/17 Blu Bertrand MD 15 [facility] [address] [place] [address] Nephrology 02/13/20 Clay Sparks MD 33 [facility] 2 [place] [address] Ophthalmology 02/13/20 Sarita Troncoso DPM 10 [facility] 7 [place] [address] [email or web address] Podiatry 02/13/20 Jhon Lou MD 22 [facility], [address] [place] [address] Insurance Assigned Provider 09/15/23 Lavelle Scott MD 30 [place] [address] Primary Oncologist Medical Oncology 02/14/22 Nadine Martinez, OT 30 [place] [address] Transitions Analog Ic Design ArchitectOperator Technician Therapy 08/15/24 08/26/24 Nadine Martinez, OT 30 [place] [address] [email or web address] Transitions Analog Ic Design ArchitectOperator Technician Therapy 08/15/24 08/26/24 Nadine Martinez, OT 30 [place] [address] [email or web address] Transitions Analog Ic Design ArchitectOperator Technician Therapy 08/18/24 08/18/24 Nadine Martinez, OT 30 [place] [address] [email or web address] Transitions Analog Ic Design ArchitectOperator Technician Therapy 08/28/24 09/22/24 documented as of this encounter Additional Source Comments The information contained in this document represents components of the legal health record. It is not the complete legal health record.[facility]
--- OUTSIDE RECORDS SUMMARY | 2025-04-01 06:07 | XMS_ITS | Encounter Summary ---
Author Organization [facility] Address [address] [place] [address] [place] [address] Phone Care Team Providers Care Combo Welder Name Role Phone Vikram Naik MD Unavailable [phone] Claudia Alvarez MD Unavailable [phone] King Mendoza MD Unavailable + Jhon Lou MD Primary Care Provider [phone] Blu Bertrand MD Unavailable Clay Sparks MD Unavailable Sarita Troncoso DPM Unavailable + Jhon Lou MD Unavailable Lavelle Scott MD Unavailable [phone] Nadine Martinez OT Unavailable Nadine Martinez OT Unavailable Nadine Martinez OT Unavailable Nadine Martinez OT Unavailable Encounter Details Date Type Department Care Team (Late st Contact Info) Description 03/24/2024 Procedure Pass [facility], Ct Scan - [address] [address] Social History Tobacco Use Types Packs/Day Years [...] 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, [employer]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 documented as of this encounter Functional Status * Calculated C-SSRS Risk Score (Lifetime/Recent) Answer Date of Assessment Author No Risk Indicated 03/24/2024 9:10 AM Nayeli David RN * [place] Suicide Severity Rating Scale (Screener/Recent Self-Report) Question [...] Description 04/09/2025 3:00 PM EDT Office Visit [facility] [address] [place] [address] 3rd Floor, [address] [place] [address] Edie Unger CNP 22 [facility] 301 [place] [address] [email or web address] 06/19/2025 1:30 PM EST Office Visit [facility] [address] [place] [address] Nisreen Maza LITHOPONE MILL WORKER 10 [place] [address] documented as of this encounter Visit Diagnoses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documented in this encounter Additional Health Concerns Infection Onset Date Last Indicated Resolved Time CoV-Risk Comment:Per note documentation 09/01/2024 09/01/2024 1:51 PM EDT Assessment Noted Time PHQ-2 Depression Total Score: 0 05/13/20 20 11:29 AM EST documented as of this encounter Care Teams Combo Welder Relationship Specialty Start Date End Date Jhon Lou MD [address] [place] [address], [address] [place] [address] PCP - General Internal Medicine 02/12/20 Vikram Naik MD [email or web address] Historical LMR Provider 03/26/17 Claudia Alvarez MD [address] [place] [address], [address] [place] [address] Historical LMR Provider 03/26/17 King Mendoza MD 22 [facility], [address] [place] [address] [email or web address] Historical LMR Provider 03/26/17 Blu Bertrand MD 15 [facility] [address] [place] [address] Nephrology 02/13/20 Clay Sparks MD 33 [facility] 2 [place] [address] Ophthalmology 02/13/20 Sarita Troncoso DPM 10 [facility] 7 [place] [address] [email or web address] Podiatry 02/13/20 Jhon Lou MD 22 [facility], [address] [place] [address] Insurance Assigned Provider 09/15/23 Lavelle Scott MD 30 [place] [address] Primary Oncologist Medical Oncology 02/14/22 Nadine Martinez, OT 30 [place] [address] Transitions Farm Or Ranch Animal CaretakerDirector Of Consulting Services Therapy 08/15/24 08/26/24 Nadine Martinez, OT 30 [place] [address] [email or web address] Transitions Farm Or Ranch Animal CaretakerDirector Of Consulting Services Therapy 08/15/24 08/26/24 Nadine Martinez, OT 30 [place] [address] [email or web address] Transitions Farm Or Ranch Animal CaretakerDirector Of Consulting Services Therapy 08/18/24 08/18/24 Nadine Martinez, OT 30 [place] [address] [email or web address] Transitions Farm Or Ranch Animal CaretakerDirector Of Consulting Services Therapy 08/28/24 09/22/24 documented as of this encounter Additional Source Comments The information contained in this document represents components of the legal health record. It is not the complete legal health record.[facility]
--- OUTSIDE RECORDS SUMMARY | 2025-04-01 06:07 | XMS_ITS | Encounter Summary ---
Author Organization [facility] Address [address] [place] [address] Phone Care Team Providers Care Splash Line Operator Name Role Phone Fareed Pinzon MD Unavailable + Chon Candelaria CONGREGATIONAL CARE PASTOR Unavailable [phone] Estefania Cadena CONGREGATIONAL CARE PASTOR Unavailable Unavailable Vikram Naik MD Unavailable Gely Arevalo CONGREGATIONAL CARE PASTOR Unavailable Wendy Abbott CONGREGATIONAL CARE PASTOR Unavailable Roseline Romero MD Unavailable Morteza Xiao MD Unavailable Claudia Alvarez MD Unavailable Clay Sands MD Unavailable [phone] Manny Johnson MD Unavailable [phone] King Mendoza MD Unavailable + King Mendoza MD Primary Care Prov ider Jhon Lou MD Primary Care Provider [phone] Blu Bertrand MD Unavailable Marek García MD Unavailable [phone] Clay Sparks MD Unavailable Karyna Latishamehul Coleman DPM Unavailable + Jhon Lou MD Unavailable [phone] Lavelle Scott MD Unavailable [phone] Katie Cantu RN Unavailable [email or web address] Nadine Martinez OT Unavailable [phone] Nadine Martinez OT Unavailable Nadine Martinez OT Unavailable Nadine Martinez OT Unavailable [phone] Encounter Details Date Type Department Care Team (Late st Contact Info) Description 12/20/2017 Ancillary Orders [facility] [address] [place] [address] Vikram Naik MD [address] [place] [address] [place] [address] [email or web address] Social History Tobacco Use Types Packs/Day Years [...] Description 04/09/2025 3:00 PM EDT Office Visit [facility] [address] 3rd Floor, [address] [place], [place] [address] Edie Unger, KATHARINE 22 [facility], [address] [place] [address] [email or web address] 06/19/2025 1:30 PM EST Office Visit [facility] [address] [place] [address] Nisreen Maza CNP 10 [place] [address] documented as of this encounter Visit Diagnoses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documented in this encounter Additional Health Concerns Infection Onset Date Last Indicated Resolved Time CoV-Risk Comment:Per note documentation 09/01/2024 09/01/2024 1:51 PM EDT documented as of this encounter Care Teams Splash Line Operator Relationship Specialty Start Date End Date King Mendoza MD 22 [place] [address] [email or web address] PCP - General 05/10/17 02/11/20 Jhon Lou MD 22 [facility], [address] [place] [address] PCP - General Internal Medicine 02/12/20 Fareed Pinzon MD [address] [place] [address] [email or web address] Historical LMR Provider 03/26/17 06/18/21 Chon Candelaria NP [address] [place] [address] Historical LMR Provider 03/26/1702/12/20 Estefania Cadena NP 164 [place] [address] Historical LMR Provider 03/26/1702/11 Vikram Naik MD [address] [place] [address] [email or web address] Historical LMR Provider 03/26/17 Gely Arevalo, CONGREGATIONAL CARE PASTOR [address] [place] [address] [address] [place] [address] [email or web address] Historical LMR Provider 03/26/17 2 Wendy Abbott NP 22 [place] [address] Historical LMR Provider 03/26/17 Roseline Romero MD [address] [place] [address] [address] [place] [address] [email or web address] Historical LMR Provider 03/26/17 06/18/21 Morteza Xiao MD [address] [place] [address] Historical LMR Provider 03/26/17 2 Claudia Alvarez MD [address] [place] [address], 1st [place] [address] [email or web address] Historical LMR Provider 03/26/17 Clay Sands MD 22 [facility], [address] [place] [address] [email or web address] Historical LMR Provider 03/26/17 0 Manny Johnson MD [address] [place] [address] Historical LMR Provider 03/26/17 0 King Mendoza MD 22 [place] [address] [email or web address] Historical LMR Provider 03/26/17 Blu Bertrand MD [address] [address] Nephrology 02/13/20 Marek García MD [address] [address] Ophthalmology 02/13/20 02/13/20 Clay Sparks MD [address] [place] [address] Ophthalmology 02/13/20 Sarita Troncoso DPM [address] [place] [address] 7 [place] [address] Podiatry 02/13/20 Jhon Lou MD 22 [facility], [address] [place] [address] Insurance Assigned Provider 09/15/23 Lavelle Scott MD [address] [place] [address] Primary Oncologist Medical Oncology 02/14/22 Katie Cantu, CHAYA [address] [place] [address] [email or web address] Bilingual Manager 03/01/22 04/04/22 Nadine Martinez, OT 30 [place] [address] Transitions Bilingual ManagerStock House Worker Therapy 08/15/24 08/26/24 Nadine Martinez, OT 30 [place] [address] Transitions Bilingual ManagerStock House Worker Therapy 08/15/24 08/26/24 Nadine Martinez, OT 30 [place] [address] Transitions Bilingual ManagerStock House Worker Therapy 08/18/24 08/18/24 Nadine Martinez, OT 30 [place] [address] Transitions Bilingual ManagerStock House Worker Therapy 08/28/24 09/22/24 documented as of this encounter Additional Source Comments The information contained in this document represents components of the legal health record. It is not the complete legal health record.[facility]
--- OUTSIDE RECORDS SUMMARY | 2025-04-01 06:07 | XMS_ITS | Encounter Summary ---
Author Organization [facility] Address [address] [place] [address] Phone Care Team Providers Care Territory Development Manager Name Role Phone Fareed Pinzon MD Unavailable + Chon Candelaria MINK RANCHER Unavailable Estefania Cadena MINK RANCHER Unavailable Unavailable Vikram Naik MD Unavailable Gely Arevalo MINK RANCHER Unavailable Wendy Abbott MINK RANCHER Unavailable Roseline Romero MD Unavailable Morteza Xiao MD Unavailable Claudia Alvarez MD Unavailable [phone] Clay Sands MD Unavailable [phone] Manny Johnson MD Unavailable [phone] King Mendoza MD Unavailable + King Mendoza MD Primary Care Prov ider Jhon Lou MD Primary Care Provider [phone] Blu Bertrand MD Unavailable Marek García MD Unavailable [phone] Clay Sparks MD Unavailable Karyna Latishamehul Coleman DPM Unavailable + Jhon Lou MD Unavailable Lavelle Scott MD Unavailable Katie Cantu RN Unavailable [email or web address] Nadine Martinez OT Unavailable [phone] Nadine Martinez OT Unavailable [phone] Nadine Martinez OT Unavailable [phone] Nadine Martinez OT Unavailable Encounter Details Date Type Department Care Team (Late st Contact Info) Description 05/15/2018 Transcribe Orders [facility] Specimen Processing 30 [place] [address] King Mendoza MD [address] [place] [address] [email or web address] Essential hypertension, benign (Primary Dx); Type 2 diabetes mellitus without complication, unspecified whether vermin exterminator insulin use Social History Tobacco Use Types Packs/Day Years [...] Description 04/09/2025 3:00 PM EDT Office Visit [facility] [address] [place] [address] [address]rd Floor, [address] [place] [address] Edie Unger, WASTEWATER PROJECT MANAGER [address] [facility] [address] [place] [address] [email or web address] 06/19/2025 1:30 PM EST Office Visit [facility] [address] [place] [address] Nisreen Maza, WASTEWATER PROJECT MANAGER 10 [place] [address] documented as of this encounter Results * (ABNORMAL) Hemoglobin A1c (05/15/2018 8:00 AM EST) HEMOGLOBIN A1C 6.3(H) 4.3 - 5.8 % [facility] Blood 05/15/2018 8:00 AM EST 05/15/2018 4:35 PM EST King Kinsey MD LAB BLOOD ORDERABL ES Final Result [facility] [address] [place] [address] * (ABNORMAL) Lipid panel (05/15/2018 8:00 AM EST) HDL 52 mg/dL [facility] Comment: Interpretation <40 mg/dL: Low HDL cholesterol (major risk factor for CHD) Greater than or equal to 60 mg/dL: High HDL cholesterol ( negative risk factor for CHD) HDL - cholesterol is affected by a number of factors, e.g. smoking, excerise, hormones, sex and age. CHOLESTEROL 154 0 - 240 mg/dL [facility] TRIGLYCERIDES 90 30 - 160 mg/dL [facility] LDL 84 50 - 129 mg/dL [facility] Comment: LDL levels in terms of risk for coronary heart disease: <100 mg/dL: Optimal 100-129 mg/dL: Near or above optimal 130-159 mg/dL: Borderline high 160-189 mg/dL: High >190 mg/dL: Very High CARDIAC RISK RATIO 3.0(L) 3.4 - 5.0 C [facility] Blood 05/15/2018 8:00 AM EST 05/15/2018 4:35 PM EST King Kinsey MD LAB BLOOD ORDERABL ES Final Result [facility] [address] [place] [address] documented in this encounter Visit Diagnoses Diagnosis Essential hypertension, benign- Primary Type 2 diabetes mellitus without complication, unspecified whether vermin exterminator insulin use documented in this encounter Additional Health Concerns Infection Onset Date Last Indicated Resolved Time CoV-Risk Comment:Per note documentation 09/01/2024 09/01/2024 1:51 PM EDT documented as of this encounter Care Teams Territory Development Manager Relationship Specialty Start Date End Date King Mendoza MD 22 [place] [address] [email or web address] PCP - General 05/10/17 02/11/20 Jhon Lou MD 22 [facility], [address] [place] [address] PCP - General Internal Medicine 02/12/20 Fareed Pinzon MD [address] [place] [address] [email or web address] Historical LMR Provider 03/26/17 06/18/21 Chon Candelaria NP [address] [place] [address] Historical LMR Provider 03/26/1702/12/20 Estefania Cadena NP [address] [place] [address] Historical LMR Provider 03/26/1702/11 Vikram Naik MD [address] [place] [address] [email or web address] Historical LMR Provider 03/26/17 Gely Arevalo, MINK RANCHER [address] [place] [address] [address] [place] [address] [email or web address] Historical LMR Provider 03/26/17 2 Wendy Abbott, TOMI [address] [place] [address] Historical LMR Provider 03/26/17 Roseline Romero MD [address] [place] [address] [place] [address] [email or web address] Historical LMR Provider 03/26/17 06/18/21 Morteza Xiao MD [address] [place] [address] Historical LMR Provider 03/26/17 2 Claudia Alvarez MD [address] [place] [address], 1st [place] [address] [email or web address] Historical LMR Provider 03/26/17 Clay Sands MD [address] [place] [address], [address] [place] [address] [email or web address] Historical LMR Provider 03/26/17 0 Manny Johnson MD [address] [place] [address] Historical LMR Provider 03/26/17 0 King Mendoza MD 22 [place] [address] [email or web address] Historical LMR Provider 03/26/17 Blu Bertrand MD [address] [place] [address] Nephrology 02/13/20 Marek García MD [address] [address] Ophthalmology 02/13/20 02/13/20 Clay Sparks MD [address] [place] [address] Ophthalmology 02/13/20 Sarita Troncoso DPM [address] [place] [address] 7 [place] [address] Podiatry 02/13/20 Jhon Lou MD 22 [facility], [address] [place] [address] Insurance Assigned Provider 09/15/23 Lavelle Scott MD [address] [place] [address] Primary Oncologist Medical Oncology 02/14/22 Katie Cantu, RN 30 [place] [address] [email or web address] Rigging Up Man 03/01/22 04/04/22 Nadine Martinez, OT 30 [place] [address] Transitions Rigging Up ManCommercial Real Estate Broker Therapy 08/15/24 08/26/24 Nadine Martinez, OT 30 [place] [address] Transitions Rigging Up ManCommercial Real Estate Broker Therapy 08/15/24 08/26/24 Nadine Martinez, OT 30 [place] [address] Transitions Rigging Up ManCommercial Real Estate Broker Therapy 08/18/24 08/18/24 Nadine Martinez, OT 30 [place] [address] Transitions Rigging Up ManCommercial Real Estate Broker Therapy 08/28/24 09/22/24 documented as of this encounter Additional Source Comments The information contained in this document represents components of the legal health record. It is not the complete legal health record.[facility]
--- OUTSIDE RECORDS SUMMARY | 2025-04-01 06:07 | XMS_ITS | Encounter Summary ---
Author Organization [facility] Address [address] [place] [address] Phone Care Team Providers Care Test Engine Evaluator Name Role Phone Fareed Pinzon MD Unavailable + Chon Candelaria ELECTRICAL INSTRUMENT REPAIRER Unavailable Estefania Cadena ELECTRICAL INSTRUMENT REPAIRER Unavailable Unavailable Vikram Naik MD Unavailable Gely Arevalo ELECTRICAL INSTRUMENT REPAIRER Unavailable Wendy Abbott ELECTRICAL INSTRUMENT REPAIRER Unavailable Roseline Romero MD Unavailable Morteza Xiao MD Unavailable Claudia Alvarez MD Unavailable [phone] Clay Sands MD Unavailable [phone] Manny Johnson MD Unavailable [phone] King Mendoza MD Unavailable + King Mendoza MD Primary Care Prov ider Jhon Lou MD Primary Care Provider [phone] Blu Bertrand MD Unavailable Marek García MD Unavailable [phone] Clay Sparks MD Unavailable Sarita Troncoso DPM Unavailable + Jhon Lou MD Unavailable Lavelle Scott MD Unavailable [phone] Katie Cantu RN Unavailable [email or web address] Nadine Martinez OT Unavailable [phone] Nadine Martinez OT Unavailable [phone] Nadine Martinez OT Unavailable [phone] Nadine Martinez OT Unavailable [phone] Encounter Details Date Type Department Care Team (Late st Contact Info) Description 12/05/2017 Procedure Pass OR Admitting Dept - Virtual Department [address] [place] [address] Social History Tobacco Use Types Packs/Day Years [...] Encounters Date Type Department Care Team (Late Contact Info) Description 04/09/2025 3:00 PM EDT Office Visit [facility] [address] [place] [address] 3rd Floor, [address] [place], [place] [address] Edie Unger CNP 22 [facility], [address] [address] [email or web address] 06/19/2025 1:30 PM EST Office [facility] [address] [place] [address] LinkNisreen, SOAP PRESS FEEDER 10 [place] [address] documented as of this encounter Visit Diagnoses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documented in this encounter Additional Health Concerns Infection Onset Date Last Indicated Resolved Time CoV-Risk Comment:Per note documentation 09/01/2024 09/01/2024 1:51 PM EDT documented as of this encounter Care Teams Test Engine Evaluator Relationship Specialty Start Date End Date King Mendoza MD 22 [place] [address] [email or web address] PCP - General 05/10/17 02/11/20 Jhon Lou MD 22 [facility], [address] [place] [address] PCP - General Internal Medicine 02/12/20 Fareed Pinzon MD [address] [place] [address] [email or web address] Historical LMR Provider 03/26/17 06/18/21 Chon Candelaria NP [facility] Adam Jemima [address] [address] Historical LMR Provider 03/26/1702/12/20 Estefania Cadena NP [address] [place] [address] Historical LMR Provider 03/26/1702/11 Vikram Naik MD [address] [place] [address] [email or web address] Historical LMR Provider 03/26/17 Gely Arevalo NP 14 [facility] [address] [place] [address] [email or web address] Historical LMR Provider 03/26/17 2 Wendy Abbott NP 22 [place] [address] Historical LMR Provider 03/26/17 Roseline Romero MD [address] [place] [address] [address] [place] [address] [email or web address] Historical LMR Provider 03/26/17 06/18/21 Morteza Xiao MD [address] [place] [address] [address] [place] [address] Historical LMR Provider 03/26/17 2 Claudia Alvarez MD 22 [facility], 1st [place] [address] [email or web address] Historical LMR Provider 03/26/17 Clay Sands MD 22 [facility], [address] [place] [address] [email or web address] Historical LMR Provider 03/26/17 0 Manny Johnson MD 22 [place] [address] Historical LMR Provider 03/26/17 0 King Mendoza MD 22 [place] [address] [email or web address] Historical LMR Provider 03/26/17 Blu Bertrand MD [address] [address] [email or web address] Nephrology 02/13/20 Marek García MD [address] [address] Ophthalmology 02/13/20 02/13/20 Clay Sparks MD [address] [place] [address] Ophthalmology 02/13/20 Sarita Troncoso DPM [address] [place] [address] 7 [place] [address] Podiatry 02/13/20 Jhon Lou MD 22 [facility], [address] [place] [address] Insurance Assigned Provider 09/15/23 Lavelle Scott MD 30 [place] [address] Primary Oncologist Medical Oncology 02/14/22 Katie Cantu, CHAYA 30 [place] [address] [email or web address] PHCM Test Bore Helper 03/01/22 04/04/22 Nadine Martinez, OT 30 [place] [address] Transitions Test Bore HelperAgricultural Equipment Sales Engineer Therapy 08/15/24 08/26/24 Nadine Martinez, OT 30 [place] [address] Transitions Test Bore HelperAgricultural Equipment Sales Engineer Therapy 08/15/24 08/26/24 Nadine Martinez, OT 30 [place] [address] Transitions Test Bore HelperAgricultural Equipment Sales Engineer Therapy 08/18/24 08/18/24 Nadine Martinez, OT 30 [place] [address] Transitions Test Bore HelperAgricultural Equipment Sales Engineer Therapy 08/28/24 09/22/24 documented as of this encounter Additional Source Comments The information contained in this document represents components of the legal health record. It is not the complete legal health record.[facility]
--- OUTSIDE RECORDS SUMMARY | 2025-04-01 06:07 | XMS_ITS | Encounter Summary ---
Author Organization [facility] Address [address] [place] [address] Phone Care Team Providers Care Book Author Name Role Phone Fareed Pinzon MD Unavailable + Vikram Naik MD Unavailable Gely Arevalo BACK HOE MACHINE OPERATOR Unavailable Wendy Abbott BACK HOE MACHINE OPERATOR Unavailable Roseline Romero MD Unavailable Morteza Xiao MD Unavailable Claudia Alvarez MD Unavailable [phone] King Mendoza MD Unavailable + Jhon Lou MD Primary Care Provider [phone] Blu Bertrand MD Unavailable Clay Sparks MD Unavailable Sarita Troncoso DPM Unavailable + Jhon Lou MD Unavailable Lavelle Scott MD Unavailable [phone] Katie Cantu RN Unavailable [email or web address] Nadine Martinez OT Unavailable [phone] Nadine Martinez OT Unavailable Nadine Martinez OT Unavailable Nadine Martinez OT Unavailable Encounter Details Date Type Department Care Team (Late st Contact Info) Description 11/30/2020 Procedure Pass Non-Invasive Cardiology [address] [place] [address] [place] [address] Social History Tobacco Use Types Packs/Day Years [...] 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, [employer]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 documented as of this encounter Plan of Treatment Upcoming Encounters Date Type Department Care Team (Late st Contact Info) Description 04/09/2025 3:00 PM EDT Office Visit [facility] [address] [place] [address] 3rd Floor, [address] [place] [address] Edie Unger CNP [address] [place] [address] [email or web address] 06/19/2025 1:30 PM EST Office Visit [facility] [address] [place] [address] Nisreen Maza, KATHARINE 10 [place] [address] documented as of this encounter Visit Diagnoses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documented in this encounter Additional Health Concerns Infection Onset Date Last Indicated Resolved Time CoV-Risk Comment:Per note documentation 09/01/2024 09/01/2024 1:51 PM EDT Assessment Noted Time PHQ-2 Depression Total Score: 0 05/13/20 20 11:29 AM EST documented as of this encounter Care Teams Book Author Relationship Specialty Start Date End Date Jhon Lou MD [address] [place] [address], [address] [place] [address] PCP - General Internal Medicine 02/12/20 Fareed Pinzon MD [address] [place] [address] [email or web address] Historical LMR Provider 03/26/17 06/18/21 Vikram Naik MD [address] [place] [address] [email or web address] Historical LMR Provider 03/26/17 Gely Arevalo NP [address] [place] [address] [place] [address] [email or web address] Historical LMR Provider 03/26/17 Wendy Stahl NP [address] [place] [address] Historical LMR Provider 03/26/17 Roseline Romero MD [address] [place] [address] [place] [address] [email or web address] Historical LMR Provider 03/26/17 06/18/21 Morteza Xiao MD [address] [place] [address] Historical LMR Provider 03/26/17 2 Claudia Alvarez MD 22 [facility], 1st [place] [address] Historical LMR Provider 03/26/17 King Mendoza MD 22 [facility], [address] [place] [address] [email or web address] Historical LMR Provider 03/26/17 Blu Bertrand MD 15 [facility] [address] [place] [address] Nephrology 02/13/20 Clay Sparks MD [address] [place] [address] 2 [place] [address] Ophthalmology 02/13/20 Sarita Troncoso DPM [address] [place] [address] 7 [place] [address] Podiatry 02/13/20 Jhon Lou MD 22 [facility], [address] [place] [address] Insurance Assigned Provider 09/15/23 Lavelle Scott MD [address] [place] [address] Primary Oncologist Medical Oncology 02/14/22 Katie Cantu, RN 30 [place] [address] [email or web address] Communications Analyst 03/01/22 04/04/22 Nadine Martinez, OT 30 [place] [address] [email or web address] Transitions Communications AnalystWare Server Therapy 08/15/24 08/26/24 Nadine Martinez, OT 30 [place] [address] Transitions Communications AnalystWare Server Therapy 08/15/24 08/26/24 Nadine Martinez, OT 30 [place] [address] Transitions Communications AnalystWare Server Therapy 08/18/24 08/18/24 Nadine Martinez, OT 30 [place] [address] Transitions Communications AnalystWare Server Therapy 08/28/24 09/22/24 documented as of this encounter Additional Source Comments The information contained in this document represents components of the legal health record. It is not the complete legal health record.[facility]
--- OUTSIDE RECORDS SUMMARY | 2025-04-01 06:07 | XMS_ITS | Encounter Summary ---
Author Organization Located Within [facility] Address [address] [place] [address] [place] [address] Phone Care Team Providers Care Mold Checker Name Role Phone Vikram Naik MD Unavailable [phone] Claudia Alvarez MD Unavailable King Mendoza MD Unavailable + Jhon Lou MD Primary Care Provider [phone] Blu Bertrand MD Unavailable Clay Sparks MD Unavailable Sarita Troncoso DPM Unavailable + Jhon Lou MD Unavailable [phone] Lavelle Scott MD Unavailable [phone] Katie Cantu RN Unavailable [email or web address] Nadine Martinez OT Unavailable [phone] Nadine Martinez OT Unavailable [phone] Nadine Martinez OT Unavailable [phone] Nadien Martinez OT Unavailable [phone] Encounter Details Date Type Department Care Team (Late st Contact Info) Description 07/19/2021 Procedure Pass Non-Invasive Cardiology [address] [place] [address] Social History Tobacco Use Types Packs/Day Years [...] 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, [employer]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 documented as of this encounter Plan of Treatment Upcoming Encounters Date Type Department Care Team (Late st Contact Info) Description 04/09/2025 3:00 PM EDT Office Visit [facility] [address] Floor, [address] [place] [address] Edie Unger CNP [address] [place] [address], [address] [place] [address] [email or web address] 06/19/2025 1:30 PM EST Office Visit Located [facility] [address] [place] [address] Nisreen Maza CNP 10 [place] [address] documented as of this encounter Visit Diagnoses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documented in this encounter Additional Health Concerns Infection Onset Date Last Indicated Resolved Time CoV-Risk Comment:Per note documentation 09/01/2024 09/01/2024 1:51 PM EDT Assessment Noted Time PHQ-2 Depression Total Score: 0 05/13/20 20 11:29 AM EST documented as of this encounter Care Teams Mold Checker Relationship Specialty Start Date End Date Jhon Lou MD [address] [place] [address], [address] [place] [address] [email or web address] PCP - General Internal Medicine 02/12/20 Vikram Naik MD [email or web address] Historical LMR Provider 03/26/17 Claudia Alvarez MD 22 [facility], [address] [place] [address] [email or web address] Historical LMR Provider 03/26/17 King Mendoza MD [address] [address] [email or web address] Historical LMR Provider 03/26/17 Blu Bertrand MD 15 [facility] [address] [place] [address] [email or web address] Nephrology 02/13/20 Clay Sparks MD 33 [facility] 2 [place] [address] Ophthalmology 02/13/20 Sarita Troncoso DPM [address] [place] [address] 7 [place] [address] [email or web address] Podiatry 02/13/20 Jhon Lou MD 22 [facility], [address] [place] [address] [email or web address] Insurance Assigned Provider 09/15/23 Lavelle Scott MD 30 [place] [address] Primary Oncologist Medical Oncology 02/14/22 Katie Cantu, RN [address] [place] [address] [email or web address] Director Dermatology 03/01/22 04/04/22 Nadine Martinez, OT 30 [place] [address] [email or web address] Transitions Director DermatologyMetal Hanging Helper Therapy 08/15/24 08/26/24 Nadine Martinez, OT [address] [place] [address] [email or web address] Transitions Director DermatologyMetal Hanging Helper Therapy 08/15/24 08/26/24 Nadine Martinez, OT 30 [place] [address] Transitions Director DermatologyMetal Hanging Helper Therapy 08/18/24 08/18/24 Nadine Martinez, OT 30 [place] [address] Transitions Director DermatologyMetal Hanging Helper Therapy 08/28/24 09/22/24 documented as of this encounter Additional Source Comments The information contained in this document represents components of the legal health record. It is not the complete legal health record.Loc[facility]
--- OUTSIDE RECORDS SUMMARY | 2025-04-01 06:07 | XMS_ITS | Encounter Summary ---
Author Organization [facility] Address [address] [place] [address] Phone Care Team Providers Care Radiologic Tech Name Role Phone Vikram Naik MD Unavailable [phone] Claudia Alvarez MD Unavailable [phone] King Mendoza MD Unavailable + Jhon Lou MD Primary Care Provider [phone] Blu Bertrand MD Unavailable Clay Sparks MD Unavailable Sarita Troncoso DPM Unavailable + Jhon Lou MD Unavailable [phone] Lavelle Scott MD Unavailable [phone] Nadine Martinez OT Unavailable Nadine Maritnez OT Unavailable Nadine Martinez OT Unavailable Nadine Martinez OT Unavailable Encounter Details Date Type Department Care Team (Late st Contact Info) Description 09/13/2023 Procedure Pass Non-Invasive Cardiology [address] [place] [address] Social History Tobacco Use Types [...] 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, [employer]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 documented as of this encounter Plan of Treatment Upcoming Encounters Date Type Department Care Team (Late st Contact Info) Description 04/09/2025 3:00 PM EDT Office Visit [facility] [address] [place] [address] 3rd Floor, [address] [place] [address] Edie Unger CNP 22 [facility], [address] [address] [email or web address] 06/19/2025 1:30 PM EST Office Visit [facility] [address] [place] [address] Nisreen Maza CNP 10 [place] [address] documented as of this encounter Visit Diagnoses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documented in this encounter Additional Health Concerns Infection Onset Date Last Indicated Resolved Time CoV-Risk Comment:Per note documentation 09/01/2024 09/01/2024 03/25/202 5 1:51 PM EDT Assessment Noted Time PHQ-2 Depression Total Score: 0 05/13/20 20 11:29 AM EST documented as of this encounter Care Teams Radiologic Tech Relationship Specialty Start Date End Date Jhon Lou MD 22 [facility], [address] [place] [address] [email or web address] PCP - General Internal Medicine 02/12/20 Vikram Naik MD [email or web address] Historical LMR Provider 03/26/17 Claudia Alvarez MD 22 [facility], [address] [place] [address] Historical LMR Provider 03/26/17 King Mendoza MD 22 [facility], [address] [place] [address] [email or web address] Historical LMR Provider 03/26/17 Blu Bertrand MD 15 [facility] [address] [place] [address] Nephrology 02/13/20 Clay Sparks MD 33 [facility] 2 [place] [address] Ophthalmology 02/13/20 Sarita Troncoso DPM [address] [facility] 7 [place] [address] [email or web address] Podiatry 02/13/20 Jhon Lou MD [address] [place] [address], [address] [place] [address] Insurance Assigned Provider 09/15/23 Lavelle Scott MD [address] [place] [address] Primary Oncologist Medical Oncology 02/14/22 Nadine Martinez, OT 30 [place] [address] Transitions Manager IntelMedical Records Coordinator Therapy 08/15/24 08/26/24 Nadine Martinez, OT 30 [place] [address] [email or web address] Transitions Manager IntelMedical Records Coordinator Therapy 08/15/24 08/26/24 Nadine Martinez, OT 30 [place] [address] [email or web address] Transitions Manager IntelMedical Records Coordinator Therapy 08/18/24 08/18/24 Nadine Martinez, OT 30 [place] [address] Transitions Manager IntelMedical Records Coordinator Therapy 08/28/24 09/22/24 documented as of this encounter Additional Source Comments The information contained in this document represents components of the legal health record. It is not the complete legal health record.[facility]
--- OUTSIDE RECORDS SUMMARY | 2025-04-01 06:07 | XMS_ITS | Encounter Summary ---
Author Organization [facility] Address [address] [place] [address] [place] [address] Phone Care Team Providers Care Final Finisher Forging Dies Name Role Phone Vikram Naik MD Unavailable [phone] Claudia Alvarez MD Unavailable [phone] King Mendoza MD Unavailable + Jhon Lou MD Primary Care Provider [phone] Blu Bertrand MD Unavailable Clay Sparks MD Unavailable Sarita Troncoso DPM Unavailable + Jhon Lou MD Unavailable [phone] Lavelle Scott MD Unavailable [phone] Katie Cantu RN Unavailable [email or web address] Nadine Martinez OT Unavailable [phone] Nadine Martinez OT Unavailable [phone] Nadine Martinez OT Unavailable [phone] Nadine Martinez OT Unavailable [phone] Encounter Details Date Type Department Care Team (Late st Contact Info) Description 11/22/2021 Procedure Pass [facility], Ct Scan - [facility] [address] [place] [address] Social History Tobacco Use Types Packs/Day Years [...] 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 [address] [place] [address] Nisreen Maza, MATERIALS AND PROCESSES MANAGER [address] [place] [address] documented as of this encounter Visit Diagnoses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documented in this encounter Additional Health Concerns Infection Onset Date Last Indicated Resolved Time CoV-Risk Comment:Per note documentation 09/01/2024 09/01/2024 1:51 PM EDT Assessment Noted Time PHQ-2 Depression Total Score: 0 05/13/20 20 11:29 AM EST documented as of this encounter Care Teams Final Finisher Forging Dies Relationship Specialty Start Date End Date Jhon Lou MD [address] [place] [address], [address] [place] [address] [email or web address] PCP - General Internal Medicine 02/12/20 Vikram Naik MD [email or web address] Historical LMR Provider 03/26/17 Claudia Alvarez MD 22 [facility], [address] [place] [address] [email or web address] Historical LMR Provider 03/26/17 King Mendoza MD 22 [facility], [address] [place] [address] [email or web address] Historical LMR Provider 03/26/17 Blu Bertrand MD 15 [facility] [address] [place] [address] [email or web address] Nephrology 02/13/20 Clay Sparks MD 33 [facility] 2 [place] [address] Ophthalmology 02/13/20 Sarita Troncoso DPM [address] [place] [address] 7 [place] [address] [email or web address] Podiatry 02/13/20 Jhon Lou MD 22 [facility], [address] [place] [address] [email or web address] Insurance Assigned Provider 09/15/23 Lavelle Scott MD 30 [place] [address] Primary Oncologist Medical Oncology 02/14/22 Katie Cantu, RN 30 [place] [address] [email or web address] Inspector Subassemblies 03/01/22 04/04/22 Nadine Martinez, OT 30 [place] [address] [email or web address] Transitions Inspector SubassembliesStencil Maker Therapy 08/15/24 08/26/24 Nadine Martinez, OT 30 [place] [address] [email or web address] Transitions Inspector SubassembliesStencil Maker Therapy 08/15/24 08/26/24 Nadine Martinez, OT 30 [place] [address] Transitions Inspector SubassembliesStencil Maker Therapy 08/18/24 08/18/24 Nadine Matrinez, OT 30 [place] [address] Transitions Inspector SubassembliesStencil Maker Therapy 08/28/24 09/22/24 documented as of this encounter Additional Source Comments The information contained in this document represents components of the legal health record. It is not the complete legal health record.[facility]
--- OUTSIDE RECORDS SUMMARY | 2025-04-01 06:07 | XMS_ITS | Encounter Summary ---
Author Organization Located Within [facility] Address [address] [place] [address] Phone Care Team Providers Care Road Machinery Inspector Name Role Phone Fareed Pinzon MD Unavailable + Chon Candelaria TOBACCO STEMMER Unavailable Estefania Cadena TOBACCO STEMMER Unavailable Unavailable Vikram Naik MD Unavailable Gely Arevalo TOBACCO STEMMER Unavailable Wendy Abbott TOBACCO STEMMER Unavailable Roseline Romero MD Unavailable Morteza Xiao MD Unavailable Claudia Alvarez MD Unavailable [phone] Clay Sands MD Unavailable [phone] Manny Johnson MD Unavailable [phone] King Mendoza MD Unavailable + King Mendoza MD Primary Care Prov ider Jhon Lou MD Primary Care Provider [phone] Blu Bertrand MD Unavailable Marek García MD Unavailable [phone] Clay Sparks MD Unavailable [phone] Sarita Troncoso DPM Unavailable + Jhon Lou MD Unavailable [phone] Lavelle Scott MD Unavailable [phone] Katie Cantu RN Unavailable [email or web address] Nadine Martinez OT Unavailable [phone] Nadine Martinez OT Unavailable [phone] Nadine Martinez OT Unavailable [phone] Nadine Martinez OT Unavailable [phone] Reason for Referral * Outpatient Procedure - Closed Specialty Diagnoses / Procedures Referred By Contac t Referred To Contact Diagnoses Paroxysmal atrial fibrillation Procedures MCT (Mobile Cardiac Telemetry) Vikram Lebron DO Phone: tel: fax: mailto: Referral ID Status Reason Start Date Expiration Date Visits Re quested Visits Authorized [id number] Closed 01/09/2018 01/09/2019 1 1 Encounter Details Date Type Department Care Team (Latest Contact Info) Description 01/09/2018 Ancillary Orders [facility] [address] [place] [address] 3rd Floor, [address] [place] [address] Vikram Lebron DO [address] [address] [email or web address] Paroxysmal atrial fibrillation Social History Tobacco Use Types Packs/Day Years [...] Description 04/09/2025 3:00 PM EDT Office Visit [facility] 22 [facility] 3rd Floor, [address] [place] [address] Edie Unger CNP 22 [facility], [address] [place] [address] [email or web address] 06/19/2025 1:30 PM EST Office Visit Loc[facility] [address] [place] [address] Nisreen Maza CNP 10 [place] [address] documented as of this encounter Results * MCT (Mobile Cardiac Telemetry) (01/09/2018 11:33 AM EDT) Anatomical Region Laterality Modality Heart Other Narrative 01/09/2018 5:03 PM EDT Mobile cardiac outpatient telemetry: 11 days monitored. There were 5 patient triggers and 46 automatic triggers. The patient was in atrial fibrillation about 50% of the time. During atrial fibrillation a minimum heart rate is 50 maximum 117 average 69 bpm. There were automatic triggers for 5 second pauses. Impression: Mobile cardiac outpatient telemetry demonstrating sick sinus syndrome with paroxysmal atrial fibrillation and prolonged pauses. The pacemaker has been implanted. us Vikram Lebron DO CV CARDIAC SERVICES ORDERABLE S Final Result documented in this encounter Visit Diagnoses Diagnosis Paroxysmal atrial fibrillation Atrial fibrillation Paroxysmal atrial fibrillation Atrial fibrillation documented in this encounter Additional Health Concerns Infection Onset Date Last Indicated Resolved Time CoV-Risk Comment:Per note documentation 09/01/2024 09/01/2024 1:51 PM EDT documented as of this encounter Care Teams Road Machinery Inspector Relationship Specialty Start Date End Date King Mendoza MD [address] [place] [address] [email or web address] PCP - General 05/10/17 02/11/20 Jhon Lou MD 22 [facility], [address] [place] [address] PCP - General Internal Medicine 02/12/20 Fareed Pinzon MD [address] [place] [address] [email or web address] Historical LMR Provider 03/26/17 06/18/21 Chon Candelaria NP [address] [place] [address] Historical LMR Provider 03/26/1702/12/20 Estefania Cadena TOBACCO STEMMER [address] [place] [address] Historical LMR Provider 03/26/1702/11 Vikram Naik MD [address] [place] [address] [email or web address] Historical LMR Provider 03/26/17 Gely Arevalo NP [address] [place] [address] [address] [place] [address] [email or web address] Historical LMR Provider 03/26/17 Wendy Stahl NP [address] [place] [address] Historical LMR Provider 03/26/17 Roseline Romero MD 14 [facility] [address] [place] [address] Historical LMR Provider 03/26/17 06/18/21 Morteza Xiao MD [address] [address] Historical LMR Provider 03/26/17 2 Claudia Alvarez MD 22 [facility], 1st [place] [address] [email or web address] Historical LMR Provider 03/26/17 Clay Sands MD 22 [facility], [address] [place] [address] [email or web address] Historical LMR Provider 03/26/17 0 Manny Johnson MD 22 [place] [address] Historical LMR Provider 03/26/17 0 King Mendoza MD 22 [place] [address] [email or web address] Historical LMR Provider 03/26/17 Blu Bertrand MD 15 [facility] 303 [place] [address] Nephrology 02/13/20 Marek García MD 15 [facility] [address] [place] [address] Ophthalmology 02/13/20 02/13/20 Clay Sparks MD 33 [facility] 2 [place] [address] Ophthalmology 02/13/20 Sarita Troncoso DPM 10 [facility] 7 [place] [address] Podiatry 02/13/20 Jhon Lou MD 22 [facility], [address] [place] [address] Insurance Assigned Provider 09/15/23 Lavelle Scott MD 30 [place] [address] Primary Oncologist Medical Oncology 02/14/22 Katie Cantu, RN 30 [place] [address] [email or web address] Center[facility] Table Games Supervisor 03/01/22 04/04/22 Nadine Martinez, OT 30 [place] [address] Transitions Table Games SupervisorDramatic Coach Therapy 08/15/24 08/26/24 Nadine Martinez, OT 30 [place] [address] Transitions Table Games SupervisorDramatic Coach Therapy 08/15/24 08/26/24 Nadine Martinez, OT 30 [place] [address] [email or web address] Transitions Table Games SupervisorDramatic Coach Therapy 08/18/24 08/18/24 Nadine Martinez, OT [address] [place] [address] [email or web address] Transitions Table Games SupervisorDramatic Coach Therapy 08/28/24 09/22/24 documented as of this encounter Additional Source Comments The information contained in this document represents components of the legal health record. It is not the complete legal health record.[facility]
--- OUTSIDE RECORDS SUMMARY | 2025-04-01 06:07 | XMS_ITS | Encounter Summary ---
Author Organization [facility] Address [address] [place] [address] Phone Care Team Providers Care Director Integrated Name Role Phone Fareed Pinzon MD Unavailable + Chon Candelaria CHIEF LIBRARIAN CIRCULATION DEPARTMENT Unavailable Estefania Cadena CHIEF LIBRARIAN CIRCULATION DEPARTMENT Unavailable Unavailable Vikram Naik MD Unavailable Gely Arevalo CHIEF LIBRARIAN CIRCULATION DEPARTMENT Unavailable Wendy Abbott CHIEF LIBRARIAN CIRCULATION DEPARTMENT Unavailable Roseline Romero MD Unavailable Morteza Xiao MD Unavailable Claudia Alvarez MD Unavailable [phone] Clay Sands MD Unavailable [phone] Manny Johnson MD Unavailable King Mendoza MD Unavailable + King Mendoza MD Primary Care Prov ider Jhon Lou MD Primary Care Provider [phone] Blu Bertrand MD Unavailable Marek García MD Unavailable [phone] Clay Sparks MD Unavailable aSrita Troncoso DPM Unavailable + Jhon Lou MD Unavailable Lavelle Scott MD Unavailable [phone] Katie Cantu RN Unavailable [email or web address] Nadine Martinez OT Unavailable [phone] Nadine Martinez OT Unavailable [phone] Nadine Martinez OT Unavailable [phone] Nadine Martinez OT Unavailable Encounter Details Date Type Department Care Team (Late st Contact Info) Description 08/08/2017 Transcribe Orders [facility] Specimen Processing 30 [place], [place] [id number] King Mendoza MD [address] [place] [address] [email or web address] Encounter for long-term (current) use of insulin (Primary Dx) Social History Tobacco Use Types Packs/Day Years Used Date Smoking Tobacco: Former Smokeless Tobacco: Never Alcohol Use Standard Drinks/Week [...] Description 04/09/2025 3:00 PM EDT Office Visit [facility] [address] [place] [address] 3rd Floor, [address] [place], [place] [phone] Edie Unger, KATHARINE 22 [facility], [address] [place] [address] [phone] [email or web address] 06/19/2025 1:30 PM EST Office Visit [facility] [address] [place] [address] Link Nisreen MurphyKATHARINE 10 [place] [address] documented as of this encounter Results * (ABNORMAL) Hemoglobin A1c (08/08/2017 12:03 PM EST) HEMOGLOBIN A1C 6.2(H) 4.3 - 5.8 % [facility] Blood 08/08/2017 12:0 3 PM EST 08/08/2017 12:05 PM EST King Kinsey MD LAB BLOOD ORDERABL ES Final Result [address] [address] * (ABNORMAL) Basic metabolic panel (08/08/2017 12:03 PM EST) SODIUM 141 133 - 146 mmol/L [facility] CHLORIDE 97 96 - 108 mmol/L [facility] POTASSIUM 5.2(H) 3.3 - 5.1 mmol/L [facility] CO2 25 21 - 35 mmol/L [facility] BUN 58(H) 6 - 19 mg/dL [facility] CREATININE 11.00(HH) 0.5 - 1.5 mg/dL [facility] Comment: Critical Value. Results called to and read back by: Sasha Quinn [facility] 08/08/2017 GLUCOSE 143(H) 70 - 99 mg/dL [facility] CALCIUM 9.1 8.4 - 10.3 mg/dL [facility] EGFR 5 mL/min/1.7 3m2 [facility] Comment:Abnormal if <60. If patient is -Qat[place], multiply the result by 1.21. ANION GAP 24(H) 10 - 20 mmol/L [facility] Blood 08/08/2017 12:0 3 PM EST 08/08/2017 12:05 PM EST King Kinsey MD LAB BLOOD ORDERABL ES Final Result [facility] 30 [place] [address] documented in this encounter Visit Diagnoses Diagnosis Encounter for long-term (current) use of insulin- Primary documented in this encounter Additional Health Concerns Infection Onset Date Last Indicated Resolved Time CoV-Risk Comment:Per note documentation 09/01/2024 09/01/2024 1:51 PM EDT documented as of this encounter Care Teams Director Integrated Relationship Specialty Start Date End Date King Mendoza MD 22 [place] [address] [email or web address] PCP - General 05/10/17 02/11/20 Jhon Lou MD 22 [facility], [address] [place] [address] PCP - General Internal Medicine 02/12/20 Fareed Pinzon MD [address] [place] [address] [email or web address] Historical LMR Provider 03/26/17 06/18/21 Chon Candelaria NP [address] [address] Historical LMR Provider 03/26/1702/12/20 Estefania Cadena CHIEF LIBRARIAN CIRCULATION DEPARTMENT [address] [place] [address] Historical LMR Provider 03/26/1702/11 Vikram Naik MD [address] [place] [address] [email or web address] Historical LMR Provider 03/26/17 Gely Arevalo, CHIEF LIBRARIAN CIRCULATION DEPARTMENT [address] [place] [address] [address] [place] [address] [email or web address] Historical LMR Provider 03/26/17 2 Wendy Abbott NP [address] [place] [address] Historical LMR Provider 03/26/17 Roseline Romero MD [address] [place] [address] [address] [place] [address] [email or web address] Historical LMR Provider 03/26/17 06/18/21 [place] [address] [place] [address] Historical LMR Provider 03/26/17 2 Claudia Alvarez MD 22 [facility], 1st [place] [address] [email or web address] Historical LMR Provider 03/26/17 Clay Sands MD 22 [facility], [address] [place] [address] [email or web address] Historical LMR Provider 03/26/17 0 Manny Johnson MD [address] [place] [address] Historical LMR Provider 03/26/17 0 King Mendoza MD [address] [place] [address] [email or web address] Historical LMR Provider 03/26/17 Blu Bertrand MD [address] [place] [address] Nephrology 02/13/20 Marek García MD [address] [address] Ophthalmology 02/13/20 02/13/20 Clay Sparks MD [address] [place] [address] 2 [place] [address] Ophthalmology 02/13/20 Sarita Troncoso DPM [address] [place] [address] 7 [place] [address] Podiatry 02/13/20 Jhon Lou MD 22 [facility], [address] [place] [address] Insurance Assigned Provider 09/15/23 Lavelle Scott MD [address] [place] [address] Primary Oncologist Medical Oncology 02/14/22 Katie Cantu RN [address] [place] [address] [email or web address] Leadership Instructor 03/01/22 04/04/22 Nadine Martinez, OT 30 [place] [address] Transitions Sports Leadership InstructorInformation Technology Intern Therapy 08/15/24 08/26/24 Nadine Martinez, OT 30 [place] [address] Transitions Sports Leadership InstructorInformation Technology Intern Therapy 08/15/24 08/26/24 Nadine Martinez, OT 30 [place] [address] Transitions Sports Leadership InstructorInformation Technology Intern Therapy 08/18/24 08/18/24 Nadine Martinez, OT 30 [place] [address] Transitions Sports Leadership InstructorInformation Technology Intern Therapy 08/28/24 09/22/24 documented as of this encounter Additional Source Comments The information contained in this document represents components of the legal health record. It is not the complete legal health record.[facility]
--- OUTSIDE RECORDS SUMMARY | 2025-04-01 06:07 | XMS_ITS | Encounter Summary ---
Author Organization [facility] Address [address] [place] [address] Phone Care Team Providers Care Engagement Lead Name Role Phone Fareed Pinzon MD Unavailable + Vikram Naik MD Unavailable Gely Arevalo TUNGSTEN REFINER Unavailable Wendy Abbott TUNGSTEN REFINER Unavailable Roseline Romero MD Unavailable Morteza Xiao MD Unavailable Claudia Alvarez MD Unavailable [phone] King Mendoza MD Unavailable + Jhon Lou MD Primary Care Provider [phone] Blu Bertrand MD Unavailable Clay Sparks MD Unavailable Sarita Troncoso DPM Unavailable + Jhon Lou MD Unavailable Lavelle Scott MD Unavailable Katie Cantu RN Unavailable [email or web address] Nadine Martinez OT Unavailable Nadine Martinez OT Unavailable Nadine Martinez OT Unavailable Nadine Martinez OT Unavailable [phone] Encounter Details Date Type Department Care Team (Late st Contact Info) Description 03/07/2021 Procedure Pass Non-Invasive Cardiology [address] [place] [address] Social History Tobacco Use Types Packs/Day Years [...] 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[employer], [employer]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 documented as of this encounter Plan of Treatment Upcoming Encounters Date Type Department Care Team (Late Contact Info) Description 04/09/2025 3:00 PM EDT Office Visit [facility] [address] [place] [address] 3rd Floor, [address] [place] [address] Edie Unger CNP [address] [place] [address] [email or web address] 06/19/2025 1:30 PM EST Office Visit [facility] [address] [place] [address] Nisreen Maza, KATHARINE 10 [place] [address] documented as of this encounter Visit Diagnoses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documented in this encounter Additional Health Concerns Infection Onset Date Last Indicated Resolved Time CoV-Risk Comment:Per note documentation 09/01/2024 09/01/2024 1:51 PM EDT Assessment Noted Time PHQ-2 Depression Total Score: 0 05/13/20 20 11:29 AM EST documented as of this encounter Care Teams Engagement Lead Relationship Specialty Start Date End Date Jhon Lou MD [address] [place] [address], [address] [place] [address] PCP - General Internal Medicine 02/12/20 Fareed Pinzon MD [address] [place] [address] [email or web address] Historical LMR Provider 03/26/17 06/18/21 Vikram Naik MD [address] [place] [address] [email or web address] Historical LMR Provider 03/26/17 Gely Arevalo NP [address] [place] [address] [place] [address] [email or web address] Historical LMR Provider 03/26/17 Wendy Stahl NP [address] [place] [address] Historical LMR Provider 03/26/17 Roseline Romero MD [address] [place] [address] [place] [address] [email or web address] Historical LMR Provider 03/26/17 06/18/21 Morteza Xiao MD [address] [place] [address] Historical LMR Provider 03/26/17 2 Claudia Alvarez MD 22 [facility], [address] [place] [address] Historical LMR Provider 03/26/17 King Mendoza MD 22 [facility], [address] [place] [address] [email or web address] Historical LMR Provider 03/26/17 Blu Bertrand MD 15 [facility] [address] [place] [address] Nephrology 02/13/20 Clay Sparks MD [address] [place] [address] 2 [place] [address] Ophthalmology 02/13/20 Sarita Troncoso DPM [address] [place] [address] 7 [place] [address] Podiatry 02/13/20 Jhon Lou MD 22 [facility], [address] [place] [address] Insurance Assigned Provider 09/15/23 Lavelle Scott MD [address] [place] [address] Primary Oncologist Medical Oncology 02/14/22 Katie Cantu, RN 30 [place] [address] [email or web address] Oil Well Services Dispatcher 03/01/22 04/04/22 Nadine Martinez, OT 30 [place] [address] [email or web address] Transitions Oil Well Services DispatcherInformatics Coordinator Therapy 08/15/24 08/26/24 Nadine Martinez, OT 30 [place] [address] Transitions Oil Well Services DispatcherInformatics Coordinator Therapy 08/15/24 08/26/24 Nadine Martinez, OT 30 [place] [address] Transitions Oil Well Services DispatcherInformatics Coordinator Therapy 08/18/24 08/18/24 Nadine Martinez, OT 30 [place] [address] Transitions Oil Well Services DispatcherInformatics Coordinator Therapy 08/28/24 09/22/24 documented as of this encounter Additional Source Comments The information contained in this document represents components of the legal health record. It is not the complete legal health record.[facility]
--- OUTSIDE RECORDS SUMMARY | 2025-04-01 06:07 | XMS_ITS | Encounter Summary ---
Author Organization [facility] Address [address] [place] [address] Phone Care Team Providers Care Dictating Machine Transcriber Name Role Phone Fareed Pinzon MD Unavailable + Chon Candelaria SKEINS YARN EXAMINER Unavailable Estefania Cadena SKEINS YARN EXAMINER Unavailable Unavailable Vikram Naik MD Unavailable Gely Arevalo SKEINS YARN EXAMINER Unavailable Wendy Abbott SKEINS YARN EXAMINER Unavailable Roseline Romero MD Unavailable Morteza Xiao MD Unavailable Claudia Alvarez MD Unavailable [phone] Clay Sands MD Unavailable [phone] Manny Johnson MD Unavailable [phone] King Mendoza MD Unavailable + King Mendoza MD Primary Care Prov ider Jhon Lou MD Primary Care Provider [phone] Blu Bertrand MD Unavailable Marek García MD Unavailable [phone] Clay Sparks MD Unavailable Karyna Latishamehul Coleman DPM Unavailable + Jhon Lou MD Unavailable Lavelle Scott MD Unavailable [phone] Katie Cantu RN Unavailable [email or web address] Nadine Martinez OT Unavailable [phone] Nadine Martinez OT Unavailable Nadine Martinez OT Unavailable [phone] Nadine Martinez OT Unavailable [phone] Encounter Details Date Type Department Care Team (Late st Contact Info) Description 04/22/2018 Ancillary Orders Non-Invasive Cardiology [address] [place] [address] [place] [address] Vikram Naik MD [address] [place] [address] [place] [address] [email or web address] Heart block Social History Tobacco Use Types Packs/Day [...] Description 04/09/2025 3:00 PM EDT Office Visit [facility] [address] [place] [address] [address]rd Floor, [address] [place], [place] [phone] Edie Unger, KATHARINE 22 [facility], [address] [place], [place] [phone] [email or web address] 06/19/2025 1:30 PM EST Office Visit [facility] Clinic 10 [place] [address] Nisreen Maza CNP 10 [place] [address] [email or web address] documented as of this encounter Results * DEVICE CHECK: PPM REMOTE INTERROGATION WITH COLLECTIONS MANAGER REVIEW (04/22/2018 1:57 PM EST) Narrative Vikram Naik MD - 04/24/2018 5:19 PM EST Reason for appointment: Remote pacemaker interrogation HPI: Routine 3 month remote pacemaker interrogation. No device related complaints. Indication for device: Heart block. Examination: Device type: Pacemaker Manager Pharmacy: [facility] Mode: DDD LRL/UPL: 60/130 bpm Mode switches: 100 episodes, 10% burden High V rates: 0 Thresholds, impedances, and sensing stable. AF/AT: Patient is currently taking Eliquis daily. Atrial pacin% Ventricular pacin% Battery: 8 yrs Additional comments: Device functioning appropriately. Normal device function. Patient to follow-up for continued monitoring every 3 months. Report prepared by Freddy Aguila RN Vikram Naik MD [facility] ORDER DEEPA Final Result documented in this encounter Visit Diagnoses Diagnosis Heart block Unspecified conduction disorder Heart block Unspecified conduction disorder documented in this encounter Additional Health Concerns Infection Onset Date Last Indicated Resolved Time CoV-Risk Comment:Per note documentation 09/01/2024 09/01/2024 1:51 PM EDT documented as of this encounter Care Teams Dictating Machine Transcriber Relationship Specialty Start Date End Date King Mendoza MD [address] [place] [address] [email or web address] PCP - General 05/10/17 02/11/20 Jhon Lou MD 22 [facility], [address] [place] [address] PCP - General Internal Medicine 02/12/20 Fareed Pinzon MD [address] [place] [address] [email or web address] Historical LMR Provider 03/26/17 06/18/21 Chon Candelaria, TOMI [address] [place] [address] Historical LMR Provider 03/26/1702/12/20 Estefania Cadena NP [address] [place] [address] Historical LMR Provider 03/26/1702/11 Vikram Naik MD [address] [place] [address] [email or web address] Historical LMR Provider 03/26/17 Gely Arevalo, TOMI [address] [place] [address] [place] [address] [email or web address] Historical LMR Provider 03/26/17 2 Wendy Abbott NP 22 [place] [address] Historical LMR Provider 03/26/17 Roseline Romero MD [address] [place] [address] [place] [address] Historical LMR Provider 03/26/17 06/18/21 Morteza Xiao MD [address] [facility] [address] [place] [address] Historical LMR Provider 03/26/17 2 Claudia Alvarez MD 22 [facility], 1st [place] [address] Historical LMR Provider 03/26/17 Clay Sands MD 22 [facility], [address] [place] [address] Historical LMR Provider 03/26/17 0 Manny Johnson MD 22 [place] [address] Historical LMR Provider 03/26/17 0 King Mendoza MD 22 [place] [address] [email or web address] Historical LMR Provider 03/26/17 Blu Bertrand MD [address] [address] Nephrology 02/13/20 Marek García MD [address] [address] Ophthalmology 02/13/20 02/13/20 Clay Sparks MD [address] [place] [address] Ophthalmology 02/13/20 Sarita Troncoso DPM [address] [place] [address] [email or web address] Podiatry 02/13/20 Jhon Lou MD [address] [place] [address] [address] [place] [address] [email or web address] Insurance Assigned Provider 09/15/23 Lavelle Scott MD [address] [place] [address] [email or web address] Primary Oncologist Medical Oncology 02/14/22 Katie Cantu RN [address] [place] [address] [email or web address] Wool Fleece Sorter 03/01/22 04/04/22 Nadine Martinez, OT 30 [place] [address] [email or web address] Transitions Wool Fleece SorterFlake Or Shred Roll Operator Therapy 08/15/24 08/26/24 Nadine Martinez, OT 30 [place] [address] [email or web address] Transitions Wool Fleece SorterFlake Or Shred Roll Operator Therapy 08/15/24 08/26/24 Nadine Martinez, OT 30 [place] [address] [email or web address] Transitions Wool Fleece SorterFlake Or Shred Roll Operator Therapy 08/18/24 08/18/24 Nadine Martinez, OT 30 [place] [address] ([email or web address]) [email or web address] Transitions Wool Fleece SorterFlake Or Shred Roll Operator Therapy 08/28/24 09/22/24 documented as of this encounter Additional Source Comments The information contained in this document represents components of the legal health record. It is not the complete legal health record.[facility]
--- OUTSIDE RECORDS SUMMARY | 2025-04-01 06:07 | XMS_ITS | Encounter Summary ---
Author Organization [facility] Address [address] [place] [address] Phone Care Team Providers Care Call Worker Person Name Role Phone Vikram Naik MD Unavailable [phone] Claudia Alvarez MD Unavailable [phone] King Mendoza MD Unavailable + Jhon Lou MD Primary Care Provider [phone] Blu Bertrand MD Unavailable Clay Sparks MD Unavailable Sarita Troncoso DPM Unavailable + Jhon Lou MD Unavailable [phone] Lavelle Scott MD Unavailable [phone] Nadine Martinez OT Unavailable Nadine Martinez OT Unavailable Nadine Martinez OT Unavailable Nadine Martinez OT Unavailable Encounter Details Date Type Department Care Team (Late st Contact Info) Description 09/19/2022 Procedure Pass Non-Invasive Cardiology [address] [place] [address] Social History Tobacco Use Types [...] 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, [employer]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 documented as of this encounter Plan of Treatment Upcoming Encounters Date Type Department Care Team (Late st Contact Info) Description 04/09/2025 3:00 PM EDT Office Visit [facility] [address] [place] [address] 3rd Floor, [address] [place] [address] Edie Unger CNP [address] [place] [address], [address] [place] [address] [email or web address] 06/19/2025 1:30 PM EST Office Visit [facility] [address] [place] [address] Nisreen Maza CNP [address] [place] [address] documented as of this encounter Visit Diagnoses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documented in this encounter Additional Health Concerns Infection Onset Date Last Indicated Resolved Time CoV-Risk Comment:Per note documentation 09/01/2024 09/01/2024 1:51 PM EDT Assessment Noted Time PHQ-2 Depression Total Score: 0 05/13/20 20 11:29 AM EST documented as of this encounter Care Teams Call Worker Person Relationship Specialty Start Date End Date Jhon Lou MD [address] [place] [address], [address] [place] [address] [email or web address] PCP - General Internal Medicine 02/12/20 Vikram Naik MD [email or web address] Historical LMR Provider 03/26/17 Claudia Alvarez MD 22 [facility], [address] [place] [address] [email or web address] Historical LMR Provider 03/26/17 King Mendoza MD 22 [facility], [address] [place] [address] [email or web address] Historical LMR Provider 03/26/17 Blu Bertrand MD 15 [facility] [address] [place] [address] [email or web address] Nephrology 02/13/20 Clay Sparks MD [address] [place] [address] 2 [place] [address] Ophthalmology 02/13/20 Sarita Troncoso DPM [address] [place] [address] 7 [place] [address] Podiatry 02/13/20 Jhon Lou MD 22 [facility], [address] [place] [address] Insurance Assigned Provider 09/15/23 Lavelle Scott MD [address] [place] [address] Primary Oncologist Medical Oncology 02/14/22 Nadine Martinez, OT 30 [place] [address] Transitions Heel CovererSalesperson Toy Trains And Accessories Therapy 08/15/24 08/26/24 Nadine Martinez, OT 30 [place] [address] Transitions Heel CovererSalesperson Toy Trains And Accessories Therapy 08/15/24 08/26/24 Nadine Martinez, OT 30 [place] [address] Transitions Heel CovererSalesperson Toy Trains And Accessories Therapy 08/18/24 08/18/24 Nadine Martinez, OT 30 [place] [address] Transitions Heel CovererSalesperson Toy Trains And Accessories Therapy 08/28/24 09/22/24 documented as of this encounter Additional Source Comments The information contained in this document represents components of the legal health record. It is not the complete legal health record.[facility]
== END 2025-04-01 06:00 | disposition home or self-care (01) ==
LOC: HO.MMNH1L 05:59
PROVIDERS: Visit Provider Physician Assistant Medical
DX: S81.802D Unspecified open wound, left lower leg, subsequent encounter (principal)
CPT/HCPCS: 87070; 87077; 87186; 87205